=== PATIENT | female | born 1945 | race Caucasian/White ===

== ENCOUNTER 2017-07-03 12:01 | Inpatient (IN) | payer MEDICARE ==
[2017-07-03] MEDS: HYDROmorphone 2 MG/ML VIAL IV ×2 (12:34→13:37)
[2017-07-03] MEDS: IV NORMAL SALINE 1000ML BAG 1,000 ML IV ×3 (13:36→21:57)
[2017-07-03] MEDS ORDERED: ONDANSETRON PF 4 MG/2 ML VIAL. IV (13:45)
[2017-07-03] MEDS: ONDANSETRON PF 4 MG/2 ML VIAL. IV (14:31)
[2017-07-03] MEDS: MORPHINE SULFATE 2 MG/ML DISP.SYRIN. IV ×2 (14:38→21:57)
[2017-07-03 18:03] LABS: INR 1.2 (0.8-1.1); PARTIAL THROMBOPLASTIN TIME 24 SEC (24-38); PROTHROMBIN TIME PATIENT 14.4 SEC (11.7-14.0)
[2017-07-03] MEDS ORDERED: diazePAM 5 MG TABLET PO (19:15)
[2017-07-04] MEDS: CYCLOBENZAPRINE 10 MG TABLET. PO ×2 (00:54→23:11)
[2017-07-04] MEDS: MORPHINE SULFATE 2 MG/ML DISP.SYRIN. IV ×2 (01:01→03:08)
[2017-07-04 05:00] LABS: ADD MAN DIFF? NO
[2017-07-04] MEDS: HYDROmorphone 2 MG/ML VIAL IVP ×2 (05:12→13:57)
[2017-07-04] MEDS: IV NORMAL SALINE 1000ML BAG 1,000 ML IV (05:14)
[2017-07-04 05:24] LABS: BASO % 1 % (0-3); EOS # 0.1 x10^3/uL (0.0-0.7); EOS % 1 % (0-3); HEMATOCRIT 31.3 % (36.0-47.0); LYMPH # 0.7 x10^3/uL (1.0-4.8); LYMPH % 13 % (24-48); MEAN CORPUSCULAR HEMOGLOBIN 28 pg (25-35); MEAN CORPUSCULAR HGB CONC 32 g/dL (31-37); MEAN CORPUSCULAR VOLUME 88 fL (79-100); MONO # 0.5 x10^3/uL (0.0-1.1); MONO % 10 % (0-9); NEUT # 3.8 x10^3uL (1.8-7.7); NEUT % 76 % (31-73); PLATELET COUNT 142 x10^3/uL (140-400); RED BLOOD COUNT 3.55 x10^6/uL (3.50-5.40); RED CELL DISTRIBUTION WIDTH 21.9 % (11.5-14.5)
[2017-07-04 05:59] LABS: ANION GAP 7 (6-14); BLOOD UREA NITROGEN 18 mg/dL (7-20); CALCIUM 8.4 mg/dL (8.5-10.1); CARBON DIOXIDE 27 mmol/L (21-32); CHLORIDE 107 mmol/L (98-107); GFR 54.3; GLUCOSE 103 mg/dL (70-99); POTASSIUM 4.1 mmol/L (3.5-5.1); SODIUM 141 mmol/L (136-145)
[2017-07-04] MEDS: IV RINGERS,LACTATED 1000ML 1,000 ML IV (07:00)
[2017-07-04] MEDS ORDERED: HYDROmorphone 2 MG/ML VIAL IV (07:00)
[2017-07-04] MEDS ORDERED: LIDOCAINE 1% PF 2 ML VIAL. ID (07:00)
[2017-07-04] MEDS ORDERED: fentaNYL PF VIAL 100 MCG/2 ML VIAL IV ×2 (07:00)
[2017-07-04] MEDS ORDERED: MORPHINE SULFATE 2 MG/ML DISP.SYRIN. IV (07:00)
[2017-07-04] MEDS ORDERED: PROCHLORPERAZINE 10 MG/2 ML VIAL. IV (07:00)
[2017-07-04] MEDS ORDERED: NEOSTIGMINE METHYLSULFATE 5 MG/5 ML SYRINGE. (07:10)
[2017-07-04] MEDS ORDERED: fentaNYL PF VIAL 100 MCG/2 ML VIAL ×2 (07:10→09:11)
[2017-07-04] MEDS ORDERED: ROCURONIUM 50 MG/5 ML VIAL. (07:10)
[2017-07-04] MEDS ORDERED: MIDAZOLAM HCL/PF 2 MG/2 ML VIAL. (07:10)
[2017-07-04] MEDS ORDERED: PROPOFOL 20 ML IV (07:11)
[2017-07-04] MEDS ORDERED: DEXAMETHASONE SOD PHOS 20 MG/5 ML VIAL. (07:11)
[2017-07-04] MEDS ORDERED: GLYCOPYRROLATE 1 MG/5 ML VIAL. (07:11)
[2017-07-04] MEDS ORDERED: LIDOCAINE 2% PF Vial for OR 5 ML VIAL. (07:11)
[2017-07-04] MEDS ORDERED: ONDANSETRON PF 4 MG/2 ML VIAL. (07:11)
[2017-07-04] MEDS ORDERED: ceFAZolin SODIUM 1 GM in IV DEXTROSE 5% 50 ML IV (07:15)
[2017-07-04] MEDS ORDERED: PHENYLEPHRINE in 0.9% NACL PF 1 MG/10 ML SYRINGE. IV (07:29)
[2017-07-04] MEDS ORDERED: ALBUMIN HUMAN 5% 0 ML IV (08:16)
[2017-07-04] MEDS ORDERED: ALBUMIN HUMAN 5% 500 ML IV (08:16)
[2017-07-04] MEDS ORDERED: MORPHINE SULFATE 4 MG/ML DISP.SYRIN. IV (08:35)
[2017-07-04] MEDS ORDERED: VASOPRESSIN 20 UNIT/ML VIAL. (08:53)
[2017-07-04] MEDS: BUPIVACAINE-EPI 0.25%-1:200000 50 ML VIAL. (09:16)
[2017-07-04] MEDS ORDERED: SEVOFLURANE > 120 MINUTES. IH (09:29)
[2017-07-04 11:01] LABS: ADD MAN DIFF? NO
[2017-07-04 11:18] LABS: BASO % 0 % (0-3); EOS % 0 % (0-3); HEMATOCRIT 25.1 % (36.0-47.0); HEMOGLOBIN 8.2 g/dL (12.0-15.5); LYMPH # 0.3 x10^3/uL (1.0-4.8); LYMPH % 4 % (24-48); MEAN CORPUSCULAR HEMOGLOBIN 29 pg (25-35); MEAN CORPUSCULAR HGB CONC 33 g/dL (31-37); MEAN CORPUSCULAR VOLUME 89 fL (79-100); MONO # 0.3 x10^3/uL (0.0-1.1); MONO % 3 % (0-9); NEUT # 8.2 x10^3uL (1.8-7.7); NEUT % 93 % (31-73); PLATELET COUNT 123 x10^3/uL (140-400); RED BLOOD COUNT 2.81 x10^6/uL (3.50-5.40); RED CELL DISTRIBUTION WIDTH 20.8 % (11.5-14.5); WHITE BLOOD COUNT 8.8 x10^3/uL (4.0-11.0)
[2017-07-04 12:36] LABS: ANISOCYTOSIS PRESENT; PLT ESTIMATE ADEQUATE (ADEQUATE)
[2017-07-04 13:13] LABS: % BANDS 2 % (0-9); % LYMPHS 3 % (24-48); % MONOS 1 % (0-10); % SEGS 94 % (35-66)
[2017-07-04 13:14] LABS: ANISOCYTOSIS PRESENT; PLT ESTIMATE ADEQUATE (ADEQUATE)
[2017-07-04] MEDS: oxyCODONE/APAP 5/325 1 TAB TABLET PO ×2 (13:56→23:12)
[2017-07-04 21:13] LABS: MRSA BY PCR Negative (Negative)
[2017-07-05] MEDS: HYDROmorphone 2 MG/ML VIAL IVP ×2 (01:47→08:45)
[2017-07-05] MEDS: ERGOCALCIFEROL (VITAMIN D2) 50,000 UNIT CAPSULE. PO ×2 (08:44→09:00)
[2017-07-05] MEDS: oxyCODONE/APAP 5/325 1 TAB TABLET PO ×2 (08:45→14:54)
[2017-07-05] MEDS: CYCLOBENZAPRINE 10 MG TABLET. PO (09:59)
[2017-07-06] MEDS: oxyCODONE/APAP 5/325 1 TAB TABLET PO ×2 (03:10→13:42)
[2017-07-06] MEDS: IV NORMAL SALINE 1000ML BAG 1,000 ML IV ×3 (12:30→20:41)
[2017-07-06 13:28] LABS: BASO % 0 % (0-3); EOS # 0.2 x10^3/uL (0.0-0.7); EOS % 3 % (0-3); HEMATOCRIT 22.3 % (36.0-47.0); HEMOGLOBIN 7.3 g/dL (12.0-15.5); LYMPH # 0.3 x10^3/uL (1.0-4.8); LYMPH % 5 % (24-48); MEAN CORPUSCULAR HEMOGLOBIN 29 pg (25-35); MEAN CORPUSCULAR HGB CONC 33 g/dL (31-37); MEAN CORPUSCULAR VOLUME 88 fL (79-100); MONO # 0.4 x10^3/uL (0.0-1.1); MONO % 6 % (0-9); NEUT # 5.3 x10^3uL (1.8-7.7); NEUT % 85 % (31-73); PLATELET COUNT 129 x10^3/uL (140-400); RED BLOOD COUNT 2.53 x10^6/uL (3.50-5.40); RED CELL DISTRIBUTION WIDTH 20.8 % (11.5-14.5); WHITE BLOOD COUNT 6.2 x10^3/uL (4.0-11.0)
[2017-07-06 13:31] LABS: ADD MAN DIFF? YES
[2017-07-06 13:38] LABS: ANION GAP 9 (6-14); BLOOD UREA NITROGEN 12 mg/dL (7-20); CALCIUM 8.4 mg/dL (8.5-10.1); CARBON DIOXIDE 28 mmol/L (21-32); CHLORIDE 101 mmol/L (98-107); CREATININE 0.9 mg/dL (0.6-1.0); GFR 61.4; GLUCOSE 106 mg/dL (70-99); INR 1.3 (0.8-1.1); PARTIAL THROMBOPLASTIN TIME 27 SEC (24-38); POTASSIUM 3.9 mmol/L (3.5-5.1); PROTHROMBIN TIME PATIENT 15.2 SEC (11.7-14.0); SODIUM 138 mmol/L (136-145)
[2017-07-06 13:54] LABS: % BANDS 12 % (0-9); % EOS 1 % (0-5); % LYMPHS 3 % (24-48); % MONOS 6 % (0-10); % SEGS 78 % (35-66); PLT ESTIMATE ADEQUATE (ADEQUATE)
[2017-07-06 13:55] LABS: ANISOCYTOSIS MOD; HYPOCHROMIA SLIGHT; STOMATOCYTES FEW
[2017-07-06] MEDS: SENNOSIDES/DOCUSATE 8.6/50MG TABLET. PO (20:40)
[2017-07-07] MEDS: IV NORMAL SALINE 1000ML BAG 1,000 ML IV (04:14)
[2017-07-07] MEDS: oxyCODONE/APAP 5/325 1 TAB TABLET PO ×2 (05:31→19:57)
[2017-07-07 06:19] LABS: MEAN CORPUSCULAR HGB CONC 33 g/dL (31-37)
[2017-07-07 06:23] LABS: HEMATOCRIT 19.1 % (36.0-47.0); HEMOGLOBIN 6.4 g/dL (12.0-15.5)
[2017-07-07 09:48] LABS: IMMEDIATE SPIN CROSSMATCH 1 1
[2017-07-07] MEDS: SENNOSIDES/DOCUSATE 8.6/50MG TABLET. PO (19:56)
[2017-07-08 05:02] LABS: ADD MAN DIFF? NO
[2017-07-08 05:29] LABS: BASO % 0 % (0-3); EOS # 0.4 x10^3/uL (0.0-0.7); EOS % 12 % (0-3); LYMPH # 0.4 x10^3/uL (1.0-4.8); LYMPH % 14 % (24-48); MEAN CORPUSCULAR HEMOGLOBIN 30 pg (25-35); MEAN CORPUSCULAR HGB CONC 33 g/dL (31-37); MEAN CORPUSCULAR VOLUME 89 fL (79-100); MONO # 0.3 x10^3/uL (0.0-1.1); MONO % 9 % (0-9); NEUT % 64 % (31-73); PLATELET COUNT 169 x10^3/uL (140-400); RED BLOOD COUNT 2.71 x10^6/uL (3.50-5.40); RED CELL DISTRIBUTION WIDTH 18.2 % (11.5-14.5); WHITE BLOOD COUNT 3.1 x10^3/uL (4.0-11.0)
[2017-07-08 05:57] LABS: ANION GAP 9 (6-14); BLOOD UREA NITROGEN 12 mg/dL (7-20); CALCIUM 8.6 mg/dL (8.5-10.1); CARBON DIOXIDE 27 mmol/L (21-32); CHLORIDE 104 mmol/L (98-107); CREATININE 0.7 mg/dL (0.6-1.0); GLUCOSE 77 mg/dL (70-99); POTASSIUM 3.5 mmol/L (3.5-5.1); SODIUM 140 mmol/L (136-145)
[2017-07-08] MEDS: oxyCODONE/APAP 5/325 1 TAB TABLET PO ×3 (10:59→21:58)
[2017-07-08] MEDS: POTASSIUM CHLORIDE 20 MEQ TABLET.ER. PO (15:14)
[2017-07-08] MEDS: SENNOSIDES/DOCUSATE 8.6/50MG TABLET. PO (21:58)
[2017-07-09] MEDS: oxyCODONE/APAP 5/325 1 TAB TABLET PO (06:00)
[2017-07-09] MEDS ORDERED: BISACODYL 10 MG SUPP.RECT. PR (08:45)
[2017-07-09] MEDS ORDERED: MAGNESIUM HYDROXIDE 2,400 MG/30 ML ORAL.SUSP. PO (08:45)
[2017-07-09] MEDS: DOCUSATE SODIUM 100 MG CAPSULE. PO (09:00)
== END 2017-07-09 16:05 | DRG 480 ==
LOC: SURG 12:01 → 4 NORTH 13:34
PROVIDERS: Obstetrics & Gynecology
PROC: 0QS606Z Reposition Right Upper Femur with Intramedullary Internal Fixation Device, Open Approach (ICD-10-PCS; principal; 2017-07-04 07:23)
PROC: 30233N1 Transfusion of Nonautologous Red Blood Cells into Peripheral Vein, Percutaneous Approach (ICD-10-PCS; 2017-07-04 07:23)
DX: S72.451A Displaced supracondylar fracture without intracondylar extension of lower end of right femur, initial encounter for closed fracture (principal); J96.00 Acute respiratory failure, unspecified whether with hypoxia or hypercapnia; R71.0 Precipitous drop in hematocrit; C67.9 Malignant neoplasm of bladder, unspecified; E55.9 Vitamin D deficiency, unspecified; I95.1 Orthostatic hypotension; W00.0XXA Fall on same level due to ice and snow, initial encounter; K59.00 Constipation, unspecified; Z85.51 Personal history of malignant neoplasm of bladder; Z87.891 Personal history of nicotine dependence; Z88.1 Allergy status to other antibiotic agents; Z92.21 Personal history of antineoplastic chemotherapy; Z92.3 Personal history of irradiation; Z88.8 Allergy status to other drugs, medicaments and biological substances; Z90.49 Acquired absence of other specified parts of digestive tract; Z98.51 Tubal ligation status; Y93.89 Activity, other specified; Y92.89 Other specified places as the place of occurrence of the external cause; Y99.8 Other external cause status
CPT/HCPCS: 36415; 71045; 72170; 73552; 73560; 73700; 76000; 80048; 82306; 82533; 84443; 85007; 85014; 85018; 85025; 85610; 85730; 86850; 86900; 86901; 86920; 87641; 93005; 96374; 96375; 96376; 97110-GP; 97116-GP; 97162-GP; 97166-GO; 97530-GP; 97535-GO; 99285; 99285-25; C1713; J0690; J1100; J1170; J2250; J2270; J2370; J2405; J2704; J2710; J3010; J3490; J7030; J7120; P9016; P9045

== ENCOUNTER 2017-11-01 11:45 | Emergency (ER) | payer MEDICARE ==
[2017-11-01 12:28] LABS: BILIRUBIN,URINE NEGATIVE (NEG); CLARITY,URINE CLEAR; COLOR,URINE YELLOW; GLUCOSE,URINE NEGATIVE (NEG); NITRITE,URINE POSITIVE (NEG); PROTEIN,URINE NEGATIVE (NEG-TRACE); UROBILINOGEN,URINE 0.2 mg/dL (0.2 mg/dL)
[2017-11-01 12:43] LABS: BACTERIA,URINE 0 /HPF (0-FEW); RBC,URINE 0 /HPF (0-2); WBC,URINE RARE /HPF (0-4)
[2017-11-01] MEDS: CYCLOBENZAPRINE 10 MG TABLET. PO (12:54)
[2017-11-01] MEDS: HYDROcodone/APAP 5/325MG 1 TAB TABLET PO (12:55)
== END 2017-11-01 13:42 | disposition home or self-care (01) ==
LOC: ER 13:42
DX: N39.0 Urinary tract infection, site not specified (principal); Z85.51 Personal history of malignant neoplasm of bladder; Z85.42 Personal history of malignant neoplasm of other parts of uterus
CPT/HCPCS: 81001; 87086; 99284

== ENCOUNTER 2018-02-11 13:42 | Inpatient (IN) | payer MEDICARE ==
[~2018-02-11] VITALS: Ht 162.6 cm; Wt 68.0 kg
[~2018-02-11 13:42] MED LIST: ACET325T9 PO; AMOX1TAB61 PO; BP Med PO; CEPH500T PO; CYCL10TA2 PO; DOCU-109 PO; ERGO500027 PO; FURO-69 PO; HYDR-2678 PO; HYDR-2680 PO; HYDR-971 PO; INSU100C4 SQ; INSU100V8 SQ; Loperamide Hcl PO; MORP15TA80 PO; ONDA8TAB9 PO; OXYC1TAB7 PO; Oxycodone Hcl/Acetaminophen PO; Potassium PO; SENN-22 PO; [UNRECOGNIZED DRUG - REMARK]
--- NOTE | 2018-02-11 16:05 | EKG ---
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
[2018-02-11 16:17] LABS: BASO % 0 % (0-3); EOS # 0.1 x10^3/uL (0.0-0.7); EOS % 0 % (0-3); HEMATOCRIT 35.1 % (36.0-47.0); HEMOGLOBIN 11.2 g/dL (12.0-15.5); LYMPH # 0.5 x10^3/uL (1.0-4.8); LYMPH % 4 % (24-48); MEAN CORPUSCULAR HEMOGLOBIN 28 pg (25-35); MEAN CORPUSCULAR HGB CONC 32 g/dL (31-37); MEAN CORPUSCULAR VOLUME 89 fL (79-100); MONO # 0.5 x10^3/uL (0.0-1.1); MONO % 4 % (0-9); NEUT # 11.5 x10^3uL (1.8-7.7); NEUT % 92 % (31-73); PLATELET COUNT 598 x10^3/uL (140-400); RED BLOOD COUNT 3.93 x10^6/uL (3.50-5.40); RED CELL DISTRIBUTION WIDTH 20.2 % (11.5-14.5); WHITE BLOOD COUNT 12.5 x10^3/uL (4.0-11.0)
[2018-02-11 16:27] LABS: CREATININE 0.9 mg/dL (0.6-1.0); GFR 61.4; POTASSIUM 4.7 mmol/L (3.5-5.1)
[2018-02-11 16:34] LABS: TOTAL BILIRUBIN 0.4 mg/dL (0.2-1.0); TOTAL PROTEIN 8.3 g/dL (6.4-8.2)
[2018-02-11 16:36] LABS: % BANDS 14 % (0-9); % LYMPHS 7 % (24-48); % MONOS 3 % (0-10); % SEGS 76 % (35-66); PLT ESTIMATE INCREASED (ADEQUATE)
[2018-02-11 16:37] LABS: TOXIC GRANULATION PRESENT
[2018-02-11 16:38] LABS: ANISOCYTOSIS MOD
--- NOTE | 2018-02-11 16:39 | PHYS DOC ---
Past Medical History Past Medical History: Arthritis, Cancer, Other Additional Past Medical Histor: BLADDER AND UTERINE CA Past Surgical History: Tonsillectomy, Tubal ligation Additional Past Surgical Histo: CARLEY BLADDER, CYSTECTOMY,UROSTOMY Alcohol Use: Sober Drug Use: None Adult General Chief Complaint Chief Complaint: WEAKNESS/GENERALIZED HPI HPI Patient is a 72 year old [f__sex] who presents with [] Review of Systems Review of Systems Constitutional: Denies fever or chills [] Eyes: Denies change in visual acuity, redness, or eye pain [] HENT: Denies nasal congestion or sore throat [] Respiratory: Denies cough or shortness of breath [] Cardiovascular: No additional information not addressed in HPI [] GI: Denies abdominal pain, nausea, vomiting, bloody stools or diarrhea [] : Denies dysuria or hematuria [] Musculoskeletal: Denies back pain or joint pain [] Integument: Denies rash or skin lesions [] Neurologic: Denies headache, focal weakness or sensory changes [] Endocrine: Denies polyuria or polydipsia [] All other systems were reviewed and found to be within normal limits, except as documented in this note. Current Medications Current Medications Current Medications Medications (Trade) Dose Ordered Sig/Julisa Start Time Stop Time Status Last Admin Dose Admin Info (CONTRAST GIVEN -- Rx MONITORING) 1 each PRN DAILY PRN 02/11/18 16:45 02/13/18 16:44 Iohexol (Omnipaque 240 Mg/ml) 50 ml 1X ONCE 02/11/18 17:00 02/11/18 17:01 DC 02/11/18 17:00 50 ML Iohexol (Omnipaque 300 Mg/ml) 75 ml 1X ONCE 02/11/18 17:00 02/11/18 17:01 DC 02/11/18 17:00 75 ML Metronidazole 100 ml @ 100 mls/hr 1X ONCE 02/11/18 18:30 02/11/18 19:29 DC Sodium Chloride 1,000 ml @ 125 mls/hr Q8H 02/11/18 19:51 02/12/18 19:50 Allergies Allergies Allergies Coded Allergies Type Severity Reaction Last Updated Verified levofloxacin Allergy Intermediate 11/01/17 Yes Physical Exam Physical Exam Constitutional: Well developed, well nourished, no acute distress, non-toxic appearance. [] HENT: Normocephalic, atraumatic, bilateral external ears normal, oropharynx moist, no oral exudates, nose normal. [] Eyes: PERRLA, EOMI, conjunctiva normal, no discharge. [] Neck: Normal range of motion, no tenderness, supple, no stridor. [] Cardiovascular:Heart rate regular rhythm, no murmur [] Lungs & Thorax: Bilateral breath sounds clear to auscultation [] Abdomen: Bowel sounds normal, soft, no tenderness, no masses, no pulsatile masses. [] Skin: Warm, dry, no erythema, no rash. [] Back: No tenderness, no CVA tenderness. [] Extremities: No tenderness, no cyanosis, no clubbing, ROM intact, no edema. [] Neurologic: Alert and oriented X 3, normal motor function, normal sensory function, no focal deficits noted. [] Psychologic: Affect normal, judgement normal, mood normal. [] Current Patient Data Vital Signs Vital Signs Date Time Temp Pulse Resp B/P (MAP) Pulse Ox O2 Delivery O2 Flow Rate FiO2 02/11/18 18:54 86 20 98 02/11/18 15:50 98.0 126/58 (80) Room Air 98.0 Lab Values Laboratory Tests Test 02/11/18 16:05 02/11/18 16:32 02/11/18 18:25 02/11/18 19:19 White Blood Count 12.5 x10^3/uL (4.0-11.0) H Red Blood Count 3.93 x10^6/uL (3.50-5.40) Hemoglobin 11.2 g/dL (12.0-15.5) L Hematocrit 35.1 % (36.0-47.0) L Mean Corpuscular Volume 89 fL (79-100) Mean Corpuscular Hemoglobin 28 pg (25-35) Mean Corpuscular Hemoglobin Concent 32 g/dL (31-37) Red Cell Distribution Width 20.2 % (11.5-14.5) H Platelet Count 598 x10^3/uL (140-400) H Neutrophils (%) (Auto) 92 % (31-73) H Lymphocytes (%) (Auto) 4 % (24-48) L Monocytes (%) (Auto) 4 % (0-9) Eosinophils (%) (Auto) 0 % (0-3) Basophils (%) (Auto) 0 % (0-3) Neutrophils # (Auto) 11.5 x10^3uL (1.8-7.7) H Lymphocytes # (Auto) 0.5 x10^3/uL (1.0-4.8) L Monocytes # (Auto) 0.5 x10^3/uL (0.0-1.1) Eosinophils # (Auto) 0.1 x10^3/uL (0.0-0.7) Basophils # (Auto) 0.0 x10^3/uL (0.0-0.2) Segmented Neutrophils % 76 % (35-66) H Band Neutrophils % 14 % (0-9) H Lymphocytes % 7 % (24-48) L Monocytes % 3 % (0-10) Toxic Granulation Present Platelet Estimate Increased (ADEQUATE) Anisocytosis Mod Sodium Level 134 mmol/L (136-145) L Potassium Level 4.7 mmol/L (3.5-5.1) Chloride Level 95 mmol/L (98-107) L Carbon Dioxide Level 23 mmol/L (21-32) Anion Gap 16 (6-14) H Blood Urea Nitrogen 27 mg/dL (7-20) H Creatinine 0.9 mg/dL (0.6-1.0) Estimated GFR (Cockcroft-Gault) 61.4 BUN/Creatinine Ratio 30 (6-20) H Glucose Level 110 mg/dL (70-99) H Calcium Level 10.0 mg/dL (8.5-10.1) Total Bilirubin 0.4 mg/dL (0.2-1.0) Aspartate Amino Transferase (AST) 17 U/L (15-37) Alanine Aminotransferase (ALT) 12 U/L (14-59) L Alkaline Phosphatase 285 U/L (46-116) H Total Protein 8.3 g/dL (6.4-8.2) H Albumin 2.1 g/dL (3.4-5.0) L Albumin/Globulin Ratio 0.3 (1.0-1.7) L Stool Occult Blood Positive (NEG) Urine Collection Type Void Urine Color Yellow Urine Clarity Clear Urine pH 6.0 Urine Specific [place] >=1.030 Urine Protein Negative mg/dL (NEG-TRACE) Urine Glucose (UA) Negative mg/dL (NEG) Urine Ketones (Stick) 40 mg/dL (NEG) Urine Blood Small (NEG) Urine Nitrite Positive (NEG) Urine Bilirubin Negative (NEG) Urine Urobilinogen Dipstick 1.0 mg/dL (0.2 mg/dL) Urine Leukocyte Esterase Small (NEG) Urine RBC 1-2 /HPF (0-2) Urine WBC >40 /HPF (0-4) Urine Squamous Epithelial Cells Few /LPF Urine Bacteria Moderate /HPF (0-FEW) Urine Hyaline Casts Moderate /HPF Urine Mucus Slight /LPF Lactic Acid Level 1.4 mmol/L (0.4-2.0) Laboratory Tests 02/11/18 16:05 Laboratory Tests 02/11/18 16:05 EKG EKG 1601, SR no STEMI read by Dr. Singh[] Radiology/Procedures Radiology/Procedures 1633 rectal exam, no external or palpable intermal hemorrhoids, foul smelling, yellow, liquid stool present on exam. Georgina and Merly RNs at bedside for vocational evaluator. Course & Med Decision Making Course & Med Decision Making Pertinent Labs and Imaging studies reviewed. (See chart for details) [] Dragon Disclaimer Dragon Disclaimer This electronic medical record was generated, in whole or in part, using a voice recognition dictation system. Departure Departure Impression: Primary Impression: GI bleed Disposition: ADMITTED INPATIENT Admitting Physician: Xie. Francois Condition: STABLE Referrals: NO PCP (PCP) Problem Qualifiers Primary Impression: GI bleed GI bleed type/associated pathology: unspecified gastrointestinal hemorrhage type Qualified Codes: K92.2 - Gastrointestinal hemorrhage, unspecified VIKKI CASH APRN Feb 11, 2018 16:39
[2018-02-11] MEDS ORDERED: CONTRAST GIVEN. MC PRN (16:45)
[2018-02-11 16:48] LABS: FECAL OB PT POSITIVE (NEG)
[2018-02-11] MEDS ORDERED: IOHEXOL 240 MG/ML 50ML VIAL. PO ONE (17:00)
[2018-02-11] MEDS ORDERED: IOHEXOL 300 MG/ML 100ML VIAL. IV ONE (17:00)
[2018-02-11 17:05] LABS: ALBUMIN 2.1 g/dL (3.4-5.0); ALBUMIN/GLOBULIN RATIO 0.3 (1.0-1.7)
[2018-02-11] MEDS ORDERED: IV NORMAL SALINE 1000ML BAG 1,000 ML IV ONE (18:15)
[2018-02-11 18:38] LABS: BILIRUBIN,URINE NEGATIVE (NEG); CLARITY,URINE CLEAR; COLOR,URINE YELLOW; NITRITE,URINE POSITIVE (NEG); PROTEIN,URINE NEGATIVE (NEG-TRACE)
--- NOTE | 2018-02-11 18:53 | RAD ---
CT scan abdomen and pelvis with contrast 02/11/2018 CLINICAL HISTORY: Diarrhea with blood in stool. History of cervical carcinoma Colon after the oral and intravenous administration of contrast, contiguous, 5 mm axial sections were obtained through the abdomen and pelvis 75 cc of Omnipaque 300 were administered intravenously during this examination. One or more of the following individualized dose reduction techniques were utilized for this study: 1. Automated exposure control. 2. Adjustment of the mA and/or kV according to patient size. 3. Use of iterative reconstruction technique. FINDINGS: Comparison study is dated 12/25/2013. Images through the lung bases demonstrate minimal dependent subsegmental atelectasis bilaterally. The liver, spleen, pancreas, and left kidney are within normal limits. Atrophy of the right kidney is noted. Atherosclerotic calcification of the abdominal aorta and its branches is seen. Mild aneurysmal dilatation of infrarenal abdominal aorta is seen. This measures 3 cm in greatest transverse diameter. No extension to involve either common iliac artery is noted. The gallbladder is distended. No free fluid or free air is seen within the abdomen. The nephrostomy tubes seen on the previous examination have been removed. The patient is post placement of an ileal loop urinary diversion. There is no evidence of bowel obstruction. Images through the pelvis demonstrate multiple diverticula involving the sigmoid colon. No inflammatory changes are seen in the adjacent fat. No free fluid is noted. An irregular air-containing structure is seen within the lower pelvis in the expected location of the urinary bladder. Air extends from this area to involve pubic bones, right greater than left. This is in the area of the patient's mass seen on the previous CT scan. Increased soft tissue density surrounds this air-containing area. This measures 7.9 x 5.2 x 3.8 cm in AP, transverse and craniocaudal dimensions. This is presumably related to patient's known cancer. Bony destruction of the pubic bones is seen, right greater than left. Ill-defined pelvic lymphadenopathy is seen which is new since the previous examination. An intramedullary andrés is seen within the proximal right femur. Mild S-shaped curvature of the thoracolumbar spine is seen. Degenerative changes are seen involving the lower thoracic and throughout the lumbar spine and both hips. IMPRESSION: An irregular air-containing structure seen within the lower pelvis in the expected location the urinary bladder. This extends to involve the pubic bones. This is in the area the patient's mass seen on the previous CT scan. There is surrounding increased soft tissue density. This is presumably related to patient's known cancer. Bony destruction of the pubic bones is seen, right greater than left. Electronically signed by: Ancelmo Mac MD (02/11/2018 6:49 PM) [facility]
[2018-02-11 18:54] LABS: BACTERIA,URINE MODERATE /HPF (0-FEW); HYALINE CASTS, URINE MODERATE /HPF; SQUAMOUS EPITHELIAL CELL,UR FEW /LPF
[2018-02-11 18:55] LABS: WBC,URINE >40 /HPF (0-4)
[2018-02-11] MEDS ORDERED: ONDANSETRON PF 4 MG/2 ML VIAL. IV PRN (21:00)
[2018-02-11] MEDS ORDERED: DOCUSATE SODIUM 100 MG CAPSULE. PO PRN (21:00)
[2018-02-11 21:06] VITALS: BP 108/72
--- NOTE | 2018-02-11 21:18 | PDOC1 ---
History and Physical Date of Admission Date of Admission 02/11/18 Identification/Chief Complaint Chief Complaint weakness Source Source: Chart review, Patient History of Present Illness History of Present Illness 72yo F, coming for generalzied weakness x2 weeks. She has not been eating or drinking well in the past 2 weeks 2/2 low appetite. She noticed rectal blood clots last Sunday and Sunday, 3 times a day, but did not wanna come to hosp. and no PCP. SHe has had lower abd pain, no N/V. The BM has been ok in the past few days, but she felt the BM coming out of her vagina. fobt + in ER, HB 11.2. She has h/o uterus Ca 1.5 years ago, s/p RT, chemo and then sx with hysterctomy , also had bladder invasion and bladder was removed and now has ileal loop urinary diversion bag. Pt is supposed to fu with ONCO but not compliant. Abd ct : IMPRESSION: An irregular air-containing structure seen within the lower pelvis in the expected location the urinary bladder. This extends to involve the pubic bones. This is in the area the patient's mass seen on the previous CT scan. There is surrounding increased soft tissue density. This is presumably related to patient's known cancer. Bony destruction of the pubic bones is seen, right greater than left. Past Medical History Cardiovascular: No pertinent hx Pulmonary: No pertinent hx Hepatobiliary: No pertinent hx Infectious disease: Human papilloma virus Renal/: Acute renal failure Past Surgical History Past Surgical History: Hysterectomy Family History Family History: Hypertension Social History Smoke: Quit ALCOHOL: none Drugs: None Current Medications Current Medications Current Medications Medications (Trade) Dose Ordered Sig/Julisa Start Time Stop Time Status Last Admin Dose Admin Info (CONTRAST GIVEN -- Rx MONITORING) 1 each PRN DAILY PRN 02/11/18 16:45 02/13/18 16:44 Iohexol (Omnipaque 240 Mg/ml) 50 ml 1X ONCE 02/11/18 17:00 02/11/18 17:01 DC 02/11/18 17:00 50 ML Iohexol (Omnipaque 300 Mg/ml) 75 ml 1X ONCE 02/11/18 17:00 02/11/18 17:01 DC 02/11/18 17:00 75 ML Metronidazole 100 ml @ 100 mls/hr 1X ONCE 02/11/18 18:30 02/11/18 19:29 DC 02/11/18 18:30 100 MLS/HR Sodium Chloride 1,000 ml @ 125 mls/hr Q8H 02/11/18 19:51 02/12/18 19:50 Allergies Allergies Allergies Coded Allergies Type Severity Reaction Last Updated Verified levofloxacin Allergy Intermediate 11/01/17 Yes ROS Review of System CONSTITUTIONAL: No fever or chills EYES: No recent changes SKIN: No rash or itching CARDIOVASCULAR: No chest pain, syncope, palpitations, or edema RESPIRATORY: No SOB or cough GASTROINTESTINAL: No nausea, vomiting or abdominal pain NEUROLOGICAL: No headaches or weakness ENDOCRINE: No cold or heat intolerance GENITOURINARY: No urgency or frequency of urination MUSCULOSKELETAL: No back pain or joint pain LYMPHATICS: No enlarged lymph nodes PSYCHIATRIC: No anxiety or depression Physical Exam Physical Exam GEN.: No apparent distress. Alert and oriented. HEENT: Head is normocephalic, atraumatic NECK: Supple. LUNGS: Clear to auscultation. HEART: RRR, S1, S2 present. Peripheral pulses intact ABDOMEN: Soft, Positive bowel sounds. ileostomy for urine output. pubic area + tenderness. EXTREMITIES: Without any cyanosis. NEUROLOGIC: Normal speech, normal tone PSYCHIATRIC: Normal affect, normal mood. SKIN: No ulcerations Vitals Vitals Vital Signs Date Time Temp Pulse Resp B/P (MAP) Pulse Ox O2 Delivery O2 Flow Rate FiO2 02/11/18 18:54 86 20 98 02/11/18 15:50 98.0 126/58 (80) Room Air 98.0 Labs Labs Laboratory Tests Test 02/11/18 16:05 02/11/18 16:32 02/11/18 18:25 02/11/18 19:19 White Blood Count 12.5 x10^3/uL (4.0-11.0) Red Blood Count 3.93 x10^6/uL (3.50-5.40) Hemoglobin 11.2 g/dL (12.0-15.5) Hematocrit 35.1 % (36.0-47.0) Mean Corpuscular Volume 89 fL (79-100) Mean Corpuscular Hemoglobin 28 pg (25-35) Mean Corpuscular Hemoglobin Concent 32 g/dL (31-37) Red Cell Distribution Width 20.2 % (11.5-14.5) Platelet Count 598 x10^3/uL (140-400) Neutrophils (%) (Auto) 92 % (31-73) Lymphocytes (%) (Auto) 4 % (24-48) Monocytes (%) (Auto) 4 % (0-9) Eosinophils (%) (Auto) 0 % (0-3) Basophils (%) (Auto) 0 % (0-3) Neutrophils # (Auto) 11.5 x10^3uL (1.8-7.7) Lymphocytes # (Auto) 0.5 x10^3/uL (1.0-4.8) Monocytes # (Auto) 0.5 x10^3/uL (0.0-1.1) Eosinophils # (Auto) 0.1 x10^3/uL (0.0-0.7) Basophils # (Auto) 0.0 x10^3/uL (0.0-0.2) Segmented Neutrophils % 76 % (35-66) Band Neutrophils % 14 % (0-9) Lymphocytes % 7 % (24-48) Monocytes % 3 % (0-10) Toxic Granulation Present Platelet Estimate Increased (ADEQUATE) Anisocytosis Mod Sodium Level 134 mmol/L (136-145) Potassium Level 4.7 mmol/L (3.5-5.1) Chloride Level 95 mmol/L (98-107) Carbon Dioxide Level 23 mmol/L (21-32) Anion Gap 16 (6-14) Blood Urea Nitrogen 27 mg/dL (7-20) Creatinine 0.9 mg/dL (0.6-1.0) Estimated GFR (Cockcroft-Gault) 61.4 BUN/Creatinine Ratio 30 (6-20) Glucose Level 110 mg/dL (70-99) Calcium Level 10.0 mg/dL (8.5-10.1) Total Bilirubin 0.4 mg/dL (0.2-1.0) Aspartate Amino Transf (AST/SGOT) 17 U/L (15-37) Alanine Aminotransferase (ALT/SGPT) 12 U/L (14-59) Alkaline Phosphatase 285 U/L (46-116) Total Protein 8.3 g/dL (6.4-8.2) Albumin 2.1 g/dL (3.4-5.0) Albumin/Globulin Ratio 0.3 (1.0-1.7) Stool Occult Blood Positive (NEG) Urine Collection Type Void Urine Color Yellow Urine Clarity Clear Urine pH 6.0 Urine Specific [place] >=1.030 Urine Protein Negative mg/dL (NEG-TRACE) Urine Glucose (UA) Negative mg/dL (NEG) Urine Ketones (Stick) 40 mg/dL (NEG) Urine Blood Small (NEG) Urine Nitrite Positive (NEG) Urine Bilirubin Negative (NEG) Urine Urobilinogen Dipstick 1.0 mg/dL (0.2 mg/dL) Urine Leukocyte Esterase Small (NEG) Urine RBC 1-2 /HPF (0-2) Urine WBC >40 /HPF (0-4) Urine Squamous Epithelial Cells Few /LPF Urine Bacteria Moderate /HPF (0-FEW) Urine Hyaline Casts Moderate /HPF Urine Mucus Slight /LPF Lactic Acid Level 1.4 mmol/L (0.4-2.0) Laboratory Tests Test 02/11/18 16:05 02/11/18 16:32 02/11/18 18:25 02/11/18 19:19 White Blood Count 12.5 x10^3/uL (4.0-11.0) Red Blood Count 3.93 x10^6/uL (3.50-5.40) Hemoglobin 11.2 g/dL (12.0-15.5) Hematocrit 35.1 % (36.0-47.0) Mean Corpuscular Volume 89 fL (79-100) Mean Corpuscular Hemoglobin 28 pg (25-35) Mean Corpuscular Hemoglobin Concent 32 g/dL (31-37) Red Cell Distribution Width 20.2 % (11.5-14.5) Platelet Count 598 x10^3/uL (140-400) Neutrophils (%) (Auto) 92 % (31-73) Lymphocytes (%) (Auto) 4 % (24-48) Monocytes (%) (Auto) 4 % (0-9) Eosinophils (%) (Auto) 0 % (0-3) Basophils (%) (Auto) 0 % (0-3) Neutrophils # (Auto) 11.5 x10^3uL (1.8-7.7) Lymphocytes # (Auto) 0.5 x10^3/uL (1.0-4.8) Monocytes # (Auto) 0.5 x10^3/uL (0.0-1.1) Eosinophils # (Auto) 0.1 x10^3/uL (0.0-0.7) Basophils # (Auto) 0.0 x10^3/uL (0.0-0.2) Segmented Neutrophils % 76 % (35-66) Band Neutrophils % 14 % (0-9) Lymphocytes % 7 % (24-48) Monocytes % 3 % (0-10) Toxic Granulation Present Platelet Estimate Increased (ADEQUATE) Anisocytosis Mod Sodium Level 134 mmol/L (136-145) Potassium Level 4.7 mmol/L (3.5-5.1) Chloride Level 95 mmol/L (98-107) Carbon Dioxide Level 23 mmol/L (21-32) Anion Gap 16 (6-14) Blood Urea Nitrogen 27 mg/dL (7-20) Creatinine 0.9 mg/dL (0.6-1.0) Estimated GFR (Cockcroft-Gault) 61.4 BUN/Creatinine Ratio 30 (6-20) Glucose Level 110 mg/dL (70-99) Calcium Level 10.0 mg/dL (8.5-10.1) Total Bilirubin 0.4 mg/dL (0.2-1.0) Aspartate Amino Transf (AST/SGOT) 17 U/L (15-37) Alanine Aminotransferase (ALT/SGPT) 12 U/L (14-59) Alkaline Phosphatase 285 U/L (46-116) Total Protein 8.3 g/dL (6.4-8.2) Albumin 2.1 g/dL (3.4-5.0) Albumin/Globulin Ratio 0.3 (1.0-1.7) Stool Occult Blood Positive (NEG) Urine Collection Type Void Urine Color Yellow Urine Clarity Clear Urine pH 6.0 Urine Specific [place] >=1.030 Urine Protein Negative mg/dL (NEG-TRACE) Urine Glucose (UA) Negative mg/dL (NEG) Urine Ketones (Stick) 40 mg/dL (NEG) Urine Blood Small (NEG) Urine Nitrite Positive (NEG) Urine Bilirubin Negative (NEG) Urine Urobilinogen Dipstick 1.0 mg/dL (0.2 mg/dL) Urine Leukocyte Esterase Small (NEG) Urine RBC 1-2 /HPF (0-2) Urine WBC >40 /HPF (0-4) Urine Squamous Epithelial Cells Few /LPF Urine Bacteria Moderate /HPF (0-FEW) Urine Hyaline Casts Moderate /HPF Urine Mucus Slight /LPF Lactic Acid Level 1.4 mmol/L (0.4-2.0) VTE Prophylaxis Ordered VTE Prophylaxis Devices: Yes VTE Pharmacological Prophylaxi: No Assessment/Plan Assessment/Plan generalized weakness h/o uterine Ca post hysterectomy, cystectomy with ileal loop urinary diversion bag rectal bleeding, hb stable abd pain 2/2 possible recurrent Ca with bone mets lower back pain with sciatica moderate malnutrition leukocytosis plan: OB, onco, GI consult bone scan need verify home meds IVF in ER fobt + PTOT MARIANGEL WHALEY MD Feb 11, 2018 21:18
[2018-02-11] MEDS: IV NORMAL SALINE 1000ML BAG 1,000 ML IV SCH (21:24)
[2018-02-11] MEDS: MORPHINE SULFATE 2 MG/ML VIAL. IV PRN (21:34)
[2018-02-11 23:01] VITALS: BP 118/69
[2018-02-12 03:03] VITALS: BP 98/63
[2018-02-12] MEDS: IV NORMAL SALINE 1000ML BAG 1,000 ML IV SCH ×3 (04:16→21:23)
[2018-02-12] MEDS: MORPHINE SULFATE 2 MG/ML VIAL. IV PRN ×2 (04:16→11:49)
[2018-02-12 06:22] LABS: CALCIUM 8.6 mg/dL (8.5-10.1); CREATININE 0.8 mg/dL (0.6-1.0); GFR 70.3; POTASSIUM 4.1 mmol/L (3.5-5.1)
[2018-02-12 06:58] LABS: BASO % 0 % (0-3); EOS # 0.1 x10^3/uL (0.0-0.7); EOS % 1 % (0-3); HEMATOCRIT 27.9 % (36.0-47.0); LYMPH # 0.6 x10^3/uL (1.0-4.8); LYMPH % 6 % (24-48); MEAN CORPUSCULAR HEMOGLOBIN 29 pg (25-35); MEAN CORPUSCULAR HGB CONC 32 g/dL (31-37); MEAN CORPUSCULAR VOLUME 89 fL (79-100); MONO # 0.7 x10^3/uL (0.0-1.1); MONO % 8 % (0-9); NEUT # 8.2 x10^3uL (1.8-7.7); NEUT % 85 % (31-73); PLATELET COUNT 446 x10^3/uL (140-400); RED BLOOD COUNT 3.15 x10^6/uL (3.50-5.40); RED CELL DISTRIBUTION WIDTH 20.2 % (11.5-14.5); WHITE BLOOD COUNT 9.6 x10^3/uL (4.0-11.0)
[2018-02-12 07:00] VITALS: BP 111/68
--- NOTE | 2018-02-12 09:52 | PDOC2 ---
GI CONSULT Reason For Consult: GI Bleed HPI: HPI: 72 y/o female w/ h/o cervical cancer extending into vagina, bladder, and urethra who is s/p chemo, radiation, hysterectomy, and ileal loop urinary diversion. Has been feeling ill for a couple weeks w/ weakness and decreased appetite. On Jan.29, passed a lot of blood clots (says dripping out on her way to the restroom and she had to go back and pick them up to flush them). Then bleeding stopped but recurred to a lesser extent several days ago. Sometimes associated w/ stool, sometimes not - but she thinks stool might be coming from vagina. Her daughter Korin says the pt c/o mid abdominal pain once but is currently w/o abd pain; however, has had some left hip and sciatica-type pain (taking acetaminophen). No n/v, reflux/heartburn, or dysphagia - just "doesn't feel like eating." Estimates 10-15 pound weight loss. Typical bowel pattern is "back and forth" from firmer to looser stools - no change in this. Denies melena. For GI bleeding, she had EGD and colonoscopy @ [facility] a year or a year and a half ago. Does not recall ulcers or diverticulosis, but thinks maybe had some polyps and little hemorrhoids. She was advised not to take ibuprofen or ASA and also told she should never had a colonoscopy again because her "intestines are too fragile." Her daughter mentions the possibility of a bowel resection after radiation around the time of urostomy placement. No GB, liver, or pancreas history. Hgb 11.2 to 9, BUN 27, fecal occult positive. Stool culture pending. Plans for bone scan. 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 Per RN, red blood w/ a little stool this morning. PMH: PMH: cervical cancer s/p hysterectomy, chemo and radiation, tubal ligation, right femur fracture/nailing Social History: Smoke: Quit ALCOHOL: other (sober x 20 years) Drugs: None ROS: GEN: +fatigue HEENT: Denies blurred vision, sore throat CV: Denies chest pain RESP: Denies shortness of air, cough GI: Per HPI : Denies hematuria, dysuria ENDO: +weight loss NEURO: Denies confusion, dizziness MSK: +weakness SKIN: Denies jaundice, pruritus Vitals: Vitals: Vital Signs Date Time Temp Pulse Resp B/P (MAP) Pulse Ox O2 Delivery O2 Flow Rate FiO2 02/12/18 07:00 98.6 86 18 111/68 (82) 93 Room Air 98.6 Labs: Labs: Laboratory Tests Test 02/11/18 16:05 02/11/18 16:32 02/11/18 18:25 02/11/18 19:19 White Blood Count 12.5 x10^3/uL (4.0-11.0) Red Blood Count 3.93 x10^6/uL (3.50-5.40) Hemoglobin 11.2 g/dL (12.0-15.5) Hematocrit 35.1 % (36.0-47.0) Mean Corpuscular Volume 89 fL (79-100) Mean Corpuscular Hemoglobin 28 pg (25-35) Mean Corpuscular Hemoglobin Concent 32 g/dL (31-37) Red Cell Distribution Width 20.2 % (11.5-14.5) Platelet Count 598 x10^3/uL (140-400) Neutrophils (%) (Auto) 92 % (31-73) Lymphocytes (%) (Auto) 4 % (24-48) Monocytes (%) (Auto) 4 % (0-9) Eosinophils (%) (Auto) 0 % (0-3) Basophils (%) (Auto) 0 % (0-3) Neutrophils # (Auto) 11.5 x10^3uL (1.8-7.7) Lymphocytes # (Auto) 0.5 x10^3/uL (1.0-4.8) Monocytes # (Auto) 0.5 x10^3/uL (0.0-1.1) Eosinophils # (Auto) 0.1 x10^3/uL (0.0-0.7) Basophils # (Auto) 0.0 x10^3/uL (0.0-0.2) Segmented Neutrophils % 76 % (35-66) Band Neutrophils % 14 % (0-9) Lymphocytes % 7 % (24-48) Monocytes % 3 % (0-10) Toxic Granulation Present Platelet Estimate Increased (ADEQUATE) Anisocytosis Mod Sodium Level 134 mmol/L (136-145) Potassium Level 4.7 mmol/L (3.5-5.1) Chloride Level 95 mmol/L (98-107) Carbon Dioxide Level 23 mmol/L (21-32) Anion Gap 16 (6-14) Blood Urea Nitrogen 27 mg/dL (7-20) Creatinine 0.9 mg/dL (0.6-1.0) Estimated GFR (Cockcroft-Gault) 61.4 BUN/Creatinine Ratio 30 (6-20) Glucose Level 110 mg/dL (70-99) Calcium Level 10.0 mg/dL (8.5-10.1) Total Bilirubin 0.4 mg/dL (0.2-1.0) Aspartate Amino Transf (AST/SGOT) 17 U/L (15-37) Alanine Aminotransferase (ALT/SGPT) 12 U/L (14-59) Alkaline Phosphatase 285 U/L (46-116) Total Protein 8.3 g/dL (6.4-8.2) Albumin 2.1 g/dL (3.4-5.0) Albumin/Globulin Ratio 0.3 (1.0-1.7) Stool Occult Blood Positive (NEG) Urine Collection Type Void Urine Color Yellow Urine Clarity Clear Urine pH 6.0 Urine Specific [place] >=1.030 Urine Protein Negative mg/dL (NEG-TRACE) Urine Glucose (UA) Negative mg/dL (NEG) Urine Ketones (Stick) 40 mg/dL (NEG) Urine Blood Small (NEG) Urine Nitrite Positive (NEG) Urine Bilirubin Negative (NEG) Urine Urobilinogen Dipstick 1.0 mg/dL (0.2 mg/dL) Urine Leukocyte Esterase Small (NEG) Urine RBC 1-2 /HPF (0-2) Urine WBC >40 /HPF (0-4) Urine Squamous Epithelial Cells Few /LPF Urine Bacteria Moderate /HPF (0-FEW) Urine Hyaline Casts Moderate /HPF Urine Mucus Slight /LPF Lactic Acid Level 1.4 mmol/L (0.4-2.0) Test 02/12/18 05:50 White Blood Count 9.6 x10^3/uL (4.0-11.0) Red Blood Count 3.15 x10^6/uL (3.50-5.40) Hemoglobin 9.0 g/dL (12.0-15.5) Hematocrit 27.9 % (36.0-47.0) Mean Corpuscular Volume 89 fL (79-100) Mean Corpuscular Hemoglobin 29 pg (25-35) Mean Corpuscular Hemoglobin Concent 32 g/dL (31-37) Red Cell Distribution Width 20.2 % (11.5-14.5) Platelet Count 446 x10^3/uL (140-400) Neutrophils (%) (Auto) 85 % (31-73) Lymphocytes (%) (Auto) 6 % (24-48) Monocytes (%) (Auto) 8 % (0-9) Eosinophils (%) (Auto) 1 % (0-3) Basophils (%) (Auto) 0 % (0-3) Neutrophils # (Auto) 8.2 x10^3uL (1.8-7.7) Lymphocytes # (Auto) 0.6 x10^3/uL (1.0-4.8) Monocytes # (Auto) 0.7 x10^3/uL (0.0-1.1) Eosinophils # (Auto) 0.1 x10^3/uL (0.0-0.7) Basophils # (Auto) 0.0 x10^3/uL (0.0-0.2) Sodium Level 136 mmol/L (136-145) Potassium Level 4.1 mmol/L (3.5-5.1) Chloride Level 100 mmol/L (98-107) Carbon Dioxide Level 23 mmol/L (21-32) Anion Gap 13 (6-14) Blood Urea Nitrogen 20 mg/dL (7-20) Creatinine 0.8 mg/dL (0.6-1.0) Estimated GFR (Cockcroft-Gault) 70.3 Glucose Level 80 mg/dL (70-99) Calcium Level 8.6 mg/dL (8.5-10.1) Allergies: Coded Allergies: levofloxacin (Verified Allergy, Intermediate, 11/01/17) Medications: Current Medications Medications (Trade) Dose Ordered Sig/Julisa Route PRN Reason Start Time Stop Time Status Last Admin Dose Admin Iohexol (Omnipaque 300 Mg/ml) 75 ml 1X ONCE IV 02/11/18 17:00 02/11/18 17:01 DC 02/11/18 17:00 Iohexol (Omnipaque 240 Mg/ml) 50 ml 1X ONCE PO 02/11/18 17:00 02/11/18 17:01 DC 02/11/18 17:00 Sodium Chloride 1,000 ml @ 1,000 mls/hr 1X ONCE IV 02/11/18 18:15 02/11/18 19:14 DC 02/11/18 19:15 Metronidazole 100 ml @ 100 mls/hr 1X ONCE IV 02/11/18 18:30 02/11/18 19:29 DC 02/11/18 18:30 Sodium Chloride 1,000 ml @ 125 mls/hr Q8H IV 02/11/18 19:51 02/12/18 19:50 02/12/18 04:16 Morphine Sulfate (Morphine Sulfate) 2 mg PRN Q2HR PRN IV MODERATE TO SEVERE PAIN 02/11/18 21:00 02/12/18 04:16 Imaging: Imaging: CT A/P IMPRESSION: An irregular air-containing structure seen within the lower pelvis in the expected location the urinary bladder. This extends to involve the pubic bones. This is in the area the patient's mass seen on the previous CT scan. There is surrounding increased soft tissue density. This is presumably related to patient's known cancer. Bony destruction of the pubic bones is seen, right greater than left. PE: GEN: NAD HEENT: Atraumatic, PERRL LUNGS: CTAB HEART: RRR ABD: NABS, S/ND, suprapubic discomfort, urostomy EXTREMITY: No edema SKIN: No rashes, no jaundice NEURO/PSYCH: A & O 3 A/P: A/P: Weakness, decreased appetite/weight loss, rectal bleeding H/o cervical cancer s/p chemo/rad, hysterectomy, urostomy H/o GI bleeding - reportedly last year at [facility], had EGD and colonoscopy Anemia - stable by comparison -- Will ask for records of EGD and colonoscopy from , await pending imaging and consults. She really wants ice chips - okay per GI. SYL ZAVALETA Feb 12, 2018 09:52
[2018-02-12] MEDS ORDERED: VANCOMYCIN 1 GM in IV NORMAL SALINE 250ML 250 ML IV ONE (10:00)
--- NOTE | 2018-02-12 10:27 | PDOC ---
PROGRESS NOTES History of Present Illness History of Present Illness rectal bleeding last Sunday and Sunday, 3 times a day, SHe has had lower abd pain, no N/V. in ER, HB 11.2. She has h/o uterus Ca 1.5 years ago, s/p RT, chemo and then sx with hysterctomy , also had bladder invasion and bladder was removed and now has ileal loop urinary diversion bag. 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 This extends to involve the pubic bones. This is in the area the patient's mass seen on the previous CT scan. There is surrounding increased soft tissue density. This is presumably related to patient's known cancer. Bony destruction of the pubic bones is seen, right greater than left. Past Medical History Cardiovascular: No pertinent hx Pulmonary: No pertinent hx Hepatobiliary: No pertinent hx Infectious disease: Human papilloma virus Renal/: Acute renal failure Past Surgical History Past Surgical History: Hysterectomy Family History Family History: Hypertension Social History Smoke: Quit ALCOHOL: none Drugs: None Vitals Vitals Vital Signs Date Time Temp Pulse Resp B/P (MAP) Pulse Ox O2 Delivery O2 Flow Rate FiO2 02/12/18 08:00 Room Air 02/12/18 07:00 98.6 86 18 111/68 (82) 93 98.6 Physical Exam Physical Exam Physical Exam Physical Exam GEN.: No apparent distress. Alert and oriented. HEENT: Head is normocephalic, atraumatic NECK: Supple. LUNGS: Clear to auscultation. HEART: RRR, S1, S2 present. Peripheral pulses intact ABDOMEN: Soft, Positive bowel sounds. ileostomy for urine output. pubic area + tenderness. EXTREMITIES: Without any cyanosis. NEUROLOGIC: Normal speech, normal tone PSYCHIATRIC: Normal affect, normal mood. SKIN: No ulcerations General: Alert, Oriented X3, Cooperative Heart: Regular rate Lungs: Clear Extremities: No clubbing, No cyanosis Labs LABS Laboratory Tests Test 02/11/18 16:05 02/11/18 16:32 02/11/18 18:25 02/11/18 19:19 White Blood Count 12.5 x10^3/uL (4.0-11.0) Red Blood Count 3.93 x10^6/uL (3.50-5.40) Hemoglobin 11.2 g/dL (12.0-15.5) Hematocrit 35.1 % (36.0-47.0) Mean Corpuscular Volume 89 fL (79-100) Mean Corpuscular Hemoglobin 28 pg (25-35) Mean Corpuscular Hemoglobin Concent 32 g/dL (31-37) Red Cell Distribution Width 20.2 % (11.5-14.5) Platelet Count 598 x10^3/uL (140-400) Neutrophils (%) (Auto) 92 % (31-73) Lymphocytes (%) (Auto) 4 % (24-48) Monocytes (%) (Auto) 4 % (0-9) Eosinophils (%) (Auto) 0 % (0-3) Basophils (%) (Auto) 0 % (0-3) Neutrophils # (Auto) 11.5 x10^3uL (1.8-7.7) Lymphocytes # (Auto) 0.5 x10^3/uL (1.0-4.8) Monocytes # (Auto) 0.5 x10^3/uL (0.0-1.1) Eosinophils # (Auto) 0.1 x10^3/uL (0.0-0.7) Basophils # (Auto) 0.0 x10^3/uL (0.0-0.2) Segmented Neutrophils % 76 % (35-66) Band Neutrophils % 14 % (0-9) Lymphocytes % 7 % (24-48) Monocytes % 3 % (0-10) Toxic Granulation Present Platelet Estimate Increased (ADEQUATE) Anisocytosis Mod Sodium Level 134 mmol/L (136-145) Potassium Level 4.7 mmol/L (3.5-5.1) Chloride Level 95 mmol/L (98-107) Carbon Dioxide Level 23 mmol/L (21-32) Anion Gap 16 (6-14) Blood Urea Nitrogen 27 mg/dL (7-20) Creatinine 0.9 mg/dL (0.6-1.0) Estimated GFR (Cockcroft-Gault) 61.4 BUN/Creatinine Ratio 30 (6-20) Glucose Level 110 mg/dL (70-99) Calcium Level 10.0 mg/dL (8.5-10.1) Total Bilirubin 0.4 mg/dL (0.2-1.0) Aspartate Amino Transf (AST/SGOT) 17 U/L (15-37) Alanine Aminotransferase (ALT/SGPT) 12 U/L (14-59) Alkaline Phosphatase 285 U/L (46-116) Total Protein 8.3 g/dL (6.4-8.2) Albumin 2.1 g/dL (3.4-5.0) Albumin/Globulin Ratio 0.3 (1.0-1.7) Stool Occult Blood Positive (NEG) Urine Collection Type Void Urine Color Yellow Urine Clarity Clear Urine pH 6.0 Urine Specific [place] >=1.030 Urine Protein Negative mg/dL (NEG-TRACE) Urine Glucose (UA) Negative mg/dL (NEG) Urine Ketones (Stick) 40 mg/dL (NEG) Urine Blood Small (NEG) Urine Nitrite Positive (NEG) Urine Bilirubin Negative (NEG) Urine Urobilinogen Dipstick 1.0 mg/dL (0.2 mg/dL) Urine Leukocyte Esterase Small (NEG) Urine RBC 1-2 /HPF (0-2) Urine WBC >40 /HPF (0-4) Urine Squamous Epithelial Cells Few /LPF Urine Bacteria Moderate /HPF (0-FEW) Urine Hyaline Casts Moderate /HPF Urine Mucus Slight /LPF Lactic Acid Level 1.4 mmol/L (0.4-2.0) Test 02/12/18 05:50 White Blood Count 9.6 x10^3/uL (4.0-11.0) Red Blood Count 3.15 x10^6/uL (3.50-5.40) Hemoglobin 9.0 g/dL (12.0-15.5) Hematocrit 27.9 % (36.0-47.0) Mean Corpuscular Volume 89 fL (79-100) Mean Corpuscular Hemoglobin 29 pg (25-35) Mean Corpuscular Hemoglobin Concent 32 g/dL (31-37) Red Cell Distribution Width 20.2 % (11.5-14.5) Platelet Count 446 x10^3/uL (140-400) Neutrophils (%) (Auto) 85 % (31-73) Lymphocytes (%) (Auto) 6 % (24-48) Monocytes (%) (Auto) 8 % (0-9) Eosinophils (%) (Auto) 1 % (0-3) Basophils (%) (Auto) 0 % (0-3) Neutrophils # (Auto) 8.2 x10^3uL (1.8-7.7) Lymphocytes # (Auto) 0.6 x10^3/uL (1.0-4.8) Monocytes # (Auto) 0.7 x10^3/uL (0.0-1.1) Eosinophils # (Auto) 0.1 x10^3/uL (0.0-0.7) Basophils # (Auto) 0.0 x10^3/uL (0.0-0.2) Sodium Level 136 mmol/L (136-145) Potassium Level 4.1 mmol/L (3.5-5.1) Chloride Level 100 mmol/L (98-107) Carbon Dioxide Level 23 mmol/L (21-32) Anion Gap 13 (6-14) Blood Urea Nitrogen 20 mg/dL (7-20) Creatinine 0.8 mg/dL (0.6-1.0) Estimated GFR (Cockcroft-Gault) 70.3 Glucose Level 80 mg/dL (70-99) Calcium Level 8.6 mg/dL (8.5-10.1) Comment Review of Relevant I have reviewed the following items marisol (where applicable) has been applied. Labs Laboratory Tests Test 02/11/18 16:05 02/11/18 16:32 02/11/18 18:25 02/11/18 19:19 White Blood Count 12.5 x10^3/uL (4.0-11.0) Red Blood Count 3.93 x10^6/uL (3.50-5.40) Hemoglobin 11.2 g/dL (12.0-15.5) Hematocrit 35.1 % (36.0-47.0) Mean Corpuscular Volume 89 fL (79-100) Mean Corpuscular Hemoglobin 28 pg (25-35) Mean Corpuscular Hemoglobin Concent 32 g/dL (31-37) Red Cell Distribution Width 20.2 % (11.5-14.5) Platelet Count 598 x10^3/uL (140-400) Neutrophils (%) (Auto) 92 % (31-73) Lymphocytes (%) (Auto) 4 % (24-48) Monocytes (%) (Auto) 4 % (0-9) Eosinophils (%) (Auto) 0 % (0-3) Basophils (%) (Auto) 0 % (0-3) Neutrophils # (Auto) 11.5 x10^3uL (1.8-7.7) Lymphocytes # (Auto) 0.5 x10^3/uL (1.0-4.8) Monocytes # (Auto) 0.5 x10^3/uL (0.0-1.1) Eosinophils # (Auto) 0.1 x10^3/uL (0.0-0.7) Basophils # (Auto) 0.0 x10^3/uL (0.0-0.2) Segmented Neutrophils % 76 % (35-66) Band Neutrophils % 14 % (0-9) Lymphocytes % 7 % (24-48) Monocytes % 3 % (0-10) Toxic Granulation Present Platelet Estimate Increased (ADEQUATE) Anisocytosis Mod Sodium Level 134 mmol/L (136-145) Potassium Level 4.7 mmol/L (3.5-5.1) Chloride Level 95 mmol/L (98-107) Carbon Dioxide Level 23 mmol/L (21-32) Anion Gap 16 (6-14) Blood Urea Nitrogen 27 mg/dL (7-20) Creatinine 0.9 mg/dL (0.6-1.0) Estimated GFR (Cockcroft-Gault) 61.4 BUN/Creatinine Ratio 30 (6-20) Glucose Level 110 mg/dL (70-99) Calcium Level 10.0 mg/dL (8.5-10.1) Total Bilirubin 0.4 mg/dL (0.2-1.0) Aspartate Amino Transf (AST/SGOT) 17 U/L (15-37) Alanine Aminotransferase (ALT/SGPT) 12 U/L (14-59) Alkaline Phosphatase 285 U/L (46-116) Total Protein 8.3 g/dL (6.4-8.2) Albumin 2.1 g/dL (3.4-5.0) Albumin/Globulin Ratio 0.3 (1.0-1.7) Stool Occult Blood Positive (NEG) Urine Collection Type Void Urine Color Yellow Urine Clarity Clear Urine pH 6.0 Urine Specific [place] >=1.030 Urine Protein Negative mg/dL (NEG-TRACE) Urine Glucose (UA) Negative mg/dL (NEG) Urine Ketones (Stick) 40 mg/dL (NEG) Urine Blood Small (NEG) Urine Nitrite Positive (NEG) Urine Bilirubin Negative (NEG) Urine Urobilinogen Dipstick 1.0 mg/dL (0.2 mg/dL) Urine Leukocyte Esterase Small (NEG) Urine RBC 1-2 /HPF (0-2) Urine WBC >40 /HPF (0-4) Urine Squamous Epithelial Cells Few /LPF Urine Bacteria Moderate /HPF (0-FEW) Urine Hyaline Casts Moderate /HPF Urine Mucus Slight /LPF Lactic Acid Level 1.4 mmol/L (0.4-2.0) Test 02/12/18 05:50 White Blood Count 9.6 x10^3/uL (4.0-11.0) Red Blood Count 3.15 x10^6/uL (3.50-5.40) Hemoglobin 9.0 g/dL (12.0-15.5) Hematocrit 27.9 % (36.0-47.0) Mean Corpuscular Volume 89 fL (79-100) Mean Corpuscular Hemoglobin 29 pg (25-35) Mean Corpuscular Hemoglobin Concent 32 g/dL (31-37) Red Cell Distribution Width 20.2 % (11.5-14.5) Platelet Count 446 x10^3/uL (140-400) Neutrophils (%) (Auto) 85 % (31-73) Lymphocytes (%) (Auto) 6 % (24-48) Monocytes (%) (Auto) 8 % (0-9) Eosinophils (%) (Auto) 1 % (0-3) Basophils (%) (Auto) 0 % (0-3) Neutrophils # (Auto) 8.2 x10^3uL (1.8-7.7) Lymphocytes # (Auto) 0.6 x10^3/uL (1.0-4.8) Monocytes # (Auto) 0.7 x10^3/uL (0.0-1.1) Eosinophils # (Auto) 0.1 x10^3/uL (0.0-0.7) Basophils # (Auto) 0.0 x10^3/uL (0.0-0.2) Sodium Level 136 mmol/L (136-145) Potassium Level 4.1 mmol/L (3.5-5.1) Chloride Level 100 mmol/L (98-107) Carbon Dioxide Level 23 mmol/L (21-32) Anion Gap 13 (6-14) Blood Urea Nitrogen 20 mg/dL (7-20) Creatinine 0.8 mg/dL (0.6-1.0) Estimated GFR (Cockcroft-Gault) 70.3 Glucose Level 80 mg/dL (70-99) Calcium Level 8.6 mg/dL (8.5-10.1) Laboratory Tests Test 02/11/18 16:05 02/11/18 16:32 02/11/18 18:25 02/11/18 19:19 White Blood Count 12.5 x10^3/uL (4.0-11.0) Red Blood Count 3.93 x10^6/uL (3.50-5.40) Hemoglobin 11.2 g/dL (12.0-15.5) Hematocrit 35.1 % (36.0-47.0) Mean Corpuscular Volume 89 fL (79-100) Mean Corpuscular Hemoglobin 28 pg (25-35) Mean Corpuscular Hemoglobin Concent 32 g/dL (31-37) Red Cell Distribution Width 20.2 % (11.5-14.5) Platelet Count 598 x10^3/uL (140-400) Neutrophils (%) (Auto) 92 % (31-73) Lymphocytes (%) (Auto) 4 % (24-48) Monocytes (%) (Auto) 4 % (0-9) Eosinophils (%) (Auto) 0 % (0-3) Basophils (%) (Auto) 0 % (0-3) Neutrophils # (Auto) 11.5 x10^3uL (1.8-7.7) Lymphocytes # (Auto) 0.5 x10^3/uL (1.0-4.8) Monocytes # (Auto) 0.5 x10^3/uL (0.0-1.1) Eosinophils # (Auto) 0.1 x10^3/uL (0.0-0.7) Basophils # (Auto) 0.0 x10^3/uL (0.0-0.2) Segmented Neutrophils % 76 % (35-66) Band Neutrophils % 14 % (0-9) Lymphocytes % 7 % (24-48) Monocytes % 3 % (0-10) Toxic Granulation Present Platelet Estimate Increased (ADEQUATE) Anisocytosis Mod Sodium Level 134 mmol/L (136-145) Potassium Level 4.7 mmol/L (3.5-5.1) Chloride Level 95 mmol/L (98-107) Carbon Dioxide Level 23 mmol/L (21-32) Anion Gap 16 (6-14) Blood Urea Nitrogen 27 mg/dL (7-20) Creatinine 0.9 mg/dL (0.6-1.0) Estimated GFR (Cockcroft-Gault) 61.4 BUN/Creatinine Ratio 30 (6-20) Glucose Level 110 mg/dL (70-99) Calcium Level 10.0 mg/dL (8.5-10.1) Total Bilirubin 0.4 mg/dL (0.2-1.0) Aspartate Amino Transf (AST/SGOT) 17 U/L (15-37) Alanine Aminotransferase (ALT/SGPT) 12 U/L (14-59) Alkaline Phosphatase 285 U/L (46-116) Total Protein 8.3 g/dL (6.4-8.2) Albumin 2.1 g/dL (3.4-5.0) Albumin/Globulin Ratio 0.3 (1.0-1.7) Stool Occult Blood Positive (NEG) Urine Collection Type Void Urine Color Yellow Urine Clarity Clear Urine pH 6.0 Urine Specific [place] >=1.030 Urine Protein Negative mg/dL (NEG-TRACE) Urine Glucose (UA) Negative mg/dL (NEG) Urine Ketones (Stick) 40 mg/dL (NEG) Urine Blood Small (NEG) Urine Nitrite Positive (NEG) Urine Bilirubin Negative (NEG) Urine Urobilinogen Dipstick 1.0 mg/dL (0.2 mg/dL) Urine Leukocyte Esterase Small (NEG) Urine RBC 1-2 /HPF (0-2) Urine WBC >40 /HPF (0-4) Urine Squamous Epithelial Cells Few /LPF Urine Bacteria Moderate /HPF (0-FEW) Urine Hyaline Casts Moderate /HPF Urine Mucus Slight /LPF Lactic Acid Level 1.4 mmol/L (0.4-2.0) Test 02/12/18 05:50 White Blood Count 9.6 x10^3/uL (4.0-11.0) Red Blood Count 3.15 x10^6/uL (3.50-5.40) Hemoglobin 9.0 g/dL (12.0-15.5) Hematocrit 27.9 % (36.0-47.0) Mean Corpuscular Volume 89 fL (79-100) Mean Corpuscular Hemoglobin 29 pg (25-35) Mean Corpuscular Hemoglobin Concent 32 g/dL (31-37) Red Cell Distribution Width 20.2 % (11.5-14.5) Platelet Count 446 x10^3/uL (140-400) Neutrophils (%) (Auto) 85 % (31-73) Lymphocytes (%) (Auto) 6 % (24-48) Monocytes (%) (Auto) 8 % (0-9) Eosinophils (%) (Auto) 1 % (0-3) Basophils (%) (Auto) 0 % (0-3) Neutrophils # (Auto) 8.2 x10^3uL (1.8-7.7) Lymphocytes # (Auto) 0.6 x10^3/uL (1.0-4.8) Monocytes # (Auto) 0.7 x10^3/uL (0.0-1.1) Eosinophils # (Auto) 0.1 x10^3/uL (0.0-0.7) Basophils # (Auto) 0.0 x10^3/uL (0.0-0.2) Sodium Level 136 mmol/L (136-145) Potassium Level 4.1 mmol/L (3.5-5.1) Chloride Level 100 mmol/L (98-107) Carbon Dioxide Level 23 mmol/L (21-32) Anion Gap 13 (6-14) Blood Urea Nitrogen 20 mg/dL (7-20) Creatinine 0.8 mg/dL (0.6-1.0) Estimated GFR (Cockcroft-Gault) 70.3 Glucose Level 80 mg/dL (70-99) Calcium Level 8.6 mg/dL (8.5-10.1) Microbiology 02/11/18 Blood Culture - Final, Complete 02/11/18 Fecal Leukocyte Stain - Final, Complete Medications Current Medications Iohexol (Omnipaque 300 Mg/ml) 75 ml 1X ONCE IV Last administered on 02/11/18at 17:00; Start 02/11/18 at 17:00; Stop 02/11/18 at 17:01; Status DC Iohexol (Omnipaque 240 Mg/ml) 50 ml 1X ONCE PO Last administered on 02/11/18at 17:00; Start 02/11/18 at 17:00; Stop 02/11/18 at 17:01; Status DC Info (CONTRAST GIVEN -- Rx MONITORING) 1 each PRN DAILY PRN MC SEE COMMENTS; Start 02/11/18 at 16:45; Stop 02/13/18 at 16:44 Sodium Chloride 1,000 ml @ 1,000 mls/hr 1X ONCE IV Last administered on at 19:15; Start 02/11/18 at 18:15; Stop 02/11/18 at 19:14; Status DC Metronidazole 100 ml @ 100 mls/hr 1X ONCE IV Last administered on 02/11/18at 18:30; Start 02/11/18 at 18:30; Stop 02/11/18 at 19:29; Status DC Sodium Chloride 1,000 ml @ 125 mls/hr Q8H IV Last administered on 02/12/18at 04 :16; Start 02/11/18 at 19:51; Stop 02/12/18 at 19:50 Acetaminophen (Tylenol) 650 mg PRN Q6HRS PRN PO FEVER; Start 02/11/18 at 21:00 Ondansetron HCl (Zofran) 4 mg PRN Q6HRS PRN IV NAUSEA/VOMITING; Start 02/11/18 at 21:00 Morphine Sulfate (Morphine Sulfate) 2 mg PRN Q2HR PRN IV MODERATE TO SEVERE PAIN Last administered on 02/12/18at 04:16; Start 02/11/18 at 21:00 Tramadol HCl (Ultram) 50 mg PRN Q6HRS PRN PO MILD TO MODERATE PAIN; Start 02/11 at 21:00 Docusate Sodium (Colace) 100 mg PRN DAILY PRN PO HARD STOOLS; Start 02/11/18 at 21:00 Active Scripts Active Cephalexin 500 Mg Tablet 1 Tab PO BID Cyclobenzaprine Hcl 10 Mg Tablet 1 Tab PO TID [place] 5-325 Tablet (Acetaminophen/Hydrocodone Bitart) 1 Each Tablet 1 Tab PO Q4- 6HRS Senna-Time S Tablet (Sennosides/Docusate Sodium) 1 Each Tablet 2 Tab PO QHS 7 Days Oxycodone-Acetaminophen 5-325 (Oxycodone Hcl/Acetaminophen) 1 Each Tablet 1 Tab PO PRN Q4HRS PRN Vitamin D2 (Ergocalciferol (Vitamin D2)) 50,000 Unit Capsule 50,000 Unit PO WEEKLY Colace (Docusate Sodium) 100 Mg Capsule 100 Mg PO BID 10 Days Vitals/I & O Vital Sign - Last 24 Hours 02/11/18 02/11/18 02/11/18 02/11/18 15:50 16:24 16:54 17:24 Temp 98.0 98.0 Pulse 112 88 90 96 Resp 17 19 B/P (MAP) 126/58 (80) Pulse Ox 95 94 94 96 O2 Delivery Room Air 02/11/18 02/11/18 02/11/18 02/11/18 17:54 18:22 18:54 18:55 Pulse 88 102 86 92 Resp 22 22 20 18 Pulse Ox 92 98 98 99 02/11/18 02/11/18 02/11/18 02/11/18 20:22 21:06 21:34 22:12 Temp 98.7 98.7 Pulse 86 103 Resp 18 18 B/P (MAP) 108/72 (84) Pulse Ox 99 95 95 O2 Delivery Room Air Room Air 02/11/18 02/12/18 02/12/18 02/12/18 23:01 03:03 04:16 04:46 Temp 98.6 98.9 98.6 98.9 Pulse 84 81 Resp 18 B/P (MAP) 118/69 (85) 98/63 (75) Pulse Ox 96 96 96 96 O2 Delivery Room Air Room Air Room Air Room Air 02/12/18 02/12/18 07:00 08:00 Temp 98.6 98.6 Pulse 86 Resp 18 B/P (MAP) 111/68 (82) Pulse Ox 93 O2 Delivery Room Air Room Air Intake and Output 02/11/18 02/11/18 02/12/18 15:00 23:00 07:00 Output Total 450 ml Balance -450 ml BRINDA HOWE MD Feb 12, 2018 10:27
[2018-02-12 11:00] VITALS: BP 105/67
--- NOTE | 2018-02-12 12:31 | PDOC ---
Provider Note Provider Note Pt seen Consult dictated [id number] IMP: GPC 1/4 BC positive,ID and LORY pending could be a contaminant Vaginal drainage of fecal matter GI bleed,FOB + h/o HAND BUFFER cancer with hysterectomy, cystectomy,urinary diversion , RT Gen weakness Anemia Malnutrition CT with abdominal mass REC Cont IV Vanc,dosed once today s/p flagyl dose once in ed FU C/S results Repeat BC in KESHA JOY MD Feb 12, 2018 12:31
[2018-02-12] MEDS ORDERED: VANCOMYCIN 750 MG in IV NORMAL SALINE 250ML 250 ML IV ONE (13:15)
[2018-02-12] MEDS: VANCOMYCIN PER PHARMACY MC PRN ×2 (13:27→15:45)
--- NOTE | 2018-02-12 14:01 | CONS ---
DATE OF CONSULTATION: REFERRING PHYSICIAN: Dr. Enciso. REASON FOR CONSULTATION: Gram-positive bacteremia, 05/31 bottles. HISTORY OF PRESENT ILLNESS: This is a 72-year-old female admitted on 02/11/2018 with generalized weakness, which started 2 weeks ago. The patient had low appetite, noticed rectal blood clots last Sunday 3 times a day, which got better on its own, then she felt that her BM was coming out of her vagina. She presented to the ER, hemoglobin was 11.2, afebrile. White count was normal. She had fecal occult blood positive in the ER. The patient was admitted for further evaluation and treatment. The patient has history of uterine cancer 1-1/2 years ago, status post RT, chemo and hysterectomy, also had bladder invasion and bladder was removed and now has ileal loop urinary diversion bag. The patient underwent intramedullary nail fixation for right supracondylar femur fracture without intercondylar extension on 07/03/2017. Area healed well. She denies any issues with the same though has been using a cane at home due to generalized weakness as above. The patient had a colonoscopy done a year ago at [facility]. The patient has not been on any antibiotics recently. She has hot and cold spells, but no documented fever. She said that is baseline for her. The patient apparently did not have followup appointment with her REAL ESTATE LOAN OFFICER, oncologist and does not have a PCP. The patient states her last [employer] ESTATE LOAN OFFICER exam was when she was diagnosed with cancer and also had intermittent drainage from the vagina at that time, but I do not have the details on the same. PAST MEDICAL HISTORY: Cervical cancer status post hysterectomy, chemo and radiation, tubal ligation, right femur fracture/nailing, anemia. REVIEW OF SYSTEMS: Negative except for above. SOCIAL HISTORY: Quit smoking a couple of years ago. ETOH: None. Drugs: None. Has daughter at bedside. Lives at home. CURRENT MEDICATIONS: Received one dose of IV metronidazole, one dose of vancomycin today. ALLERGIES: LEVAQUIN CAUSING RASH. PHYSICAL EXAMINATION: VITAL SIGNS: Temperature 98.6, pulse 86, respiratory rate 18, blood pressure 111/68, oxygen saturation 93% on room air. GENERAL: Alert, oriented times 3 female lying comfortably in bed in no acute distress. HEENT: Normocephalic, atraumatic, anicteric. No thrush. NECK: Supple. LUNGS: Clear. HEART: RRR. ABDOMEN: Soft, nontender, nondistended. Urostomy in place. EXTREMITIES: No edema, no cyanosis. Scar over right knee, well-healed. No decrease in range of motion. DERMATOLOGIC: No generalized rash. NEUROLOGIC: Alert and oriented times 3. Grossly nonfocal. PSYCHIATRIC: Cooperative, appropriate mood and affect. MUSCULOSKELETAL: No joint effusion, no decrease in range of motion. LABORATORY DATA: WBC 12.5, hemoglobin 11.2, hematocrit 35.1, platelets 598. Today WBC 9.6, hemoglobin 9, hematocrit 27.9, platelets 446. Sodium 136, potassium 4.1, chloride 100, bicarbonate 23, BUN 20, creatinine 0.8. Lactate 1.4, calcium 8.6. LFTs, alkaline phosphatase 285, albumin 2.1, otherwise negative. UA, greater than 40 wbc's, small leukocyte esterase. Vancomycin, occult blood positive for stool. IMAGING: Abdominal and pelvis CT, impression: An irregular air containing structure seen within the lower pelvis is expected in location of urinary bladder, this extends into the pubic bones. This is an area the patient's mass seen on previous CT. This surrounding increased soft tissue density is presumably related to patient's known cancer, bony destruction of pubic bone is seen, right greater than the left. The area of soft tissue density surrounding the air containing area measures 7.9 x 5.2 x 3.8 cm in size. IMPRESSION: 1. Gram-positive cocci in clusters, bacteremia suggestive of Staph, 1/4 bottles, etiology unclear, could be a contaminant too. 2. Generalized weakness. 3. Decreased appetite, weight loss, rectal bleeding. 4. History of [employer]STATE LO[employer] OFFICER cancer status post chemoradiation, hysterectomy, cystectomy with ileal loop urinary diversion bag with fecal material and bleeding from vagina. CT abdomen showing abdominal mass. 5. Low back pain. 6. Moderate malnutrition. 7. Anemia. 8. Fecal occult blood positive. RECOMMENDATIONS: 1. Continue empiric IV vancomycin. 2. Monitor renal functions closely. 3. Follow up ID of GPC in blood. 4. Continue supportive care. 5. [employer] LO[employer] OFFICER evaluating the patient. 6. Monitor right knee closely. 7. Discussed with daughter at bedside. 8. Continue supportive care. ARUNDHATI JOY, MD DR: ANTOLIN/sue JOB#: [id number] / [id number] WINTER
[2018-02-12 15:00] VITALS: BP 92/56
[2018-02-12] MEDS ORDERED: CYCLOBENZAPRINE 10 MG TABLET. PO ONE (15:45)
--- NOTE | 2018-02-12 16:47 | RAD ---
Whole body bone scan Clinical indications: Uterine and bladder cancer. Evaluation for metastatic disease. History of right femur fracture in June 2017. History of right groin pain after a fall one week ago. TECHNIQUE: After IV infusion of 25 mCi of technetium 99m MDP, delayed multiplanar images of the whole body were performed. COMPARISON: No previous bone scan available. CT study of the abdomen and pelvis dated February 11, 2018. FINDINGS: Bilateral renal function is evident. There is a urostomy bag of the lower right pelvic area along with a urinary bladder reconstruction. There is activity involving the distal right femur consistent with the patient's history of a fracture. There is intense activity involving the pubic bone on both sides around the symphysis pubis. There is activity involving the right superior pubic ramus. This abnormal area of activity corresponds to the CT abnormality involving osteolysis of both pubic bones and pathologic fracture of the right superior pubic ramus. This could be due to neoplasia or infection. No osseous metastatic disease is evident elsewhere. Degenerative activity is seen involving both feet and ankles and the right knee and both shoulders. IMPRESSION: Abnormal activity is seen involving the pubic bone on both sides and the right superior pubic ramus corresponding to the CT abnormality as discussed above. Electronically signed by: Eliot Wan MD (02/12/2018 4:44 PM) [facility]
--- NOTE | 2018-02-12 17:01 | PDOC ---
Provider Note Provider Note Med Onc consult: 1. Stage JIM cervix ca s/p chemo/XRT 10/2013. Plan MRI pelvis to eval for recurrence. 2. Rectal bleed. - s/p colonoscopy at 04/03/16: Two 9 to 13 mm polyps in the ascending colon. Resected and retrieved. - Suggestive of radiation proctopathy mucosa vascular pattern in the rectum. Treated with argon plasma coagulation (APC). - Stricture in the sigmoid colon. see dictation [id number] MARSHALL LYON MD Feb 12, 2018 17:01
--- NOTE | 2018-02-12 18:11 | PDOC2 ---
CONSULT Date of Consult Date of Consult DATE: 02/12/18 TIME: 18:02 Reason for Consult Reason for Consult: Rectal bleeding with possible vaginal bleeding Referring Physician Referring Physician: Dr. Penn Identification/Chief Complaint Chief Complaint Rectal bleeding Source Source: Caregiver, Chart review, Patient History of Present Illness Reason for Visit: 72 y/o with h/o uterine cancer and pelvic radiation treatment. She reports rectal bleeding. She has urostomy bag in place. CT scan indicated possible mass. Past Medical History Cardiovascular: No pertinent hx Pulmonary: No pertinent hx Hepatobiliary: No pertinent hx Infectious disease: Human papilloma virus Renal/: Acute renal failure Past Surgical History Past Surgical History: Hysterectomy Family History Family History: Hypertension Social History Quit ALCOHOL: other (sober x 20 years) Drugs: None Current Medications Current Medications Current Medications Iohexol (Omnipaque 300 Mg/ml) 75 ml 1X ONCE IV Last administered on 02/11/18at 17:00; Start 02/11/18 at 17:00; Stop 02/11/18 at 17:01; Status DC Iohexol (Omnipaque 240 Mg/ml) 50 ml 1X ONCE PO Last administered on 02/11/18at 17:00; Start 02/11/18 at 17:00; Stop 02/11/18 at 17:01; Status DC Info (CONTRAST GIVEN -- Rx MONITORING) 1 each PRN DAILY PRN MC SEE COMMENTS; Start 02/11/18 at 16:45; Stop 02/13/18 at 16:44 Sodium Chloride 1,000 ml @ 1,000 mls/hr 1X ONCE IV Last administered on at 19:15; Start 02/11/18 at 18:15; Stop 02/11/18 at 19:14; Status DC Metronidazole 100 ml @ 100 mls/hr 1X ONCE IV Last administered on 02/11/18at 18:30; Start 02/11/18 at 18:30; Stop 02/11/18 at 19:29; Status DC Sodium Chloride 1,000 ml @ 125 mls/hr Q8H IV Last administered on 02/12/18at 11 :35; Start 02/11/18 at 19:51; Stop 02/12/18 at 19:50 Acetaminophen (Tylenol) 650 mg PRN Q6HRS PRN PO FEVER; Start 02/11/18 at 21:00 Ondansetron HCl (Zofran) 4 mg PRN Q6HRS PRN IV NAUSEA/VOMITING; Start 02/11/18 at 21:00 Morphine Sulfate (Morphine Sulfate) 2 mg PRN Q2HR PRN IV MODERATE TO SEVERE PAIN Last administered on 02/12/18at 11:49; Start 02/11/18 at 21:00 Tramadol HCl (Ultram) 50 mg PRN Q6HRS PRN PO MILD TO MODERATE PAIN; Start 02/11 at 21:00 Docusate Sodium (Colace) 100 mg PRN DAILY PRN PO HARD STOOLS; Start 02/11/18 at 21:00 Vancomycin HCl 1 gm/Sodium Chloride 250 ml @ 250 mls/hr 1X ONCE IV Last administered on 02/12/18at 11:35; Start 02/12/18 at 10:00; Stop 02/12/18 at 10:59 ; Status DC Vancomycin HCl 1 gm/Sodium Chloride 250 ml @ 250 mls/hr Q12H IV ; Start at 06:00; Status UNV Vancomycin HCl 750 mg/Sodium Chloride 250 ml @ 250 mls/hr 1X ONCE IV Last administered on 02/12/18at 13:44; Start 02/12/18 at 13:15; Stop 02/12/18 at 14:14 ; Status DC Vancomycin HCl 1 gm/Sodium Chloride 250 ml @ 250 mls/hr Q24H IV ; Start at 12:00 Vancomycin HCl (Vancomycin Trough Level) 1 each 1X ONCE MC ; Start 02/14/18 at 11:30; Stop 02/14/18 at 11:31 Vancomycin HCl (Vanco Per Pharmacy) 1 each PRN DAILY PRN MC SEE COMMENTS Last administered on 02/12/18at 15:45; Start 02/12/18 at 13:30 Cyclobenzaprine HCl (Flexeril) 10 mg 1X ONCE PO Last administered on at 16:47; Start 02/12/18 at 15:45; Stop 02/12/18 at 15:46; Status DC Active Scripts Active Cephalexin 500 Mg Tablet 1 Tab PO BID Cyclobenzaprine Hcl 10 Mg Tablet 1 Tab PO TID Carr 5-325 Tablet (Acetaminophen/Hydrocodone Bitart) 1 Each Tablet 1 Tab PO Q4- 6HRS Senna-Time S Tablet (Sennosides/Docusate Sodium) 1 Each Tablet 2 Tab PO QHS 7 Days Oxycodone-Acetaminophen 5-325 (Oxycodone Hcl/Acetaminophen) 1 Each Tablet 1 Tab PO PRN Q4HRS PRN Vitamin D2 (Ergocalciferol (Vitamin D2)) 50,000 Unit Capsule 50,000 Unit PO WEEKLY Colace (Docusate Sodium) 100 Mg Capsule 100 Mg PO BID 10 Days Allergies Allergies: Coded Allergies: levofloxacin (Verified Allergy, Intermediate, 11/01/17) ROS General: YES: Fatigue, Appetite; No: Chills, Night Sweats, Malaise, Other PSYCHOLOGICAL ROS: No: Anxiety, Behavioral Disorder, Concentration difficultie , Decreased libido, Depression, Disorientation, Hallucinations, Hostility, Irritablity, Memory difficulties, Mood Swings, Obsessive thoughts, Physical abuse, Sexual abuse, Sleep disturbances, Suicidal ideation, Other Eyes: No Blurry vision, No Decreased vision, No Double vision, No Dry eyes, No Excessive tearing, No Eye Pain, No Itchy Eyes, No Loss of vision, No Photophobia , No Scotomata, No Uses contacts, No Uses glasses, No Other HEENT: No: Heacaches, Visual Changes, Hearing change, Nasal congestion, Nasal discharge, Oral lesions, Sinus pain, Sore Throat, Epistaxis, Sneezing, Snoring, Tinnitus, Vertigo, Vocal changes, Other ALLERGY AND IMMUNOLOGY: No: Hives, Insect Bite Sensitivity, Itchy/Watery Eyes, Nasal Congestion, Post Nasal Drip, Seasonal Allergies, Other Hematological and Lymphatic: No: Bleeding Problems, Blood Clots, Blood Transfusions, Brusing, Night Sweats, Pallor, Swollen Lymph Nodes, Other ENDOCRINE: No: Breast Changes, Galactorrhea, Hair Pattern Changes, Hot Flashes , Malaise/lethargy, Mood Swings, Palpitations, Polydipsia/polyuria, Skin Changes , Temperature Intolerance, Unexpected Weight Changes, Other Breast: No New/Changing Breast Lumps, No Nipple changes, No Nipple discharge, No Other Respiratory: No: Cough, Hemoptysis, Orthopnea, Pleuritic Pain, Shortness of breath, SOB with excertion, Sputum Changes, Stridor, Tachypnea, Wheezing, Other Cardiovascular: No Chest Pain, No Palpitations, No Orthopnea, No Paroxysmal Noc. Dyspnea, No Edema, No Lt Headedness, No Other Gastrointestinal: Yes Hematochezia Physical Exam General: Alert, Oriented X3, Cooperative HEENT: Atraumatic Lungs: Clear to auscultation Heart: Regular rate Abdomen: Normal bowel sounds, Soft, No tenderness, No masses, Other (Pelvic: labial agglutination. Bleeding most likely from rectum.) Psych/Mental Status: Mental status NL Vitals VITALS Vital Signs Date Time Temp Pulse Resp B/P (MAP) Pulse Ox O2 Delivery O2 Flow Rate FiO2 02/12/18 15:00 98.3 79 18 92/56 (68) 95 Room Air 98.3 Labs Labs Laboratory Tests Test 02/11/18 16:05 02/11/18 16:32 02/11/18 18:25 02/11/18 19:19 White Blood Count 12.5 x10^3/uL (4.0-11.0) Red Blood Count 3.93 x10^6/uL (3.50-5.40) Hemoglobin 11.2 g/dL (12.0-15.5) Hematocrit 35.1 % (36.0-47.0) Mean Corpuscular Volume 89 fL (79-100) Mean Corpuscular Hemoglobin 28 pg (25-35) Mean Corpuscular Hemoglobin Concent 32 g/dL (31-37) Red Cell Distribution Width 20.2 % (11.5-14.5) Platelet Count 598 x10^3/uL (140-400) Neutrophils (%) (Auto) 92 % (31-73) Lymphocytes (%) (Auto) 4 % (24-48) Monocytes (%) (Auto) 4 % (0-9) Eosinophils (%) (Auto) 0 % (0-3) Basophils (%) (Auto) 0 % (0-3) Neutrophils # (Auto) 11.5 x10^3uL (1.8-7.7) Lymphocytes # (Auto) 0.5 x10^3/uL (1.0-4.8) Monocytes # (Auto) 0.5 x10^3/uL (0.0-1.1) Eosinophils # (Auto) 0.1 x10^3/uL (0.0-0.7) Basophils # (Auto) 0.0 x10^3/uL (0.0-0.2) Segmented Neutrophils % 76 % (35-66) Band Neutrophils % 14 % (0-9) Lymphocytes % 7 % (24-48) Monocytes % 3 % (0-10) Toxic Granulation Present Platelet Estimate Increased (ADEQUATE) Anisocytosis Mod Sodium Level 134 mmol/L (136-145) Potassium Level 4.7 mmol/L (3.5-5.1) Chloride Level 95 mmol/L (98-107) Carbon Dioxide Level 23 mmol/L (21-32) Anion Gap 16 (6-14) Blood Urea Nitrogen 27 mg/dL (7-20) Creatinine 0.9 mg/dL (0.6-1.0) Estimated GFR (Cockcroft-Gault) 61.4 BUN/Creatinine Ratio 30 (6-20) Glucose Level 110 mg/dL (70-99) Calcium Level 10.0 mg/dL (8.5-10.1) Total Bilirubin 0.4 mg/dL (0.2-1.0) Aspartate Amino Transf (AST/SGOT) 17 U/L (15-37) Alanine Aminotransferase (ALT/SGPT) 12 U/L (14-59) Alkaline Phosphatase 285 U/L (46-116) Total Protein 8.3 g/dL (6.4-8.2) Albumin 2.1 g/dL (3.4-5.0) Albumin/Globulin Ratio 0.3 (1.0-1.7) Stool Occult Blood Positive (NEG) Urine Collection Type Void Urine Color Yellow Urine Clarity Clear Urine pH 6.0 Urine Specific [place] >=1.030 Urine Protein Negative mg/dL (NEG-TRACE) Urine Glucose (UA) Negative mg/dL (NEG) Urine Ketones (Stick) 40 mg/dL (NEG) Urine Blood Small (NEG) Urine Nitrite Positive (NEG) Urine Bilirubin Negative (NEG) Urine Urobilinogen Dipstick 1.0 mg/dL (0.2 mg/dL) Urine Leukocyte Esterase Small (NEG) Urine RBC 1-2 /HPF (0-2) Urine WBC >40 /HPF (0-4) Urine Squamous Epithelial Cells Few /LPF Urine Bacteria Moderate /HPF (0-FEW) Urine Hyaline Casts Moderate /HPF Urine Mucus Slight /LPF Lactic Acid Level 1.4 mmol/L (0.4-2.0) Test 02/12/18 05:50 White Blood Count 9.6 x10^3/uL (4.0-11.0) Red Blood Count 3.15 x10^6/uL (3.50-5.40) Hemoglobin 9.0 g/dL (12.0-15.5) Hematocrit 27.9 % (36.0-47.0) Mean Corpuscular Volume 89 fL (79-100) Mean Corpuscular Hemoglobin 29 pg (25-35) Mean Corpuscular Hemoglobin Concent 32 g/dL (31-37) Red Cell Distribution Width 20.2 % (11.5-14.5) Platelet Count 446 x10^3/uL (140-400) Neutrophils (%) (Auto) 85 % (31-73) Lymphocytes (%) (Auto) 6 % (24-48) Monocytes (%) (Auto) 8 % (0-9) Eosinophils (%) (Auto) 1 % (0-3) Basophils (%) (Auto) 0 % (0-3) Neutrophils # (Auto) 8.2 x10^3uL (1.8-7.7) Lymphocytes # (Auto) 0.6 x10^3/uL (1.0-4.8) Monocytes # (Auto) 0.7 x10^3/uL (0.0-1.1) Eosinophils # (Auto) 0.1 x10^3/uL (0.0-0.7) Basophils # (Auto) 0.0 x10^3/uL (0.0-0.2) Reticulocyte Count (auto) 2.2 % (0.5-2.5) Sodium Level 136 mmol/L (136-145) Potassium Level 4.1 mmol/L (3.5-5.1) Chloride Level 100 mmol/L (98-107) Carbon Dioxide Level 23 mmol/L (21-32) Anion Gap 13 (6-14) Blood Urea Nitrogen 20 mg/dL (7-20) Creatinine 0.8 mg/dL (0.6-1.0) Estimated GFR (Cockcroft-Gault) 70.3 Glucose Level 80 mg/dL (70-99) Calcium Level 8.6 mg/dL (8.5-10.1) Iron Level 19 ug/dL (50-170) Total Iron Binding Capacity 127 ug/dL (250-450) Iron Saturation 15 % (15-34) Ferritin 429 ng/mL (8-252) Laboratory Tests Test 02/11/18 18:25 02/11/18 19:19 02/12/18 05:50 Urine Collection Type Void Urine Color Yellow Urine Clarity Clear Urine pH 6.0 Urine Specific [place] >=1.030 Urine Protein Negative mg/dL (NEG-TRACE) Urine Glucose (UA) Negative mg/dL (NEG) Urine Ketones (Stick) 40 mg/dL (NEG) Urine Blood Small (NEG) Urine Nitrite Positive (NEG) Urine Bilirubin Negative (NEG) Urine Urobilinogen Dipstick 1.0 mg/dL (0.2 mg/dL) Urine Leukocyte Esterase Small (NEG) Urine RBC 1-2 /HPF (0-2) Urine WBC >40 /HPF (0-4) Urine Squamous Epithelial Cells Few /LPF Urine Bacteria Moderate /HPF (0-FEW) Urine Hyaline Casts Moderate /HPF Urine Mucus Slight /LPF Lactic Acid Level 1.4 mmol/L (0.4-2.0) White Blood Count 9.6 x10^3/uL (4.0-11.0) Red Blood Count 3.15 x10^6/uL (3.50-5.40) Hemoglobin 9.0 g/dL (12.0-15.5) Hematocrit 27.9 % (36.0-47.0) Mean Corpuscular Volume 89 fL (79-100) Mean Corpuscular Hemoglobin 29 pg (25-35) Mean Corpuscular Hemoglobin Concent 32 g/dL (31-37) Red Cell Distribution Width 20.2 % (11.5-14.5) Platelet Count 446 x10^3/uL (140-400) Neutrophils (%) (Auto) 85 % (31-73) Lymphocytes (%) (Auto) 6 % (24-48) Monocytes (%) (Auto) 8 % (0-9) Eosinophils (%) (Auto) 1 % (0-3) Basophils (%) (Auto) 0 % (0-3) Neutrophils # (Auto) 8.2 x10^3uL (1.8-7.7) Lymphocytes # (Auto) 0.6 x10^3/uL (1.0-4.8) Monocytes # (Auto) 0.7 x10^3/uL (0.0-1.1) Eosinophils # (Auto) 0.1 x10^3/uL (0.0-0.7) Basophils # (Auto) 0.0 x10^3/uL (0.0-0.2) Reticulocyte Count (auto) 2.2 % (0.5-2.5) Sodium Level 136 mmol/L (136-145) Potassium Level 4.1 mmol/L (3.5-5.1) Chloride Level 100 mmol/L (98-107) Carbon Dioxide Level 23 mmol/L (21-32) Anion Gap 13 (6-14) Blood Urea Nitrogen 20 mg/dL (7-20) Creatinine 0.8 mg/dL (0.6-1.0) Estimated GFR (Cockcroft-Gault) 70.3 Glucose Level 80 mg/dL (70-99) Calcium Level 8.6 mg/dL (8.5-10.1) Iron Level 19 ug/dL (50-170) Total Iron Binding Capacity 127 ug/dL (250-450) Iron Saturation 15 % (15-34) Ferritin 429 ng/mL (8-252) Assessment/Plan Assessment/Plan A: Rectal bleeding Intra-abdominal mass Labial agglutination P: Pt. with labial agglutination. Recommend GI f/u. No further suggestions at this time. Thank you for consult. RADHA FRANKEL Jr, MD Feb 12, 2018 18:11
[2018-02-12 19:00] VITALS: BP 97/59
--- NOTE | 2018-02-12 21:09 | CONS ---
DATE OF CONSULTATION: 02/12/2018 REQUESTING PHYSICIAN: Dr. Jessica Penn. REASON FOR CONSULTATION: Cervical cancer. HISTORY OF PRESENT ILLNESS: The patient is a 72-year-old female who had symptoms due to anemia, hematuria, and renal failure from hydronephrosis for which she was [facility] in 07/2013. CT scan revealed bilateral hydronephrosis and hydroureter. Cystoscopy and biopsy revealed squamous cell carcinoma and MRI revealed primary cervical cancer with invasion into the bladder, stage 4A. She was started on concurrent chemoradiation therapy with cisplatin on 09/05/2013 and she received 5 doses of cisplatin. The sixth dose had to be canceled because of severe nausea and vomiting. She was last seen at my office on 10/31/2013 and then she did not return for followup. She was evaluated at [facility] by Urology and the patient underwent cystectomy because she was not wanting to maintain the percutaneous nephrostomy tubes. She underwent cystectomy and bilateral salpingo-oophorectomy with hysterectomy and small bowel antrectomy with primary anastomosis and urinary diversion with creation of ileal conduit on 02/26/[address] Som Stearns. She has history of EGD on 04/03/2016 for evaluation of hematochezia and she was noted to have multiple small nonbleeding erosions in the gastric antrum. She underwent a colonoscopy on 04/03/2016, which revealed 2 polyps in the ascending colon and there was suggestion of radiation proctopathy mucosa vascular pattern in the rectum, which was treated with argon plasma coagulation at [facility]. She was [facility] to [facility] on 02/11/2018 with complaints of generalized weakness, poor appetite and rectal bleeding. She underwent a CT scan of the abdomen on 02/11/2018 which revealed irregular air-continuing structure seen within the lower pelvis at the location of the urinary bladder extending to involve the pubic bones. There was surrounding increased soft tissue density presumably related to the known cancer. Bony destruction of the pubic bone was seen, right greater than left. Bone scan was ordered and it is still pending. PAST MEDICAL HISTORY: History of acute renal failure, hydronephrosis, hypertension and urinary tract infection. SOCIAL HISTORY: She is an ex-smoker. FAMILY HISTORY: Negative for cancer of the cervix. There is history of esophageal cancer and cirrhosis in the family. REVIEW OF SYSTEMS: A 12-point review of system was performed. Pertinent positives are mentioned in the history of present illness. Rest of the system review is negative. PHYSICAL EXAMINATION: GENERAL APPEARANCE: The patient is a 72-year-old female who is in no acute cardiorespiratory distress. VITAL SIGNS: Blood pressure 92/56, temperature 98.3. HEENT: Head atraumatic, normocephalic. Eyes, no icterus. NECK: Supple. CHEST: Bilaterally symmetrical. HEART: S1, S2 normal. ABDOMEN: Soft, nontender. CENTRAL NERVOUS SYSTEM: No focal deficits. LYMPHATICS: No lymphadenopathy. SKIN: No rashes. PSYCHOLOGIC: Mood and affect are appropriate. MUSCULOSKELETAL: No joint effusions. LABORATORY DATA: WBC 9.6, hemoglobin 9, platelet count 446, MCV 89. Creatinine 0.8, total bilirubin 0.4, AST 17, ALT 12, alkaline phosphatase 285, total protein 8.3, albumin 2.1. IMPRESSION AND PLAN: 1. 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 She never returned for followup after that. She is now admitted with generalized weakness and rectal bleeding. CT scan of the abdomen and pelvis on 02/11/2018 revealed irregular raised and enhancing structure in the lower pelvis and bony destruction. I will obtain an MRI for further evaluation. I will also obtain a CT scan of the chest to rule out lung metastasis. I agree to obtain bone scan, which is still pending. 2. Rectal bleeding, which I suspect is due to radiation proctitis. She had a colonoscopy at [facility] on 04/03/2016, which revealed radiation proctitis and she was treated with argon plasma coagulation. I appreciate GI consultation and management. 3. Anemia. Hemoglobin 9.0 on 02/12/2018. I will check iron studies, B12 and folic acid levels. 4. Thrombocytosis, reactive, monitor. 5. Await gynecology consultation. I discussed with Dr. Bladimir Obregon. MARSHALL LYON MD DR: PRAVEEN/sue JOB#: [id number] / [id number] WINTER
[2018-02-12 23:00] VITALS: BP 104/59
[2018-02-13 03:05] VITALS: BP 97/63
[2018-02-13 05:10] LABS: BASO % 1 % (0-3); EOS % 1 % (0-3); HEMOGLOBIN 8.5 g/dL (12.0-15.5); LYMPH # 0.6 x10^3/uL (1.0-4.8); LYMPH % 8 % (24-48); MEAN CORPUSCULAR HEMOGLOBIN 29 pg (25-35); MEAN CORPUSCULAR HGB CONC 33 g/dL (31-37); MEAN CORPUSCULAR VOLUME 90 fL (79-100); MONO # 0.6 x10^3/uL (0.0-1.1); MONO % 8 % (0-9); NEUT # 6.1 x10^3uL (1.8-7.7); NEUT % 83 % (31-73); PLATELET COUNT 395 x10^3/uL (140-400); RED CELL DISTRIBUTION WIDTH 19.7 % (11.5-14.5); WHITE BLOOD COUNT 7.4 x10^3/uL (4.0-11.0)
[2018-02-13 05:40] LABS: ALBUMIN 1.6 g/dL (3.4-5.0); ALBUMIN/GLOBULIN RATIO 0.3 (1.0-1.7); CALCIUM 8.5 mg/dL (8.5-10.1); CREATININE 0.7 mg/dL (0.6-1.0); POTASSIUM 3.8 mmol/L (3.5-5.1); TOTAL BILIRUBIN 0.3 mg/dL (0.2-1.0); TOTAL PROTEIN 6.6 g/dL (6.4-8.2)
[2018-02-13] MEDS ORDERED: VANCOMYCIN 1 GM in IV NORMAL SALINE 250ML 250 ML IV SCH (06:00)
[2018-02-13 07:00] VITALS: BP 96/61
[2018-02-13] MEDS: IV NORMAL SALINE 1000ML BAG 1,000 ML IV SCH ×2 (08:16→20:55)
[2018-02-13] MEDS ORDERED: CONTRAST GIVEN. MC PRN (08:45)
[2018-02-13] MEDS ORDERED: IOHEXOL 300 MG/ML 100ML VIAL. IV ONE (08:45)
--- NOTE | 2018-02-13 09:26 | PDOC ---
Subjective: Subjective: Had a brown stool this morning but noted some red blood with wiping. Had some left hip pain again, would like another muscle relaxer and would like to eat. Objective: Objective: Reviewed Dr. Lamar's note - EGD and colonoscopy 04/03/16 @[facility]: multiple small nonbleeding erosions in the gastric antrum, 2 polyps in ascending, suggestion of radiation proctopathy treated w/ APC. Reviewed Dr. Obregon's note - labial agglutination. Vital Signs: Vital Signs Date Time Temp Pulse Resp B/P (MAP) Pulse Ox O2 Delivery O2 Flow Rate FiO2 02/13/18 07:00 97.9 79 18 96/61 (73) 93 Room Air 97.9 Labs: Laboratory Tests Test 02/13/18 03:35 White Blood Count 7.4 x10^3/uL Red Blood Count 2.90 x10^6/uL Hemoglobin 8.5 g/dL Hematocrit 26.0 % Mean Corpuscular Volume 90 fL Mean Corpuscular Hemoglobin 29 pg Mean Corpuscular Hemoglobin Concent 33 g/dL Red Cell Distribution Width 19.7 % Platelet Count 395 x10^3/uL Neutrophils (%) (Auto) 83 % Lymphocytes (%) (Auto) 8 % Monocytes (%) (Auto) 8 % Eosinophils (%) (Auto) 1 % Basophils (%) (Auto) 1 % Neutrophils # (Auto) 6.1 x10^3uL Lymphocytes # (Auto) 0.6 x10^3/uL Monocytes # (Auto) 0.6 x10^3/uL Eosinophils # (Auto) 0.0 x10^3/uL Basophils # (Auto) 0.0 x10^3/uL Sodium Level 138 mmol/L Potassium Level 3.8 mmol/L Chloride Level 102 mmol/L Carbon Dioxide Level 23 mmol/L Anion Gap 13 Blood Urea Nitrogen 13 mg/dL Creatinine 0.7 mg/dL Estimated GFR (Cockcroft-Gault) 82.0 BUN/Creatinine Ratio 19 Glucose Level 66 mg/dL Calcium Level 8.5 mg/dL Total Bilirubin 0.3 mg/dL Aspartate Amino Transf (AST/SGOT) 19 U/L Alanine Aminotransferase (ALT/SGPT) 12 U/L Alkaline Phosphatase 176 U/L Total Protein 6.6 g/dL Albumin 1.6 g/dL Albumin/Globulin Ratio 0.3 Imaging: Bone Scan IMPRESSION: Abnormal activity is seen involving the pubic bone on both sides and the right superior pubic ramus corresponding to the CT abnormality as discussed above. PE: GEN: NAD LUNGS: CTAB HEART: RRR ABD: soft, non-tender, urostomy NEURO/PSYCH: A & O 3 A/P: Rectal bleeding - slowing -'scopes in 2016 @ [facility] w/ nonbleeding gastric erosions and radiation proctitis s/ p APC Anemia H/o cervical cancer -abnormal CT and bone scan -- Bleeding possibly related to radiation as noted on prior colonoscopy Plans for additional imaging, await this. ?okay to eat ?need for PPI SYL ZAVALETA Feb 13, 2018 09:26
--- NOTE | 2018-02-13 09:53 | PDOC ---
Infectious Disease Note Subjective: Subjective Pt is eating today denies any f/c/n/v/d has some abdo discomfort no fecal material from vagina ROS: ROS as above Vital Signs: Vital Signs Vital Signs Date Time Temp Pulse Resp B/P (MAP) Pulse Ox O2 Delivery O2 Flow Rate FiO2 02/13/18 07:00 97.9 79 18 96/61 (73) 93 Room Air 97.9 Physical Exam: PHYSICAL EXAM GEN.: No apparent distress. Alert and oriented. HEENT: Head is normocephalic, atraumatic NECK: Supple. LUNGS: Clear to auscultation. HEART: RRR, S1, S2 present. Peripheral pulses intact ABDOMEN: Soft, Positive bowel sounds. ileostomy for urine output. pubic area + tenderness. EXTREMITIES: Without any cyanosis. NEUROLOGIC: Normal speech, normal tone PSYCHIATRIC: Normal affect, normal mood. SKIN: No ulcerations Medications: Inpatient Meds: Current Medications Medications (Trade) Dose Ordered Sig/Julisa Start Time Stop Time Status Last Admin Dose Admin Acetaminophen (Tylenol) 650 mg PRN Q6HRS PRN 02/11/18 21:00 Cyclobenzaprine HCl (Flexeril) 10 mg 1X ONCE 02/12/18 15:45 02/12/18 15:46 DC 02/12/18 16:47 10 MG Docusate Sodium (Colace) 100 mg PRN DAILY PRN 02/11/18 21:00 Info (CONTRAST GIVEN -- Rx MONITORING) 1 each PRN DAILY PRN 02/13/18 08:45 02/15/18 08:44 Iohexol (Omnipaque 240 Mg/ml) 50 ml 1X ONCE 02/11/18 17:00 02/11/18 17:01 DC 02/11/18 17:00 50 ML Iohexol (Omnipaque 300 Mg/ml) 75 ml 1X ONCE 02/13/18 08:45 02/13/18 08:46 DC Metronidazole 100 ml @ 100 mls/hr 1X ONCE 02/11/18 18:30 02/11/18 19:29 DC 02/11/18 18:30 100 MLS/HR Morphine Sulfate (Morphine Sulfate) 2 mg PRN Q2HR PRN 02/11/18 21:00 02/12/18 11:49 2 MG Ondansetron HCl (Zofran) 4 mg PRN Q6HRS PRN 02/11/18 21:00 Sodium Chloride 1,000 ml @ 85 mls/hr [id number] 02/12/18 20:30 02/12/18 21:23 85 MLS/HR Tramadol HCl (Ultram) 50 mg PRN Q6HRS PRN 02/11/18 21:00 Vancomycin HCl (Vanco Per Pharmacy) 1 each PRN DAILY PRN 02/12/18 13:30 02/12/18 15:45 1 EACH Vancomycin HCl (Vancomycin Trough Level) 1 each 1X ONCE 02/14/18 11:30 02/14/18 11:31 Vancomycin HCl 750 mg/Sodium Chloride 250 ml @ 250 mls/hr 1X ONCE 02/12/18 13:15 02/12/18 14:14 DC 02/12/18 13:44 250 MLS/HR Vancomycin HCl 1 gm/Sodium Chloride 250 ml @ 250 mls/hr Q24H 02/13/18 12:00 Labs: Lab Laboratory Tests Test 02/13/18 03:35 White Blood Count 7.4 x10^3/uL (4.0-11.0) Red Blood Count 2.90 x10^6/uL (3.50-5.40) Hemoglobin 8.5 g/dL (12.0-15.5) Hematocrit 26.0 % (36.0-47.0) Mean Corpuscular Volume 90 fL (79-100) Mean Corpuscular Hemoglobin 29 pg (25-35) Mean Corpuscular Hemoglobin Concent 33 g/dL (31-37) Red Cell Distribution Width 19.7 % (11.5-14.5) Platelet Count 395 x10^3/uL (140-400) Neutrophils (%) (Auto) 83 % (31-73) Lymphocytes (%) (Auto) 8 % (24-48) Monocytes (%) (Auto) 8 % (0-9) Eosinophils (%) (Auto) 1 % (0-3) Basophils (%) (Auto) 1 % (0-3) Neutrophils # (Auto) 6.1 x10^3uL (1.8-7.7) Lymphocytes # (Auto) 0.6 x10^3/uL (1.0-4.8) Monocytes # (Auto) 0.6 x10^3/uL (0.0-1.1) Eosinophils # (Auto) 0.0 x10^3/uL (0.0-0.7) Basophils # (Auto) 0.0 x10^3/uL (0.0-0.2) Sodium Level 138 mmol/L (136-145) Potassium Level 3.8 mmol/L (3.5-5.1) Chloride Level 102 mmol/L (98-107) Carbon Dioxide Level 23 mmol/L (21-32) Anion Gap 13 (6-14) Blood Urea Nitrogen 13 mg/dL (7-20) Creatinine 0.7 mg/dL (0.6-1.0) Estimated GFR (Cockcroft-Gault) 82.0 BUN/Creatinine Ratio 19 (6-20) Glucose Level 66 mg/dL (70-99) Calcium Level 8.5 mg/dL (8.5-10.1) Total Bilirubin 0.3 mg/dL (0.2-1.0) Aspartate Amino Transf (AST/SGOT) 19 U/L (15-37) Alanine Aminotransferase (ALT/SGPT) 12 U/L (14-59) Alkaline Phosphatase 176 U/L (46-116) Total Protein 6.6 g/dL (6.4-8.2) Albumin 1.6 g/dL (3.4-5.0) Albumin/Globulin Ratio 0.3 (1.0-1.7) Micro RUN DATE: 02/13/18 PAGE 1 RUN TIME: 942 [facility] [address] [place] [address] Yonathan Cheng M.D., Heating And Air Conditioning Mechanic PATIENT: RAFFAELE SOLORZANO ACCT: [id number] LOC: [address] [place] [address] U : [id number] AGE/SX: 72/F ROOM: [facility] REG : 02/11/[address]: MARIANGEL WHALEY MD : [id number] BED: 1 DIS : STATUS: ADM IN TLOC: SPEC #: [id number] LOS: 02/11/18 STATUS: COMP REQ #: [id number] RECD: 02/11/[address]: MCKENZIE BARRIOS DO SOURCE: BLOOD ENTR: 02/11/[address]: JOSEPH,STAFF [facility]: NO PCP ORDERED: BCULT Procedure Result BLOOD CULTURE Final GRAM POSITIVE COCCI IN CLUSTERS, SUGGESTIVE OF STAPH, IN 1 OF 4 BOTTLES, TWO SETS DRAWN. CALLED TO OSIRIS PONCE RN ON 5N AT 9:45 ON 02/12/18 DW MT SENT TO [facility] FOR FURTHER WORKUP. AMEDED REPORT: GRAM POSITIVE COCCI IN CLUSTERS IN 2 OF 4 BOTTLES(BOTH BOTTLES THIS SET NOW POSITIVE);2 SETS DRAWN ON THIS DATE. RESULT WAS CALLED TO HOA AVILA ON 02/13/18 AT 0939 BY Dolores DAVENPORT * This is a corrected result. * A prior result that was reported as final has been changed. Objective: Assessment: 1. Gram-positive cocci in clusters, bacteremia suggestive of Staph, 2/4 bottles, ID and LORY pending 2. Generalized weakness. 3. Decreased appetite, weight loss, rectal bleeding. 4. History uterine status post chemoradiation, hysterectomy, cystectomy with ileal loop urinary diversion bag with fecal material and bleeding from vagina. CT abdomen this admission showing abdominal mass. 5. Low back pain. 6. Moderate malnutrition. 7. Anemia. 8. Fecal occult blood positive. 9. ABN CT abdomen, bone scan Plan: Plan of Care 1. Continue empiric IV vancomycin. 2. Monitor renal functions closely. 3. Follow up ID of GPC in blood. 4. Continue supportive care. 5. CEMETERY WARDEN and GI following 6. Monitor right knee closely. 7. Discussed with daughter at bedside. 8. Continue supportive care. KESHA JOY MD Feb 13, 2018 09:53
--- NOTE | 2018-02-13 10:50 | RAD ---
CT CHEST W/CONTRAST Indication: Uterine and bladder cancer Technique: Postcontrast CT imaging was performed of the chest, multiplanar reconstruction images submitted. One or more of the following individualized dose reduction techniques were utilized for this examination: 1. Automated exposure control 2. Adjustment of the mA and/or kV according to patient size 3. Use of iterative reconstruction technique. Contrast: 75 cc Omnipaque 300 Comparison: None Findings: There is emphysema. There is no pneumothorax or pericardial effusion. There is trace left pleural effusion near lung base. There is no significant infiltrate. Major airways are patent. Thoracic aortic caliber is within normal limits without intraluminal flap. There is coronary calcification. No significantly enlarged nodes are identified of the chest. There is a nodule along the inferior margin of the isthmus of the thyroid gland about 1.3 cm. There is a small left lower lobe pulmonary nodule 0.3 cm axial image 44 series 2. There is no other significant pulmonary nodularity. Visualized gallbladder is distended as seen on recent CT abdomen abdomen exam February 11, 2018. There is mild superior endplate concavity of the T8 vertebral body of uncertain chronicity. IMPRESSION: 1. There is tiny left lower lobe pulmonary nodule, optional 12 month follow-up as per revised Fleischner guidelines. There is no significant lymphadenopathy of the chest. 2. There is emphysema. 3. There is coronary calcification. 4. There is a nodule along the inferior margin of the isthmus of the thyroid gland. 5. There is mild superior endplate concavity of the T8 vertebral body of uncertain chronicity for which correlation with any pain at this location advised. 6. There is again distention of the gallbladder seen on recent CT abdomen exam. Electronically signed by: Stewart Chan MD (02/13/2018 10:47 AM) [id number]
--- NOTE | 2018-02-13 10:50 | PDOC ---
PROGRESS NOTES History of Present Illness History of Present Illness rectal bleeding last Sunday and Sunday, 3 times a day, SHe has had lower abd pain, no N/V. in ER, HB 11.2. She has h/o uterus Ca 1.5 years ago, s/p RT, chemo and then sx with hysterctomy , also had bladder invasion and bladder was removed and now has ileal loop urinary diversion bag. 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 ID consult iv vanc x [address] : IMPRESSION: An irregular air-containing structure seen within the lower pelvis in the expected location the urinary bladder. This extends to involve the pubic bones. This is in the area the patient's mass seen on the previous CT scan. There is surrounding increased soft tissue density. This is presumably related to patient's known cancer. Bony destruction of the pubic bones is seen, right greater than left. Past Medical History Cardiovascular: No pertinent hx Pulmonary: No pertinent hx Hepatobiliary: No pertinent hx Infectious disease: Human papilloma virus Renal/: Acute renal failure Past Surgical History Past Surgical History: Hysterectomy Family History Family History: Hypertension Social History Smoke: Quit ALCOHOL: none Drugs: None Vitals Vitals Vital Signs Date Time Temp Pulse Resp B/P (MAP) Pulse Ox O2 Delivery O2 Flow Rate FiO2 02/13/18 07:00 97.9 79 18 96/61 (73) 93 Room Air 97.9 Physical Exam Physical Exam GEN.: No apparent distress. Alert and oriented. HEENT: Head is normocephalic, atraumatic NECK: Supple. LUNGS: Clear to auscultation. HEART: RRR, S1, S2 present. Peripheral pulses intact ABDOMEN: Soft, Positive bowel sounds. ileostomy for urine output. pubic area + tenderness. EXTREMITIES: Without any cyanosis. NEUROLOGIC: Normal speech, normal tone PSYCHIATRIC: Normal affect, normal mood. SKIN: No ulcerations General: Alert, Oriented X3, Cooperative, mild distress Heart: Regular rate, Normal S1, Normal S2, No murmurs Lungs: Clear Abdomen: Normal bowel sounds, Soft, No tenderness, No masses, Other (Pelvic: labial agglutination. Bleeding most likely from rectum.) Extremities: No clubbing, No cyanosis Labs LABS Laboratory Tests Test 02/13/18 03:35 White Blood Count 7.4 x10^3/uL (4.0-11.0) Red Blood Count 2.90 x10^6/uL (3.50-5.40) Hemoglobin 8.5 g/dL (12.0-15.5) Hematocrit 26.0 % (36.0-47.0) Mean Corpuscular Volume 90 fL (79-100) Mean Corpuscular Hemoglobin 29 pg (25-35) Mean Corpuscular Hemoglobin Concent 33 g/dL (31-37) Red Cell Distribution Width 19.7 % (11.5-14.5) Platelet Count 395 x10^3/uL (140-400) Neutrophils (%) (Auto) 83 % (31-73) Lymphocytes (%) (Auto) 8 % (24-48) Monocytes (%) (Auto) 8 % (0-9) Eosinophils (%) (Auto) 1 % (0-3) Basophils (%) (Auto) 1 % (0-3) Neutrophils # (Auto) 6.1 x10^3uL (1.8-7.7) Lymphocytes # (Auto) 0.6 x10^3/uL (1.0-4.8) Monocytes # (Auto) 0.6 x10^3/uL (0.0-1.1) Eosinophils # (Auto) 0.0 x10^3/uL (0.0-0.7) Basophils # (Auto) 0.0 x10^3/uL (0.0-0.2) Sodium Level 138 mmol/L (136-145) Potassium Level 3.8 mmol/L (3.5-5.1) Chloride Level 102 mmol/L (98-107) Carbon Dioxide Level 23 mmol/L (21-32) Anion Gap 13 (6-14) Blood Urea Nitrogen 13 mg/dL (7-20) Creatinine 0.7 mg/dL (0.6-1.0) Estimated GFR (Cockcroft-Gault) 82.0 BUN/Creatinine Ratio 19 (6-20) Glucose Level 66 mg/dL (70-99) Calcium Level 8.5 mg/dL (8.5-10.1) Total Bilirubin 0.3 mg/dL (0.2-1.0) Aspartate Amino Transf (AST/SGOT) 19 U/L (15-37) Alanine Aminotransferase (ALT/SGPT) 12 U/L (14-59) Alkaline Phosphatase 176 U/L (46-116) Total Protein 6.6 g/dL (6.4-8.2) Albumin 1.6 g/dL (3.4-5.0) Albumin/Globulin Ratio 0.3 (1.0-1.7) Comment Review of Relevant I have reviewed the following items marisol (where applicable) has been applied. Labs Laboratory Tests Test 02/11/18 16:05 02/11/18 16:32 02/11/18 18:25 02/11/18 19:19 White Blood Count 12.5 x10^3/uL (4.0-11.0) Red Blood Count 3.93 x10^6/uL (3.50-5.40) Hemoglobin 11.2 g/dL (12.0-15.5) Hematocrit 35.1 % (36.0-47.0) Mean Corpuscular Volume 89 fL (79-100) Mean Corpuscular Hemoglobin 28 pg (25-35) Mean Corpuscular Hemoglobin Concent 32 g/dL (31-37) Red Cell Distribution Width 20.2 % (11.5-14.5) Platelet Count 598 x10^3/uL (140-400) Neutrophils (%) (Auto) 92 % (31-73) Lymphocytes (%) (Auto) 4 % (24-48) Monocytes (%) (Auto) 4 % (0-9) Eosinophils (%) (Auto) 0 % (0-3) Basophils (%) (Auto) 0 % (0-3) Neutrophils # (Auto) 11.5 x10^3uL (1.8-7.7) Lymphocytes # (Auto) 0.5 x10^3/uL (1.0-4.8) Monocytes # (Auto) 0.5 x10^3/uL (0.0-1.1) Eosinophils # (Auto) 0.1 x10^3/uL (0.0-0.7) Basophils # (Auto) 0.0 x10^3/uL (0.0-0.2) Segmented Neutrophils % 76 % (35-66) Band Neutrophils % 14 % (0-9) Lymphocytes % 7 % (24-48) Monocytes % 3 % (0-10) Toxic Granulation Present Platelet Estimate Increased (ADEQUATE) Anisocytosis Mod Sodium Level 134 mmol/L (136-145) Potassium Level 4.7 mmol/L (3.5-5.1) Chloride Level 95 mmol/L (98-107) Carbon Dioxide Level 23 mmol/L (21-32) Anion Gap 16 (6-14) Blood Urea Nitrogen 27 mg/dL (7-20) Creatinine 0.9 mg/dL (0.6-1.0) Estimated GFR (Cockcroft-Gault) 61.4 BUN/Creatinine Ratio 30 (6-20) Glucose Level 110 mg/dL (70-99) Calcium Level 10.0 mg/dL (8.5-10.1) Total Bilirubin 0.4 mg/dL (0.2-1.0) Aspartate Amino Transf (AST/SGOT) 17 U/L (15-37) Alanine Aminotransferase (ALT/SGPT) 12 U/L (14-59) Alkaline Phosphatase 285 U/L (46-116) Total Protein 8.3 g/dL (6.4-8.2) Albumin 2.1 g/dL (3.4-5.0) Albumin/Globulin Ratio 0.3 (1.0-1.7) Stool Occult Blood Positive (NEG) Urine Collection Type Void Urine Color Yellow Urine Clarity Clear Urine pH 6.0 Urine Specific [place] >=1.030 Urine Protein Negative mg/dL (NEG-TRACE) Urine Glucose (UA) Negative mg/dL (NEG) Urine Ketones (Stick) 40 mg/dL (NEG) Urine Blood Small (NEG) Urine Nitrite Positive (NEG) Urine Bilirubin Negative (NEG) Urine Urobilinogen Dipstick 1.0 mg/dL (0.2 mg/dL) Urine Leukocyte Esterase Small (NEG) Urine RBC 1-2 /HPF (0-2) Urine WBC >40 /HPF (0-4) Urine Squamous Epithelial Cells Few /LPF Urine Bacteria Moderate /HPF (0-FEW) Urine Hyaline Casts Moderate /HPF Urine Mucus Slight /LPF Lactic Acid Level 1.4 mmol/L (0.4-2.0) Test 02/12/18 05:50 02/13/18 03:35 White Blood Count 9.6 x10^3/uL (4.0-11.0) 7.4 x10^3/uL (4.0-11.0) Red Blood Count 3.15 x10^6/uL (3.50-5.40) 2.90 x10^6/uL (3.50-5.40) Hemoglobin 9.0 g/dL (12.0-15.5) 8.5 g/dL (12.0-15.5) Hematocrit 27.9 % (36.0-47.0) 26.0 % (36.0-47.0) Mean Corpuscular Volume 89 fL (79-100) 90 fL (79-100) Mean Corpuscular Hemoglobin 29 pg (25-35) 29 pg (25-35) Mean Corpuscular Hemoglobin Concent 32 g/dL (31-37) 33 g/dL (31-37) Red Cell Distribution Width 20.2 % (11.5-14.5) 19.7 % (11.5-14.5) Platelet Count 446 x10^3/uL (140-400) 395 x10^3/uL (140-400) Neutrophils (%) (Auto) 85 % (31-73) 83 % (31-73) Lymphocytes (%) (Auto) 6 % (24-48) 8 % (24-48) Monocytes (%) (Auto) 8 % (0-9) 8 % (0-9) Eosinophils (%) (Auto) 1 % (0-3) 1 % (0-3) Basophils (%) (Auto) 0 % (0-3) 1 % (0-3) Neutrophils # (Auto) 8.2 x10^3uL (1.8-7.7) 6.1 x10^3uL (1.8-7.7) Lymphocytes # (Auto) 0.6 x10^3/uL (1.0-4.8) 0.6 x10^3/uL (1.0-4.8) Monocytes # (Auto) 0.7 x10^3/uL (0.0-1.1) 0.6 x10^3/uL (0.0-1.1) Eosinophils # (Auto) 0.1 x10^3/uL (0.0-0.7) 0.0 x10^3/uL (0.0-0.7) Basophils # (Auto) 0.0 x10^3/uL (0.0-0.2) 0.0 x10^3/uL (0.0-0.2) Reticulocyte Count (auto) 2.2 % (0.5-2.5) Sodium Level 136 mmol/L (136-145) 138 mmol/L (136-145) Potassium Level 4.1 mmol/L (3.5-5.1) 3.8 mmol/L (3.5-5.1) Chloride Level 100 mmol/L (98-107) 102 mmol/L (98-107) Carbon Dioxide Level 23 mmol/L (21-32) 23 mmol/L (21-32) Anion Gap 13 (6-14) 13 (6-14) Blood Urea Nitrogen 20 mg/dL (7-20) 13 mg/dL (7-20) Creatinine 0.8 mg/dL (0.6-1.0) 0.7 mg/dL (0.6-1.0) Estimated GFR (Cockcroft-Gault) 70.3 82.0 Glucose Level 80 mg/dL (70-99) 66 mg/dL (70-99) Calcium Level 8.6 mg/dL (8.5-10.1) 8.5 mg/dL (8.5-10.1) Iron Level 19 ug/dL (50-170) Total Iron Binding Capacity 127 ug/dL (250-450) Iron Saturation 15 % (15-34) Ferritin 429 ng/mL (8-252) Vitamin B12 Level 1174 pg/mL (247-911) BUN/Creatinine Ratio 19 (6-20) Total Bilirubin 0.3 mg/dL (0.2-1.0) Aspartate Amino Transf (AST/SGOT) 19 U/L (15-37) Alanine Aminotransferase (ALT/SGPT) 12 U/L (14-59) Alkaline Phosphatase 176 U/L (46-116) Total Protein 6.6 g/dL (6.4-8.2) Albumin 1.6 g/dL (3.4-5.0) Albumin/Globulin Ratio 0.3 (1.0-1.7) Laboratory Tests Test 02/13/18 03:35 White Blood Count 7.4 x10^3/uL (4.0-11.0) Red Blood Count 2.90 x10^6/uL (3.50-5.40) Hemoglobin 8.5 g/dL (12.0-15.5) Hematocrit 26.0 % (36.0-47.0) Mean Corpuscular Volume 90 fL (79-100) Mean Corpuscular Hemoglobin 29 pg (25-35) Mean Corpuscular Hemoglobin Concent 33 g/dL (31-37) Red Cell Distribution Width 19.7 % (11.5-14.5) Platelet Count 395 x10^3/uL (140-400) Neutrophils (%) (Auto) 83 % (31-73) Lymphocytes (%) (Auto) 8 % (24-48) Monocytes (%) (Auto) 8 % (0-9) Eosinophils (%) (Auto) 1 % (0-3) Basophils (%) (Auto) 1 % (0-3) Neutrophils # (Auto) 6.1 x10^3uL (1.8-7.7) Lymphocytes # (Auto) 0.6 x10^3/uL (1.0-4.8) Monocytes # (Auto) 0.6 x10^3/uL (0.0-1.1) Eosinophils # (Auto) 0.0 x10^3/uL (0.0-0.7) Basophils # (Auto) 0.0 x10^3/uL (0.0-0.2) Sodium Level 138 mmol/L (136-145) Potassium Level 3.8 mmol/L (3.5-5.1) Chloride Level 102 mmol/L (98-107) Carbon Dioxide Level 23 mmol/L (21-32) Anion Gap 13 (6-14) Blood Urea Nitrogen 13 mg/dL (7-20) Creatinine 0.7 mg/dL (0.6-1.0) Estimated GFR (Cockcroft-Gault) 82.0 BUN/Creatinine Ratio 19 (6-20) Glucose Level 66 mg/dL (70-99) Calcium Level 8.5 mg/dL (8.5-10.1) Total Bilirubin 0.3 mg/dL (0.2-1.0) Aspartate Amino Transf (AST/SGOT) 19 U/L (15-37) Alanine Aminotransferase (ALT/SGPT) 12 U/L (14-59) Alkaline Phosphatase 176 U/L (46-116) Total Protein 6.6 g/dL (6.4-8.2) Albumin 1.6 g/dL (3.4-5.0) Albumin/Globulin Ratio 0.3 (1.0-1.7) Microbiology 02/11/18 Blood Culture - Preliminary, Resulted NO GROWTH AFTER 1 DAY 02/11/18 Fecal Leukocyte Stain - Final, Complete Medications Current Medications Iohexol (Omnipaque 300 Mg/ml) 75 ml 1X ONCE IV Last administered on 02/11/18at 17:00; Start 02/11/18 at 17:00; Stop 02/11/18 at 17:01; Status DC Iohexol (Omnipaque 240 Mg/ml) 50 ml 1X ONCE PO Last administered on 02/11/18at 17:00; Start 02/11/18 at 17:00; Stop 02/11/18 at 17:01; Status DC Info (CONTRAST GIVEN -- Rx MONITORING) 1 each PRN DAILY PRN MC SEE COMMENTS; Start 02/11/18 at 16:45; Stop 02/13/18 at 08:43; Status DC Sodium Chloride 1,000 ml @ 1,000 mls/hr 1X ONCE IV Last administered on at 19:15; Start 02/11/18 at 18:15; Stop 02/11/18 at 19:14; Status DC Metronidazole 100 ml @ 100 mls/hr 1X ONCE IV Last administered on 02/11/18at 18:30; Start 02/11/18 at 18:30; Stop 02/11/18 at 19:29; Status DC Sodium Chloride 1,000 ml @ 125 mls/hr Q8H IV Last administered on 02/12/18at 11 :35; Start 02/11/18 at 19:51; Stop 02/12/18 at 19:50; Status DC Acetaminophen (Tylenol) 650 mg PRN Q6HRS PRN PO FEVER; Start 02/11/18 at 21:00 Ondansetron HCl (Zofran) 4 mg PRN Q6HRS PRN IV NAUSEA/VOMITING; Start 02/11/18 at 21:00 Morphine Sulfate (Morphine Sulfate) 2 mg PRN Q2HR PRN IV MODERATE TO SEVERE PAIN Last administered on 02/12/18at 11:49; Start 02/11/18 at 21:00 Tramadol HCl (Ultram) 50 mg PRN Q6HRS PRN PO MILD TO MODERATE PAIN; Start 02/11 at 21:00 Docusate Sodium (Colace) 100 mg PRN DAILY PRN PO HARD STOOLS; Start 02/11/18 at 21:00 Vancomycin HCl 1 gm/Sodium Chloride 250 ml @ 250 mls/hr 1X ONCE IV Last administered on 02/12/18at 11:35; Start 02/12/18 at 10:00; Stop 02/12/18 at 10:59 ; Status DC Vancomycin HCl 1 gm/Sodium Chloride 250 ml @ 250 mls/hr Q12H IV ; Start at 06:00; Status UNV Vancomycin HCl 750 mg/Sodium Chloride 250 ml @ 250 mls/hr 1X ONCE IV Last administered on 02/12/18at 13:44; Start 02/12/18 at 13:15; Stop 02/12/18 at 14:14 ; Status DC Vancomycin HCl 1 gm/Sodium Chloride 250 ml @ 250 mls/hr Q24H IV ; Start at 12:00 Vancomycin HCl (Vancomycin Trough Level) 1 each 1X ONCE MC ; Start 02/14/18 at 11:30; Stop 02/14/18 at 11:31 Vancomycin HCl (Vanco Per Pharmacy) 1 each PRN DAILY PRN MC SEE COMMENTS Last administered on 02/12/18at 15:45; Start 02/12/18 at 13:30 Cyclobenzaprine HCl (Flexeril) 10 mg 1X ONCE PO Last administered on at 16:47; Start 02/12/18 at 15:45; Stop 02/12/18 at 15:46; Status DC Sodium Chloride 1,000 ml @ 85 mls/hr [id number] IV Last administered on at 21:23; Start 02/12/18 at 20:30 Iohexol (Omnipaque 300 Mg/ml) 75 ml 1X ONCE IV Last administered on 02/13/18at 09:52; Start 02/13/18 at 08:45; Stop 02/13/18 at 08:46; Status DC Info (CONTRAST GIVEN -- Rx MONITORING) 1 each PRN DAILY PRN MC SEE COMMENTS; Start 02/13/18 at 08:45; Stop 02/15/18 at 08:44 Active Scripts Active Cephalexin 500 Mg Tablet 1 Tab PO BID Cyclobenzaprine Hcl 10 Mg Tablet 1 Tab PO TID [place] 5-325 Tablet (Acetaminophen/Hydrocodone Bitart) 1 Each Tablet 1 Tab PO Q4- 6HRS Senna-Time S Tablet (Sennosides/Docusate Sodium) 1 Each Tablet 2 Tab PO QHS 7 Days Oxycodone-Acetaminophen 5-325 (Oxycodone Hcl/Acetaminophen) 1 Each Tablet 1 Tab PO PRN Q4HRS PRN Vitamin D2 (Ergocalciferol (Vitamin D2)) 50,000 Unit Capsule 50,000 Unit PO WEEKLY Colace (Docusate Sodium) 100 Mg Capsule 100 Mg PO BID 10 Days Vitals/I & O Vital Sign - Last 24 Hours 02/12/18 02/12/18 02/12/18 02/12/18 11:00 11:49 12:33 15:00 Temp 98.5 98.3 98.5 98.3 Pulse 80 79 Resp 20 18 B/P (MAP) 105/67 (80) 92/56 (68) Pulse Ox 90 95 O2 Delivery Room Air Room Air Room Air Room Air 02/12/18 02/12/18 02/12/18 02/13/18 19:00 20:00 23:00 03:05 Temp 99.5 98.7 99.2 99.5 98.7 99.2 Pulse 80 80 84 Resp 20 20 20 B/P (MAP) 97/59 (72) 104/59 (74) 97/63 (74) Pulse Ox 96 95 94 O2 Delivery Room Air Room Air Room Air Room Air 02/13/18 07:00 Temp 97.9 97.9 Pulse 79 Resp 18 B/P (MAP) 96/61 (73) Pulse Ox 93 O2 Delivery Room Air Intake and Output 02/12/18 02/12/18 02/13/18 15:00 23:00 07:00 Intake Total 1000 ml 1325 ml Output Total 425 ml 200 ml 450 ml Balance 575 ml 1125 ml -450 ml BRINDA HOWE MD Feb 13, 2018 10:50
[2018-02-13 11:00] VITALS: BP 103/59
[2018-02-13] MEDS: VANCOMYCIN 1 GM in IV NORMAL SALINE 250ML 250 ML IV SCH (11:48)
[2018-02-13] MEDS ORDERED: CYCLOBENZAPRINE 10 MG TABLET. PO PRN (13:00)
[2018-02-13] MEDS: VANCOMYCIN PER PHARMACY MC PRN (13:59)
[2018-02-13] MEDS ORDERED: GADOBUTROL 7.5 MMOL/7.5 ML VIAL IV ONE (14:45)
[2018-02-13 15:00] VITALS: BP 104/63
--- NOTE | 2018-02-13 15:59 | RAD ---
MRI study of the pelvis with and without contrast Clinical indications: History of cervical cancer. History of hysterectomy and removal of urinary bladder. TECHNIQUE: Pre and postcontrast enhanced MRI sequences of the pelvis were performed in all 3 planes. A total of 6 cc of Gadavist was given intravenously. COMPARISON: CT study of the abdomen and pelvis dated February 11, 2018. FINDINGS: There is a round collection of air within the lower pelvis anteriorly in the surgical bed. This collection measures 6.6 cm in AP dimension and 3 cm in vertical and 5.1 cm in transverse dimension. The urinary bladder and uterus are surgically absent. There is circumferential soft tissue thickening in this area with enhancement. This air collection extends towards the symphysis pubis and extends into the right pubic bone. There is abnormal marrow signal of the right pubic bone and left pubic bone and right superior pubic ramus and right inferior pubic ramus and the left superior pubic ramus. There is a pathologic fracture of the right superior pubic ramus. Given the air collection, the findings may reflect osteomyelitis although residual or recurrent neoplastic involvement of this cavity with extension into the adjacent bones is certainly possible. There is soft tissue thickening around the symphysis pubis as well. There is edema and enhancement of the musculature of the pelvic floor and around these bones consistent with reactive myositis. IMPRESSION: Air collection within the lower pelvis with extension to the adjacent anterior pelvic bones consistent with osteomyelitis and abscess cavity. Certainly, residual or recurrent neoplastic involvement of this cavity with extension into the adjacent bones is possible. No obvious communication with the skin surface is seen and therefore, the air collection may communicate with adjacent colon or rectum. There is a pathologic fracture of the right superior pubic ramus. 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 Electronically signed by: Eliot Wan MD (02/13/2018 3:56 PM) [facility]
[2018-02-13 19:00] VITALS: BP 114/64
[2018-02-13 23:00] VITALS: BP 113/59
[2018-02-14 03:00] VITALS: BP 109/58
[2018-02-14 04:19] LABS: BASO % 0 % (0-3); EOS # 0.1 x10^3/uL (0.0-0.7); EOS % 2 % (0-3); HEMATOCRIT 25.6 % (36.0-47.0); HEMOGLOBIN 8.5 g/dL (12.0-15.5); LYMPH # 0.6 x10^3/uL (1.0-4.8); LYMPH % 10 % (24-48); MEAN CORPUSCULAR HEMOGLOBIN 29 pg (25-35); MEAN CORPUSCULAR HGB CONC 33 g/dL (31-37); MEAN CORPUSCULAR VOLUME 88 fL (79-100); MONO # 0.7 x10^3/uL (0.0-1.1); MONO % 12 % (0-9); NEUT # 4.5 x10^3uL (1.8-7.7); NEUT % 76 % (31-73); PLATELET COUNT 384 x10^3/uL (140-400); RED BLOOD COUNT 2.92 x10^6/uL (3.50-5.40); RED CELL DISTRIBUTION WIDTH 19.6 % (11.5-14.5)
[2018-02-14 05:08] LABS: ALBUMIN 1.5 g/dL (3.4-5.0); ALBUMIN/GLOBULIN RATIO 0.4 (1.0-1.7); CREATININE 0.7 mg/dL (0.6-1.0); GFR 81.8; POTASSIUM 3.3 mmol/L (3.5-5.1); TOTAL BILIRUBIN 0.2 mg/dL (0.2-1.0); TOTAL PROTEIN 5.7 g/dL (6.4-8.2)
[2018-02-14 07:20] VITALS: BP 102/60
[2018-02-14] MEDS: traMADol 50 MG TABLET PO PRN (08:10)
--- NOTE | 2018-02-14 10:49 | PDOC ---
PROGRESS NOTES History of Present Illness History of Present Illness rectal bleeding last Sunday and Sunday, 3 times a day, SHe has had lower abd pain, no N/V. in ER, HB 11.2. She has h/o uterus Ca 1.5 years ago, s/p RT, chemo and then sx with hysterctomy , also had bladder invasion and bladder was removed and now has ileal loop urinary diversion bag. MRI Air collection within the lower pelvis with extension to the adjacent anterior pelvic bones consistent with osteomyelitis and abscess cavity. Certainly, residual or recurrent neoplastic involvement of this cavity with extension into the adjacent bones Vaginal drainage of fecal matter GI bleed,FOB + pos blood cult, poss contamination severe malnutrition plan ONCOLOGY REC BX MASS ID following iv vanc Abd ct : IMPRESSION: An irregular air-containing structure seen within the lower pelvis in the expected location the urinary bladder. This extends to involve the pubic bones. This is in the area the patient's mass seen on the previous CT scan. There is surrounding increased soft tissue density. This is presumably related to patient's known cancer. Bony destruction of the pubic bones is seen, right greater than left. Past Medical History Cardiovascular: No pertinent hx Pulmonary: No pertinent hx Hepatobiliary: No pertinent hx Infectious disease: Human papilloma virus Renal/: Acute renal failure Past Surgical History Past Surgical History: Hysterectomy Family History Family History: Hypertension Social History Smoke: Quit ALCOHOL: none Drugs: None Vitals Vitals Vital Signs Date Time Temp Pulse Resp B/P (MAP) Pulse Ox O2 Delivery O2 Flow Rate FiO2 02/14/18 09:10 Room Air 02/14/18 07:20 98.8 80 18 102/60 (74) 91 98.8 Physical Exam Physical Exam GEN.: No apparent distress. Alert and oriented. HEENT: Head is normocephalic, atraumatic NECK: Supple. LUNGS: Clear to auscultation. HEART: RRR, S1, S2 present. Peripheral pulses intact ABDOMEN: Soft, Positive bowel sounds. ileostomy for urine output. pubic area + tenderness. EXTREMITIES: Without any cyanosis. NEUROLOGIC: Normal speech, normal tone PSYCHIATRIC: Normal affect, normal mood. SKIN: No ulcerations General: Alert, Oriented X3, Cooperative, mild distress Heart: Regular rate, Normal S1, Normal S2, No murmurs Lungs: Clear Abdomen: Normal bowel sounds, Soft, No tenderness, No masses, Other Extremities: No clubbing, No cyanosis Skin: No significant lesion Labs LABS MRI study of the pelvis with and without contrast Clinical indications: History of cervical cancer. History of hysterectomy and removal of urinary bladder. TECHNIQUE: Pre and postcontrast enhanced MRI sequences of the pelvis were performed in all 3 planes. A total of 6 cc of Gadavist was given intravenously. COMPARISON: CT study of the abdomen and pelvis dated February 11, 2018. FINDINGS: There is a round collection of air within the lower pelvis anteriorly in the surgical bed. This collection measures 6.6 cm in AP dimension and 3 cm in vertical and 5.1 cm in transverse dimension. The urinary bladder and uterus are surgically absent. There is circumferential soft tissue thickening in this area with enhancement. This air collection extends towards the symphysis pubis and extends into the right pubic bone. There is abnormal marrow signal of the right pubic bone and left pubic bone and right superior pubic ramus and right inferior pubic ramus and the left superior pubic ramus. There is a pathologic fracture of the right superior pubic ramus. Given the air collection, the findings may reflect osteomyelitis although residual or recurrent neoplastic involvement of this cavity with extension into the adjacent bones is certainly possible. There is soft tissue thickening around the symphysis pubis as well. There is edema and enhancement of the musculature of the pelvic floor and around these bones consistent with reactive myositis. IMPRESSION: Air collection within the lower pelvis with extension to the adjacent anterior pelvic bones consistent with osteomyelitis and abscess cavity. Certainly, residual or recurrent neoplastic involvement of this cavity with extension into the adjacent bones is possible. No obvious communication with the skin surface is seen and therefore, the air collection may communicate with adjacent colon or rectum. There is a pathologic fracture of the right superior pubic ramus. 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 Laboratory Tests Test 02/14/18 03:40 White Blood Count 6.0 x10^3/uL (4.0-11.0) Red Blood Count 2.92 x10^6/uL (3.50-5.40) Hemoglobin 8.5 g/dL (12.0-15.5) Hematocrit 25.6 % (36.0-47.0) Mean Corpuscular Volume 88 fL (79-100) Mean Corpuscular Hemoglobin 29 pg (25-35) Mean Corpuscular Hemoglobin Concent 33 g/dL (31-37) Red Cell Distribution Width 19.6 % (11.5-14.5) Platelet Count 384 x10^3/uL (140-400) Neutrophils (%) (Auto) 76 % (31-73) Lymphocytes (%) (Auto) 10 % (24-48) Monocytes (%) (Auto) 12 % (0-9) Eosinophils (%) (Auto) 2 % (0-3) Basophils (%) (Auto) 0 % (0-3) Neutrophils # (Auto) 4.5 x10^3uL (1.8-7.7) Lymphocytes # (Auto) 0.6 x10^3/uL (1.0-4.8) Monocytes # (Auto) 0.7 x10^3/uL (0.0-1.1) Eosinophils # (Auto) 0.1 x10^3/uL (0.0-0.7) Basophils # (Auto) 0.0 x10^3/uL (0.0-0.2) Sodium Level 141 mmol/L (136-145) Potassium Level 3.3 mmol/L (3.5-5.1) Chloride Level 105 mmol/L (98-107) Carbon Dioxide Level 28 mmol/L (21-32) Anion Gap 8 (6-14) Blood Urea Nitrogen 9 mg/dL (7-20) Creatinine 0.7 mg/dL (0.6-1.0) Estimated GFR (Cockcroft-Gault) 81.8 BUN/Creatinine Ratio 13 (6-20) Glucose Level 129 mg/dL (70-99) Calcium Level 8.0 mg/dL (8.5-10.1) Total Bilirubin 0.2 mg/dL (0.2-1.0) Aspartate Amino Transf (AST/SGOT) 75 U/L (15-37) Alanine Aminotransferase (ALT/SGPT) 37 U/L (14-59) Alkaline Phosphatase 161 U/L (46-116) Total Protein 5.7 g/dL (6.4-8.2) Albumin 1.5 g/dL (3.4-5.0) Albumin/Globulin Ratio 0.4 (1.0-1.7) Comment Review of Relevant I have reviewed the following items marisol (where applicable) has been applied. Labs Laboratory Tests Test 02/13/18 03:35 02/14/18 03:40 White Blood Count 7.4 x10^3/uL (4.0-11.0) 6.0 x10^3/uL (4.0-11.0) Red Blood Count 2.90 x10^6/uL (3.50-5.40) 2.92 x10^6/uL (3.50-5.40) Hemoglobin 8.5 g/dL (12.0-15.5) 8.5 g/dL (12.0-15.5) Hematocrit 26.0 % (36.0-47.0) 25.6 % (36.0-47.0) Mean Corpuscular Volume 90 fL (79-100) 88 fL (79-100) Mean Corpuscular Hemoglobin 29 pg (25-35) 29 pg (25-35) Mean Corpuscular Hemoglobin Concent 33 g/dL (31-37) 33 g/dL (31-37) Red Cell Distribution Width 19.7 % (11.5-14.5) 19.6 % (11.5-14.5) Platelet Count 395 x10^3/uL (140-400) 384 x10^3/uL (140-400) Neutrophils (%) (Auto) 83 % (31-73) 76 % (31-73) Lymphocytes (%) (Auto) 8 % (24-48) 10 % (24-48) Monocytes (%) (Auto) 8 % (0-9) 12 % (0-9) Eosinophils (%) (Auto) 1 % (0-3) 2 % (0-3) Basophils (%) (Auto) 1 % (0-3) 0 % (0-3) Neutrophils # (Auto) 6.1 x10^3uL (1.8-7.7) 4.5 x10^3uL (1.8-7.7) Lymphocytes # (Auto) 0.6 x10^3/uL (1.0-4.8) 0.6 x10^3/uL (1.0-4.8) Monocytes # (Auto) 0.6 x10^3/uL (0.0-1.1) 0.7 x10^3/uL (0.0-1.1) Eosinophils # (Auto) 0.0 x10^3/uL (0.0-0.7) 0.1 x10^3/uL (0.0-0.7) Basophils # (Auto) 0.0 x10^3/uL (0.0-0.2) 0.0 x10^3/uL (0.0-0.2) Sodium Level 138 mmol/L (136-145) 141 mmol/L (136-145) Potassium Level 3.8 mmol/L (3.5-5.1) 3.3 mmol/L (3.5-5.1) Chloride Level 102 mmol/L (98-107) 105 mmol/L (98-107) Carbon Dioxide Level 23 mmol/L (21-32) 28 mmol/L (21-32) Anion Gap 13 (6-14) 8 (6-14) Blood Urea Nitrogen 13 mg/dL (7-20) 9 mg/dL (7-20) Creatinine 0.7 mg/dL (0.6-1.0) 0.7 mg/dL (0.6-1.0) Estimated GFR (Cockcroft-Gault) 82.0 81.8 BUN/Creatinine Ratio 19 (6-20) 13 (6-20) Glucose Level 66 mg/dL (70-99) 129 mg/dL (70-99) Calcium Level 8.5 mg/dL (8.5-10.1) 8.0 mg/dL (8.5-10.1) Total Bilirubin 0.3 mg/dL (0.2-1.0) 0.2 mg/dL (0.2-1.0) Aspartate Amino Transf (AST/SGOT) 19 U/L (15-37) 75 U/L (15-37) Alanine Aminotransferase (ALT/SGPT) 12 U/L (14-59) 37 U/L (14-59) Alkaline Phosphatase 176 U/L (46-116) 161 U/L (46-116) Total Protein 6.6 g/dL (6.4-8.2) 5.7 g/dL (6.4-8.2) Albumin 1.6 g/dL (3.4-5.0) 1.5 g/dL (3.4-5.0) Albumin/Globulin Ratio 0.3 (1.0-1.7) 0.4 (1.0-1.7) Laboratory Tests Test 02/14/18 03:40 White Blood Count 6.0 x10^3/uL (4.0-11.0) Red Blood Count 2.92 x10^6/uL (3.50-5.40) Hemoglobin 8.5 g/dL (12.0-15.5) Hematocrit 25.6 % (36.0-47.0) Mean Corpuscular Volume 88 fL (79-100) Mean Corpuscular Hemoglobin 29 pg (25-35) Mean Corpuscular Hemoglobin Concent 33 g/dL (31-37) Red Cell Distribution Width 19.6 % (11.5-14.5) Platelet Count 384 x10^3/uL (140-400) Neutrophils (%) (Auto) 76 % (31-73) Lymphocytes (%) (Auto) 10 % (24-48) Monocytes (%) (Auto) 12 % (0-9) Eosinophils (%) (Auto) 2 % (0-3) Basophils (%) (Auto) 0 % (0-3) Neutrophils # (Auto) 4.5 x10^3uL (1.8-7.7) Lymphocytes # (Auto) 0.6 x10^3/uL (1.0-4.8) Monocytes # (Auto) 0.7 x10^3/uL (0.0-1.1) Eosinophils # (Auto) 0.1 x10^3/uL (0.0-0.7) Basophils # (Auto) 0.0 x10^3/uL (0.0-0.2) Sodium Level 141 mmol/L (136-145) Potassium Level 3.3 mmol/L (3.5-5.1) Chloride Level 105 mmol/L (98-107) Carbon Dioxide Level 28 mmol/L (21-32) Anion Gap 8 (6-14) Blood Urea Nitrogen 9 mg/dL (7-20) Creatinine 0.7 mg/dL (0.6-1.0) Estimated GFR (Cockcroft-Gault) 81.8 BUN/Creatinine Ratio 13 (6-20) Glucose Level 129 mg/dL (70-99) Calcium Level 8.0 mg/dL (8.5-10.1) Total Bilirubin 0.2 mg/dL (0.2-1.0) Aspartate Amino Transf (AST/SGOT) 75 U/L (15-37) Alanine Aminotransferase (ALT/SGPT) 37 U/L (14-59) Alkaline Phosphatase 161 U/L (46-116) Total Protein 5.7 g/dL (6.4-8.2) Albumin 1.5 g/dL (3.4-5.0) Albumin/Globulin Ratio 0.4 (1.0-1.7) Microbiology 02/13/18 Blood Culture - Preliminary, Resulted NO GROWTH AFTER 1 DAY 02/11/18 Fecal Leukocyte Stain - Final, Complete 02/11/18 Urine Culture - Preliminary, Resulted 02/11/18 Urine Culture Result 1 (LORY) - Preliminary, Resulted Medications Current Medications Iohexol (Omnipaque 300 Mg/ml) 75 ml 1X ONCE IV Last administered on 02/11/18at 17:00; Start 02/11/18 at 17:00; Stop 02/11/18 at 17:01; Status DC Iohexol (Omnipaque 240 Mg/ml) 50 ml 1X ONCE PO Last administered on 02/11/18at 17:00; Start 02/11/18 at 17:00; Stop 02/11/18 at 17:01; Status DC Info (CONTRAST GIVEN -- Rx MONITORING) 1 each PRN DAILY PRN MC SEE COMMENTS; Start 02/11/18 at 16:45; Stop 02/13/18 at 08:43; Status DC Sodium Chloride 1,000 ml @ 1,000 mls/hr 1X ONCE IV Last administered on at 19:15; Start 02/11/18 at 18:15; Stop 02/11/18 at 19:14; Status DC Metronidazole 100 ml @ 100 mls/hr 1X ONCE IV Last administered on 02/11/18at 18:30; Start 02/11/18 at 18:30; Stop 02/11/18 at 19:29; Status DC Sodium Chloride 1,000 ml @ 125 mls/hr Q8H IV Last administered on 02/12/18at 11 :35; Start 02/11/18 at 19:51; Stop 02/12/18 at 19:50; Status DC Acetaminophen (Tylenol) 650 mg PRN Q6HRS PRN PO FEVER; Start 02/11/18 at 21:00 Ondansetron HCl (Zofran) 4 mg PRN Q6HRS PRN IV NAUSEA/VOMITING; Start 02/11/18 at 21:00 Morphine Sulfate (Morphine Sulfate) 2 mg PRN Q2HR PRN IV MODERATE TO SEVERE PAIN Last administered on 02/12/18at 11:49; Start 02/11/18 at 21:00 Tramadol HCl (Ultram) 50 mg PRN Q6HRS PRN PO MILD TO MODERATE PAIN Last administered on 02/14/18at 08:10; Start 02/11/18 at 21:00 Docusate Sodium (Colace) 100 mg PRN DAILY PRN PO HARD STOOLS; Start 02/11/18 at 21:00 Vancomycin HCl 1 gm/Sodium Chloride 250 ml @ 250 mls/hr 1X ONCE IV Last administered on 02/12/18at 11:35; Start 02/12/18 at 10:00; Stop 02/12/18 at 10:59 ; Status DC Vancomycin HCl 1 gm/Sodium Chloride 250 ml @ 250 mls/hr Q12H IV ; Start at 06:00; Status UNV Vancomycin HCl 750 mg/Sodium Chloride 250 ml @ 250 mls/hr 1X ONCE IV Last administered on 02/12/18at 13:44; Start 02/12/18 at 13:15; Stop 02/12/18 at 14:14 ; Status DC Vancomycin HCl 1 gm/Sodium Chloride 250 ml @ 250 mls/hr Q24H IV Last administered on 02/13/18at 11:48; Start 02/13/18 at 12:00 Vancomycin HCl (Vancomycin Trough Level) 1 each 1X ONCE MC ; Start 02/14/18 at 11:30; Stop 02/14/18 at 11:31 Vancomycin HCl (Vanco Per Pharmacy) 1 each PRN DAILY PRN MC SEE COMMENTS Last administered on 02/13/18at 13:59; Start 02/12/18 at 13:30 Cyclobenzaprine HCl (Flexeril) 10 mg 1X ONCE PO Last administered on at 16:47; Start 02/12/18 at 15:45; Stop 02/12/18 at 15:46; Status DC Sodium Chloride 1,000 ml @ 85 mls/hr [id number] IV Last administered on at 20:55; Start 02/12/18 at 20:30 Iohexol (Omnipaque 300 Mg/ml) 75 ml 1X ONCE IV Last administered on 02/13/18at 09:52; Start 02/13/18 at 08:45; Stop 02/13/18 at 08:46; Status DC Info (CONTRAST GIVEN -- Rx MONITORING) 1 each PRN DAILY PRN MC SEE COMMENTS; Start 02/13/18 at 08:45; Stop 02/15/18 at 08:44 Cyclobenzaprine HCl (Flexeril) 10 mg PRN Q12HR PRN PO MUSCLE SPASMS Last administered on 02/13/18at 20:55; Start 02/13/18 at 13:00 Gadobutrol (Gadavist) 6 mmol 1X ONCE IV ; Start 02/13/18 at 14:45; Stop at 14:46; Status DC Cyclobenzaprine HCl (Flexeril) 10 mg PRN Q8HRS PRN PO MUSCLE SPASMS; Start at 20:15 Active Scripts Active Cephalexin 500 Mg Tablet 1 Tab PO BID Cyclobenzaprine Hcl 10 Mg Tablet 1 Tab PO TID [place] 5-325 Tablet (Acetaminophen/Hydrocodone Bitart) 1 Each Tablet 1 Tab PO Q4- 6HRS Senna-Time S Tablet (Sennosides/Docusate Sodium) 1 Each Tablet 2 Tab PO QHS 7 Days Oxycodone-Acetaminophen 5-325 (Oxycodone Hcl/Acetaminophen) 1 Each Tablet 1 Tab PO PRN Q4HRS PRN Vitamin D2 (Ergocalciferol (Vitamin D2)) 50,000 Unit Capsule 50,000 Unit PO WEEKLY Colace (Docusate Sodium) 100 Mg Capsule 100 Mg PO BID 10 Days Vitals/I & O Vital Sign - Last 24 Hours 02/13/18 02/13/18 02/13/18 02/13/18 11:00 15:00 19:00 20:00 Temp 97.9 97.9 97.7 97.9 97.9 97.7 Pulse 80 78 83 Resp 18 18 18 B/P (MAP) 103/59 (74) 104/63 (77) 114/64 (81) Pulse Ox 94 94 92 O2 Delivery Room Air Room Air Room Air Room Air 02/13/18 02/14/18 02/14/18 02/14/18 23:00 03:00 07:20 08:00 Temp 97.7 97.7 98.8 97.7 97.7 98.8 Pulse 87 85 80 Resp 18 18 18 B/P (MAP) 113/59 (77) 109/58 (75) 102/60 (74) Pulse Ox 90 93 91 O2 Delivery Room Air Room Air Room Air Room Air 02/14/18 02/14/18 08:10 09:10 O2 Delivery Room Air Room Air Intake and Output 02/13/18 02/13/18 02/14/18 15:00 23:00 07:00 Intake Total 1250 ml Output Total 750 ml Balance 500 ml BRINDA HOWE MD Feb 14, 2018 10:49
[2018-02-14 11:00] VITALS: BP 99/62
--- NOTE | 2018-02-14 11:12 | PDOC ---
Infectious Disease Note Subjective: Subjective Pt says feels full after eating regular meals today denies any f/c/n/v/d has some abdo discomfort no fecal material from vagina ROS: ROS Negative except for above. Vital Signs: Vital Signs Vital Signs Date Time Temp Pulse Resp B/P (MAP) Pulse Ox O2 Delivery O2 Flow Rate FiO2 02/14/18 09:10 Room Air 02/14/18 07:20 98.8 80 18 102/60 (74) 91 98.8 Physical Exam: PHYSICAL EXAM GEN.: No apparent distress. Alert and oriented. HEENT: Head is normocephalic, atraumatic NECK: Supple. LUNGS: Clear to auscultation. HEART: RRR, S1, S2 present. Peripheral pulses intact ABDOMEN: Soft, Positive bowel sounds. ileostomy for urine output. pubic area + tenderness. EXTREMITIES: Without any cyanosis. NEUROLOGIC: Normal speech, normal tone PSYCHIATRIC: Normal affect, normal mood. SKIN: No ulcerations Medications: Inpatient Meds: Current Medications Medications (Trade) Dose Ordered Sig/Julisa Start Time Stop Time Status Last Admin Dose Admin Acetaminophen (Tylenol) 650 mg PRN Q6HRS PRN 02/11/18 21:00 Cyclobenzaprine HCl (Flexeril) 10 mg PRN Q8HRS PRN 02/13/18 20:15 Docusate Sodium (Colace) 100 mg PRN DAILY PRN 02/11/18 21:00 Gadobutrol (Gadavist) 6 mmol 1X ONCE 02/13/18 14:45 02/13/18 14:46 DC Info (CONTRAST GIVEN -- Rx MONITORING) 1 each PRN DAILY PRN 02/13/18 08:45 02/15/18 08:44 Iohexol (Omnipaque 240 Mg/ml) 50 ml 1X ONCE 02/11/18 17:00 02/11/18 17:01 DC 02/11/18 17:00 Iohexol (Omnipaque 300 Mg/ml) 75 ml 1X ONCE 02/13/18 08:45 02/13/18 08:46 DC 02/13/18 09:52 Metronidazole 100 ml @ 100 mls/hr 1X ONCE 02/11/18 18:30 02/11/18 19:29 DC 02/11/18 18:30 Morphine Sulfate (Morphine Sulfate) 2 mg PRN Q2HR PRN 02/11/18 21:00 02/12/18 11:49 Ondansetron HCl (Zofran) 4 mg PRN Q6HRS PRN 02/11/18 21:00 Sodium Chloride 1,000 ml @ 85 mls/hr [id number] 02/12/18 20:30 02/13/18 20:55 Tramadol HCl (Ultram) 50 mg PRN Q6HRS PRN 02/11/18 21:00 02/14/18 08:10 Vancomycin HCl (Vanco Per Pharmacy) 1 each PRN DAILY PRN 02/12/18 13:30 02/13/18 13:59 Vancomycin HCl (Vancomycin Trough Level) 1 each 1X ONCE 02/14/18 11:30 02/14/18 11:31 Vancomycin HCl 750 mg/Sodium Chloride 250 ml @ 250 mls/hr 1X ONCE 02/12/18 13:15 02/12/18 14:14 DC 02/12/18 13:44 Vancomycin HCl 1 gm/Sodium Chloride 250 ml @ 250 mls/hr Q24H 02/13/18 12:00 02/13/18 11:48 Labs: Lab Laboratory Tests Test 02/14/18 03:40 White Blood Count 6.0 x10^3/uL (4.0-11.0) Red Blood Count 2.92 x10^6/uL (3.50-5.40) Hemoglobin 8.5 g/dL (12.0-15.5) Hematocrit 25.6 % (36.0-47.0) Mean Corpuscular Volume 88 fL (79-100) Mean Corpuscular Hemoglobin 29 pg (25-35) Mean Corpuscular Hemoglobin Concent 33 g/dL (31-37) Red Cell Distribution Width 19.6 % (11.5-14.5) Platelet Count 384 x10^3/uL (140-400) Neutrophils (%) (Auto) 76 % (31-73) Lymphocytes (%) (Auto) 10 % (24-48) Monocytes (%) (Auto) 12 % (0-9) Eosinophils (%) (Auto) 2 % (0-3) Basophils (%) (Auto) 0 % (0-3) Neutrophils # (Auto) 4.5 x10^3uL (1.8-7.7) Lymphocytes # (Auto) 0.6 x10^3/uL (1.0-4.8) Monocytes # (Auto) 0.7 x10^3/uL (0.0-1.1) Eosinophils # (Auto) 0.1 x10^3/uL (0.0-0.7) Basophils # (Auto) 0.0 x10^3/uL (0.0-0.2) Sodium Level 141 mmol/L (136-145) Potassium Level 3.3 mmol/L (3.5-5.1) Chloride Level 105 mmol/L (98-107) Carbon Dioxide Level 28 mmol/L (21-32) Anion Gap 8 (6-14) Blood Urea Nitrogen 9 mg/dL (7-20) Creatinine 0.7 mg/dL (0.6-1.0) Estimated GFR (Cockcroft-Gault) 81.8 BUN/Creatinine Ratio 13 (6-20) Glucose Level 129 mg/dL (70-99) Calcium Level 8.0 mg/dL (8.5-10.1) Total Bilirubin 0.2 mg/dL (0.2-1.0) Aspartate Amino Transf (AST/SGOT) 75 U/L (15-37) Alanine Aminotransferase (ALT/SGPT) 37 U/L (14-59) Alkaline Phosphatase 161 U/L (46-116) Total Protein 5.7 g/dL (6.4-8.2) Albumin 1.5 g/dL (3.4-5.0) Albumin/Globulin Ratio 0.4 (1.0-1.7) Micro RUN DATE: 02/14/18 PAGE 1 RUN TIME: 419 [facility] [address] [place] [address] Yonathan Cheng M.D., Special Programs Director PATIENT: RAFFAELE SOLORZANO ACCT: [id number] LOC: [address] [place] [address] U : [id number] AGE/SX: 73/F ROOM: [facility] REG : 02/11/[address]: MARIANGEL WHALEY MD : 1945 BED: 1 DIS : STATUS: ADM IN TLOC: SPEC #: [id number] LOS: 02/11/18 STATUS: RES REQ #: [id number] RECD: 02/11/[address]: VIKKI CASH APRN SOURCE: VOID ENTR: 02/11/[address]: JOSEPH,STAFF [facility]: NO PCP ORDERED: URINE CULTURE Procedure Result URINE CULTURE Preliminary Preliminary report URINE CULTURE RES 1 Preliminary Gram negative rods Greater than 100,000 colony forming units per mL Performed at: DA - [facility] [address] [facility] [address], [place], [place] [id number] Lineman: AUTUMN Chun MD, Phone: [phone] RUN DATE: 02/13/18 PAGE 1 RUN TIME: 9[address] [facility] [address] [place] [address] Yonathan Cheng M.D., Special Programs Director PATIENT: RAFFAELE SOLORZANO ACCT: [id number] LOC: [address] [place] [address] U : [id number] AGE/SX: 72/F ROOM: [facility] REG : 02/11/[address]: MARIANGEL WHALEY MD : 1945 BED: 1 DIS : STATUS: ADM IN TLOC: SPEC #: [id number] LOS: 02/11/18 STATUS: COMP REQ #: [id number] RECD: 02/11/[address]: MCKENZIE BARRIOS DO SOURCE: BLOOD ENTR: 02/11/18-[address] [facility] [address]: JOSEPH,STAFF [facility]: NO PCP ORDERED: BCULT Procedure Result BLOOD CULTURE Final GRAM POSITIVE COCCI IN CLUSTERS, SUGGESTIVE OF STAPH, IN 1 OF 4 BOTTLES, TWO SETS DRAWN. CALLED TO OSIRIS PONCE RN ON 5N AT 9:45 ON 02/12/18 DW MT SENT TO [facility] FOR FURTHER WORKUP. AMEDED REPORT: GRAM POSITIVE COCCI IN CLUSTERS IN 2 OF 4 BOTTLES(BOTH BOTTLES THIS SET NOW POSITIVE);2 SETS DRAWN ON THIS DATE. RESULT WAS CALLED TO HOA AVILA ON 02/13/18 AT 0939 BY Dolores DAVENPORT * This is a corrected result. * A prior result that was reported as final has been changed. MRI pelvis IMPRESSION: Air collection within the lower pelvis with extension to the adjacent anterior pelvic bones consistent with osteomyelitis and abscess cavity. Certainly, residual or recurrent neoplastic involvement of this cavity with extension into the adjacent bones is possible. No obvious communication with the skin surface is seen and therefore, the air collection may communicate with adjacent colon or rectum. There is a pathologic fracture of the right superior pubic ramus. 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 Objective: Assessment: 1. Gram-positive cocci in clusters, bacteremia suggestive of Staph, 2/4 bottles, ID and LORY pending 2. Generalized weakness. 3. Decreased appetite, weight loss, rectal bleeding. 4. History uterine status post chemoradiation, hysterectomy, cystectomy with ileal loop urinary diversion bag with fecal material and bleeding from vagina. CT abdomen this admission showing abdominal mass. 5. Low back pain. 6. Moderate malnutrition. 7. Anemia. 8. Fecal occult blood positive. 9. ABN CT abdomen, bone scan 10.Pelvis MRI shows necrosis with fluid collection,could be infectious though malignant process cannot be ruled D/W DR Lamar, he is planning to consult IR for drainage Plan: Plan of Care 1. Continue empiric IV vancomycin.start empiric zosyn Monitor renal functions closely. 2.. Follow up ID of GPC in blood.ID and LORY still pending 3. Agree with IR drainage ,send for routine studies, c/s and cytology 4. FU with labs and cults in am 5. Continue supportive care. KESHA JOY MD Feb 14, 2018 11:12
--- NOTE | 2018-02-14 11:20 | PDOC ---
Subjective: Subjective: [place] weak and sweaty when walking earlier, really tired now. Small stool, denies blood. Tolerating PO. Objective: Vital Signs: Vital Signs Date Time Temp Pulse Resp B/P (MAP) Pulse Ox O2 Delivery O2 Flow Rate FiO2 02/14/18 09:10 Room Air 02/14/18 07:20 98.8 80 18 102/60 (74) 91 98.8 Labs: Laboratory Tests Test 02/14/18 03:40 White Blood Count 6.0 x10^3/uL Red Blood Count 2.92 x10^6/uL Hemoglobin 8.5 g/dL Hematocrit 25.6 % Mean Corpuscular Volume 88 fL Mean Corpuscular Hemoglobin 29 pg Mean Corpuscular Hemoglobin Concent 33 g/dL Red Cell Distribution Width 19.6 % Platelet Count 384 x10^3/uL Neutrophils (%) (Auto) 76 % Lymphocytes (%) (Auto) 10 % Monocytes (%) (Auto) 12 % Eosinophils (%) (Auto) 2 % Basophils (%) (Auto) 0 % Neutrophils # (Auto) 4.5 x10^3uL Lymphocytes # (Auto) 0.6 x10^3/uL Monocytes # (Auto) 0.7 x10^3/uL Eosinophils # (Auto) 0.1 x10^3/uL Basophils # (Auto) 0.0 x10^3/uL Sodium Level 141 mmol/L Potassium Level 3.3 mmol/L Chloride Level 105 mmol/L Carbon Dioxide Level 28 mmol/L Anion Gap 8 Blood Urea Nitrogen 9 mg/dL Creatinine 0.7 mg/dL Estimated GFR (Cockcroft-Gault) 81.8 BUN/Creatinine Ratio 13 Glucose Level 129 mg/dL Calcium Level 8.0 mg/dL Total Bilirubin 0.2 mg/dL Aspartate Amino Transf (AST/SGOT) 75 U/L Alanine Aminotransferase (ALT/SGPT) 37 U/L Alkaline Phosphatase 161 U/L Total Protein 5.7 g/dL Albumin 1.5 g/dL Albumin/Globulin Ratio 0.4 STOOL CULTURE Final Final report STOOL CULT RES 1 Final Comment No Salmonella or Shigella recovered. CAMPY Preliminary Preliminary report CAMPY RES 1 Preliminary Comment No Campylobacter species isolated. Performed at: [facility] [address], [place], [place] [id number] Cook Dinner: AUTUMN Chun MD, Phone: [phone] SHIGA TOXIN PENDING FECAL WBC,GRAM STAIN Final WBCS MODERATE URINE CULTURE Preliminary Preliminary report URINE CULTURE RES 1 Preliminary Gram negative rods BLOOD CULTURE Final GRAM POSITIVE COCCI IN CLUSTERS, SUGGESTIVE OF STAPH, IN 1 OF 4 BOTTLES, TWO SETS DRAWN. CALLED TO OSIRIS PONCE RN ON 5N AT 9:45 ON 02/12/18 DW MT SENT TO [facility] FOR FURTHER WORKUP. AMEDED REPORT: GRAM POSITIVE COCCI IN CLUSTERS IN 2 OF 4 BOTTLES(BOTH BOTTLES THIS SET NOW POSITIVE);2 SETS DRAWN ON THIS DATE. RESULT WAS CALLED TO HOA AVILA ON 02/13/18 AT 0939 BY Dolores DAVENPORT Imaging: Chest CT IMPRESSION: 1. There is tiny left lower lobe pulmonary nodule, optional 12 month follow-up as per revised Fleischner guidelines. There is no significant lymphadenopathy of the chest. 2. There is emphysema. 3. There is coronary calcification. 4. There is a nodule along the inferior margin of the isthmus of the thyroid gland. 5. There is mild superior endplate concavity of the T8 vertebral body of uncertain chronicity for which correlation with any pain at this location advised. 6. There is again distention of the gallbladder seen on recent CT abdomen exam. Pelv MRI IMPRESSION: Air collection within the lower pelvis with extension to the adjacent anterior pelvic bones consistent with osteomyelitis and abscess cavity. Certainly, residual or recurrent neoplastic involvement of this cavity with extension into the adjacent bones is possible. No obvious communication with the skin surface is seen and therefore, the air collection may communicate with adjacent colon or rectum. There is a pathologic fracture of the right superior pubic ramus. 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 PE: GEN: NAD LUNGS: CTAB HEART: RRR ABD: non-tender, urostomy NEURO/PSYCH: A & O 3 A/P: Rectal bleeding - resolved -EGD and colonoscopy in 2016 @ [facility]: nonbleeding gastric erosions and radiation proctitis s/p APC -Hgb stable 8.5 H/o cervical cancer -pelvic cavity w/ extension into bone on imaging Bacteremia -- Says she wouldn't want enema re: ?fistula - will return later w/ Dr. Paul. SYL ZAVALETA Feb 14, 2018 11:20
[2018-02-14] MEDS: IV NORMAL SALINE 1000ML BAG 1,000 ML IV SCH ×2 (11:42→19:34)
[2018-02-14] MEDS: PIPERACILLIN/TAZOBACTAM 3.375 GM in IV NORMAL SALINE 50ML 50 ML IV SCH ×3 (11:44→23:40)
[2018-02-14 12:13] LABS: VANC TR 7.4 mcg/mL (10.0-20.0)
[2018-02-14] MEDS: VANCOMYCIN 1 GM in IV NORMAL SALINE 250ML 250 ML IV SCH (13:05)
[2018-02-14] MEDS: CYCLOBENZAPRINE 10 MG TABLET. PO PRN ×2 (13:15→23:40)
[2018-02-14] MEDS: ACETAMINOPHEN 325 MG TABLET. PO PRN (13:15)
[2018-02-14] MEDS: VANCOMYCIN PER PHARMACY MC PRN ×2 (14:05→14:08)
[2018-02-14 15:00] VITALS: BP 89/52
--- NOTE | 2018-02-14 16:38 | PDOC ---
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 ROS - no CP Objective Objective Vital Signs Date Time Temp Pulse Resp B/P (MAP) Pulse Ox O2 Delivery O2 Flow Rate FiO2 02/14/18 11:00 98.6 80 18 99/62 (74) 9 Room Air 98.6 Intake and Output 02/14/18 07:00 Intake Total 1250 ml Output Total 750 ml Balance 500 ml IV Total 1250 ml Output Urine Total 750 ml # Voids 4 # Bowel Movements 2 Physical Exam Heart: Normal S1, Normal S2 General: Alert, Oriented X3 Lungs: Clear to auscultation Neuro: Normal speech Psych/Mental Status: Mental status NL Assessment Assessment IMPRESSION AND PLAN: 1. 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 She never returned for followup after that. She is now admitted with generalized weakness and rectal bleeding. Bone scan 02/11/18: Abnormal activity is seen involving the pubic bone on both sides and the right superior pubic ramus corresponding to the CT abnormality CT scan of the abdomen and pelvis on 02/11/2018 revealed irregular raised and enhancing structure in the lower pelvis and bony destruction. CT scan of the chest - no mets. Tiny lung nodule noted. MRI 02/13/18 revealed Air collection within the lower pelvis with extension to the adjacent anterior pelvic bones consistent with osteomyelitis and abscess cavity. Certainly, residual or recurrent neoplastic involvement of this cavity with extension into the adjacent bones is possible. No obvious communication with the skin surface is seen and therefore, the air collection may communicate with adjacent colon or rectum. There is a pathologic fracture of the right superior pubic ramus. I d/w radiology, this is more consistent with abscess. Plan to drain (by IR). I d/w ID. 2. Rectal bleeding, which I suspect is due to radiation proctitis. She had a colonoscopy at [facility] on 04/03/2016, which revealed radiation proctitis and she was treated with argon plasma coagulation. I appreciate GI consultation and management. 3. Anemia. Hemoglobin 8.5. Iron studies reveal anemia due to chronic disease. Normal B12. 4. Thrombocytosis, reactive, monitor. 5. Appreciate gynecology consultation. I discussed with Dr. Bladimir Obregon. Comment Review of Relevant I have reviewed the following items marisol (where applicable) has been applied. Labs Laboratory Tests Test 02/13/18 03:35 02/14/18 03:40 02/14/18 11:35 White Blood Count 7.4 x10^3/uL (4.0-11.0) 6.0 x10^3/uL (4.0-11.0) Red Blood Count 2.90 x10^6/uL (3.50-5.40) 2.92 x10^6/uL (3.50-5.40) Hemoglobin 8.5 g/dL (12.0-15.5) 8.5 g/dL (12.0-15.5) Hematocrit 26.0 % (36.0-47.0) 25.6 % (36.0-47.0) Mean Corpuscular Volume 90 fL (79-100) 88 fL (79-100) Mean Corpuscular Hemoglobin 29 pg (25-35) 29 pg (25-35) Mean Corpuscular Hemoglobin Concent 33 g/dL (31-37) 33 g/dL (31-37) Red Cell Distribution Width 19.7 % (11.5-14.5) 19.6 % (11.5-14.5) Platelet Count 395 x10^3/uL (140-400) 384 x10^3/uL (140-400) Neutrophils (%) (Auto) 83 % (31-73) 76 % (31-73) Lymphocytes (%) (Auto) 8 % (24-48) 10 % (24-48) Monocytes (%) (Auto) 8 % (0-9) 12 % (0-9) Eosinophils (%) (Auto) 1 % (0-3) 2 % (0-3) Basophils (%) (Auto) 1 % (0-3) 0 % (0-3) Neutrophils # (Auto) 6.1 x10^3uL (1.8-7.7) 4.5 x10^3uL (1.8-7.7) Lymphocytes # (Auto) 0.6 x10^3/uL (1.0-4.8) 0.6 x10^3/uL (1.0-4.8) Monocytes # (Auto) 0.6 x10^3/uL (0.0-1.1) 0.7 x10^3/uL (0.0-1.1) Eosinophils # (Auto) 0.0 x10^3/uL (0.0-0.7) 0.1 x10^3/uL (0.0-0.7) Basophils # (Auto) 0.0 x10^3/uL (0.0-0.2) 0.0 x10^3/uL (0.0-0.2) Sodium Level 138 mmol/L (136-145) 141 mmol/L (136-145) Potassium Level 3.8 mmol/L (3.5-5.1) 3.3 mmol/L (3.5-5.1) Chloride Level 102 mmol/L (98-107) 105 mmol/L (98-107) Carbon Dioxide Level 23 mmol/L (21-32) 28 mmol/L (21-32) Anion Gap 13 (6-14) 8 (6-14) Blood Urea Nitrogen 13 mg/dL (7-20) 9 mg/dL (7-20) Creatinine 0.7 mg/dL (0.6-1.0) 0.7 mg/dL (0.6-1.0) Estimated GFR (Cockcroft-Gault) 82.0 81.8 BUN/Creatinine Ratio 19 (6-20) 13 (6-20) Glucose Level 66 mg/dL (70-99) 129 mg/dL (70-99) Calcium Level 8.5 mg/dL (8.5-10.1) 8.0 mg/dL (8.5-10.1) Total Bilirubin 0.3 mg/dL (0.2-1.0) 0.2 mg/dL (0.2-1.0) Aspartate Amino Transf (AST/SGOT) 19 U/L (15-37) 75 U/L (15-37) Alanine Aminotransferase (ALT/SGPT) 12 U/L (14-59) 37 U/L (14-59) Alkaline Phosphatase 176 U/L (46-116) 161 U/L (46-116) Total Protein 6.6 g/dL (6.4-8.2) 5.7 g/dL (6.4-8.2) Albumin 1.6 g/dL (3.4-5.0) 1.5 g/dL (3.4-5.0) Albumin/Globulin Ratio 0.3 (1.0-1.7) 0.4 (1.0-1.7) Vancomycin Level Trough 7.4 mcg/mL (10.0-20.0) Vancomycin Last Dose Date 02/13/18 Vancomycin Last Dose Time 1200 Laboratory Tests Test 02/14/18 03:40 02/14/18 11:35 White Blood Count 6.0 x10^3/uL (4.0-11.0) Red Blood Count 2.92 x10^6/uL (3.50-5.40) Hemoglobin 8.5 g/dL (12.0-15.5) Hematocrit 25.6 % (36.0-47.0) Mean Corpuscular Volume 88 fL (79-100) Mean Corpuscular Hemoglobin 29 pg (25-35) Mean Corpuscular Hemoglobin Concent 33 g/dL (31-37) Red Cell Distribution Width 19.6 % (11.5-14.5) Platelet Count 384 x10^3/uL (140-400) Neutrophils (%) (Auto) 76 % (31-73) Lymphocytes (%) (Auto) 10 % (24-48) Monocytes (%) (Auto) 12 % (0-9) Eosinophils (%) (Auto) 2 % (0-3) Basophils (%) (Auto) 0 % (0-3) Neutrophils # (Auto) 4.5 x10^3uL (1.8-7.7) Lymphocytes # (Auto) 0.6 x10^3/uL (1.0-4.8) Monocytes # (Auto) 0.7 x10^3/uL (0.0-1.1) Eosinophils # (Auto) 0.1 x10^3/uL (0.0-0.7) Basophils # (Auto) 0.0 x10^3/uL (0.0-0.2) Sodium Level 141 mmol/L (136-145) Potassium Level 3.3 mmol/L (3.5-5.1) Chloride Level 105 mmol/L (98-107) Carbon Dioxide Level 28 mmol/L (21-32) Anion Gap 8 (6-14) Blood Urea Nitrogen 9 mg/dL (7-20) Creatinine 0.7 mg/dL (0.6-1.0) Estimated GFR (Cockcroft-Gault) 81.8 BUN/Creatinine Ratio 13 (6-20) Glucose Level 129 mg/dL (70-99) Calcium Level 8.0 mg/dL (8.5-10.1) Total Bilirubin 0.2 mg/dL (0.2-1.0) Aspartate Amino Transf (AST/SGOT) 75 U/L (15-37) Alanine Aminotransferase (ALT/SGPT) 37 U/L (14-59) Alkaline Phosphatase 161 U/L (46-116) Total Protein 5.7 g/dL (6.4-8.2) Albumin 1.5 g/dL (3.4-5.0) Albumin/Globulin Ratio 0.4 (1.0-1.7) Vancomycin Level Trough 7.4 mcg/mL (10.0-20.0) Vancomycin Last Dose Date 02/13/18 Vancomycin Last Dose Time 1200 Microbiology 02/13/18 Blood Culture - Preliminary, Resulted NO GROWTH AFTER 1 DAY 02/11/18 Fecal Leukocyte Stain - Final, Complete 02/11/18 Urine Culture - Preliminary, Resulted 02/11/18 Urine Culture Result 1 (LORY) - Preliminary, Resulted Medications Current Medications Iohexol (Omnipaque 300 Mg/ml) 75 ml 1X ONCE IV Last administered on 02/11/18at 17:00; Start 02/11/18 at 17:00; Stop 02/11/18 at 17:01; Status DC Iohexol (Omnipaque 240 Mg/ml) 50 ml 1X ONCE PO Last administered on 02/11/18at 17:00; Start 02/11/18 at 17:00; Stop 02/11/18 at 17:01; Status DC Info (CONTRAST GIVEN -- Rx MONITORING) 1 each PRN DAILY PRN MC SEE COMMENTS; Start 02/11/18 at 16:45; Stop 02/13/18 at 08:43; Status DC Sodium Chloride 1,000 ml @ 1,000 mls/hr 1X ONCE IV Last administered on at 19:15; Start 02/11/18 at 18:15; Stop 02/11/18 at 19:14; Status DC Metronidazole 100 ml @ 100 mls/hr 1X ONCE IV Last administered on 02/11/18at 18:30; Start 02/11/18 at 18:30; Stop 02/11/18 at 19:29; Status DC Sodium Chloride 1,000 ml @ 125 mls/hr Q8H IV Last administered on 02/12/18at 11 :35; Start 02/11/18 at 19:51; Stop 02/12/18 at 19:50; Status DC Acetaminophen (Tylenol) 650 mg PRN Q6HRS PRN PO FEVER Last administered on 02/14at 13:15; Start 02/11/18 at 21:00 Ondansetron HCl (Zofran) 4 mg PRN Q6HRS PRN IV NAUSEA/VOMITING; Start 02/11/18 at 21:00 Morphine Sulfate (Morphine Sulfate) 2 mg PRN Q2HR PRN IV MODERATE TO SEVERE PAIN Last administered on 02/12/18at 11:49; Start 02/11/18 at 21:00 Tramadol HCl (Ultram) 50 mg PRN Q6HRS PRN PO MILD TO MODERATE PAIN Last administered on 02/14/18at 08:10; Start 02/11/18 at 21:00 Docusate Sodium (Colace) 100 mg PRN DAILY PRN PO HARD STOOLS; Start 02/11/18 at 21:00 Vancomycin HCl 1 gm/Sodium Chloride 250 ml @ 250 mls/hr 1X ONCE IV Last administered on 02/12/18at 11:35; Start 02/12/18 at 10:00; Stop 02/12/18 at 10:59 ; Status DC Vancomycin HCl 1 gm/Sodium Chloride 250 ml @ 250 mls/hr Q12H IV ; Start at 06:00; Status UNV Vancomycin HCl 750 mg/Sodium Chloride 250 ml @ 250 mls/hr 1X ONCE IV Last administered on 02/12/18at 13:44; Start 02/12/18 at 13:15; Stop 02/12/18 at 14:14 ; Status DC Vancomycin HCl 1 gm/Sodium Chloride 250 ml @ 250 mls/hr Q24H IV Last administered on 02/14/18at 13:05; Start 02/13/18 at 12:00; Stop 02/14/18 at 14:03 ; Status DC Vancomycin HCl (Vancomycin Trough Level) 1 each 1X ONCE MC Last administered on 02/14/18at 11:30; Start 02/14/18 at 11:30; Stop 02/14/18 at 11:31; Status DC Vancomycin HCl (Vanco Per Pharmacy) 1 each PRN DAILY PRN MC SEE COMMENTS Last administered on 02/14/18at 14:08; Start 02/12/18 at 13:30 Cyclobenzaprine HCl (Flexeril) 10 mg 1X ONCE PO Last administered on at 16:47; Start 02/12/18 at 15:45; Stop 02/12/18 at 15:46; Status DC Sodium Chloride 1,000 ml @ 85 mls/hr [id number] IV Last administered on at 11:42; Start 02/12/18 at 20:30 Iohexol (Omnipaque 300 Mg/ml) 75 ml 1X ONCE IV Last administered on 02/13/18at 09:52; Start 02/13/18 at 08:45; Stop 02/13/18 at 08:46; Status DC Info (CONTRAST GIVEN -- Rx MONITORING) 1 each PRN DAILY PRN MC SEE COMMENTS; Start 02/13/18 at 08:45; Stop 02/15/18 at 08:44 Cyclobenzaprine HCl (Flexeril) 10 mg PRN Q12HR PRN PO MUSCLE SPASMS Last administered on 02/13/18at 20:55; Start 02/13/18 at 13:00; Stop 02/14/18 at 12:04 ; Status DC Gadobutrol (Gadavist) 6 mmol 1X ONCE IV ; Start 02/13/18 at 14:45; Stop at 14:46; Status DC Cyclobenzaprine HCl (Flexeril) 10 mg PRN Q8HRS PRN PO MUSCLE SPASMS Last administered on 02/14/18at 13:15; Start 02/13/18 at 20:15 Piperacillin Sod/ Tazobactam Sod 3.375 gm/Sodium Chloride 50 ml @ 100 mls/hr Q6HRS IV Last administered on 02/14/18at 11:44; Start 02/14/18 at 12:00 Vancomycin HCl 0.75 gm/Sodium Chloride 250 ml @ 250 mls/hr Q12H IV ; Start at 01:00 Vancomycin HCl (Vancomycin Trough Level) 1 each 1X ONCE MC ; Start 02/15/18 at 23:30; Stop 02/15/18 at 23:31 Active Scripts Active Cephalexin 500 Mg Tablet 1 Tab PO BID Cyclobenzaprine Hcl 10 Mg Tablet 1 Tab PO TID [place] 5-325 Tablet (Acetaminophen/Hydrocodone Bitart) 1 Each Tablet 1 Tab PO Q4- 6HRS Senna-Time S Tablet (Sennosides/Docusate Sodium) 1 Each Tablet 2 Tab PO QHS 7 Days Oxycodone-Acetaminophen 5-325 (Oxycodone Hcl/Acetaminophen) 1 Each Tablet 1 Tab PO PRN Q4HRS PRN Vitamin D2 (Ergocalciferol (Vitamin D2)) 50,000 Unit Capsule 50,000 Unit PO WEEKLY Colace (Docusate Sodium) 100 Mg Capsule 100 Mg PO BID 10 Days Vitals/I & O Vital Sign - Last 24 Hours 02/13/18 02/13/18 02/13/18 02/14/18 19:00 20:00 23:00 03:00 Temp 97.7 97.7 97.7 97.7 97.7 97.7 Pulse 83 87 85 Resp 18 18 18 B/P (MAP) 114/64 (81) 113/59 (77) 109/58 (75) Pulse Ox 92 90 93 O2 Delivery Room Air Room Air Room Air Room Air 02/14/18 02/14/18 02/14/18 02/14/18 07:20 08:00 08:10 09:10 Temp 98.8 98.8 Pulse 80 Resp 18 B/P (MAP) 102/60 (74) Pulse Ox 91 O2 Delivery Room Air Room Air Room Air Room Air 02/14/18 11:00 Temp 98.6 98.6 Pulse 80 Resp 18 B/P (MAP) 99/62 (74) Pulse Ox 9 O2 Delivery Room Air Intake and Output 02/13/18 02/13/18 02/14/18 15:00 23:00 07:00 Intake Total 1250 ml Output Total 750 ml Balance 500 ml MARSHALL LYON MD Feb 14, 2018 16:38
[2018-02-14 19:00] VITALS: BP 90/50
[2018-02-14 23:00] VITALS: BP 104/65
[2018-02-14 23:08] LABS: PROTHROMBIN TIME PATIENT 16.4 SEC (11.7-14.0)
[2018-02-15] VITALS (13 sets, daily range): BP systolic 90–118; BP diastolic 59–76
[2018-02-15] MEDS: VANCOMYCIN 0.75 GM in IV NORMAL SALINE 250ML 250 ML IV SCH ×2 (01:25→13:00)
[2018-02-15 05:26] LABS: BASO % 0 % (0-3); EOS # 0.1 x10^3/uL (0.0-0.7); EOS % 2 % (0-3); HEMATOCRIT 26.4 % (36.0-47.0); HEMOGLOBIN 8.5 g/dL (12.0-15.5); LYMPH # 0.7 x10^3/uL (1.0-4.8); LYMPH % 11 % (24-48); MEAN CORPUSCULAR HEMOGLOBIN 29 pg (25-35); MEAN CORPUSCULAR HGB CONC 32 g/dL (31-37); MEAN CORPUSCULAR VOLUME 90 fL (79-100); MONO # 0.7 x10^3/uL (0.0-1.1); MONO % 11 % (0-9); NEUT # 4.9 x10^3uL (1.8-7.7); NEUT % 76 % (31-73); PLATELET COUNT 349 x10^3/uL (140-400); RED BLOOD COUNT 2.93 x10^6/uL (3.50-5.40); WHITE BLOOD COUNT 6.4 x10^3/uL (4.0-11.0)
[2018-02-15] MEDS: PIPERACILLIN/TAZOBACTAM 3.375 GM in IV NORMAL SALINE 50ML 50 ML IV SCH ×4 (05:35→23:35)
[2018-02-15] MEDS: IV NORMAL SALINE 1000ML BAG 1,000 ML IV SCH ×2 (05:35→19:06)
[2018-02-15 06:13] LABS: ALBUMIN 1.5 g/dL (3.4-5.0); ALBUMIN/GLOBULIN RATIO 0.3 (1.0-1.7); CALCIUM 8.3 mg/dL (8.5-10.1); CREATININE 0.9 mg/dL (0.6-1.0); GFR 61.2; POTASSIUM 3.1 mmol/L (3.5-5.1); TOTAL BILIRUBIN 0.2 mg/dL (0.2-1.0); TOTAL PROTEIN 5.9 g/dL (6.4-8.2)
[2018-02-15] MEDS: POTASSIUM CHLORIDE 10MEQ 100 ML IV SCH ×3 (08:02→19:53)
--- NOTE | 2018-02-15 08:40 | PDOC ---
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, urethra, uterus and vagina, status post chemotherapy with cisplatin and radiation therapy that was completed on 10/30/2013 ROS - no pain, no fever Objective Objective Vital Signs Date Time Temp Pulse Resp B/P (MAP) Pulse Ox O2 Delivery O2 Flow Rate FiO2 02/15/18 03:00 97.9 79 16 90/60 (70) 92 Room Air 97.9 Intake and Output 02/15/18 07:00 Intake Total 1135 ml Output Total 450 ml Balance 685 ml Intake Oral 835 ml IV Total 300 ml Drainage Total 450 ml # Voids 3 Physical Exam Heart: Normal S1, Normal S2 General: Alert, Oriented X3 Lungs: Clear to auscultation Neuro: Normal speech Psych/Mental Status: Mental status NL Assessment Assessment IMPRESSION AND PLAN: 1. 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 She never returned for followup after that. She is now admitted with generalized weakness and rectal bleeding. Bone scan 02/11/18: Abnormal activity is seen involving the pubic bone on both sides and the right superior pubic ramus corresponding to the CT abnormality CT scan of the abdomen and pelvis on 02/11/2018 revealed irregular raised and enhancing structure in the lower pelvis and bony destruction. CT scan of the chest - no mets. Tiny lung nodule noted. MRI 02/13/18 revealed Air collection within the lower pelvis with extension to the adjacent anterior pelvic bones consistent with osteomyelitis and abscess cavity. Certainly, residual or recurrent neoplastic involvement of this cavity with extension into the adjacent bones is possible. No obvious communication with the skin surface is seen and therefore, the air collection may communicate with adjacent colon or rectum. There is a pathologic fracture of the right superior pubic ramus. I d/w radiology, this is more consistent with abscess. Plan to drain (by IR) and get a bone lesion bx. I d/w ID. 2. Rectal bleeding, which I suspect is due to radiation proctitis. She had a colonoscopy at [facility] on 04/03/2016, which revealed radiation proctitis and she was treated with argon plasma coagulation. I appreciate GI consultation and management. 3. Anemia. Hemoglobin 8.5. Iron studies reveal anemia due to chronic disease. Normal B12. 4. Thrombocytosis, reactive, monitor. Resolved. 5. Appreciate gynecology consultation. I discussed with Dr. Bladimir Obregon. Comment Review of Relevant I have reviewed the following items marisol (where applicable) has been applied. Labs Laboratory Tests Test 02/14/18 03:40 02/14/18 11:35 02/14/18 20:00 02/15/18 02:00 White Blood Count 6.0 x10^3/uL (4.0-11.0) 6.4 x10^3/uL (4.0-11.0) Red Blood Count 2.92 x10^6/uL (3.50-5.40) 2.93 x10^6/uL (3.50-5.40) Hemoglobin 8.5 g/dL (12.0-15.5) 8.5 g/dL (12.0-15.5) Hematocrit 25.6 % (36.0-47.0) 26.4 % (36.0-47.0) Mean Corpuscular Volume 88 fL (79-100) 90 fL (79-100) Mean Corpuscular Hemoglobin 29 pg (25-35) 29 pg (25-35) Mean Corpuscular Hemoglobin Concent 33 g/dL (31-37) 32 g/dL (31-37) Red Cell Distribution Width 19.6 % (11.5-14.5) 20.0 % (11.5-14.5) Platelet Count 384 x10^3/uL (140-400) 349 x10^3/uL (140-400) Neutrophils (%) (Auto) 76 % (31-73) 76 % (31-73) Lymphocytes (%) (Auto) 10 % (24-48) 11 % (24-48) Monocytes (%) (Auto) 12 % (0-9) 11 % (0-9) Eosinophils (%) (Auto) 2 % (0-3) 2 % (0-3) Basophils (%) (Auto) 0 % (0-3) 0 % (0-3) Neutrophils # (Auto) 4.5 x10^3uL (1.8-7.7) 4.9 x10^3uL (1.8-7.7) Lymphocytes # (Auto) 0.6 x10^3/uL (1.0-4.8) 0.7 x10^3/uL (1.0-4.8) Monocytes # (Auto) 0.7 x10^3/uL (0.0-1.1) 0.7 x10^3/uL (0.0-1.1) Eosinophils # (Auto) 0.1 x10^3/uL (0.0-0.7) 0.1 x10^3/uL (0.0-0.7) Basophils # (Auto) 0.0 x10^3/uL (0.0-0.2) 0.0 x10^3/uL (0.0-0.2) Sodium Level 141 mmol/L (136-145) 141 mmol/L (136-145) Potassium Level 3.3 mmol/L (3.5-5.1) 3.1 mmol/L (3.5-5.1) Chloride Level 105 mmol/L (98-107) 103 mmol/L (98-107) Carbon Dioxide Level 28 mmol/L (21-32) 27 mmol/L (21-32) Anion Gap 8 (6-14) 11 (6-14) Blood Urea Nitrogen 9 mg/dL (7-20) 10 mg/dL (7-20) Creatinine 0.7 mg/dL (0.6-1.0) 0.9 mg/dL (0.6-1.0) Estimated GFR (Cockcroft-Gault) 81.8 61.2 BUN/Creatinine Ratio 13 (6-20) 11 (6-20) Glucose Level 129 mg/dL (70-99) 93 mg/dL (70-99) Calcium Level 8.0 mg/dL (8.5-10.1) 8.3 mg/dL (8.5-10.1) Total Bilirubin 0.2 mg/dL (0.2-1.0) 0.2 mg/dL (0.2-1.0) Aspartate Amino Transf (AST/SGOT) 75 U/L (15-37) 60 U/L (15-37) Alanine Aminotransferase (ALT/SGPT) 37 U/L (14-59) 31 U/L (14-59) Alkaline Phosphatase 161 U/L (46-116) 145 U/L (46-116) Total Protein 5.7 g/dL (6.4-8.2) 5.9 g/dL (6.4-8.2) Albumin 1.5 g/dL (3.4-5.0) 1.5 g/dL (3.4-5.0) Albumin/Globulin Ratio 0.4 (1.0-1.7) 0.3 (1.0-1.7) Vancomycin Level Trough 7.4 mcg/mL (10.0-20.0) Vancomycin Last Dose Date 02/13/18 Vancomycin Last Dose Time 1200 Prothrombin Time 16.4 SEC (11.7-14.0) Prothromb Time International Ratio 1.4 (0.8-1.1) Activated Partial Thromboplast Time 30 SEC (24-38) Laboratory Tests Test 02/14/18 11:35 02/14/18 20:00 02/15/18 02:00 Vancomycin Level Trough 7.4 mcg/mL (10.0-20.0) Vancomycin Last Dose Date 02/13/18 Vancomycin Last Dose Time 1200 Prothrombin Time 16.4 SEC (11.7-14.0) Prothromb Time International Ratio 1.4 (0.8-1.1) Activated Partial Thromboplast Time 30 SEC (24-38) White Blood Count 6.4 x10^3/uL (4.0-11.0) Red Blood Count 2.93 x10^6/uL (3.50-5.40) Hemoglobin 8.5 g/dL (12.0-15.5) Hematocrit 26.4 % (36.0-47.0) Mean Corpuscular Volume 90 fL (79-100) Mean Corpuscular Hemoglobin 29 pg (25-35) Mean Corpuscular Hemoglobin Concent 32 g/dL (31-37) Red Cell Distribution Width 20.0 % (11.5-14.5) Platelet Count 349 x10^3/uL (140-400) Neutrophils (%) (Auto) 76 % (31-73) Lymphocytes (%) (Auto) 11 % (24-48) Monocytes (%) (Auto) 11 % (0-9) Eosinophils (%) (Auto) 2 % (0-3) Basophils (%) (Auto) 0 % (0-3) Neutrophils # (Auto) 4.9 x10^3uL (1.8-7.7) Lymphocytes # (Auto) 0.7 x10^3/uL (1.0-4.8) Monocytes # (Auto) 0.7 x10^3/uL (0.0-1.1) Eosinophils # (Auto) 0.1 x10^3/uL (0.0-0.7) Basophils # (Auto) 0.0 x10^3/uL (0.0-0.2) Sodium Level 141 mmol/L (136-145) Potassium Level 3.1 mmol/L (3.5-5.1) Chloride Level 103 mmol/L (98-107) Carbon Dioxide Level 27 mmol/L (21-32) Anion Gap 11 (6-14) Blood Urea Nitrogen 10 mg/dL (7-20) Creatinine 0.9 mg/dL (0.6-1.0) Estimated GFR (Cockcroft-Gault) 61.2 BUN/Creatinine Ratio 11 (6-20) Glucose Level 93 mg/dL (70-99) Calcium Level 8.3 mg/dL (8.5-10.1) Total Bilirubin 0.2 mg/dL (0.2-1.0) Aspartate Amino Transf (AST/SGOT) 60 U/L (15-37) Alanine Aminotransferase (ALT/SGPT) 31 U/L (14-59) Alkaline Phosphatase 145 U/L (46-116) Total Protein 5.9 g/dL (6.4-8.2) Albumin 1.5 g/dL (3.4-5.0) Albumin/Globulin Ratio 0.3 (1.0-1.7) Microbiology 02/13/18 Blood Culture - Preliminary, Resulted NO GROWTH AFTER 2 DAYS 02/11/18 Fecal Leukocyte Stain - Final, Complete 02/11/18 Urine Culture - Final, Complete 02/11/18 Urine Culture Result 1 (LORY) - Final, Complete 02/11/18 Antimicrobic Susceptibility - Final, Complete Medications Current Medications Iohexol (Omnipaque 300 Mg/ml) 75 ml 1X ONCE IV Last administered on 02/11/18at 17:00; Start 02/11/18 at 17:00; Stop 02/11/18 at 17:01; Status DC Iohexol (Omnipaque 240 Mg/ml) 50 ml 1X ONCE PO Last administered on 02/11/18at 17:00; Start 02/11/18 at 17:00; Stop 02/11/18 at 17:01; Status DC Info (CONTRAST GIVEN -- Rx MONITORING) 1 each PRN DAILY PRN MC SEE COMMENTS; Start 02/11/18 at 16:45; Stop 02/13/18 at 08:43; Status DC Sodium Chloride 1,000 ml @ 1,000 mls/hr 1X ONCE IV Last administered on at 19:15; Start 02/11/18 at 18:15; Stop 02/11/18 at 19:14; Status DC Metronidazole 100 ml @ 100 mls/hr 1X ONCE IV Last administered on 02/11/18at 18:30; Start 02/11/18 at 18:30; Stop 02/11/18 at 19:29; Status DC Sodium Chloride 1,000 ml @ 125 mls/hr Q8H IV Last administered on 02/12/18at 11 :35; Start 02/11/18 at 19:51; Stop 02/12/18 at 19:50; Status DC Acetaminophen (Tylenol) 650 mg PRN Q6HRS PRN PO FEVER Last administered on 02/14at 13:15; Start 02/11/18 at 21:00 Ondansetron HCl (Zofran) 4 mg PRN Q6HRS PRN IV NAUSEA/VOMITING; Start 02/11/18 at 21:00 Morphine Sulfate (Morphine Sulfate) 2 mg PRN Q2HR PRN IV MODERATE TO SEVERE PAIN Last administered on 02/12/18at 11:49; Start 02/11/18 at 21:00 Tramadol HCl (Ultram) 50 mg PRN Q6HRS PRN PO MILD TO MODERATE PAIN Last administered on 02/14/18at 08:10; Start 02/11/18 at 21:00 Docusate Sodium (Colace) 100 mg PRN DAILY PRN PO HARD STOOLS; Start 02/11/18 at 21:00 Vancomycin HCl 1 gm/Sodium Chloride 250 ml @ 250 mls/hr 1X ONCE IV Last administered on 02/12/18at 11:35; Start 02/12/18 at 10:00; Stop 02/12/18 at 10:59 ; Status DC Vancomycin HCl 1 gm/Sodium Chloride 250 ml @ 250 mls/hr Q12H IV ; Start at 06:00; Status UNV Vancomycin HCl 750 mg/Sodium Chloride 250 ml @ 250 mls/hr 1X ONCE IV Last administered on 02/12/18at 13:44; Start 02/12/18 at 13:15; Stop 02/12/18 at 14:14 ; Status DC Vancomycin HCl 1 gm/Sodium Chloride 250 ml @ 250 mls/hr Q24H IV Last administered on 02/14/18at 13:05; Start 02/13/18 at 12:00; Stop 02/14/18 at 14:03 ; Status DC Vancomycin HCl (Vancomycin Trough Level) 1 each 1X ONCE MC Last administered on 02/14/18at 11:30; Start 02/14/18 at 11:30; Stop 02/14/18 at 11:31; Status DC Vancomycin HCl (Vanco Per Pharmacy) 1 each PRN DAILY PRN MC SEE COMMENTS Last administered on 02/14/18at 14:08; Start 02/12/18 at 13:30 Cyclobenzaprine HCl (Flexeril) 10 mg 1X ONCE PO Last administered on at 16:47; Start 02/12/18 at 15:45; Stop 02/12/18 at 15:46; Status DC Sodium Chloride 1,000 ml @ 85 mls/hr [id number] IV Last administered on at 05:35; Start 02/12/18 at 20:30 Iohexol (Omnipaque 300 Mg/ml) 75 ml 1X ONCE IV Last administered on 02/13/18at 09:52; Start 02/13/18 at 08:45; Stop 02/13/18 at 08:46; Status DC Info (CONTRAST GIVEN -- Rx MONITORING) 1 each PRN DAILY PRN MC SEE COMMENTS; Start 02/13/18 at 08:45; Stop 02/15/18 at 08:44 Cyclobenzaprine HCl (Flexeril) 10 mg PRN Q12HR PRN PO MUSCLE SPASMS Last administered on 02/13/18at 20:55; Start 02/13/18 at 13:00; Stop 02/14/18 at 12:04 ; Status DC Gadobutrol (Gadavist) 6 mmol 1X ONCE IV ; Start 02/13/18 at 14:45; Stop at 14:46; Status DC Cyclobenzaprine HCl (Flexeril) 10 mg PRN Q8HRS PRN PO MUSCLE SPASMS Last administered on 02/14/18at 23:40; Start 02/13/18 at 20:15 Piperacillin Sod/ Tazobactam Sod 3.375 gm/Sodium Chloride 50 ml @ 100 mls/hr Q6HRS IV Last administered on 02/15/18at 05:35; Start 02/14/18 at 12:00 Vancomycin HCl 0.75 gm/Sodium Chloride 250 ml @ 250 mls/hr Q12H IV Last administered on 02/15/18at 01:25; Start 02/15/18 at 01:00 Vancomycin HCl (Vancomycin Trough Level) 1 each 1X ONCE MC ; Start 02/15/18 at 23:30; Stop 02/15/18 at 23:31 Potassium Chloride/Water 100 ml @ 100 mls/hr Q1H IV Last administered on at 08:02; Start 02/15/18 at 07:00; Stop 02/15/18 at 09:59 Active Scripts Active Cephalexin 500 Mg Tablet 1 Tab PO BID Cyclobenzaprine Hcl 10 Mg Tablet 1 Tab PO TID [place] 5-325 Tablet (Acetaminophen/Hydrocodone Bitart) 1 Each Tablet 1 Tab PO Q4- 6HRS Senna-Time S Tablet (Sennosides/Docusate Sodium) 1 Each Tablet 2 Tab PO QHS 7 Days Oxycodone-Acetaminophen 5-325 (Oxycodone Hcl/Acetaminophen) 1 Each Tablet 1 Tab PO PRN Q4HRS PRN Vitamin D2 (Ergocalciferol (Vitamin D2)) 50,000 Unit Capsule 50,000 Unit PO WEEKLY Colace (Docusate Sodium) 100 Mg Capsule 100 Mg PO BID 10 Days Vitals/I & O Vital Sign - Last 24 Hours 02/14/18 02/14/18 02/14/18 02/14/18 09:10 11:00 15:00 19:00 Temp 98.6 98.8 97.7 98.6 98.8 97.7 Pulse 80 74 73 Resp 18 18 16 B/P (MAP) 99/62 (74) 89/52 (64) 90/50 (63) Pulse Ox 9 94 93 O2 Delivery Room Air Room Air Room Air Room Air 9/02/14/18 02/15/18 20:00 23:00 03:00 Temp 97.8 97.9 97.8 97.9 Pulse 77 79 Resp 16 16 B/P (MAP) 104/65 (78) 90/60 (70) Pulse Ox 95 92 O2 Delivery Room Air Room Air Room Air Intake and Output 02/14/18 02/14/18 02/15/18 15:00 23:00 07:00 Intake Total 120 ml 355 ml 660 ml Output Total 450 ml Balance 120 ml 355 ml 210 ml MARSHALL LYON MD Feb 15, 2018 08:40
[2018-02-15] MEDS ORDERED: LIDOCAINE WITH 8.4% SOD BICARB 3 ML DISP.SYRIN. ONE (10:18)
[2018-02-15] MEDS ORDERED: MIDAZOLAM HCL/PF 2 MG/2 ML VIAL. ONE ×2 (10:19→11:05)
[2018-02-15] MEDS ORDERED: fentaNYL PF VIAL 100 MCG/2 ML VIAL ONE ×2 (10:20→11:05)
[2018-02-15] MEDS ORDERED: fentaNYL PF VIAL 100 MCG/2 ML VIAL IV ONE (10:45)
[2018-02-15] MEDS ORDERED: LIDOCAINE WITH 8.4% SOD BICARB 3 ML DISP.SYRIN. IJ ONE (10:45)
[2018-02-15] MEDS ORDERED: MIDAZOLAM HCL/PF 2 MG/2 ML VIAL. IV ONE (10:45)
--- NOTE | 2018-02-15 11:37 | PDOC ---
Objective: Objective: Reviewed other notes. Vital Signs: Vital Signs Date Time Temp Pulse Resp B/P (MAP) Pulse Ox O2 Delivery O2 Flow Rate FiO2 02/15/18 11:28 74 15 106/63 (77) 96 Nasal Cannula 2.0 02/15/18 07:00 98.9 98.9 Labs: Laboratory Tests Test 02/14/18 11:35 02/14/18 20:00 02/15/18 02:00 Vancomycin Level Trough 7.4 mcg/mL Vancomycin Last Dose Date 02/13/18 Vancomycin Last Dose Time 1200 Prothrombin Time 16.4 SEC Prothromb Time International Ratio 1.4 Activated Partial Thromboplast Time 30 SEC White Blood Count 6.4 x10^3/uL Red Blood Count 2.93 x10^6/uL Hemoglobin 8.5 g/dL Hematocrit 26.4 % Mean Corpuscular Volume 90 fL Mean Corpuscular Hemoglobin 29 pg Mean Corpuscular Hemoglobin Concent 32 g/dL Red Cell Distribution Width 20.0 % Platelet Count 349 x10^3/uL Neutrophils (%) (Auto) 76 % Lymphocytes (%) (Auto) 11 % Monocytes (%) (Auto) 11 % Eosinophils (%) (Auto) 2 % Basophils (%) (Auto) 0 % Neutrophils # (Auto) 4.9 x10^3uL Lymphocytes # (Auto) 0.7 x10^3/uL Monocytes # (Auto) 0.7 x10^3/uL Eosinophils # (Auto) 0.1 x10^3/uL Basophils # (Auto) 0.0 x10^3/uL Sodium Level 141 mmol/L Potassium Level 3.1 mmol/L Chloride Level 103 mmol/L Carbon Dioxide Level 27 mmol/L Anion Gap 11 Blood Urea Nitrogen 10 mg/dL Creatinine 0.9 mg/dL Estimated GFR (Cockcroft-Gault) 61.2 BUN/Creatinine Ratio 11 Glucose Level 93 mg/dL Calcium Level 8.3 mg/dL Total Bilirubin 0.2 mg/dL Aspartate Amino Transf (AST/SGOT) 60 U/L Alanine Aminotransferase (ALT/SGPT) 31 U/L Alkaline Phosphatase 145 U/L Total Protein 5.9 g/dL Albumin 1.5 g/dL Albumin/Globulin Ratio 0.3 STOOL CULTURE Final Final report STOOL CULT RES 1 Final Comment No Salmonella or Shigella recovered. AMBER Preliminary Preliminary report CAMPY RES 1 Preliminary Comment No Campylobacter species isolated. SHIGA TOXIN Final Negative URINE CULTURE Final Final report URINE CULTURE RES 1 Final Escherichia hermannii Greater than 100,000 colony forming units per mL ANTIMICROBIAL SUSCEPTIBILITY Final Comment S = Susceptible; I = Intermediate; R = Resistant P = Positive; N = Negative MICS are expressed in micrograms per mL Antibiotic RSLT#1 RSLT#2 RSLT#3 RSLT#4 Amoxicillin/Clavulanic Acid S<=2 Ampicillin R =R Cefuroxime S<=1 Ciprofloxacin S<=0.25 Gentamicin S<=1 Meropenem S<=0.25 Nitrofurantoin I =64 Tetracycline S<=1 Tobramycin S<=1 Trimethoprim/Sulfa S<=20 BLOOD CULTURE LC Preliminary Preliminary report BLD CULT RESULT 1 Preliminary Comment Coagulase negative Staphylococcus species. PE: no exam, out of room A/P: H/o cervical cancer -pelvic cavity w/ extension into bone on imaging -rectal bleeding resolved w/ stable Hgb, h/o radiation proctitis s/p APC @ [facility] Bacteremia, UTI - cultures as above, atbx per ID -- Plans for IR drain and biopsy, await this. SYL ZAVALETA Feb 15, 2018 11:37
--- NOTE | 2018-02-15 11:42 | PDOC ---
MODERATE SEDATION ASSESSMENT RISKS/ALTERNATIVES Risks/Alternatives Risks and alternatives of this type of sedation and procedure discussed with: RISK/ALTERNATIVES: Patient H & P ON CHART H & P H & P on chart and reviewed for co-morbid conditions and appropriate labs. H&P ON CHART: Yes STATUS PREG STATUS ASSESSED: Yes MEDS/ALLERGIES REVIEWED Meds/Allergies Reviewed Medications and Allergies including time and route of recently administered narcotics and sedatives. MEDS/ALLERGIES REVIEWED: Yes ASA RATING ASA RATING: II AIRWAY ASSESSMENT Airway Assessment Airway patency, oral function limitations, presence of caps, crowns, dentures, partials, and ability to extend neck assessed. AIRWAY ASSESSMENT: Yes MALLAMPATI SCORE MALLAMPATI SCORE: II PRE-SEDATION ASSESSMENT PRE-SEDATION ASSESSMENT: Yes GLENDA HELMS MD Feb 15, 2018 11:42
--- NOTE | 2018-02-15 11:45 | PDOC ---
BRIEF OPERATIVE NOTE Pre-Op Diagnosis Pelvic abscess vs infected tumor Post-Op Diagnosis same Procedure Performed CT soft tissue biopsy, CT bone biopsy, abscess drain placement Surgeon Octavio Anesthesia Type: Conscious Sedation Specimens Obtained 2 x 11g core of the right pubis sent for histopathology and microbiology, 2 x 18g cores of the abscess rind sent for histopathology, 6cc thin pus sent for microbiology Findings 12 Mal[place] drain placed Complications No immediate GLENDA HELMS MD Feb 15, 2018 11:45
[2018-02-15] MEDS ORDERED: POTASSIUM CHLORIDE 20 MEQ TABLET.ER. PO ONE (12:00)
--- NOTE | 2018-02-15 12:43 | PDOC ---
PROGRESS NOTES Chief Complaint Chief Complaint s/ post IR drainage and biopsy 02/15 Hyokalemia, mild severe PCM (albumn 1,5) Hemarochezia, resolved with abd pain POA Vaginal drainage of fecal matter GI bleed,FOB + History of Present Illness History of Present Illness Had IR drainage and biopsy done today 02/15 Having lunch No complaints to me Plan: Follow biopsy by IR Albumin is only 1.5 K is 3.1-replace KCl 40 by mouth 1, creatinines okay Discussed with at bedside Vitals Vitals Vital Signs Date Time Temp Pulse Resp B/P (MAP) Pulse Ox O2 Delivery O2 Flow Rate FiO2 02/15/18 11:43 74 16 98 Nasal Cannula 2.0 02/15/18 11:38 100/66 (77) 02/15/18 07:00 98.9 98.9 Physical Exam Physical Exam GEN.: No apparent distress. Alert and oriented. HEENT: Head is normocephalic, atraumatic NECK: Supple. LUNGS: Clear to auscultation. HEART: RRR, S1, S2 present. Peripheral pulses intact ABDOMEN: Soft, Positive bowel sounds. ileostomy for urine output. pubic area + tenderness. EXTREMITIES: Without any cyanosis. NEUROLOGIC: Normal speech, normal tone PSYCHIATRIC: Normal affect, normal mood. SKIN: No ulcerations General: Alert, Oriented X3 Heart: Normal S1, Normal S2 Lungs: Clear Abdomen: Normal bowel sounds, Soft, No tenderness, No masses, Other Extremities: No clubbing, No cyanosis Skin: No significant lesion Labs LABS Laboratory Tests Test 02/14/18 20:00 02/15/18 02:00 Prothrombin Time 16.4 SEC (11.7-14.0) Prothromb Time International Ratio 1.4 (0.8-1.1) Activated Partial Thromboplast Time 30 SEC (24-38) White Blood Count 6.4 x10^3/uL (4.0-11.0) Red Blood Count 2.93 x10^6/uL (3.50-5.40) Hemoglobin 8.5 g/dL (12.0-15.5) Hematocrit 26.4 % (36.0-47.0) Mean Corpuscular Volume 90 fL (79-100) Mean Corpuscular Hemoglobin 29 pg (25-35) Mean Corpuscular Hemoglobin Concent 32 g/dL (31-37) Red Cell Distribution Width 20.0 % (11.5-14.5) Platelet Count 349 x10^3/uL (140-400) Neutrophils (%) (Auto) 76 % (31-73) Lymphocytes (%) (Auto) 11 % (24-48) Monocytes (%) (Auto) 11 % (0-9) Eosinophils (%) (Auto) 2 % (0-3) Basophils (%) (Auto) 0 % (0-3) Neutrophils # (Auto) 4.9 x10^3uL (1.8-7.7) Lymphocytes # (Auto) 0.7 x10^3/uL (1.0-4.8) Monocytes # (Auto) 0.7 x10^3/uL (0.0-1.1) Eosinophils # (Auto) 0.1 x10^3/uL (0.0-0.7) Basophils # (Auto) 0.0 x10^3/uL (0.0-0.2) Sodium Level 141 mmol/L (136-145) Potassium Level 3.1 mmol/L (3.5-5.1) Chloride Level 103 mmol/L (98-107) Carbon Dioxide Level 27 mmol/L (21-32) Anion Gap 11 (6-14) Blood Urea Nitrogen 10 mg/dL (7-20) Creatinine 0.9 mg/dL (0.6-1.0) Estimated GFR (Cockcroft-Gault) 61.2 BUN/Creatinine Ratio 11 (6-20) Glucose Level 93 mg/dL (70-99) Calcium Level 8.3 mg/dL (8.5-10.1) Total Bilirubin 0.2 mg/dL (0.2-1.0) Aspartate Amino Transf (AST/SGOT) 60 U/L (15-37) Alanine Aminotransferase (ALT/SGPT) 31 U/L (14-59) Alkaline Phosphatase 145 U/L (46-116) Total Protein 5.9 g/dL (6.4-8.2) Albumin 1.5 g/dL (3.4-5.0) Albumin/Globulin Ratio 0.3 (1.0-1.7) Review of Systems Review of Systems A 14 point ROS was completed with the following noted as positive: Other systems reviewed and negative. \CONSTITUTIONAL: No fever or chills EYES: No recent changes SKIN: No rash or itching CARDIOVASCULAR: No chest pain, syncope, palpitations, or edema RESPIRATORY: No SOB or cough GASTROINTESTINAL: No nausea, vomiting or abdominal pain NEUROLOGICAL: No headaches or weakness ENDOCRINE: No cold or heat intolerance GENITOURINARY: No urgency or frequency of urination MUSCULOSKELETAL: No back pain or joint pain LYMPHATICS: No enlarged lymph nodes PSYCHIATRIC: No anxiety or depression Comment Review of Relevant I have reviewed the following items marisol (where applicable) has been applied. Labs Laboratory Tests Test 02/14/18 03:40 02/14/18 11:35 02/14/18 20:00 02/15/18 02:00 White Blood Count 6.0 x10^3/uL (4.0-11.0) 6.4 x10^3/uL (4.0-11.0) Red Blood Count 2.92 x10^6/uL (3.50-5.40) 2.93 x10^6/uL (3.50-5.40) Hemoglobin 8.5 g/dL (12.0-15.5) 8.5 g/dL (12.0-15.5) Hematocrit 25.6 % (36.0-47.0) 26.4 % (36.0-47.0) Mean Corpuscular Volume 88 fL (79-100) 90 fL (79-100) Mean Corpuscular Hemoglobin 29 pg (25-35) 29 pg (25-35) Mean Corpuscular Hemoglobin Concent 33 g/dL (31-37) 32 g/dL (31-37) Red Cell Distribution Width 19.6 % (11.5-14.5) 20.0 % (11.5-14.5) Platelet Count 384 x10^3/uL (140-400) 349 x10^3/uL (140-400) Neutrophils (%) (Auto) 76 % (31-73) 76 % (31-73) Lymphocytes (%) (Auto) 10 % (24-48) 11 % (24-48) Monocytes (%) (Auto) 12 % (0-9) 11 % (0-9) Eosinophils (%) (Auto) 2 % (0-3) 2 % (0-3) Basophils (%) (Auto) 0 % (0-3) 0 % (0-3) Neutrophils # (Auto) 4.5 x10^3uL (1.8-7.7) 4.9 x10^3uL (1.8-7.7) Lymphocytes # (Auto) 0.6 x10^3/uL (1.0-4.8) 0.7 x10^3/uL (1.0-4.8) Monocytes # (Auto) 0.7 x10^3/uL (0.0-1.1) 0.7 x10^3/uL (0.0-1.1) Eosinophils # (Auto) 0.1 x10^3/uL (0.0-0.7) 0.1 x10^3/uL (0.0-0.7) Basophils # (Auto) 0.0 x10^3/uL (0.0-0.2) 0.0 x10^3/uL (0.0-0.2) Sodium Level 141 mmol/L (136-145) 141 mmol/L (136-145) Potassium Level 3.3 mmol/L (3.5-5.1) 3.1 mmol/L (3.5-5.1) Chloride Level 105 mmol/L (98-107) 103 mmol/L (98-107) Carbon Dioxide Level 28 mmol/L (21-32) 27 mmol/L (21-32) Anion Gap 8 (6-14) 11 (6-14) Blood Urea Nitrogen 9 mg/dL (7-20) 10 mg/dL (7-20) Creatinine 0.7 mg/dL (0.6-1.0) 0.9 mg/dL (0.6-1.0) Estimated GFR (Cockcroft-Gault) 81.8 61.2 BUN/Creatinine Ratio 13 (6-20) 11 (6-20) Glucose Level 129 mg/dL (70-99) 93 mg/dL (70-99) Calcium Level 8.0 mg/dL (8.5-10.1) 8.3 mg/dL (8.5-10.1) Total Bilirubin 0.2 mg/dL (0.2-1.0) 0.2 mg/dL (0.2-1.0) Aspartate Amino Transf (AST/SGOT) 75 U/L (15-37) 60 U/L (15-37) Alanine Aminotransferase (ALT/SGPT) 37 U/L (14-59) 31 U/L (14-59) Alkaline Phosphatase 161 U/L (46-116) 145 U/L (46-116) Total Protein 5.7 g/dL (6.4-8.2) 5.9 g/dL (6.4-8.2) Albumin 1.5 g/dL (3.4-5.0) 1.5 g/dL (3.4-5.0) Albumin/Globulin Ratio 0.4 (1.0-1.7) 0.3 (1.0-1.7) Vancomycin Level Trough 7.4 mcg/mL (10.0-20.0) Vancomycin Last Dose Date 02/13/18 Vancomycin Last Dose Time 1200 Prothrombin Time 16.4 SEC (11.7-14.0) Prothromb Time International Ratio 1.4 (0.8-1.1) Activated Partial Thromboplast Time 30 SEC (24-38) Laboratory Tests Test 02/14/18 20:00 02/15/18 02:00 Prothrombin Time 16.4 SEC (11.7-14.0) Prothromb Time International Ratio 1.4 (0.8-1.1) Activated Partial Thromboplast Time 30 SEC (24-38) White Blood Count 6.4 x10^3/uL (4.0-11.0) Red Blood Count 2.93 x10^6/uL (3.50-5.40) Hemoglobin 8.5 g/dL (12.0-15.5) Hematocrit 26.4 % (36.0-47.0) Mean Corpuscular Volume 90 fL (79-100) Mean Corpuscular Hemoglobin 29 pg (25-35) Mean Corpuscular Hemoglobin Concent 32 g/dL (31-37) Red Cell Distribution Width 20.0 % (11.5-14.5) Platelet Count 349 x10^3/uL (140-400) Neutrophils (%) (Auto) 76 % (31-73) Lymphocytes (%) (Auto) 11 % (24-48) Monocytes (%) (Auto) 11 % (0-9) Eosinophils (%) (Auto) 2 % (0-3) Basophils (%) (Auto) 0 % (0-3) Neutrophils # (Auto) 4.9 x10^3uL (1.8-7.7) Lymphocytes # (Auto) 0.7 x10^3/uL (1.0-4.8) Monocytes # (Auto) 0.7 x10^3/uL (0.0-1.1) Eosinophils # (Auto) 0.1 x10^3/uL (0.0-0.7) Basophils # (Auto) 0.0 x10^3/uL (0.0-0.2) Sodium Level 141 mmol/L (136-145) Potassium Level 3.1 mmol/L (3.5-5.1) Chloride Level 103 mmol/L (98-107) Carbon Dioxide Level 27 mmol/L (21-32) Anion Gap 11 (6-14) Blood Urea Nitrogen 10 mg/dL (7-20) Creatinine 0.9 mg/dL (0.6-1.0) Estimated GFR (Cockcroft-Gault) 61.2 BUN/Creatinine Ratio 11 (6-20) Glucose Level 93 mg/dL (70-99) Calcium Level 8.3 mg/dL (8.5-10.1) Total Bilirubin 0.2 mg/dL (0.2-1.0) Aspartate Amino Transf (AST/SGOT) 60 U/L (15-37) Alanine Aminotransferase (ALT/SGPT) 31 U/L (14-59) Alkaline Phosphatase 145 U/L (46-116) Total Protein 5.9 g/dL (6.4-8.2) Albumin 1.5 g/dL (3.4-5.0) Albumin/Globulin Ratio 0.3 (1.0-1.7) Microbiology 02/13/18 Blood Culture - Preliminary, Resulted NO GROWTH AFTER 2 DAYS 02/11/18 Fecal Leukocyte Stain - Final, Complete 02/11/18 Urine Culture - Final, Complete 02/11/18 Urine Culture Result 1 (LORY) - Final, Complete 02/11/18 Antimicrobic Susceptibility - Final, Complete Medications Current Medications Iohexol (Omnipaque 300 Mg/ml) 75 ml 1X ONCE IV Last administered on 02/11/18at 17:00; Start 02/11/18 at 17:00; Stop 02/11/18 at 17:01; Status DC Iohexol (Omnipaque 240 Mg/ml) 50 ml 1X ONCE PO Last administered on 02/11/18at 17:00; Start 02/11/18 at 17:00; Stop 02/11/18 at 17:01; Status DC Info (CONTRAST GIVEN -- Rx MONITORING) 1 each PRN DAILY PRN MC SEE COMMENTS; Start 02/11/18 at 16:45; Stop 02/13/18 at 08:43; Status DC Sodium Chloride 1,000 ml @ 1,000 mls/hr 1X ONCE IV Last administered on at 19:15; Start 02/11/18 at 18:15; Stop 02/11/18 at 19:14; Status DC Metronidazole 100 ml @ 100 mls/hr 1X ONCE IV Last administered on 02/11/18at 18:30; Start 02/11/18 at 18:30; Stop 02/11/18 at 19:29; Status DC Sodium Chloride 1,000 ml @ 125 mls/hr Q8H IV Last administered on 02/12/18at 11 :35; Start 02/11/18 at 19:51; Stop 02/12/18 at 19:50; Status DC Acetaminophen (Tylenol) 650 mg PRN Q6HRS PRN PO FEVER Last administered on 02/14at 13:15; Start 02/11/18 at 21:00 Ondansetron HCl (Zofran) 4 mg PRN Q6HRS PRN IV NAUSEA/VOMITING; Start 02/11/18 at 21:00 Morphine Sulfate (Morphine Sulfate) 2 mg PRN Q2HR PRN IV MODERATE TO SEVERE PAIN Last administered on 02/12/18at 11:49; Start 02/11/18 at 21:00 Tramadol HCl (Ultram) 50 mg PRN Q6HRS PRN PO MILD TO MODERATE PAIN Last administered on 02/14/18at 08:10; Start 02/11/18 at 21:00 Docusate Sodium (Colace) 100 mg PRN DAILY PRN PO HARD STOOLS; Start 02/11/18 at 21:00 Vancomycin HCl 1 gm/Sodium Chloride 250 ml @ 250 mls/hr 1X ONCE IV Last administered on 02/12/18at 11:35; Start 02/12/18 at 10:00; Stop 02/12/18 at 10:59 ; Status DC Vancomycin HCl 1 gm/Sodium Chloride 250 ml @ 250 mls/hr Q12H IV ; Start at 06:00; Status UNV Vancomycin HCl 750 mg/Sodium Chloride 250 ml @ 250 mls/hr 1X ONCE IV Last administered on 02/12/18at 13:44; Start 02/12/18 at 13:15; Stop 02/12/18 at 14:14 ; Status DC Vancomycin HCl 1 gm/Sodium Chloride 250 ml @ 250 mls/hr Q24H IV Last administered on 02/14/18at 13:05; Start 02/13/18 at 12:00; Stop 02/14/18 at 14:03 ; Status DC Vancomycin HCl (Vancomycin Trough Level) 1 each 1X ONCE MC Last administered on 02/14/18at 11:30; Start 02/14/18 at 11:30; Stop 02/14/18 at 11:31; Status DC Vancomycin HCl (Vanco Per Pharmacy) 1 each PRN DAILY PRN MC SEE COMMENTS Last administered on 02/14/18at 14:08; Start 02/12/18 at 13:30 Cyclobenzaprine HCl (Flexeril) 10 mg 1X ONCE PO Last administered on at 16:47; Start 02/12/18 at 15:45; Stop 02/12/18 at 15:46; Status DC Sodium Chloride 1,000 ml @ 85 mls/hr [id number] IV Last administered on at 05:35; Start 02/12/18 at 20:30 Iohexol (Omnipaque 300 Mg/ml) 75 ml 1X ONCE IV Last administered on 02/13/18at 09:52; Start 02/13/18 at 08:45; Stop 02/13/18 at 08:46; Status DC Info (CONTRAST GIVEN -- Rx MONITORING) 1 each PRN DAILY PRN MC SEE COMMENTS; Start 02/13/18 at 08:45; Stop 02/15/18 at 08:44; Status DC Cyclobenzaprine HCl (Flexeril) 10 mg PRN Q12HR PRN PO MUSCLE SPASMS Last administered on 02/13/18at 20:55; Start 02/13/18 at 13:00; Stop 02/14/18 at 12:04 ; Status DC Gadobutrol (Gadavist) 6 mmol 1X ONCE IV ; Start 02/13/18 at 14:45; Stop at 14:46; Status DC Cyclobenzaprine HCl (Flexeril) 10 mg PRN Q8HRS PRN PO MUSCLE SPASMS Last administered on 02/14/18at 23:40; Start 02/13/18 at 20:15 Piperacillin Sod/ Tazobactam Sod 3.375 gm/Sodium Chloride 50 ml @ 100 mls/hr Q6HRS IV Last administered on 02/15/18at 12:24; Start 02/14/18 at 12:00 Vancomycin HCl 0.75 gm/Sodium Chloride 250 ml @ 250 mls/hr Q12H IV Last administered on 02/15/18at 01:25; Start 02/15/18 at 01:00 Vancomycin HCl (Vancomycin Trough Level) 1 each 1X ONCE MC ; Start 02/15/18 at 23:30; Stop 02/15/18 at 23:31 Potassium Chloride/Water 100 ml @ 100 mls/hr Q1H IV Last administered on at 08:02; Start 02/15/18 at 07:00; Stop 02/15/18 at 09:59; Status DC Lidocaine/Sodium Bicarbonate (Buffered Lidocaine 1%) 3 ml STK-MED ONCE .ROUTE ; Start 02/15/18 at 10:18; Stop 02/15/18 at 10:19; Status DC Midazolam HCl (Versed) 2 mg STK-MED ONCE .ROUTE ; Start 02/15/18 at 10:19; Stop 02/15/18 at 10:20; Status DC Fentanyl Citrate (Fentanyl 2ml Vial) 100 mcg STK-MED ONCE .ROUTE ; Start at 10:20; Stop 02/15/18 at 10:21; Status DC Lidocaine/Sodium Bicarbonate (Buffered Lidocaine 1%) 3 ml 1X ONCE IJ Last administered on 02/15/18at 10:45; Start 02/15/18 at 10:45; Stop 02/15/18 at 10:46 ; Status DC Midazolam HCl (Versed) 2 mg 1X ONCE IV Last administered on 02/15/18at 10:45; Start 02/15/18 at 10:45; Stop 02/15/18 at 10:46; Status DC Fentanyl Citrate (Fentanyl 2ml Vial) 100 mcg 1X ONCE IV Last administered on at 10:45; Start 02/15/18 at 10:45; Stop 02/15/18 at 10:46; Status DC Midazolam HCl (Versed) 2 mg STK-MED ONCE .ROUTE ; Start 02/15/18 at 11:05; Stop 02/15/18 at 11:06; Status DC Fentanyl Citrate (Fentanyl 2ml Vial) 100 mcg STK-MED ONCE .ROUTE ; Start at 11:05; Stop 02/15/18 at 11:06; Status DC Potassium Chloride (Klor-Con) 40 meq 1X ONCE PO Last administered on at 12:23; Start 02/15/18 at 12:00; Stop 02/15/18 at 12:01; Status DC Active Scripts Active Cephalexin 500 Mg Tablet 1 Tab PO BID Cyclobenzaprine Hcl 10 Mg Tablet 1 Tab PO TID Perry 5-325 Tablet (Acetaminophen/Hydrocodone Bitart) 1 Each Tablet 1 Tab PO Q4- 6HRS Senna-Time S Tablet (Sennosides/Docusate Sodium) 1 Each Tablet 2 Tab PO QHS 7 Days Oxycodone-Acetaminophen 5-325 (Oxycodone Hcl/Acetaminophen) 1 Each Tablet 1 Tab PO PRN Q4HRS PRN Vitamin D2 (Ergocalciferol (Vitamin D2)) 50,000 Unit Capsule 50,000 Unit PO WEEKLY Colace (Docusate Sodium) 100 Mg Capsule 100 Mg PO BID 10 Days Vitals/I & O Vital Sign - Last 24 Hours 02/14/18 02/14/18 02/14/18 02/14/18 15:00 19:00 20:00 23:00 Temp 98.8 97.7 97.8 98.8 97.7 97.8 Pulse 74 73 77 Resp 18 16 16 B/P (MAP) 89/52 (64) 90/50 (63) 104/65 (78) Pulse Ox 94 93 95 O2 Delivery Room Air Room Air Room Air Room Air 02/15/18 02/15/18 02/15/18 02/15/18 03:00 07:00 08:15 10:45 Temp 97.9 98.9 97.9 98.9 Pulse 79 78 Resp 16 18 14 B/P (MAP) 90/60 (70) 90/65 (73) Pulse Ox 92 91 O2 Delivery Room Air Room Air Room Air O2 Flow Rate 2.0 02/15/18 02/15/18 02/15/18 02/15/18 11:07 11:12 11:17 11:23 Pulse 75 79 74 74 Resp 20 20 12 16 B/P (MAP) 118/76 (90) 118/68 (85) 109/67 (81) Pulse Ox 91 100 99 O2 Delivery Nasal Cannula Nasal Cannula Nasal Cannula Nasal Cannula O2 Flow Rate 2.0 2.0 2.0 2.0 02/15/18 02/15/18 02/15/18 02/15/18 11:28 11:33 11:38 11:43 Pulse 74 75 74 74 Resp 15 12 12 16 B/P (MAP) 106/63 (77) 103/64 (77) 100/66 (77) Pulse Ox 96 98 99 98 O2 Delivery Nasal Cannula Nasal Cannula Nasal Cannula Nasal Cannula O2 Flow Rate 2.0 2.0 2.0 2.0 Intake and Output 02/14/18 02/14/18 02/15/18 15:00 23:00 07:00 Intake Total 120 ml 355 ml 660 ml Output Total 450 ml Balance 120 ml 355 ml 210 ml KAI BERMAN MD Feb 15, 2018 12:42
[2018-02-15] MEDS: VANCOMYCIN PER PHARMACY MC PRN (13:09)
--- NOTE | 2018-02-15 13:23 | PDOC ---
Infectious Disease Note Subjective: Subjective pt underwent ir drainage with biopsy today denies any f/c/n/v/d has some abdo discomfort ROS: ROS Negative except for above. Vital Signs: Vital Signs Vital Signs Date Time Temp Pulse Resp B/P (MAP) Pulse Ox O2 Delivery O2 Flow Rate FiO2 02/15/18 11:43 74 16 98 Nasal Cannula 2.0 02/15/18 11:38 100/66 (77) 02/15/18 07:00 98.9 98.9 Physical Exam: PHYSICAL EXAM GEN.: No apparent distress. Alert and oriented. HEENT: Head is normocephalic, atraumatic NECK: Supple. LUNGS: Clear to auscultation. HEART: RRR, S1, S2 present. Peripheral pulses intact ABDOMEN: Soft, Positive bowel sounds. ileostomy for urine output. pubic area + tenderness. J drain has serous fluid + EXTREMITIES: Without any cyanosis. NEUROLOGIC: Normal speech, normal tone PSYCHIATRIC: Normal affect, normal mood. SKIN: No ulcerations Medications: Inpatient Meds: Current Medications Medications (Trade) Dose Ordered Sig/Julisa Start Time Stop Time Status Last Admin Dose Admin Acetaminophen (Tylenol) 650 mg PRN Q6HRS PRN 02/11/18 21:00 02/14/18 13:15 650 MG Cyclobenzaprine HCl (Flexeril) 10 mg PRN Q8HRS PRN 02/13/18 20:15 02/14/18 23:40 10 MG Docusate Sodium (Colace) 100 mg PRN DAILY PRN 02/11/18 21:00 Fentanyl Citrate (Fentanyl 2ml Vial) 100 mcg STK-MED ONCE 02/15/18 11:05 02/15/18 11:06 DC Gadobutrol (Gadavist) 6 mmol 1X ONCE 02/13/18 14:45 02/13/18 14:46 DC Info (CONTRAST GIVEN -- Rx MONITORING) 1 each PRN DAILY PRN 02/13/18 08:45 02/15/18 08:44 DC Iohexol (Omnipaque 240 Mg/ml) 50 ml 1X ONCE 02/11/18 17:00 02/11/18 17:01 DC 02/11/18 17:00 50 ML Iohexol (Omnipaque 300 Mg/ml) 75 ml 1X ONCE 02/13/18 08:45 02/13/18 08:46 DC 02/13/18 09:52 75 ML Lidocaine/Sodium Bicarbonate (Buffered Lidocaine 1%) 3 ml 1X ONCE 02/15/18 10:45 02/15/18 10:46 DC 02/15/18 10:45 12 ML Metronidazole 100 ml @ 100 mls/hr 1X ONCE 02/11/18 18:30 02/11/18 19:29 DC 02/11/18 18:30 100 MLS/HR Midazolam HCl (Versed) 2 mg STK-MED ONCE 02/15/18 11:05 02/15/18 11:06 DC Morphine Sulfate (Morphine Sulfate) 2 mg PRN Q2HR PRN 02/11/18 21:00 02/12/18 11:49 2 MG Ondansetron HCl (Zofran) 4 mg PRN Q6HRS PRN 02/11/18 21:00 Piperacillin Sod/ Tazobactam Sod 3.375 gm/Sodium Chloride 50 ml @ 100 mls/hr Q6HRS 02/14/18 12:00 02/15/18 12:24 100 MLS/HR Potassium Chloride/Water 100 ml @ 100 mls/hr Q1H 02/15/18 07:00 02/15/18 09:59 DC 02/15/18 08:02 100 MLS/HR Potassium Chloride (Klor-Con) 40 meq 1X ONCE 02/15/18 12:00 02/15/18 12:01 DC 02/15/18 12:23 40 MEQ Sodium Chloride 1,000 ml @ 85 mls/hr [id number] 02/12/18 20:30 02/15/18 05:35 85 MLS/HR Tramadol HCl (Ultram) 50 mg PRN Q6HRS PRN 02/11/18 21:00 02/14/18 08:10 50 MG Vancomycin HCl (Vanco Per Pharmacy) 1 each PRN DAILY PRN 02/12/18 13:30 02/14/18 14:08 1 EACH Vancomycin HCl (Vancomycin Trough Level) 1 each 1X ONCE 02/15/18 23:30 02/15/18 23:31 Vancomycin HCl 0.75 gm/Sodium Chloride 250 ml @ 250 mls/hr Q12H 02/15/18 01:00 02/15/18 01:25 250 MLS/HR Vancomycin HCl 750 mg/Sodium Chloride 250 ml @ 250 mls/hr 1X ONCE 02/12/18 13:15 02/12/18 14:14 DC 02/12/18 13:44 250 MLS/HR Vancomycin HCl 1 gm/Sodium Chloride 250 ml @ 250 mls/hr Q24H 02/13/18 12:00 02/14/18 14:03 DC 02/14/18 13:05 250 MLS/HR Labs: Lab Laboratory Tests Test 02/14/18 20:00 02/15/18 02:00 Prothrombin Time 16.4 SEC (11.7-14.0) Prothromb Time International Ratio 1.4 (0.8-1.1) Activated Partial Thromboplast Time 30 SEC (24-38) White Blood Count 6.4 x10^3/uL (4.0-11.0) Red Blood Count 2.93 x10^6/uL (3.50-5.40) Hemoglobin 8.5 g/dL (12.0-15.5) Hematocrit 26.4 % (36.0-47.0) Mean Corpuscular Volume 90 fL (79-100) Mean Corpuscular Hemoglobin 29 pg (25-35) Mean Corpuscular Hemoglobin Concent 32 g/dL (31-37) Red Cell Distribution Width 20.0 % (11.5-14.5) Platelet Count 349 x10^3/uL (140-400) Neutrophils (%) (Auto) 76 % (31-73) Lymphocytes (%) (Auto) 11 % (24-48) Monocytes (%) (Auto) 11 % (0-9) Eosinophils (%) (Auto) 2 % (0-3) Basophils (%) (Auto) 0 % (0-3) Neutrophils # (Auto) 4.9 x10^3uL (1.8-7.7) Lymphocytes # (Auto) 0.7 x10^3/uL (1.0-4.8) Monocytes # (Auto) 0.7 x10^3/uL (0.0-1.1) Eosinophils # (Auto) 0.1 x10^3/uL (0.0-0.7) Basophils # (Auto) 0.0 x10^3/uL (0.0-0.2) Sodium Level 141 mmol/L (136-145) Potassium Level 3.1 mmol/L (3.5-5.1) Chloride Level 103 mmol/L (98-107) Carbon Dioxide Level 27 mmol/L (21-32) Anion Gap 11 (6-14) Blood Urea Nitrogen 10 mg/dL (7-20) Creatinine 0.9 mg/dL (0.6-1.0) Estimated GFR (Cockcroft-Gault) 61.2 BUN/Creatinine Ratio 11 (6-20) Glucose Level 93 mg/dL (70-99) Calcium Level 8.3 mg/dL (8.5-10.1) Total Bilirubin 0.2 mg/dL (0.2-1.0) Aspartate Amino Transf (AST/SGOT) 60 U/L (15-37) Alanine Aminotransferase (ALT/SGPT) 31 U/L (14-59) Alkaline Phosphatase 145 U/L (46-116) Total Protein 5.9 g/dL (6.4-8.2) Albumin 1.5 g/dL (3.4-5.0) Albumin/Globulin Ratio 0.3 (1.0-1.7) Micro RUN DATE: 02/14/18 PAGE 1 RUN TIME: 419 [facility] [address] [place] [address] Yonathan Cheng M.D., Remote Sensing Engineer PATIENT: RAFFAELE SOLORZANO ACCT: [id number] LOC: [address] [place] [address] U : [id number] AGE/SX: 73/F ROOM: 519 REG : 02/11/[address]: MARIANGEL WHALEY MD : 1945 BED: 1 DIS : STATUS: ADM IN TLOC: SPEC #: [id number] LOS: 02/11/18 STATUS: RAY NUÑEZ #: [id number] RECD: 02/11/[address]: VIKKI CASH APRN SOURCE: VOID ENTR: 02/11/[address]: JOSEPH,STAFF [facility]: NO PCP ORDERED: URINE CULTURE Procedure Result URINE CULTURE Preliminary Preliminary report URINE CULTURE RES 1 Preliminary Gram negative rods Greater than 100,000 colony forming units per mL Performed at: [facility] [place] [id number] [facility] [address], [place], [place] [id number] Instrument Setter: AUTUMN Chun MD, Phone: [phone] RUN DATE: 02/13/18 PAGE 1 RUN TIME: 942 [facility] [address] [place] [address] Yonathan Cheng M.D., Remote Sensing Engineer PATIENT: RAFFAELE SOLORZANO ACCT: [id number] LOC: [address] [place] [address] U : [id number] AGE/SX: 72/F ROOM: [facility] REG : 02/11/[address]: MARIANGEL WHALEY MD : 1945 BED: 1 DIS : STATUS: ADM IN TLOC: SPEC #: [id number] LOS: 02/11/18 STATUS: COMP REQ #: [id number] RECD: 02/11/[address]: MCKENZIE BARRIOS DO SOURCE: BLOOD ENTR: 02/11/[address]: [facility] P[facility] ORDERED: BCULT Procedure Result BLOOD CULTURE Final GRAM POSITIVE COCCI IN CLUSTERS, SUGGESTIVE OF STAPH, IN 1 OF 4 BOTTLES, TWO SETS DRAWN. CALLED TO OSIRIS PONCE RN ON 5N AT 9:45 ON 02/12/18 DW MT SENT TO LAB [facility] FOR FURTHER WORKUP. AMEDED REPORT: GRAM POSITIVE COCCI IN CLUSTERS IN 2 OF 4 BOTTLES(BOTH BOTTLES THIS SET NOW POSITIVE);2 SETS DRAWN ON THIS DATE. RESULT WAS CALLED TO HOA AVILA ON 02/13/18 AT 0939 BY Dolores DAVENPORT * This is a corrected result. * A prior result that was reported as final has been changed. MRI pelvis IMPRESSION: Air collection within the lower pelvis with extension to the adjacent anterior pelvic bones consistent with osteomyelitis and abscess cavity. Certainly, residual or recurrent neoplastic involvement of this cavity with extension into the adjacent bones is possible. No obvious communication with the skin surface is seen and therefore, the air collection may communicate with adjacent colon or rectum. There is a pathologic fracture of the right superior pubic ramus. 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 Objective: Assessment: Staph epidermidis bacteremia 2/4 bottles ,likely contaminant Squamous cell carcinoma of the cervix,S/P CT and RT Rectal bleed from possible radiation proctitis .Pelvic MRI showing fluid collection with extension to the adjacent anterior pelvic bones s/p IR drainage J drain with serous drainage, similar to drainage from rectum / vagina per daughter at [facility] suspicion is for abscess but underlying malignancy with secondary infection cannot be ruled out completely, d/w Oncology Anemia s/p cystectomy with ileal loop urinary diversion bag with fecal material and bleeding from vagina. Low back pain. Moderate malnutrition. Plan: Plan of Care 1. Continue empiric IV vancomycin and zosyn Monitor renal functions closely. 2.. Follow up cultures from ir drainage 3. f/u histopathology 4. FU with labs and cults in am 5. Continue supportive care. 6. D/W Daughter and family at length KSEHA JOY MD Feb 15, 2018 13:23
[2018-02-15] MEDS: MORPHINE SULFATE 2 MG/ML VIAL. IV PRN (14:47)
--- NOTE | 2018-02-15 16:09 | RAD ---
Procedure: CT-guided bone biopsy of the right pubis, soft tissue biopsy of a right pelvic mass, and CT-guided drain placement within an right pelvic abscess Clinical Indication: 73-year-old female status post extensive surgery for cancer including cystectomy, with thick-walled abscess in the operative bed, pathologic fracture of the right pubis. Sedation: Conscious sedation was administered with a total intraprocedural [id number] time of 27 minutes. The patient was monitored by a qualified independent observer throughout the time of sedation. Please refer to the medical record for exact doses of medications utilized to achieve moderate sedation. Antibiotics: None Sterility: The procedure was performed in its entirety using appropriate elements of sterile technique. Consent: The procedure was explained in its entirety to the patient or the patients designated customer field representative by a member of the treatment team, including a discussion of the risks, benefits and commonly accepted alternatives to the procedure, as well as the expected consequences of no therapy whatsoever. Discussion of the risks included, but was not limited to, those that are most frequent and those that are rare but possibly severe or life-threatening, as well as the possibility of unforeseen complications. Technique and Findings: Following informed consent, the patient was prepped and draped in usual sterile fashion. Preliminary CT scan of the area of interest was performed. A small dermatotomy was made. A 10-gauge needle guide was then advanced towards the right pubis and 2 separate 11-gauge core bone biopsies were obtained, the first preserved in formalin for histopathology, and the second preserved separately for microbiological analysis. The needle guide was then removed and hemostasis was achieved with manual compression. A second area was anesthetized with 1% lidocaine. A 17-gauge needle guide was advanced towards the thick rind of a pelvic abscess within the operative bed. 2 x 18-gauge core biopsy specimens of this) were obtained and sent for histopathological analysis. The needle was advanced centrally, then exchanged over an Amplatz wire for a 12 Polish pigtail drainage catheter. 6 cc of thin turbid fluid was aspirated and sent for microbiologic analysis. The drain was sutured to the skin and placed to bulb suction. Complications: No immediate Impression: 1. CT-guided bone biopsy of the right pubis as described. 2. CT-guided soft tissue biopsy of a thick walled abscess in the pelvis as described. 3. CT-guided pelvic drain placement as described. PQRS Compliance Statement: One or more of the following individualized dose reduction techniques were utilized for this examination: 1. Automated exposure control 2. Adjustment of the mA and/or kV according to patient size 3. Use of iterative reconstruction technique
[2018-02-15] MEDS: CYCLOBENZAPRINE 10 MG TABLET. PO PRN (23:40)
[2018-02-16 01:02] LABS: VANC TR 16.2 mcg/mL (10.0-20.0)
[2018-02-16] MEDS: VANCOMYCIN 0.75 GM in IV NORMAL SALINE 250ML 250 ML IV SCH ×2 (01:18→12:43)
[2018-02-16] MEDS: IV NORMAL SALINE 1000ML BAG 1,000 ML IV SCH ×2 (01:18→18:34)
[2018-02-16] MEDS: VANCOMYCIN PER PHARMACY MC PRN ×2 (01:21→14:10)
[2018-02-16 02:55] LABS: HEMATOCRIT 27.6 % (36.0-47.0); HEMOGLOBIN 8.9 g/dL (12.0-15.5)
[2018-02-16 03:00] VITALS: BP 95/52
[2018-02-16 03:03] LABS: CALCIUM 8.1 mg/dL (8.5-10.1); CREATININE 0.8 mg/dL (0.6-1.0); GFR 70.1; POTASSIUM 4.1 mmol/L (3.5-5.1)
[2018-02-16] MEDS: PIPERACILLIN/TAZOBACTAM 3.375 GM in IV NORMAL SALINE 50ML 50 ML IV SCH ×4 (05:49→23:23)
[2018-02-16] MEDS: traMADol 50 MG TABLET PO PRN (05:53)
[2018-02-16 07:00] VITALS: BP 122/74
[2018-02-16] MEDS: MORPHINE SULFATE 2 MG/ML VIAL. IV PRN (07:52)
--- NOTE | 2018-02-16 09:31 | PDOC ---
Infectious Disease Note Subjective: Subjective Pt says feels ok cont to drain in DWAIN drain denies any f/c/n/v/d has some abdo discomfort but not worse ROS: ROS Negative except for above. Vital Signs: Vital Signs Vital Signs Date Time Temp Pulse Resp B/P (MAP) Pulse Ox O2 Delivery O2 Flow Rate FiO2 02/16/18 07:52 Room Air 02/16/18 07:02 97 02/16/18 07:00 99.8 84 18 122/74 (90) 99.8 02/16/18 05:53 2.0 Physical Exam: PHYSICAL EXAM GEN.: No apparent distress. Alert and oriented. HEENT: Head is normocephalic, atraumatic NECK: Supple. LUNGS: Clear to auscultation. HEART: RRR, S1, S2 present. Peripheral pulses intact ABDOMEN: Soft, Positive bowel sounds. ileostomy for urine output. pubic area + tenderness. J drain has fluid drainage EXTREMITIES: Without any cyanosis. NEUROLOGIC: Normal speech, normal tone PSYCHIATRIC: Normal affect, normal mood. SKIN: No ulcerations Medications: Inpatient Meds: Current Medications Medications (Trade) Dose Ordered Sig/Julisa Start Time Stop Time Status Last Admin Dose Admin Acetaminophen (Tylenol) 650 mg PRN Q6HRS PRN 02/11/18 21:00 02/14/18 13:15 650 MG Cyclobenzaprine HCl (Flexeril) 10 mg PRN Q8HRS PRN 02/13/18 20:15 02/15/18 23:40 10 MG Docusate Sodium (Colace) 100 mg PRN DAILY PRN 02/11/18 21:00 Fentanyl Citrate (Fentanyl 2ml Vial) 100 mcg STK-MED ONCE 02/15/18 11:05 02/15/18 11:06 DC Gadobutrol (Gadavist) 6 mmol 1X ONCE 02/13/18 14:45 02/13/18 14:46 DC Info (CONTRAST GIVEN -- Rx MONITORING) 1 each PRN DAILY PRN 02/13/18 08:45 02/15/18 08:44 DC Iohexol (Omnipaque 240 Mg/ml) 50 ml 1X ONCE 02/11/18 17:00 02/11/18 17:01 DC 02/11/18 17:00 50 ML Iohexol (Omnipaque 300 Mg/ml) 75 ml 1X ONCE 02/13/18 08:45 02/13/18 08:46 DC 02/13/18 09:52 75 ML Lidocaine/Sodium Bicarbonate (Buffered Lidocaine 1%) 3 ml 1X ONCE 02/15/18 10:45 02/15/18 10:46 DC 02/15/18 10:45 12 ML Metronidazole 100 ml @ 100 mls/hr 1X ONCE 02/11/18 18:30 02/11/18 19:29 DC 02/11/18 18:30 100 MLS/HR Midazolam HCl (Versed) 2 mg STK-MED ONCE 02/15/18 11:05 02/15/18 11:06 DC Morphine Sulfate (Morphine Sulfate) 2 mg PRN Q2HR PRN 02/11/18 21:00 02/16/18 07:52 2 MG Ondansetron HCl (Zofran) 4 mg PRN Q6HRS PRN 02/11/18 21:00 Piperacillin Sod/ Tazobactam Sod 3.375 gm/Sodium Chloride 50 ml @ 100 mls/hr Q6HRS 02/14/18 12:00 02/16/18 05:49 100 MLS/HR Potassium Chloride/Water 100 ml @ 100 mls/hr Q1H 02/15/18 07:00 02/15/18 09:59 DC 02/15/18 19:53 100 MLS/HR Potassium Chloride (Klor-Con) 40 meq 1X ONCE 02/15/18 12:00 02/15/18 12:01 DC 02/15/18 12:23 40 MEQ Sodium Chloride 1,000 ml @ 85 mls/hr [id number] 02/12/18 20:30 02/16/18 01:18 85 MLS/HR Tramadol HCl (Ultram) 50 mg PRN Q6HRS PRN 02/11/18 21:00 02/16/18 05:53 50 MG Vancomycin HCl (Vanco Per Pharmacy) 1 each PRN DAILY PRN 02/12/18 13:30 02/16/18 01:21 1 EACH Vancomycin HCl (Vancomycin Trough Level) 1 each 1X ONCE 02/16/18 00:30 02/16/18 00:31 DC 02/16/18 00:30 1 EACH Vancomycin HCl 0.75 gm/Sodium Chloride 250 ml @ 250 mls/hr Q12H 02/15/18 01:00 02/16/18 01:18 250 MLS/HR Vancomycin HCl 750 mg/Sodium Chloride 250 ml @ 250 mls/hr 1X ONCE 02/12/18 13:15 02/12/18 14:14 DC 02/12/18 13:44 250 MLS/HR Vancomycin HCl 1 gm/Sodium Chloride 250 ml @ 250 mls/hr Q24H 02/13/18 12:00 02/14/18 14:03 DC 02/14/18 13:05 250 MLS/HR Labs: Lab Laboratory Tests Test 02/16/18 00:30 02/16/18 01:30 Vancomycin Level Trough 16.2 mcg/mL (10.0-20.0) Vancomycin Last Dose Date Vancomycin Last Dose Time 1300 Hemoglobin 8.9 g/dL (12.0-15.5) Hematocrit 27.6 % (36.0-47.0) Mean Corpuscular Hemoglobin Concent 33 g/dL (31-37) Sodium Level 141 mmol/L (136-145) Potassium Level 4.1 mmol/L (3.5-5.1) Chloride Level 106 mmol/L (98-107) Carbon Dioxide Level 28 mmol/L (21-32) Anion Gap 7 (6-14) Blood Urea Nitrogen 9 mg/dL (7-20) Creatinine 0.8 mg/dL (0.6-1.0) Estimated GFR (Cockcroft-Gault) 70.1 Glucose Level 135 mg/dL (70-99) Calcium Level 8.1 mg/dL (8.5-10.1) Micro RUN DATE: 02/14/18 PAGE 1 RUN TIME: 419 [facility] [address] [place] [address] Yonathan Cheng M.D., Day Care Attendant PATIENT: RAFFAELE SOLORZANO ACCT: [id number] LOC: [address] [place] [address] U : [id number] AGE/SX: 73/F ROOM: [facility] REG : 02/11/[address]: MARIANGEL WHALEY MD : 1945 BED: 1 DIS : STATUS: ADM IN TLOC: SPEC #: [id number] LOS: 02/11/18 STATUS: RES REQ #: [id number] RECD: 02/11/[address]: VIKKI CASH APRN SOURCE: VOID ENTR: 02/11/[address]: JOSEPH,STAFF [facility]: NO PCP ORDERED: URINE CULTURE Procedure Result URINE CULTURE Preliminary Preliminary report URINE CULTURE RES 1 Preliminary Gram negative rods Greater than 100,000 colony forming units per mL Performed at: DA - [facility] [address] [facility] [address], [place], [place] [id number] Control Integration Engineer: AUTUMN Chun MD, Phone: [phone] RUN DATE: 02/13/18 PAGE 1 RUN TIME: 942 [facility] [address] [place] [address] Yonathan Cheng M.D., Day Care Attendant PATIENT: RAFFAELE SOLORZANO ACCT: [id number] LOC: [address] [place] [address] U : [id number] AGE/SX: 72/F ROOM: [facility] REG : 02/11/[address]: MARIANGEL WHALEY MD : 1945 BED: 1 DIS : STATUS: ADM IN TLOC: SPEC #: [id number] LOS: 02/11/18 STATUS: COMP REQ #: [id number] RECD: 02/11/[address]: MCKENZIE BARRIOS DO SOURCE: BLOOD ENTR: 02/11/18-[address] [facility] [address]: JOSEPH,STAFF [facility]: NO PCP ORDERED: BCULT Procedure Result BLOOD CULTURE Final GRAM POSITIVE COCCI IN CLUSTERS, SUGGESTIVE OF STAPH, IN 1 OF 4 BOTTLES, TWO SETS DRAWN. CALLED TO OSIRIS PONCE RN ON 5N AT 9:45 ON 02/12/18 DW MT SENT TO LAB [facility] FOR FURTHER WORKUP. AMEDED REPORT: GRAM POSITIVE COCCI IN CLUSTERS IN 2 OF 4 BOTTLES(BOTH BOTTLES THIS SET NOW POSITIVE);2 SETS DRAWN ON THIS DATE. RESULT WAS CALLED TO HOA AVILA ON 02/13/18 AT 0939 BY Dolores DAVENPORT * This is a corrected result. * A prior result that was reported as final has been changed. MRI pelvis IMPRESSION: Air collection within the lower pelvis with extension to the adjacent anterior pelvic bones consistent with osteomyelitis and abscess cavity. Certainly, residual or recurrent neoplastic involvement of this cavity with extension into the adjacent bones is possible. No obvious communication with the skin surface is seen and therefore, the air collection may communicate with adjacent colon or rectum. There is a pathologic fracture of the right superior pubic ramus. 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 Objective: Assessment: Staph epidermidis bacteremia 2/4 bottles ,likely contaminant .Pelvic MRI showing fluid collection with extension to the adjacent pelvic bones s/p IR drainage J drain with serous drainage, similar to [facility] from rectum / [facility] is for abscess but underlying malignancy or fistula cannot be ruled out completely Squamous cell carcinoma of the cervix,S/P CT and RT Rectal bleed from 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 Low back pain. Moderate malnutrition. Plan: Plan of Care 1. Continue empiric IV vancomycin and zosyn Monitor renal functions closely. last vanc trough 16.2 2.. Follow up cultures from IR drainage of pelvic fluid collection 02/14 3. f/u histopathology 4. FU with labs and cults in am 5. Continue supportive care. KESHA JOY MD Feb 16, 2018 09:31
--- NOTE | 2018-02-16 10:00 | PDOC ---
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 ROS - no CP, no fever Objective Objective Vital Signs Date Time Temp Pulse Resp B/P (MAP) Pulse Ox O2 Delivery O2 Flow Rate FiO2 02/16/18 07:52 Room Air 02/16/18 07:02 97 02/16/18 07:00 99.8 84 18 122/74 (90) 99.8 02/16/18 05:53 2.0 Intake and Output 02/16/18 07:00 Intake Total 1310 ml Output Total 1080 ml Balance 230 ml Intake Oral 960 ml IV Total 350 ml Drainage Total 1080 ml # Voids 2 Physical Exam Heart: Normal S1, Normal S2 General: Alert, Oriented X3 Lungs: Clear to auscultation Neuro: Normal speech Psych/Mental Status: Mental status NL Assessment Assessment IMPRESSION AND PLAN: 1. 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 She is now admitted with generalized weakness and rectal bleeding. Bone scan 02/11/18: Abnormal activity is seen involving the pubic bone on both sides and the right superior pubic ramus corresponding to the CT abnormality CT scan of the abdomen and pelvis on 02/11/2018 revealed irregular raised and enhancing structure in the lower pelvis and bony destruction. CT scan of the chest - no mets. Tiny lung nodule noted. MRI 02/13/18 revealed Air collection within the lower pelvis with extension to the adjacent anterior pelvic bones consistent with osteomyelitis and abscess cavity. Certainly, residual or recurrent neoplastic involvement of this cavity with extension into the adjacent bones is possible. No obvious communication with the skin surface is seen and therefore, the air collection may communicate with adjacent colon or rectum. There is a pathologic fracture of the right superior pubic ramus. I d/w radiology, this is more consistent with abscess. s/p drain (by IR) and bone lesion bx 02/16/18. (CT-guided bone biopsy of the right pubis, CT-guided soft tissue biopsy of a thick walled abscess, CT-guided pelvic drain placement). She has had almost 60 cc of purulent drainage. I d/w ID. 2. Rectal bleeding, which I suspect is due to radiation proctitis. She had a colonoscopy at [facility] on 04/03/2016, which revealed radiation proctitis and she was treated with argon plasma coagulation. I appreciate GI consultation and management. 3. Anemia. Hemoglobin 8.5. Iron studies reveal anemia due to chronic disease. Normal B12. 4. Thrombocytosis, reactive, monitor. Resolved. 5. Appreciate gynecology consultation. I discussed with Dr. Bladimir Obregon. Comment Review of Relevant I have reviewed the following items marisol (where applicable) has been applied. Labs Laboratory Tests Test 02/14/18 11:35 02/14/18 20:00 02/15/18 02:00 02/16/18 00:30 Vancomycin Level Trough 7.4 mcg/mL (10.0-20.0) 16.2 mcg/mL (10.0-20.0) Vancomycin Last Dose Date 02/13/[id number] Vancomycin Last Dose Time 1200 1300 Prothrombin Time 16.4 SEC (11.7-14.0) Prothromb Time International Ratio 1.4 (0.8-1.1) Activated Partial Thromboplast Time 30 SEC (24-38) White Blood Count 6.4 x10^3/uL (4.0-11.0) Red Blood Count 2.93 x10^6/uL (3.50-5.40) Hemoglobin 8.5 g/dL (12.0-15.5) Hematocrit 26.4 % (36.0-47.0) Mean Corpuscular Volume 90 fL (79-100) Mean Corpuscular Hemoglobin 29 pg (25-35) Mean Corpuscular Hemoglobin Concent 32 g/dL (31-37) Red Cell Distribution Width 20.0 % (11.5-14.5) Platelet Count 349 x10^3/uL (140-400) Neutrophils (%) (Auto) 76 % (31-73) Lymphocytes (%) (Auto) 11 % (24-48) Monocytes (%) (Auto) 11 % (0-9) Eosinophils (%) (Auto) 2 % (0-3) Basophils (%) (Auto) 0 % (0-3) Neutrophils # (Auto) 4.9 x10^3uL (1.8-7.7) Lymphocytes # (Auto) 0.7 x10^3/uL (1.0-4.8) Monocytes # (Auto) 0.7 x10^3/uL (0.0-1.1) Eosinophils # (Auto) 0.1 x10^3/uL (0.0-0.7) Basophils # (Auto) 0.0 x10^3/uL (0.0-0.2) Sodium Level 141 mmol/L (136-145) Potassium Level 3.1 mmol/L (3.5-5.1) Chloride Level 103 mmol/L (98-107) Carbon Dioxide Level 27 mmol/L (21-32) Anion Gap 11 (6-14) Blood Urea Nitrogen 10 mg/dL (7-20) Creatinine 0.9 mg/dL (0.6-1.0) Estimated GFR (Cockcroft-Gault) 61.2 BUN/Creatinine Ratio 11 (6-20) Glucose Level 93 mg/dL (70-99) Calcium Level 8.3 mg/dL (8.5-10.1) Total Bilirubin 0.2 mg/dL (0.2-1.0) Aspartate Amino Transf (AST/SGOT) 60 U/L (15-37) Alanine Aminotransferase (ALT/SGPT) 31 U/L (14-59) Alkaline Phosphatase 145 U/L (46-116) Total Protein 5.9 g/dL (6.4-8.2) Albumin 1.5 g/dL (3.4-5.0) Albumin/Globulin Ratio 0.3 (1.0-1.7) Test 02/16/18 01:30 Hemoglobin 8.9 g/dL (12.0-15.5) Hematocrit 27.6 % (36.0-47.0) Mean Corpuscular Hemoglobin Concent 33 g/dL (31-37) Sodium Level 141 mmol/L (136-145) Potassium Level 4.1 mmol/L (3.5-5.1) Chloride Level 106 mmol/L (98-107) Carbon Dioxide Level 28 mmol/L (21-32) Anion Gap 7 (6-14) Blood Urea Nitrogen 9 mg/dL (7-20) Creatinine 0.8 mg/dL (0.6-1.0) Estimated GFR (Cockcroft-Gault) 70.1 Glucose Level 135 mg/dL (70-99) Calcium Level 8.1 mg/dL (8.5-10.1) Laboratory Tests Test 02/16/18 00:30 02/16/18 01:30 Vancomycin Level Trough 16.2 mcg/mL (10.0-20.0) Vancomycin Last Dose Date Vancomycin Last Dose Time 1300 Hemoglobin 8.9 g/dL (12.0-15.5) Hematocrit 27.6 % (36.0-47.0) Mean Corpuscular Hemoglobin Concent 33 g/dL (31-37) Sodium Level 141 mmol/L (136-145) Potassium Level 4.1 mmol/L (3.5-5.1) Chloride Level 106 mmol/L (98-107) Carbon Dioxide Level 28 mmol/L (21-32) Anion Gap 7 (6-14) Blood Urea Nitrogen 9 mg/dL (7-20) Creatinine 0.8 mg/dL (0.6-1.0) Estimated GFR (Cockcroft-Gault) 70.1 Glucose Level 135 mg/dL (70-99) Calcium Level 8.1 mg/dL (8.5-10.1) Microbiology 02/13/18 Blood Culture - Preliminary, Resulted NO GROWTH AFTER 3 DAYS 02/11/18 Fecal Leukocyte Stain - Final, Complete 02/11/18 Urine Culture - Final, Complete 02/11/18 Urine Culture Result 1 (LORY) - Final, Complete 02/11/18 Antimicrobic Susceptibility - Final, Complete Medications Current Medications Iohexol (Omnipaque 300 Mg/ml) 75 ml 1X ONCE IV Last administered on 02/11/18at 17:00; Start 02/11/18 at 17:00; Stop 02/11/18 at 17:01; Status DC Iohexol (Omnipaque 240 Mg/ml) 50 ml 1X ONCE PO Last administered on 02/11/18at 17:00; Start 02/11/18 at 17:00; Stop 02/11/18 at 17:01; Status DC Info (CONTRAST GIVEN -- Rx MONITORING) 1 each PRN DAILY PRN MC SEE COMMENTS; Start 02/11/18 at 16:45; Stop 02/13/18 at 08:43; Status DC Sodium Chloride 1,000 ml @ 1,000 mls/hr 1X ONCE IV Last administered on at 19:15; Start 02/11/18 at 18:15; Stop 02/11/18 at 19:14; Status DC Metronidazole 100 ml @ 100 mls/hr 1X ONCE IV Last administered on 02/11/18at 18:30; Start 02/11/18 at 18:30; Stop 02/11/18 at 19:29; Status DC Sodium Chloride 1,000 ml @ 125 mls/hr Q8H IV Last administered on 02/12/18at 11 :35; Start 02/11/18 at 19:51; Stop 02/12/18 at 19:50; Status DC Acetaminophen (Tylenol) 650 mg PRN Q6HRS PRN PO FEVER Last administered on 02/14at 13:15; Start 02/11/18 at 21:00 Ondansetron HCl (Zofran) 4 mg PRN Q6HRS PRN IV NAUSEA/VOMITING; Start 02/11/18 at 21:00 Morphine Sulfate (Morphine Sulfate) 2 mg PRN Q2HR PRN IV MODERATE TO SEVERE PAIN Last administered on 02/16/18at 07:52; Start 02/11/18 at 21:00 Tramadol HCl (Ultram) 50 mg PRN Q6HRS PRN PO MILD TO MODERATE PAIN Last administered on 02/16/18at 05:53; Start 02/11/18 at 21:00 Docusate Sodium (Colace) 100 mg PRN DAILY PRN PO HARD STOOLS; Start 02/11/18 at 21:00 Vancomycin HCl 1 gm/Sodium Chloride 250 ml @ 250 mls/hr 1X ONCE IV Last administered on 02/12/18at 11:35; Start 02/12/18 at 10:00; Stop 02/12/18 at 10:59 ; Status DC Vancomycin HCl 1 gm/Sodium Chloride 250 ml @ 250 mls/hr Q12H IV ; Start at 06:00; Status UNV Vancomycin HCl 750 mg/Sodium Chloride 250 ml @ 250 mls/hr 1X ONCE IV Last administered on 02/12/18at 13:44; Start 02/12/18 at 13:15; Stop 02/12/18 at 14:14 ; Status DC Vancomycin HCl 1 gm/Sodium Chloride 250 ml @ 250 mls/hr Q24H IV Last administered on 02/14/18at 13:05; Start 02/13/18 at 12:00; Stop 02/14/18 at 14:03 ; Status DC Vancomycin HCl (Vancomycin Trough Level) 1 each 1X ONCE MC Last administered on 02/14/18at 11:30; Start 02/14/18 at 11:30; Stop 02/14/18 at 11:31; Status DC Vancomycin HCl (Vanco Per Pharmacy) 1 each PRN DAILY PRN MC SEE COMMENTS Last administered on 02/16/18at 01:21; Start 02/12/18 at 13:30 Cyclobenzaprine HCl (Flexeril) 10 mg 1X ONCE PO Last administered on at 16:47; Start 02/12/18 at 15:45; Stop 02/12/18 at 15:46; Status DC Sodium Chloride 1,000 ml @ 85 mls/hr [id number] IV Last administered on at 01:18; Start 02/12/18 at 20:30 Iohexol (Omnipaque 300 Mg/ml) 75 ml 1X ONCE IV Last administered on 02/13/18at 09:52; Start 02/13/18 at 08:45; Stop 02/13/18 at 08:46; Status DC Info (CONTRAST GIVEN -- Rx MONITORING) 1 each PRN DAILY PRN MC SEE COMMENTS; Start 02/13/18 at 08:45; Stop 02/15/18 at 08:44; Status DC Cyclobenzaprine HCl (Flexeril) 10 mg PRN Q12HR PRN PO MUSCLE SPASMS Last administered on 02/13/18at 20:55; Start 02/13/18 at 13:00; Stop 02/14/18 at 12:04 ; Status DC Gadobutrol (Gadavist) 6 mmol 1X ONCE IV ; Start 02/13/18 at 14:45; Stop at 14:46; Status DC Cyclobenzaprine HCl (Flexeril) 10 mg PRN Q8HRS PRN PO MUSCLE SPASMS Last administered on 02/15/18at 23:40; Start 02/13/18 at 20:15 Piperacillin Sod/ Tazobactam Sod 3.375 gm/Sodium Chloride 50 ml @ 100 mls/hr Q6HRS IV Last administered on 02/16/18at 05:49; Start 02/14/18 at 12:00 Vancomycin HCl 0.75 gm/Sodium Chloride 250 ml @ 250 mls/hr Q12H IV Last administered on 02/16/18at 01:18; Start 02/15/18 at 01:00 Vancomycin HCl (Vancomycin Trough Level) 1 each 1X ONCE MC Last administered on 02/16/18at 00:30; Start 02/16/18 at 00:30; Stop 02/16/18 at 00:31; Status DC Potassium Chloride/Water 100 ml @ 100 mls/hr Q1H IV Last administered on at 19:53; Start 02/15/18 at 07:00; Stop 02/15/18 at 09:59; Status DC Lidocaine/Sodium Bicarbonate (Buffered Lidocaine 1%) 3 ml STK-MED ONCE .ROUTE ; Start 02/15/18 at 10:18; Stop 02/15/18 at 10:19; Status DC Midazolam HCl (Versed) 2 mg STK-MED ONCE .ROUTE ; Start 02/15/18 at 10:19; Stop 02/15/18 at 10:20; Status DC Fentanyl Citrate (Fentanyl 2ml Vial) 100 mcg STK-MED ONCE .ROUTE ; Start at 10:20; Stop 02/15/18 at 10:21; Status DC Lidocaine/Sodium Bicarbonate (Buffered Lidocaine 1%) 3 ml 1X ONCE IJ Last administered on 02/15/18at 10:45; Start 02/15/18 at 10:45; Stop 02/15/18 at 10:46 ; Status DC Midazolam HCl (Versed) 2 mg 1X ONCE IV Last administered on 02/15/18at 10:45; Start 02/15/18 at 10:45; Stop 02/15/18 at 10:46; Status DC Fentanyl Citrate (Fentanyl 2ml Vial) 100 mcg 1X ONCE IV Last administered on at 10:45; Start 02/15/18 at 10:45; Stop 02/15/18 at 10:46; Status DC Midazolam HCl (Versed) 2 mg STK-MED ONCE .ROUTE ; Start 02/15/18 at 11:05; Stop 02/15/18 at 11:06; Status DC Fentanyl Citrate (Fentanyl 2ml Vial) 100 mcg STK-MED ONCE .ROUTE ; Start at 11:05; Stop 02/15/18 at 11:06; Status DC Potassium Chloride (Klor-Con) 40 meq 1X ONCE PO Last administered on at 12:23; Start 02/15/18 at 12:00; Stop 02/15/18 at 12:01; Status DC Active Scripts Active Cephalexin 500 Mg Tablet 1 Tab PO BID Cyclobenzaprine Hcl 10 Mg Tablet 1 Tab PO TID [place] 5-325 Tablet (Acetaminophen/Hydrocodone Bitart) 1 Each Tablet 1 Tab PO Q4- 6HRS Senna-Time S Tablet (Sennosides/Docusate Sodium) 1 Each Tablet 2 Tab PO QHS 7 Days Oxycodone-Acetaminophen 5-325 (Oxycodone Hcl/Acetaminophen) 1 Each Tablet 1 Tab PO PRN Q4HRS PRN Vitamin D2 (Ergocalciferol (Vitamin D2)) 50,000 Unit Capsule 50,000 Unit PO WEEKLY Colace (Docusate Sodium) 100 Mg Capsule 100 Mg PO BID 10 Days Vitals/I & O Vital Sign - Last 24 Hours 02/15/18 02/15/18 02/15/18 02/15/18 10:45 11:07 11:12 11:15 Pulse 75 79 Resp 14 20 20 B/P (MAP) 118/76 (90) Pulse Ox 91 98 O2 Delivery Nasal Cannula Nasal Cannula Room Air O2 Flow Rate 2.0 2.0 2.0 02/15/18 02/15/18 02/15/18 02/15/18 11:17 11:23 11:28 11:33 Pulse 74 74 74 75 Resp 12 16 15 12 B/P (MAP) 118/68 (85) 109/67 (81) 106/63 (77) 103/64 (77) Pulse Ox 100 99 96 98 O2 Delivery Nasal Cannula Nasal Cannula Nasal Cannula Nasal Cannula O2 Flow Rate 2.0 2.0 2.0 2.0 02/15/18 02/15/18 02/15/18 02/15/18 11:38 11:43 14:47 15:00 Temp 97.7 97.7 Pulse 74 74 80 Resp 12 16 18 B/P (MAP) 100/66 (77) 100/59 (73) Pulse Ox 99 98 98 99 O2 Delivery Nasal Cannula Nasal Cannula Room Air Nasal Cannula O2 Flow Rate 2.0 2.0 2.0 2.0 02/15/18 02/15/18 02/15/18 02/15/18 15:20 19:00 19:43 23:00 Temp 97.9 98.1 97.9 98.1 Pulse 84 64 Resp 18 18 B/P (MAP) 103/61 (75) 113/64 (80) Pulse Ox 99 93 94 O2 Delivery Room Air Room Air Room Air Room Air O2 Flow Rate 2.0 02/16/18 02/16/18 02/16/18 02/16/18 03:00 05:53 07:00 07:02 Temp 96.2 99.8 96.2 99.8 Pulse 73 84 Resp 18 B/P (MAP) 95/52 (66) 122/74 (90) Pulse Ox 97 97 93 97 O2 Delivery Room Air Room Air Room Air Room Air O2 Flow Rate 2.0 02/16/18 07:52 O2 Delivery Room Air Intake and Output 02/15/18 02/15/18 02/16/18 15:00 23:00 07:00 Intake Total 290 ml 1020 ml Output Total 1080 ml Balance 290 ml -60 ml MARSHALL LYON MD Feb 16, 2018 10:00
[2018-02-16 11:00] VITALS: BP 95/57
[2018-02-16 14:51] VITALS: BP 100/66
[2018-02-16 19:00] VITALS: BP 109/62
[2018-02-16 23:00] VITALS: BP 115/72
[2018-02-17] MEDS: VANCOMYCIN 0.75 GM in IV NORMAL SALINE 250ML 250 ML IV SCH ×2 (00:55→13:20)
[2018-02-17 03:00] VITALS: BP 112/74
[2018-02-17] MEDS: IV NORMAL SALINE 1000ML BAG 1,000 ML IV SCH ×2 (05:47→18:10)
[2018-02-17] MEDS: PIPERACILLIN/TAZOBACTAM 3.375 GM in IV NORMAL SALINE 50ML 50 ML IV SCH ×4 (05:47→23:36)
[2018-02-17 07:00] VITALS: BP 118/82
--- NOTE | 2018-02-17 08:26 | PDOC ---
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 ROS - has purulent drainage Objective Objective Vital Signs Date Time Temp Pulse Resp B/P (MAP) Pulse Ox O2 Delivery O2 Flow Rate FiO2 02/17/18 07:52 Room Air 2.0 02/17/18 03:00 98.9 78 18 112/74 (87) 95 98.9 Intake and Output 02/17/18 07:00 Intake Total 850 ml Output Total 1405 ml Balance -555 ml Intake Oral 550 ml IV Total 300 ml Output Urine Total 1300 ml Drainage Total 105 ml Physical Exam Heart: Normal S1, Normal S2 General: Alert, Oriented X3 Lungs: Clear to auscultation Neuro: Normal speech Psych/Mental Status: Mental status NL Assessment Assessment IMPRESSION AND PLAN: 1. 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 She is now admitted with generalized weakness and rectal bleeding. Bone scan 02/11/18: Abnormal activity is seen involving the pubic bone on both sides and the right superior pubic ramus corresponding to the CT abnormality CT scan of the abdomen and pelvis on 02/11/2018 revealed irregular raised and enhancing structure in the lower pelvis and bony destruction. CT scan of the chest - no mets. Tiny lung nodule noted. MRI 02/13/18 revealed Air collection within the lower pelvis with extension to the adjacent anterior pelvic bones consistent with osteomyelitis and abscess cavity. Certainly, residual or recurrent neoplastic involvement of this cavity with extension into the adjacent bones is possible. No obvious communication with the skin surface is seen and therefore, the air collection may communicate with adjacent colon or rectum. There is a pathologic fracture of the right superior pubic ramus. I d/w radiology, this is more consistent with abscess. s/p drain (by IR) and bone lesion bx 02/16/18. (CT-guided bone biopsy of the right pubis, CT-guided soft tissue biopsy of a thick walled abscess, CT-guided pelvic drain placement). She has purulent drainage. Await path I d/w ID. 2. Rectal bleeding, which I suspect is due to radiation proctitis. She had a colonoscopy at [facility] on 04/03/2016, which revealed radiation proctitis and she was treated with argon plasma coagulation. I appreciate GI consultation and management. 3. Anemia. Hemoglobin 8.9. Iron studies reveal anemia due to chronic disease. Normal B12. 4. Thrombocytosis, reactive, monitor. Resolved. 5. Appreciate gynecology consultation. I discussed with Dr. Bladimir Obregon. Comment Review of Relevant I have reviewed the following items marisol (where applicable) has been applied. Labs Laboratory Tests Test 02/16/18 00:30 02/16/18 01:30 Vancomycin Level Trough 16.2 mcg/mL (10.0-20.0) Vancomycin Last Dose Date Vancomycin Last Dose Time 1300 Hemoglobin 8.9 g/dL (12.0-15.5) Hematocrit 27.6 % (36.0-47.0) Mean Corpuscular Hemoglobin Concent 33 g/dL (31-37) Sodium Level 141 mmol/L (136-145) Potassium Level 4.1 mmol/L (3.5-5.1) Chloride Level 106 mmol/L (98-107) Carbon Dioxide Level 28 mmol/L (21-32) Anion Gap 7 (6-14) Blood Urea Nitrogen 9 mg/dL (7-20) Creatinine 0.8 mg/dL (0.6-1.0) Estimated GFR (Cockcroft-Gault) 70.1 Glucose Level 135 mg/dL (70-99) Calcium Level 8.1 mg/dL (8.5-10.1) Microbiology 02/13/18 Blood Culture - Preliminary, Resulted NO GROWTH AFTER 4 DAYS 02/11/18 Fecal Leukocyte Stain - Final, Complete 02/11/18 Urine Culture - Final, Complete 02/11/18 Urine Culture Result 1 (LORY) - Final, Complete 02/11/18 Antimicrobic Susceptibility - Final, Complete 02/15/18 Anaerobic/Aerobic Culture, Resulted Pending 02/15/18 Anaerobic Culture Result 1 (LORY), Resulted Pending 02/15/18 Aerobic Culture, Resulted Pending 02/15/18 Aerobic Culture Result 1 (LORY), Resulted Pending 02/15/18 Gram Stain - Final, Resulted 02/15/18 Gram Stain Result 1 (LORY) - Final, Resulted 02/15/18 Gram Stain Result 2 (LORY) - Final, Resulted Medications Current Medications Iohexol (Omnipaque 300 Mg/ml) 75 ml 1X ONCE IV Last administered on 02/11/18at 17:00; Start 02/11/18 at 17:00; Stop 02/11/18 at 17:01; Status DC Iohexol (Omnipaque 240 Mg/ml) 50 ml 1X ONCE PO Last administered on 02/11/18at 17:00; Start 02/11/18 at 17:00; Stop 02/11/18 at 17:01; Status DC Info (CONTRAST GIVEN -- Rx MONITORING) 1 each PRN DAILY PRN MC SEE COMMENTS; Start 02/11/18 at 16:45; Stop 02/13/18 at 08:43; Status DC Sodium Chloride 1,000 ml @ 1,000 mls/hr 1X ONCE IV Last administered on at 19:15; Start 02/11/18 at 18:15; Stop 02/11/18 at 19:14; Status DC Metronidazole 100 ml @ 100 mls/hr 1X ONCE IV Last administered on 02/11/18at 18:30; Start 02/11/18 at 18:30; Stop 02/11/18 at 19:29; Status DC Sodium Chloride 1,000 ml @ 125 mls/hr Q8H IV Last administered on 02/12/18at 11 :35; Start 02/11/18 at 19:51; Stop 02/12/18 at 19:50; Status DC Acetaminophen (Tylenol) 650 mg PRN Q6HRS PRN PO FEVER Last administered on 02/14at 13:15; Start 02/11/18 at 21:00 Ondansetron HCl (Zofran) 4 mg PRN Q6HRS PRN IV NAUSEA/VOMITING; Start 02/11/18 at 21:00 Morphine Sulfate (Morphine Sulfate) 2 mg PRN Q2HR PRN IV MODERATE TO SEVERE PAIN Last administered on 02/16/18at 07:52; Start 02/11/18 at 21:00 Tramadol HCl (Ultram) 50 mg PRN Q6HRS PRN PO MILD TO MODERATE PAIN Last administered on 02/16/18at 05:53; Start 02/11/18 at 21:00 Docusate Sodium (Colace) 100 mg PRN DAILY PRN PO HARD STOOLS; Start 02/11/18 at 21:00 Vancomycin HCl 1 gm/Sodium Chloride 250 ml @ 250 mls/hr 1X ONCE IV Last administered on 02/12/18at 11:35; Start 02/12/18 at 10:00; Stop 02/12/18 at 10:59 ; Status DC Vancomycin HCl 1 gm/Sodium Chloride 250 ml @ 250 mls/hr Q12H IV ; Start at 06:00; Status UNV Vancomycin HCl 750 mg/Sodium Chloride 250 ml @ 250 mls/hr 1X ONCE IV Last administered on 02/12/18at 13:44; Start 02/12/18 at 13:15; Stop 02/12/18 at 14:14 ; Status DC Vancomycin HCl 1 gm/Sodium Chloride 250 ml @ 250 mls/hr Q24H IV Last administered on 02/14/18at 13:05; Start 02/13/18 at 12:00; Stop 02/14/18 at 14:03 ; Status DC Vancomycin HCl (Vancomycin Trough Level) 1 each 1X ONCE MC Last administered on 02/14/18at 11:30; Start 02/14/18 at 11:30; Stop 02/14/18 at 11:31; Status DC Vancomycin HCl (Vanco Per Pharmacy) 1 each PRN DAILY PRN MC SEE COMMENTS Last administered on 02/16/18at 14:10; Start 02/12/18 at 13:30 Cyclobenzaprine HCl (Flexeril) 10 mg 1X ONCE PO Last administered on at 16:47; Start 02/12/18 at 15:45; Stop 02/12/18 at 15:46; Status DC Sodium Chloride 1,000 ml @ 85 mls/hr [id number] IV Last administered on at 05:47; Start 02/12/18 at 20:30 Iohexol (Omnipaque 300 Mg/ml) 75 ml 1X ONCE IV Last administered on 02/13/18at 09:52; Start 02/13/18 at 08:45; Stop 02/13/18 at 08:46; Status DC Info (CONTRAST GIVEN -- Rx MONITORING) 1 each PRN DAILY PRN MC SEE COMMENTS; Start 02/13/18 at 08:45; Stop 02/15/18 at 08:44; Status DC Cyclobenzaprine HCl (Flexeril) 10 mg PRN Q12HR PRN PO MUSCLE SPASMS Last administered on 02/13/18at 20:55; Start 02/13/18 at 13:00; Stop 02/14/18 at 12:04 ; Status DC Gadobutrol (Gadavist) 6 mmol 1X ONCE IV ; Start 02/13/18 at 14:45; Stop at 14:46; Status DC Cyclobenzaprine HCl (Flexeril) 10 mg PRN Q8HRS PRN PO MUSCLE SPASMS Last administered on 02/15/18at 23:40; Start 02/13/18 at 20:15 Piperacillin Sod/ Tazobactam Sod 3.375 gm/Sodium Chloride 50 ml @ 100 mls/hr Q6HRS IV Last administered on 02/17/18at 05:47; Start 02/14/18 at 12:00 Vancomycin HCl 0.75 gm/Sodium Chloride 250 ml @ 250 mls/hr Q12H IV Last administered on 02/17/18at 00:55; Start 02/15/18 at 01:00 Vancomycin HCl (Vancomycin Trough Level) 1 each 1X ONCE MC Last administered on 02/16/18at 00:30; Start 02/16/18 at 00:30; Stop 02/16/18 at 00:31; Status DC Potassium Chloride/Water 100 ml @ 100 mls/hr Q1H IV Last administered on at 19:53; Start 02/15/18 at 07:00; Stop 02/15/18 at 09:59; Status DC Lidocaine/Sodium Bicarbonate (Buffered Lidocaine 1%) 3 ml STK-MED ONCE .ROUTE ; Start 02/15/18 at 10:18; Stop 02/15/18 at 10:19; Status DC Midazolam HCl (Versed) 2 mg STK-MED ONCE .ROUTE ; Start 02/15/18 at 10:19; Stop 02/15/18 at 10:20; Status DC Fentanyl Citrate (Fentanyl 2ml Vial) 100 mcg STK-MED ONCE .ROUTE ; Start at 10:20; Stop 02/15/18 at 10:21; Status DC Lidocaine/Sodium Bicarbonate (Buffered Lidocaine 1%) 3 ml 1X ONCE IJ Last administered on 02/15/18at 10:45; Start 02/15/18 at 10:45; Stop 02/15/18 at 10:46 ; Status DC Midazolam HCl (Versed) 2 mg 1X ONCE IV Last administered on 02/15/18at 10:45; Start 02/15/18 at 10:45; Stop 02/15/18 at 10:46; Status DC Fentanyl Citrate (Fentanyl 2ml Vial) 100 mcg 1X ONCE IV Last administered on at 10:45; Start 02/15/18 at 10:45; Stop 02/15/18 at 10:46; Status DC Midazolam HCl (Versed) 2 mg STK-MED ONCE .ROUTE ; Start 02/15/18 at 11:05; Stop 02/15/18 at 11:06; Status DC Fentanyl Citrate (Fentanyl 2ml Vial) 100 mcg STK-MED ONCE .ROUTE ; Start at 11:05; Stop 02/15/18 at 11:06; Status DC Potassium Chloride (Klor-Con) 40 meq 1X ONCE PO Last administered on at 12:23; Start 02/15/18 at 12:00; Stop 02/15/18 at 12:01; Status DC Active Scripts Active Cephalexin 500 Mg Tablet 1 Tab PO BID Cyclobenzaprine Hcl 10 Mg Tablet 1 Tab PO TID [place] 5-325 Tablet (Acetaminophen/Hydrocodone Bitart) 1 Each Tablet 1 Tab PO Q4- 6HRS Senna-Time S Tablet (Sennosides/Docusate Sodium) 1 Each Tablet 2 Tab PO QHS 7 Days Oxycodone-Acetaminophen 5-325 (Oxycodone Hcl/Acetaminophen) 1 Each Tablet 1 Tab PO PRN Q4HRS PRN Vitamin D2 (Ergocalciferol (Vitamin D2)) 50,000 Unit Capsule 50,000 Unit PO WEEKLY Colace (Docusate Sodium) 100 Mg Capsule 100 Mg PO BID 10 Days Vitals/I & O Vital Sign - Last 24 Hours 02/16/18 02/16/18 02/16/18 02/16/18 11:00 14:51 19:00 19:50 Temp 98.6 97.7 99.0 98.6 97.7 99.0 Pulse 80 83 82 Resp 18 18 18 B/P (MAP) 95/57 (70) 100/66 (77) 109/62 (78) Pulse Ox 93 95 94 O2 Delivery Room Air Room Air Room Air O2 Flow Rate 2.0 02/16/18 02/17/18 02/17/18 23:00 03:00 07:52 Temp 99.4 98.9 99.4 98.9 Pulse 81 78 Resp 18 18 B/P (MAP) 115/72 (86) 112/74 (87) Pulse Ox 93 95 O2 Delivery Room Air O2 Flow Rate 2.0 Intake and Output 02/16/18 02/16/18 02/17/18 15:00 23:00 07:00 Intake Total 550 ml 300 ml Output Total 630 ml 775 ml Balance -80 ml -475 ml MARSHALL LYON MD Feb 17, 2018 08:26
--- NOTE | 2018-02-17 08:37 | PDOC ---
Infectious Disease Note Subjective: Subjective Pt says feels ok cont to drain in DWAIN drain denies any f/c/n/v/d has some abdo discomfort but not worse ROS: ROS Negative except for above. Vital Signs: Vital Signs Vital Signs Date Time Temp Pulse Resp B/P (MAP) Pulse Ox O2 Delivery O2 Flow Rate FiO2 02/17/18 07:52 Room Air 2.0 02/17/18 03:00 98.9 78 18 112/74 (87) 95 98.9 Physical Exam: PHYSICAL EXAM GEN.: No apparent distress. Alert and oriented. HEENT: Head is normocephalic, atraumatic NECK: Supple. LUNGS: Clear to auscultation. HEART: RRR, S1, S2 present. Peripheral pulses intact ABDOMEN: Soft, Positive bowel sounds. ileostomy for urine output. pubic area + tenderness. J drain has fluid drainage EXTREMITIES: Without any cyanosis. NEUROLOGIC: Normal speech, normal tone PSYCHIATRIC: Normal affect, normal mood. SKIN: No ulcerations Medications: Inpatient Meds: Current Medications Medications (Trade) Dose Ordered Sig/Julisa Start Time Stop Time Status Last Admin Dose Admin Acetaminophen (Tylenol) 650 mg PRN Q6HRS PRN 02/11/18 21:00 02/14/18 13:15 650 MG Cyclobenzaprine HCl (Flexeril) 10 mg PRN Q8HRS PRN 02/13/18 20:15 02/15/18 23:40 10 MG Docusate Sodium (Colace) 100 mg PRN DAILY PRN 02/11/18 21:00 Fentanyl Citrate (Fentanyl 2ml Vial) 100 mcg STK-MED ONCE 02/15/18 11:05 02/15/18 11:06 DC Gadobutrol (Gadavist) 6 mmol 1X ONCE 02/13/18 14:45 02/13/18 14:46 DC Info (CONTRAST GIVEN -- Rx MONITORING) 1 each PRN DAILY PRN 02/13/18 08:45 02/15/18 08:44 DC Iohexol (Omnipaque 240 Mg/ml) 50 ml 1X ONCE 02/11/18 17:00 02/11/18 17:01 DC 02/11/18 17:00 50 ML Iohexol (Omnipaque 300 Mg/ml) 75 ml 1X ONCE 02/13/18 08:45 02/13/18 08:46 DC 02/13/18 09:52 75 ML Lidocaine/Sodium Bicarbonate (Buffered Lidocaine 1%) 3 ml 1X ONCE 02/15/18 10:45 02/15/18 10:46 DC 02/15/18 10:45 12 ML Metronidazole 100 ml @ 100 mls/hr 1X ONCE 02/11/18 18:30 02/11/18 19:29 DC 02/11/18 18:30 100 MLS/HR Midazolam HCl (Versed) 2 mg STK-MED ONCE 02/15/18 11:05 02/15/18 11:06 DC Morphine Sulfate (Morphine Sulfate) 2 mg PRN Q2HR PRN 02/11/18 21:00 02/16/18 07:52 2 MG Ondansetron HCl (Zofran) 4 mg PRN Q6HRS PRN 02/11/18 21:00 Piperacillin Sod/ Tazobactam Sod 3.375 gm/Sodium Chloride 50 ml @ 100 mls/hr Q6HRS 02/14/18 12:00 02/17/18 05:47 100 MLS/HR Potassium Chloride/Water 100 ml @ 100 mls/hr Q1H 02/15/18 07:00 02/15/18 09:59 DC 02/15/18 19:53 100 MLS/HR Potassium Chloride (Klor-Con) 40 meq 1X ONCE 02/15/18 12:00 02/15/18 12:01 DC 02/15/18 12:23 40 MEQ Sodium Chloride 1,000 ml @ 85 mls/hr [id number] 02/12/18 20:30 02/17/18 05:47 85 MLS/HR Tramadol HCl (Ultram) 50 mg PRN Q6HRS PRN 02/11/18 21:00 02/16/18 05:53 50 MG Vancomycin HCl (Vanco Per Pharmacy) 1 each PRN DAILY PRN 02/12/18 13:30 02/16/18 14:10 1 EACH Vancomycin HCl (Vancomycin Trough Level) 1 each 1X ONCE 02/16/18 00:30 02/16/18 00:31 DC 02/16/18 00:30 1 EACH Vancomycin HCl 0.75 gm/Sodium Chloride 250 ml @ 250 mls/hr Q12H 02/15/18 01:00 02/17/18 00:55 250 MLS/HR Vancomycin HCl 750 mg/Sodium Chloride 250 ml @ 250 mls/hr 1X ONCE 02/12/18 13:15 02/12/18 14:14 DC 02/12/18 13:44 250 MLS/HR Vancomycin HCl 1 gm/Sodium Chloride 250 ml @ 250 mls/hr Q24H 02/13/18 12:00 02/14/18 14:03 DC 02/14/18 13:05 250 MLS/HR Labs: Micro RUN DATE: 02/16/18 PAGE 1 RUN TIME: 2009 [facility] [address] [place] [address] Yonathan Cheng M.D., Embryology Professor PATIENT: RAFFAELE SOLORZANO ACCT: [id number] LOC: [address] [place] [address] U : [id number] AGE/SX: 73/F ROOM: [facility] REG : 02/11/[address]: MARIANGEL WHALEY MD : 1945 BED: 1 DIS : STATUS: ADM IN TLOC: SPEC #: [id number] LOS: 02/15/18 STATUS: RES REQ #: [id number] RECD: 02/15/18-[address]: GLENDA HELMS MD SOURCE: PELVIS ENTR: 02/15/18-[address]: KESHA JOY MD SPDESC: LESION NO PCP RADHA FRANKEL Jr, MD, VINAY MD BYRNES,MCKENZIE WHALEY,MARIANGEL SONI ORDERED: ANAER/AEROB/GS Procedure Result ANAEROBIC-AEROBIC CULTURE PENDING ANAEROBIC RES 1 PENDING AEROBIC CULT PENDING AEROBIC RES 1 PENDING GRAM STAIN Final Final report GRAM STAIN RES 1 Final No organisms seen GRAM STAIN RES 2 Final Comment No white blood cells seen. Performed at: [address], [place], [place] [id number] Boat Tester: AUTUMN Chun MD, Phone: [phone] RUN DATE: 02/16/18 PAGE 1 RUN TIME: 1909 [facility] [address] [place] [address] Yonathan Cheng M.D., Embryology Professor PATIENT: RAFFAELE SOLORZANO ACCT: [id number] LOC: [address] [place] [address] U : [id number] AGE/SX: 73/F ROOM: [facility] REG : 02/11/[address]: MARIANGEL WHALEY MD : 1945 BED: 1 DIS : STATUS: ADM IN TLOC: SPEC #: [id number] LOS: 02/15/18 STATUS: RES REQ #: [id number] RECD: 02/15/18 [facility] DR: GLENDA HELMS MD SOURCE: PELVIS ENTR: 02/15/[address]: KESHA JOY MD SPDESC: ABSCESS NO PCP RADHA FRANKEL Jr, MD,MARSHALL BYRNES,MARIANGEL CELESTIN MD, MD ORDERED: ANAER/AEROB/GS Procedure Result ANAEROBIC-AEROBIC CULTURE PENDING ANAEROBIC RES 1 PENDING AEROBIC CULT PENDING AEROBIC RES 1 PENDING GRAM STAIN Final Final report GRAM STAIN RES 1 Final Comment No white blood cells seen. GRAM STAIN RES 2 Final No organisms seen Performed at: - [facility] [address] [facility] [address], [place], [place] [id number] Boat Tester: AUTUMN Chun MD, Phone: [phone] MRI pelvis IMPRESSION: Air collection within the lower pelvis with extension to the adjacent anterior pelvic bones consistent with osteomyelitis and abscess cavity. Certainly, residual or recurrent neoplastic involvement of this cavity with extension into the adjacent bones is possible. No obvious communication with the skin surface is seen and therefore, the air collection may communicate with adjacent colon or rectum. There is a pathologic fracture of the right superior pubic ramus. 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 Objective: Assessment: Pelvic MRI showing fluid collection with extension to the adjacent pelvic bones s/p IR drainage J drain with serous drainage, similar to drainage from rectum / vagina per daughter at [facility] suspicion is for abscess but underlying malignancy or fistula cannot be ruled out completely Cults neg so far Staph epidermidis bacteremia 2/4 bottles ,likely contaminant Squamous cell carcinoma of the cervix,S/P CT and RT Rectal bleed from 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 Low back pain. Moderate malnutrition. Plan: Plan of Care 1. Continue empiric IV vancomycin and zosyn Monitor renal functions closely. last vanc trough 16.2 2.. Follow up cultures from IR drainage of pelvic fluid collection 02/14 3. f/u histopathology 4. FU with labs and cults in am 5. Continue supportive care. 6.If cults from pelvic fluid remain neg ,consider gen surgery evaluation for possible fistula KESHA JOY MD Feb 17, 2018 08:36
[2018-02-17] MEDS: MORPHINE SULFATE 2 MG/ML VIAL. IV PRN (09:52)
[2018-02-17 11:00] VITALS: BP 107/64
[2018-02-17 15:00] VITALS: BP 106/60
[2018-02-17 19:00] VITALS: BP 98/60
[2018-02-17] MEDS: CYCLOBENZAPRINE 10 MG TABLET. PO PRN (20:27)
[2018-02-17] MEDS: traMADol 50 MG TABLET PO PRN (20:27)
[2018-02-17 23:01] VITALS: BP 114/66
[2018-02-18] MEDS: VANCOMYCIN 0.75 GM in IV NORMAL SALINE 250ML 250 ML IV SCH ×2 (00:49→13:30)
[2018-02-18 03:01] VITALS: BP 100/64
[2018-02-18] MEDS: PIPERACILLIN/TAZOBACTAM 3.375 GM in IV NORMAL SALINE 50ML 50 ML IV SCH ×4 (06:04→23:42)
[2018-02-18] MEDS: IV NORMAL SALINE 1000ML BAG 1,000 ML IV SCH ×2 (06:05→21:08)
[2018-02-18 07:00] VITALS: BP 116/72
--- NOTE | 2018-02-18 08:57 | PDOC ---
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 ROS - no fever Objective Objective Vital Signs Date Time Temp Pulse Resp B/P (MAP) Pulse Ox O2 Delivery O2 Flow Rate FiO2 02/18/18 03:01 98.6 79 20 100/64 (76) 92 Room Air 98.6 02/17/18 21:30 2.0 Intake and Output 02/18/18 07:00 Intake Total 200 ml Output Total 930 ml Balance -730 ml Intake Oral 200 ml Output Urine Total 890 ml Drainage Total 40 ml # Voids 3 Physical Exam Heart: Normal S1, Normal S2 General: Alert, Oriented X3 Lungs: Clear to auscultation Neuro: Normal speech Psych/Mental Status: Mental status NL Assessment Assessment IMPRESSION AND PLAN: 1. 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 She is now admitted with generalized weakness and rectal bleeding. Bone scan 02/11/18: Abnormal activity is seen involving the pubic bone on both sides and the right superior pubic ramus corresponding to the CT abnormality CT scan of the abdomen and pelvis on 02/11/2018 revealed irregular raised and enhancing structure in the lower pelvis and bony destruction. CT scan of the chest - no mets. Tiny lung nodule noted. MRI 02/13/18 revealed Air collection within the lower pelvis with extension to the adjacent anterior pelvic bones consistent with osteomyelitis and abscess cavity. Certainly, residual or recurrent neoplastic involvement of this cavity with extension into the adjacent bones is possible. No obvious communication with the skin surface is seen and therefore, the air collection may communicate with adjacent colon or rectum. There is a pathologic fracture of the right superior pubic ramus. I d/w radiology, this is more consistent with abscess. s/p drain (by IR) and bone lesion bx 02/16/18. (CT-guided bone biopsy of the right pubis, CT-guided soft tissue biopsy of a thick walled abscess, CT-guided pelvic drain placement). She has purulent drainage. Await path (pending) I d/w Dr Amato. 2. Rectal bleeding, which I suspect is due to radiation proctitis. She had a colonoscopy at [facility] on 04/03/2016, which revealed radiation proctitis and she was treated with argon plasma coagulation. I appreciate GI consultation and management. 3. Anemia. Hemoglobin 8.9. Iron studies reveal anemia due to chronic disease. Normal B12. 4. Appreciate gynecology consultation. I discussed with Dr. Bladimir Obregon. Comment Review of Relevant I have reviewed the following items marisol (where applicable) has been applied. Labs Microbiology 02/13/18 Blood Culture - Final, Complete NO GROWTH AFTER 5 DAYS 02/11/18 Fecal Leukocyte Stain - Final, Complete 02/11/18 Urine Culture - Final, Complete 02/11/18 Urine Culture Result 1 (LORY) - Final, Complete 02/11/18 Antimicrobic Susceptibility - Final, Complete 02/15/18 Anaerobic/Aerobic Culture, Resulted Pending 02/15/18 Anaerobic Culture Result 1 (LORY), Resulted Pending 02/15/18 Aerobic Culture, Resulted Pending 02/15/18 Aerobic Culture Result 1 (LORY), Resulted Pending 02/15/18 Gram Stain - Final, Resulted 02/15/18 Gram Stain Result 1 (LORY) - Final, Resulted 02/15/18 Gram Stain Result 2 (LORY) - Final, Resulted Medications Current Medications Iohexol (Omnipaque 300 Mg/ml) 75 ml 1X ONCE IV Last administered on 02/11/18at 17:00; Start 02/11/18 at 17:00; Stop 02/11/18 at 17:01; Status DC Iohexol (Omnipaque 240 Mg/ml) 50 ml 1X ONCE PO Last administered on 02/11/18at 17:00; Start 02/11/18 at 17:00; Stop 02/11/18 at 17:01; Status DC Info (CONTRAST GIVEN -- Rx MONITORING) 1 each PRN DAILY PRN MC SEE COMMENTS; Start 02/11/18 at 16:45; Stop 02/13/18 at 08:43; Status DC Sodium Chloride 1,000 ml @ 1,000 mls/hr 1X ONCE IV Last administered on at 19:15; Start 02/11/18 at 18:15; Stop 02/11/18 at 19:14; Status DC Metronidazole 100 ml @ 100 mls/hr 1X ONCE IV Last administered on 02/11/18at 18:30; Start 02/11/18 at 18:30; Stop 02/11/18 at 19:29; Status DC Sodium Chloride 1,000 ml @ 125 mls/hr Q8H IV Last administered on 02/12/18at 11 :35; Start 02/11/18 at 19:51; Stop 02/12/18 at 19:50; Status DC Acetaminophen (Tylenol) 650 mg PRN Q6HRS PRN PO FEVER Last administered on 02/14at 13:15; Start 02/11/18 at 21:00 Ondansetron HCl (Zofran) 4 mg PRN Q6HRS PRN IV NAUSEA/VOMITING; Start 02/11/18 at 21:00 Morphine Sulfate (Morphine Sulfate) 2 mg PRN Q2HR PRN IV MODERATE TO SEVERE PAIN Last administered on 02/17/18 09:52; Start 02/11/18 at 21:00 Tramadol HCl (Ultram) 50 mg PRN Q6HRS PRN PO MILD TO MODERATE PAIN Last administered on 02/17/18at 20:27; Start 02/11/18 at 21:00 Docusate Sodium (Colace) 100 mg PRN DAILY PRN PO HARD STOOLS; Start 02/11/18 at 21:00 Vancomycin HCl 1 gm/Sodium Chloride 250 ml @ 250 mls/hr 1X ONCE IV Last administered on 02/12/18at 11:35; Start 02/12/18 at 10:00; Stop 02/12/18 at 10:59 ; Status DC Vancomycin HCl 1 gm/Sodium Chloride 250 ml @ 250 mls/hr Q12H IV ; Start at 06:00; Status UNV Vancomycin HCl 750 mg/Sodium Chloride 250 ml @ 250 mls/hr 1X ONCE IV Last administered on 02/12/18at 13:44; Start 02/12/18 at 13:15; Stop 02/12/18 at 14:14 ; Status DC Vancomycin HCl 1 gm/Sodium Chloride 250 ml @ 250 mls/hr Q24H IV Last administered on 02/14/18at 13:05; Start 02/13/18 at 12:00; Stop 02/14/18 at 14:03 ; Status DC Vancomycin HCl (Vancomycin Trough Level) 1 each 1X ONCE MC Last administered on 02/14/18at 11:30; Start 02/14/18 at 11:30; Stop 02/14/18 at 11:31; Status DC Vancomycin HCl (Vanco Per Pharmacy) 1 each PRN DAILY PRN MC SEE COMMENTS Last administered on 02/16/18at 14:10; Start 02/12/18 at 13:30 Cyclobenzaprine HCl (Flexeril) 10 mg 1X ONCE PO Last administered on at 16:47; Start 02/12/18 at 15:45; Stop 02/12/18 at 15:46; Status DC Sodium Chloride 1,000 ml @ 85 mls/hr [id number] IV Last administered on at 06:05; Start 02/12/18 at 20:30 Iohexol (Omnipaque 300 Mg/ml) 75 ml 1X ONCE IV Last administered on 02/13/18at 09:52; Start 02/13/18 at 08:45; Stop 02/13/18 at 08:46; Status DC Info (CONTRAST GIVEN -- Rx MONITORING) 1 each PRN DAILY PRN MC SEE COMMENTS; Start 02/13/18 at 08:45; Stop 02/15/18 at 08:44; Status DC Cyclobenzaprine HCl (Flexeril) 10 mg PRN Q12HR PRN PO MUSCLE SPASMS Last administered on 02/13/18at 20:55; Start 02/13/18 at 13:00; Stop 02/14/18 at 12:04 ; Status DC Gadobutrol (Gadavist) 6 mmol 1X ONCE IV ; Start 02/13/18 at 14:45; Stop at 14:46; Status DC Cyclobenzaprine HCl (Flexeril) 10 mg PRN Q8HRS PRN PO MUSCLE SPASMS Last administered on 02/17/18at 20:27; Start 02/13/18 at 20:15 Piperacillin Sod/ Tazobactam Sod 3.375 gm/Sodium Chloride 50 ml @ 100 mls/hr Q6HRS IV Last administered on 02/18/18at 06:04; Start 02/14/18 at 12:00 Vancomycin HCl 0.75 gm/Sodium Chloride 250 ml @ 250 mls/hr Q12H IV Last administered on 02/18/18at 00:49; Start 02/15/18 at 01:00 Vancomycin HCl (Vancomycin Trough Level) 1 each 1X ONCE MC Last administered on 02/16/18at 00:30; Start 02/16/18 at 00:30; Stop 02/16/18 at 00:31; Status DC Potassium Chloride/Water 100 ml @ 100 mls/hr Q1H IV Last administered on at 19:53; Start 02/15/18 at 07:00; Stop 02/15/18 at 09:59; Status DC Lidocaine/Sodium Bicarbonate (Buffered Lidocaine 1%) 3 ml STK-MED ONCE .ROUTE ; Start 02/15/18 at 10:18; Stop 02/15/18 at 10:19; Status DC Midazolam HCl (Versed) 2 mg STK-MED ONCE .ROUTE ; Start 02/15/18 at 10:19; Stop 02/15/18 at 10:20; Status DC Fentanyl Citrate (Fentanyl 2ml Vial) 100 mcg STK-MED ONCE .ROUTE ; Start at 10:20; Stop 02/15/18 at 10:21; Status DC Lidocaine/Sodium Bicarbonate (Buffered Lidocaine 1%) 3 ml 1X ONCE IJ Last administered on 02/15/18at 10:45; Start 02/15/18 at 10:45; Stop 02/15/18 at 10:46 ; Status DC Midazolam HCl (Versed) 2 mg 1X ONCE IV Last administered on 02/15/18at 10:45; Start 02/15/18 at 10:45; Stop 02/15/18 at 10:46; Status DC Fentanyl Citrate (Fentanyl 2ml Vial) 100 mcg 1X ONCE IV Last administered on at 10:45; Start 02/15/18 at 10:45; Stop 02/15/18 at 10:46; Status DC Midazolam HCl (Versed) 2 mg STK-MED ONCE .ROUTE ; Start 02/15/18 at 11:05; Stop 02/15/18 at 11:06; Status DC Fentanyl Citrate (Fentanyl 2ml Vial) 100 mcg STK-MED ONCE .ROUTE ; Start at 11:05; Stop 02/15/18 at 11:06; Status DC Potassium Chloride (Klor-Con) 40 meq 1X ONCE PO Last administered on at 12:23; Start 02/15/18 at 12:00; Stop 02/15/18 at 12:01; Status DC Active Scripts Active Cephalexin 500 Mg Tablet 1 Tab PO BID Cyclobenzaprine Hcl 10 Mg Tablet 1 Tab PO TID [place] 5-325 Tablet (Acetaminophen/Hydrocodone Bitart) 1 Each Tablet 1 Tab PO Q4- 6HRS Senna-Time S Tablet (Sennosides/Docusate Sodium) 1 Each Tablet 2 Tab PO QHS 7 Days Oxycodone-Acetaminophen 5-325 (Oxycodone Hcl/Acetaminophen) 1 Each Tablet 1 Tab PO PRN Q4HRS PRN Vitamin D2 (Ergocalciferol (Vitamin D2)) 50,000 Unit Capsule 50,000 Unit PO WEEKLY Colace (Docusate Sodium) 100 Mg Capsule 100 Mg PO BID 10 Days Vitals/I & O Vital Sign - Last 24 Hours 02/17/18 02/17/18 02/17/18 02/17/18 09:52 10:23 11:00 15:00 Temp 98.7 98.8 98.7 98.8 Pulse 77 83 Resp 18 18 B/P (MAP) 107/64 (78) 106/60 (75) Pulse Ox 96 90 O2 Delivery Room Air Room Air 02/17/18 02/17/18 02/17/18 02/17/18 19:00 19:29 20:27 21:30 Temp 98.4 98.4 Pulse 81 Resp 20 B/P (MAP) 98/60 (73) Pulse Ox 93 93 93 O2 Delivery Room Air Room Air Room Air Room Air O2 Flow Rate 2.0 2.0 2.0 02/17/18 02/18/18 23:01 03:01 Temp 98.8 98.6 98.8 98.6 Pulse 86 79 Resp 20 20 B/P (MAP) 114/66 (82) 100/64 (76) Pulse Ox 94 92 O2 Delivery Room Air Room Air Intake and Output 02/17/18 02/17/18 02/18/18 15:00 23:00 07:00 Intake Total 200 ml Output Total 280 ml 650 ml Balance -80 ml -650 ml MARSHALL LYON MD Feb 18, 2018 08:57
--- NOTE | 2018-02-18 09:44 | PDOC ---
PROGRESS NOTES Chief Complaint Chief Complaint s/ post IR drainage and biopsy 02/15 Hyokalemia, mild severe PCM (albumn 1,5) Hemarochezia, resolved with abd pain POA Vaginal drainage of fecal matter GI bleed,FOB + History of Present Illness History of Present Illness Had IR drainage and biopsy done today 02/11 STill no cx micro Drainage is much less NO fevers Wants to go home Does not want HH - has a son 18/12 with her PLAN: Waiting for IR callback - go home with DWAIN drain? pull Home self care once Micro out and shfted to PO abx Hopefully today Did consult GS today-discussed with GS, follow-up [employer] oncology Vitals Vitals Vital Signs Date Time Temp Pulse Resp B/P (MAP) Pulse Ox O2 Delivery O2 Flow Rate FiO2 02/18/18 07:00 97.9 76 20 116/72 (87) 91 Room Air 97.9 02/17/18 21:30 2.0 Physical Exam Physical Exam GEN.: No apparent distress. Alert and oriented. HEENT: Head is normocephalic, atraumatic NECK: Supple. LUNGS: Clear to auscultation. HEART: RRR, S1, S2 present. Peripheral pulses intact ABDOMEN: Soft, Positive bowel sounds. ileostomy for urine output. pubic area + tenderness. J drain has fluid drainage EXTREMITIES: Without any cyanosis. NEUROLOGIC: Normal speech, normal tone PSYCHIATRIC: Normal affect, normal mood. SKIN: No ulcerations General: Alert, Oriented X3 Heart: Normal S1, Normal S2 Lungs: Clear Abdomen: Normal bowel sounds, Soft, No tenderness, No masses, Other Extremities: No clubbing, No cyanosis Skin: No significant lesion Review of Systems Review of Systems A 14 point ROS was completed with the following noted as positive: Other systems reviewed and negative. \CONSTITUTIONAL: No fever or chills EYES: No recent changes SKIN: No rash or itching CARDIOVASCULAR: No chest pain, syncope, palpitations, or edema RESPIRATORY: No SOB or cough GASTROINTESTINAL: No nausea, vomiting or abdominal pain NEUROLOGICAL: No headaches or weakness ENDOCRINE: No cold or heat intolerance GENITOURINARY: No urgency or frequency of urination MUSCULOSKELETAL: No back pain or joint pain LYMPHATICS: No enlarged lymph nodes PSYCHIATRIC: No anxiety or depression Comment Review of Relevant I have reviewed the following items marisol (where applicable) has been applied. Labs Microbiology 02/13/18 Blood Culture - Final, Complete NO GROWTH AFTER 5 DAYS 02/11/18 Fecal Leukocyte Stain - Final, Complete 02/11/18 Urine Culture - Final, Complete 02/11/18 Urine Culture Result 1 (LORY) - Final, Complete 02/11/18 Antimicrobic Susceptibility - Final, Complete 02/15/18 Anaerobic/Aerobic Culture, Resulted Pending 02/15/18 Anaerobic Culture Result 1 (LORY), Resulted Pending 02/15/18 Aerobic Culture, Resulted Pending 02/15/18 Aerobic Culture Result 1 (LORY), Resulted Pending 02/15/18 Gram Stain - Final, Resulted 02/15/18 Gram Stain Result 1 (LORY) - Final, Resulted 02/15/18 Gram Stain Result 2 (LORY) - Final, Resulted Medications Current Medications Iohexol (Omnipaque 300 Mg/ml) 75 ml 1X ONCE IV Last administered on 02/11/18at 17:00; Start 02/11/18 at 17:00; Stop 02/11/18 at 17:01; Status DC Iohexol (Omnipaque 240 Mg/ml) 50 ml 1X ONCE PO Last administered on 02/11/18at 17:00; Start 02/11/18 at 17:00; Stop 02/11/18 at 17:01; Status DC Info (CONTRAST GIVEN -- Rx MONITORING) 1 each PRN DAILY PRN MC SEE COMMENTS; Start 02/11/18 at 16:45; Stop 02/13/18 at 08:43; Status DC Sodium Chloride 1,000 ml @ 1,000 mls/hr 1X ONCE IV Last administered on at 19:15; Start 02/11/18 at 18:15; Stop 02/11/18 at 19:14; Status DC Metronidazole 100 ml @ 100 mls/hr 1X ONCE IV Last administered on 02/11/18at 18:30; Start 02/11/18 at 18:30; Stop 02/11/18 at 19:29; Status DC Sodium Chloride 1,000 ml @ 125 mls/hr Q8H IV Last administered on 02/12/18at 11 :35; Start 02/11/18 at 19:51; Stop 02/12/18 at 19:50; Status DC Acetaminophen (Tylenol) 650 mg PRN Q6HRS PRN PO FEVER Last administered on 02/14at 13:15; Start 02/11/18 at 21:00 Ondansetron HCl (Zofran) 4 mg PRN Q6HRS PRN IV NAUSEA/VOMITING; Start 02/11/18 at 21:00 Morphine Sulfate (Morphine Sulfate) 2 mg PRN Q2HR PRN IV MODERATE TO SEVERE PAIN Last administered on 02/17/18at 09:52; Start 02/11/18 at 21:00 Tramadol HCl (Ultram) 50 mg PRN Q6HRS PRN PO MILD TO MODERATE PAIN Last administered on 02/17/18at 20:27; Start 02/11/18 at 21:00 Docusate Sodium (Colace) 100 mg PRN DAILY PRN PO HARD STOOLS; Start 02/11/18 at 21:00 Vancomycin HCl 1 gm/Sodium Chloride 250 ml @ 250 mls/hr 1X ONCE IV Last administered on 02/12/18at 11:35; Start 02/12/18 at 10:00; Stop 02/12/18 at 10:59 ; Status DC Vancomycin HCl 1 gm/Sodium Chloride 250 ml @ 250 mls/hr Q12H IV ; Start at 06:00; Status UNV Vancomycin HCl 750 mg/Sodium Chloride 250 ml @ 250 mls/hr 1X ONCE IV Last administered on 02/12/18at 13:44; Start 02/12/18 at 13:15; Stop 02/12/18 at 14:14 ; Status DC Vancomycin HCl 1 gm/Sodium Chloride 250 ml @ 250 mls/hr Q24H IV Last administered on 02/14/18at 13:05; Start 02/13/18 at 12:00; Stop 02/14/18 at 14:03 ; Status DC Vancomycin HCl (Vancomycin Trough Level) 1 each 1X ONCE MC Last administered on 02/14/18at 11:30; Start 02/14/18 at 11:30; Stop 02/14/18 at 11:31; Status DC Vancomycin HCl (Vanco Per Pharmacy) 1 each PRN DAILY PRN MC SEE COMMENTS Last administered on 02/16/18at 14:10; Start 02/12/18 at 13:30 Cyclobenzaprine HCl (Flexeril) 10 mg 1X ONCE PO Last administered on at 16:47; Start 02/12/18 at 15:45; Stop 02/12/18 at 15:46; Status DC Sodium Chloride 1,000 ml @ 85 mls/hr [id number] IV Last administered on at 06:05; Start 02/12/18 at 20:30 Iohexol (Omnipaque 300 Mg/ml) 75 ml 1X ONCE IV Last administered on 02/13/18at 09:52; Start 02/13/18 at 08:45; Stop 02/13/18 at 08:46; Status DC Info (CONTRAST GIVEN -- Rx MONITORING) 1 each PRN DAILY PRN MC SEE COMMENTS; Start 02/13/18 at 08:45; Stop 02/15/18 at 08:44; Status DC Cyclobenzaprine HCl (Flexeril) 10 mg PRN Q12HR PRN PO MUSCLE SPASMS Last administered on 02/13/18at 20:55; Start 02/13/18 at 13:00; Stop 02/14/18 at 12:04 ; Status DC Gadobutrol (Gadavist) 6 mmol 1X ONCE IV ; Start 02/13/18 at 14:45; Stop at 14:46; Status DC Cyclobenzaprine HCl (Flexeril) 10 mg PRN Q8HRS PRN PO MUSCLE SPASMS Last administered on 02/17/18at 20:27; Start 02/13/18 at 20:15 Piperacillin Sod/ Tazobactam Sod 3.375 gm/Sodium Chloride 50 ml @ 100 mls/hr Q6HRS IV Last administered on 02/18/18at 06:04; Start 02/14/18 at 12:00 Vancomycin HCl 0.75 gm/Sodium Chloride 250 ml @ 250 mls/hr Q12H IV Last administered on 02/18/18at 00:49; Start 02/15/18 at 01:00 Vancomycin HCl (Vancomycin Trough Level) 1 each 1X ONCE MC Last administered on 02/16/18at 00:30; Start 02/16/18 at 00:30; Stop 02/16/18 at 00:31; Status DC Potassium Chloride/Water 100 ml @ 100 mls/hr Q1H IV Last administered on at 19:53; Start 02/15/18 at 07:00; Stop 02/15/18 at 09:59; Status DC Lidocaine/Sodium Bicarbonate (Buffered Lidocaine 1%) 3 ml STK-MED ONCE .ROUTE ; Start 02/15/18 at 10:18; Stop 02/15/18 at 10:19; Status DC Midazolam HCl (Versed) 2 mg STK-MED ONCE .ROUTE ; Start 02/15/18 at 10:19; Stop 02/15/18 at 10:20; Status DC Fentanyl Citrate (Fentanyl 2ml Vial) 100 mcg STK-MED ONCE .ROUTE ; Start at 10:20; Stop 02/15/18 at 10:21; Status DC Lidocaine/Sodium Bicarbonate (Buffered Lidocaine 1%) 3 ml 1X ONCE IJ Last administered on 02/15/18at 10:45; Start 02/15/18 at 10:45; Stop 02/15/18 at 10:46 ; Status DC Midazolam HCl (Versed) 2 mg 1X ONCE IV Last administered on 02/15/18at 10:45; Start 02/15/18 at 10:45; Stop 02/15/18 at 10:46; Status DC Fentanyl Citrate (Fentanyl 2ml Vial) 100 mcg 1X ONCE IV Last administered on at 10:45; Start 02/15/18 at 10:45; Stop 02/15/18 at 10:46; Status DC Midazolam HCl (Versed) 2 mg STK-MED ONCE .ROUTE ; Start 02/15/18 at 11:05; Stop 02/15/18 at 11:06; Status DC Fentanyl Citrate (Fentanyl 2ml Vial) 100 mcg STK-MED ONCE .ROUTE ; Start at 11:05; Stop 02/15/18 at 11:06; Status DC Potassium Chloride (Klor-Con) 40 meq 1X ONCE PO Last administered on at 12:23; Start 02/15/18 at 12:00; Stop 02/15/18 at 12:01; Status DC Active Scripts Active Cephalexin 500 Mg Tablet 1 Tab PO BID Cyclobenzaprine Hcl 10 Mg Tablet 1 Tab PO TID [place] 5-325 Tablet (Acetaminophen/Hydrocodone Bitart) 1 Each Tablet 1 Tab PO Q4- 6HRS Senna-Time S Tablet (Sennosides/Docusate Sodium) 1 Each Tablet 2 Tab PO QHS 7 Days Oxycodone-Acetaminophen 5-325 (Oxycodone Hcl/Acetaminophen) 1 Each Tablet 1 Tab PO PRN Q4HRS PRN Vitamin D2 (Ergocalciferol (Vitamin D2)) 50,000 Unit Capsule 50,000 Unit PO WEEKLY Colace (Docusate Sodium) 100 Mg Capsule 100 Mg PO BID 10 Days Vitals/I & O Vital Sign - Last 24 Hours 02/17/18 02/17/18 02/17/18 02/17/18 09:52 10:23 11:00 15:00 Temp 98.7 98.8 98.7 98.8 Pulse 77 83 Resp 18 18 B/P (MAP) 107/64 (78) 106/60 (75) Pulse Ox 96 90 O2 Delivery Room Air Room Air 02/17/18 02/17/18 02/17/18 02/17/18 19:00 19:29 20:27 21:30 Temp 98.4 98.4 Pulse 81 Resp 20 B/P (MAP) 98/60 (73) Pulse Ox 93 93 93 O2 Delivery Room Air Room Air Room Air Room Air O2 Flow Rate 2.0 2.0 2.0 02/17/18 02/18/18 02/18/18 23:01 03:01 07:00 Temp 98.8 98.6 97.9 98.8 98.6 97.9 Pulse 86 79 76 Resp 20 20 20 B/P (MAP) 114/66 (82) 100/64 (76) 116/72 (87) Pulse Ox 94 92 91 O2 Delivery Room Air Room Air Room Air Intake and Output 02/17/18 02/17/18 02/18/18 15:00 23:00 07:00 Intake Total 200 ml Output Total 280 ml 650 ml Balance -80 ml -650 ml KAI BERMAN MD Feb 18, 2018 09:44
--- NOTE | 2018-02-18 09:53 | PDOC ---
Subjective: Subjective: Has some occasional abd cramping. Last stooled a couple days ago, no bleeding. Tolerating PO, passing gas. Objective: Vital Signs: Vital Signs Date Time Temp Pulse Resp B/P (MAP) Pulse Ox O2 Delivery O2 Flow Rate FiO2 02/18/18 07:00 97.9 76 20 116/72 (87) 91 Room Air 97.9 02/17/18 21:30 2.0 Labs: PELVIS ABSCESS ANAEROBIC-AEROBIC CULTURE PENDING ANAEROBIC RES 1 PENDING AEROBIC CULT PENDING AEROBIC RES 1 PENDING GRAM STAIN Final Final report GRAM STAIN RES 1 Final Comment No white blood cells seen. GRAM STAIN RES 2 Final No organisms seen PELVIS LESION ANAEROBIC-AEROBIC CULTURE PENDING ANAEROBIC RES 1 PENDING AEROBIC CULT PENDING AEROBIC RES 1 PENDING GRAM STAIN Final Final report GRAM STAIN RES 1 Final No organisms seen GRAM STAIN RES 2 Final Comment BLOOD CULTURE LC Final Final report BLD CULT RESULT 1 Final Comment Staphylococcus epidermidis URINE CULTURE Final Final report URINE CULTURE RES 1 Final Escherichia hermannii PE: GEN: NAD LUNGS: room air HEART: RRR ABD: drain w/ light/clear yellowish material, urostomy, non-tender NEURO/PSYCH: A & O 3 A/P: H/o cervical cancer -abnormal imaging w/ pelvic cavity extending into bone Anemia - stable -bleeding resolved -- Cultures from pelvis negative so far. SYL ZAVALETA Feb 18, 2018 09:53
--- NOTE | 2018-02-18 10:05 | PDOC2 ---
SADIQSHIRLEY Pino PIPE COREMAKER 02/18/18 1005: CONSULT Date of Consult Date of Consult DATE: 02/18/18 TIME: 09:49 Reason for Consult Reason for Consult: pelvic abscess Referring Physician Referring Physician: Dr Amato Identification/Chief Complaint Chief Complaint gi bleed Source Source: Chart review, Patient History of Present Illness Reason for Visit: history of cervical cancer with invasion to bladder 2013 chemo/radiation 2014 hysterectomy, ileal conduit at [facility] Last couple of weeks did not feel well, weakness and decreased appetite. Rectal passage of blood clots and fatigue and fainting. Rectal bleeding lasted a few days Notes reveal concern for stool vaginally, however at this time during exam patient denies denies any change in urine output On 02/[address] guided tissue bx, drain placement, and bone bx Past Medical History Cardiovascular: HTN Heme/Onc: Cancer (cervical), Other (anemia) Infectious disease: Human papilloma virus Renal/: Acute renal failure Past Surgical History Past Surgical History: Hysterectomy, Other (ileal conduit) Family History Family History: Hypertension Social History Quit ALCOHOL: other (sober x 20 years) Drugs: None Current Medications Current Medications Current Medications Iohexol (Omnipaque 300 Mg/ml) 75 ml 1X ONCE IV Last administered on 02/11/18at 17:00; Start 02/11/18 at 17:00; Stop 02/11/18 at 17:01; Status DC Iohexol (Omnipaque 240 Mg/ml) 50 ml 1X ONCE PO Last administered on 02/11/18at 17:00; Start 02/11/18 at 17:00; Stop 02/11/18 at 17:01; Status DC Info (CONTRAST GIVEN -- Rx MONITORING) 1 each PRN DAILY PRN MC SEE COMMENTS; Start 02/11/18 at 16:45; Stop 02/13/18 at 08:43; Status DC Sodium Chloride 1,000 ml @ 1,000 mls/hr 1X ONCE IV Last administered on at 19:15; Start 02/11/18 at 18:15; Stop 02/11/18 at 19:14; Status DC Metronidazole 100 ml @ 100 mls/hr 1X ONCE IV Last administered on 02/11/18at 18:30; Start 02/11/18 at 18:30; Stop 02/11/18 at 19:29; Status DC Sodium Chloride 1,000 ml @ 125 mls/hr Q8H IV Last administered on 02/12/18at 11 :35; Start 02/11/18 at 19:51; Stop 02/12/18 at 19:50; Status DC Acetaminophen (Tylenol) 650 mg PRN Q6HRS PRN PO FEVER Last administered on 02/14at 13:15; Start 02/11/18 at 21:00 Ondansetron HCl (Zofran) 4 mg PRN Q6HRS PRN IV NAUSEA/VOMITING; Start 02/11/18 at 21:00 Morphine Sulfate (Morphine Sulfate) 2 mg PRN Q2HR PRN IV MODERATE TO SEVERE PAIN Last administered on 02/17/18at 09:52; Start 02/11/18 at 21:00 Tramadol HCl (Ultram) 50 mg PRN Q6HRS PRN PO MILD TO MODERATE PAIN Last administered on 02/17/18at 20:27; Start 02/11/18 at 21:00 Docusate Sodium (Colace) 100 mg PRN DAILY PRN PO HARD STOOLS; Start 02/11/18 at 21:00 Vancomycin HCl 1 gm/Sodium Chloride 250 ml @ 250 mls/hr 1X ONCE IV Last administered on 02/12/18at 11:35; Start 02/12/18 at 10:00; Stop 02/12/18 at 10:59 ; Status DC Vancomycin HCl 1 gm/Sodium Chloride 250 ml @ 250 mls/hr Q12H IV ; Start at 06:00; Status UNV Vancomycin HCl 750 mg/Sodium Chloride 250 ml @ 250 mls/hr 1X ONCE IV Last administered on 02/12/18at 13:44; Start 02/12/18 at 13:15; Stop 02/12/18 at 14:14 ; Status DC Vancomycin HCl 1 gm/Sodium Chloride 250 ml @ 250 mls/hr Q24H IV Last administered on 02/14/18at 13:05; Start 02/13/18 at 12:00; Stop 02/14/18 at 14:03 ; Status DC Vancomycin HCl (Vancomycin Trough Level) 1 each 1X ONCE MC Last administered on 02/14/18at 11:30; Start 02/14/18 at 11:30; Stop 02/14/18 at 11:31; Status DC Vancomycin HCl (Vanco Per Pharmacy) 1 each PRN DAILY PRN MC SEE COMMENTS Last administered on 02/16/18at 14:10; Start 02/12/18 at 13:30 Cyclobenzaprine HCl (Flexeril) 10 mg 1X ONCE PO Last administered on at 16:47; Start 02/12/18 at 15:45; Stop 02/12/18 at 15:46; Status DC Sodium Chloride 1,000 ml @ 85 mls/hr [id number] IV Last administered on at 06:05; Start 02/12/18 at 20:30 Iohexol (Omnipaque 300 Mg/ml) 75 ml 1X ONCE IV Last administered on 02/13/18at 09:52; Start 02/13/18 at 08:45; Stop 02/13/18 at 08:46; Status DC Info (CONTRAST GIVEN -- Rx MONITORING) 1 each PRN DAILY PRN MC SEE COMMENTS; Start 02/13/18 at 08:45; Stop 02/15/18 at 08:44; Status DC Cyclobenzaprine HCl (Flexeril) 10 mg PRN Q12HR PRN PO MUSCLE SPASMS Last administered on 02/13/18at 20:55; Start 02/13/18 at 13:00; Stop 02/14/18 at 12:04 ; Status DC Gadobutrol (Gadavist) 6 mmol 1X ONCE IV ; Start 02/13/18 at 14:45; Stop at 14:46; Status DC Cyclobenzaprine HCl (Flexeril) 10 mg PRN Q8HRS PRN PO MUSCLE SPASMS Last administered on 02/17/18at 20:27; Start 02/13/18 at 20:15 Piperacillin Sod/ Tazobactam Sod 3.375 gm/Sodium Chloride 50 ml @ 100 mls/hr Q6HRS IV Last administered on 02/18/18at 06:04; Start 02/14/18 at 12:00 Vancomycin HCl 0.75 gm/Sodium Chloride 250 ml @ 250 mls/hr Q12H IV Last administered on 02/18/18at 00:49; Start 02/15/18 at 01:00 Vancomycin HCl (Vancomycin Trough Level) 1 each 1X ONCE MC Last administered on 02/16/18at 00:30; Start 02/16/18 at 00:30; Stop 02/16/18 at 00:31; Status DC Potassium Chloride/Water 100 ml @ 100 mls/hr Q1H IV Last administered on at 19:53; Start 02/15/18 at 07:00; Stop 02/15/18 at 09:59; Status DC Lidocaine/Sodium Bicarbonate (Buffered Lidocaine 1%) 3 ml STK-MED ONCE .ROUTE ; Start 02/15/18 at 10:18; Stop 02/15/18 at 10:19; Status DC Midazolam HCl (Versed) 2 mg STK-MED ONCE .ROUTE ; Start 02/15/18 at 10:19; Stop 02/15/18 at 10:20; Status DC Fentanyl Citrate (Fentanyl 2ml Vial) 100 mcg STK-MED ONCE .ROUTE ; Start at 10:20; Stop 02/15/18 at 10:21; Status DC Lidocaine/Sodium Bicarbonate (Buffered Lidocaine 1%) 3 ml 1X ONCE IJ Last administered on 02/15/18at 10:45; Start 02/15/18 at 10:45; Stop 02/15/18 at 10:46 ; Status DC Midazolam HCl (Versed) 2 mg 1X ONCE IV Last administered on 02/15/18at 10:45; Start 02/15/18 at 10:45; Stop 02/15/18 at 10:46; Status DC Fentanyl Citrate (Fentanyl 2ml Vial) 100 mcg 1X ONCE IV Last administered on at 10:45; Start 02/15/18 at 10:45; Stop 02/15/18 at 10:46; Status DC Midazolam HCl (Versed) 2 mg STK-MED ONCE .ROUTE ; Start 02/15/18 at 11:05; Stop 02/15/18 at 11:06; Status DC Fentanyl Citrate (Fentanyl 2ml Vial) 100 mcg STK-MED ONCE .ROUTE ; Start at 11:05; Stop 02/15/18 at 11:06; Status DC Potassium Chloride (Klor-Con) 40 meq 1X ONCE PO Last administered on at 12:23; Start 02/15/18 at 12:00; Stop 02/15/18 at 12:01; Status DC Active Scripts Active Cephalexin 500 Mg Tablet 1 Tab PO BID Cyclobenzaprine Hcl 10 Mg Tablet 1 Tab PO TID [place] 5-325 Tablet (Acetaminophen/Hydrocodone Bitart) 1 Each Tablet 1 Tab PO Q4- 6HRS Senna-Time S Tablet (Sennosides/Docusate Sodium) 1 Each Tablet 2 Tab PO QHS 7 Days Oxycodone-Acetaminophen 5-325 (Oxycodone Hcl/Acetaminophen) 1 Each Tablet 1 Tab PO PRN Q4HRS PRN Vitamin D2 (Ergocalciferol (Vitamin D2)) 50,000 Unit Capsule 50,000 Unit PO WEEKLY Colace (Docusate Sodium) 100 Mg Capsule 100 Mg PO BID 10 Days Allergies Allergies: Coded Allergies: levofloxacin (Verified Allergy, Intermediate, 11/01/17) ROS General: YES: Fatigue; No: Chills, Other (fevers) PSYCHOLOGICAL ROS: No: Anxiety, Depression Eyes: No Blurry vision, No Loss of vision Hematological and Lymphatic: YES: Bleeding Problems; No: Blood Clots Respiratory: No: Cough, Shortness of breath Cardiovascular: No Chest Pain, No Palpitations Gastrointestinal: No Nausea, No Abdominal Pain Genitourinary: No Dysuria, No Flank Pain Musculoskeletal: No Joint Pain, No Muscle Pain Neurological: No Numbness/Tingling, No Weakness Skin: No Pruritus, No Rash Physical Exam General: Alert, Oriented X3, Cooperative, No acute distress HEENT: PERRLA, Mucous membr. moist/pink Lungs: Clear to auscultation, Normal air movement Heart: Regular rate, Normal S1, Normal S2, No murmurs Abdomen: Soft, No tenderness, Other (drain in place, purulent, ileal conduit in place) Extremities: No clubbing, No cyanosis Skin: No rashes, No breakdown Neuro: Normal speech, Sensation intact Psych/Mental Status: Mental status NL, Mood NL MUSCULOSKELETAL: No deformity, No swelling Vitals VITALS Vital Signs Date Time Temp Pulse Resp B/P (MAP) Pulse Ox O2 Delivery O2 Flow Rate FiO2 02/18/18 07:00 97.9 76 20 116/72 (87) 91 Room Air 97.9 02/17/18 21:30 2.0 Assessment/Plan Assessment/Plan gi bleed Hx of cervical cx, invasion to bladder--chemo/radiation, hysterectomy, ileal conduit CT with mass vs abscess, possible cancer--MRI shows concern of osteomyelitis IR placed drain, bx done drain output is decreasing, path and cultures are pending may be of benefit to have PT FU with clinical material handler/onc that did her original surgery MARC MARTIN MD 02/18/18 2130: CONSULT Assessment/Plan Assessment/Plan Agree with above SHIRLEY BABCOCK APRN Feb 18, 2018 10:05 MARC MARTIN MD Feb 18, 2018 21:30
--- NOTE | 2018-02-18 10:27 | PDOC ---
Provider Note Provider Note IR NOTE S/P drainage of pelvic gas and fluid collection anterior pelvis. Patient is s/p bladder resection and chemoradiation. Erosive changes to the overlying pubic bone noted. this was biopsied as well. Whether these bony changes are malignant or infectious is uncertain. Given large amount of gas in this collection as well as history of feculent vaginal drainage, communication of cavity with the bowel, vaginal cuff, or both is possible. Would recommend urology/surgical consultation, perhaps with surgeon who performed the prior procedure. If drainage stops, would repeat CT pelvis with IV and enteric contrast to assess status of collection. If resolved drain removal would be appropriate, though under circumstances will be high risk for recurrent collection. DIAMANTE REED MD Feb 18, 2018 10:27
[2018-02-18 11:00] VITALS: BP 107/49
--- NOTE | 2018-02-18 11:32 | PDOC ---
Infectious Disease Note Subjective Subjective Pt says feels ok cont to drain in DWAIN drain denies any f/c/n/v/d has some abdo discomfort at times but not worse + Vaginal air release Vital Sign Vital Signs Vital Signs Date Time Temp Pulse Resp B/P (MAP) Pulse Ox O2 Delivery O2 Flow Rate FiO2 02/18/18 08:00 Room Air 02/18/18 07:00 97.9 76 20 116/72 (87) 91 97.9 02/17/18 21:30 2.0 Physical Exam PHYSICAL EXAM GEN.: No apparent distress. Alert and oriented. HEENT: Head is normocephalic, atraumatic NECK: Supple. LUNGS: Clear to auscultation. HEART: RRR, S1, S2 present. Peripheral pulses intact ABDOMEN: Soft, Positive bowel sounds. ileostomy for urine output. pubic area + tenderness. J drain has fluid drainage EXTREMITIES: Without any cyanosis. NEUROLOGIC: Normal speech, normal tone PSYCHIATRIC: Normal affect, normal mood. SKIN: No ulcerations Labs Micro Microbiology 02/13/18 Blood Culture - Final, Complete NO GROWTH AFTER 5 DAYS 02/11/18 Fecal Leukocyte Stain - Final, Complete 02/11/18 Urine Culture - Final, Complete 02/11/18 Urine Culture Result 1 (LORY) - Final, Complete 02/11/18 Antimicrobic Susceptibility - Final, Complete 02/15/18 Anaerobic/Aerobic Culture, Resulted Pending 02/15/18 Anaerobic Culture Result 1 (LORY), Resulted Pending 02/15/18 Aerobic Culture, Resulted Pending 02/15/18 Aerobic Culture Result 1 (LORY), Resulted Pending 02/15/18 Gram Stain - Final, Resulted 02/15/18 Gram Stain Result 1 (LORY) - Final, Resulted 02/15/18 Gram Stain Result 2 (LORY) - Final, Resulted Objective Assessment Pelvic MRI showing fluid collection with extension to the adjacent pelvic bones - bone biopsy 02/15 s/p IR drainage J drain with serous drainage, similar to drainage from rectum / vagina suspicion is for abscess but underlying malignancy or fistula cannot be ruled out completely Cults neg so far 02/15 Staph epidermidis bacteremia 2/4 bottles ,likely contaminant Squamous cell carcinoma of the cervix,S/P CT and RT Rectal bleed from 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 Low back pain. Moderate malnutrition. Plan Plan of Care 1. Continue empiric IV vancomycin and zosyn for now Monitor renal functions closely. last vanc trough 16.2 2.. Follow up cultures from IR drainage of pelvic fluid collection 02/15 3. f/u histopathology 4. FU with labs and cults in am 5. Continue supportive care. 6.If cults from pelvic fluid remain neg ,consider gen surgery evaluation for possible fistula MENDOZA MARI MD Feb 18, 2018 11:32
[2018-02-18] MEDS: VANCOMYCIN PER PHARMACY MC PRN (13:53)
[2018-02-18 15:00] VITALS: BP 115/70
--- NOTE | 2018-02-18 15:25 | PDOC ---
PROGRESS NOTES Chief Complaint Chief Complaint LATE ENTRY, pt seen 02/17 abdominal pain, hx of Squamous cell carcinoma of the cervix, stage 4A with extension s/ post IR drainage and biopsy 02/15 Hyokalemia, mild severe PCM (albumn 1,5) Hematochezia, resolved with abd pain POA Vaginal drainage GI bleed,FOB + History of Present Illness History of Present Illness Had IR drainage and biopsy done today 02/11 STill no cx micro Drainage is much less NO fevers Wants to go home Does not want HH - has a son 18/12 with her PLAN: Waiting for IR callback - go home with DWAIN drain? 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 Alert and oriented. HEENT: Head is normocephalic, atraumatic NECK: Supple. LUNGS: Clear to auscultation. HEART: RRR, S1, S2 present. Peripheral pulses intact ABDOMEN: Soft, Positive bowel sounds. ileostomy for urine output. pubic area + tenderness. J drain has fluid drainage EXTREMITIES: Without any cyanosis. NEUROLOGIC: Normal speech, normal tone PSYCHIATRIC: Normal affect, normal mood. SKIN: No ulcerations General: Alert, Oriented X3, Cooperative, No acute distress Heart: Regular rate, Normal S1, Normal S2, No murmurs Lungs: Clear Abdomen: Soft, No tenderness, Other (drain in place, purulent, ileal conduit in place) Extremities: No clubbing, No cyanosis Skin: No rashes, No breakdown Comment Review of Relevant I have reviewed the following items marisol (where applicable) has been applied. Labs Microbiology 02/13/18 Blood Culture - Final, Complete NO GROWTH AFTER 5 DAYS 02/11/18 Fecal Leukocyte Stain - Final, Complete 02/11/18 Urine Culture - Final, Complete 02/11/18 Urine Culture Result 1 (LORY) - Final, Complete 02/11/18 Antimicrobic Susceptibility - Final, Complete 02/15/18 Anaerobic/Aerobic Culture, Resulted Pending 02/15/18 Anaerobic Culture Result 1 (LORY), Resulted Pending 02/15/18 Aerobic Culture - Final, Resulted 02/15/18 Aerobic Culture Result 1 (LORY) - Final, Resulted 02/15/18 Gram Stain - Final, Resulted 02/15/18 Gram Stain Result 1 (LORY) - Final, Resulted 02/15/18 Gram Stain Result 2 (LORY) - Final, Resulted Medications Current Medications Iohexol (Omnipaque 300 Mg/ml) 75 ml 1X ONCE IV Last administered on 02/11/18at 17:00; Start 02/11/18 at 17:00; Stop 02/11/18 at 17:01; Status DC Iohexol (Omnipaque 240 Mg/ml) 50 ml 1X ONCE PO Last administered on 02/11/18at 17:00; Start 02/11/18 at 17:00; Stop 02/11/18 at 17:01; Status DC Info (CONTRAST GIVEN -- Rx MONITORING) 1 each PRN DAILY PRN MC SEE COMMENTS; Start 02/11/18 at 16:45; Stop 02/13/18 at 08:43; Status DC Sodium Chloride 1,000 ml @ 1,000 mls/hr 1X ONCE IV Last administered on at 19:15; Start 02/11/18 at 18:15; Stop 02/11/18 at 19:14; Status DC Metronidazole 100 ml @ 100 mls/hr 1X ONCE IV Last administered on 02/11/18at 18:30; Start 02/11/18 at 18:30; Stop 02/11/18 at 19:29; Status DC Sodium Chloride 1,000 ml @ 125 mls/hr Q8H IV Last administered on 02/12/18at 11 :35; Start 02/11/18 at 19:51; Stop 02/12/18 at 19:50; Status DC Acetaminophen (Tylenol) 650 mg PRN Q6HRS PRN PO FEVER Last administered on 02/14at 13:15; Start 02/11/18 at 21:00 Ondansetron HCl (Zofran) 4 mg PRN Q6HRS PRN IV NAUSEA/VOMITING; Start 02/11/18 at 21:00 Morphine Sulfate (Morphine Sulfate) 2 mg PRN Q2HR PRN IV MODERATE TO SEVERE PAIN Last administered on 02/17/18 09:52; Start 02/11/18 at 21:00 Tramadol HCl (Ultram) 50 mg PRN Q6HRS PRN PO MILD TO MODERATE PAIN Last administered on 02/17/18 20:27; Start 02/11/18 at 21:00 Docusate Sodium (Colace) 100 mg PRN DAILY PRN PO HARD STOOLS; Start 02/11/18 at 21:00 Vancomycin HCl 1 gm/Sodium Chloride 250 ml @ 250 mls/hr 1X ONCE IV Last administered on 02/12/18at 11:35; Start 02/12/18 at 10:00; Stop 02/12/18 at 10:59 ; Status DC Vancomycin HCl 1 gm/Sodium Chloride 250 ml @ 250 mls/hr Q12H IV ; Start at 06:00; Status UNV Vancomycin HCl 750 mg/Sodium Chloride 250 ml @ 250 mls/hr 1X ONCE IV Last administered on 02/12/18at 13:44; Start 02/12/18 at 13:15; Stop 02/12/18 at 14:14 ; Status DC Vancomycin HCl 1 gm/Sodium Chloride 250 ml @ 250 mls/hr Q24H IV Last administered on 02/14/18at 13:05; Start 02/13/18 at 12:00; Stop 02/14/18 at 14:03 ; Status DC Vancomycin HCl (Vancomycin Trough Level) 1 each 1X ONCE MC Last administered on 02/14/18at 11:30; Start 02/14/18 at 11:30; Stop 02/14/18 at 11:31; Status DC Vancomycin HCl (Vanco Per Pharmacy) 1 each PRN DAILY PRN MC SEE COMMENTS Last administered on 02/18/18at 13:53; Start 02/12/18 at 13:30 Cyclobenzaprine HCl (Flexeril) 10 mg 1X ONCE PO Last administered on 16:47; Start 02/12/18 at 15:45; Stop 02/12/18 at 15:46; Status DC Sodium Chloride 1,000 ml @ 85 mls/hr [id number] IV Last administered on 06:05; Start 02/12/18 at 20:30 Iohexol (Omnipaque 300 Mg/ml) 75 ml 1X ONCE IV Last administered on 02/13/18at 09:52; Start 02/13/18 at 08:45; Stop 02/13/18 at 08:46; Status DC Info (CONTRAST GIVEN -- Rx MONITORING) 1 each PRN DAILY PRN MC SEE COMMENTS; Start 02/13/18 at 08:45; Stop 02/15/18 at 08:44; Status DC Cyclobenzaprine HCl (Flexeril) 10 mg PRN Q12HR PRN PO MUSCLE SPASMS Last administered on 02/13/18at 20:55; Start 02/13/18 at 13:00; Stop 02/14/18 at 12:04 ; Status DC Gadobutrol (Gadavist) 6 mmol 1X ONCE IV ; Start 02/13/18 at 14:45; Stop at 14:46; Status DC Cyclobenzaprine HCl (Flexeril) 10 mg PRN Q8HRS PRN PO MUSCLE SPASMS Last administered on 02/17/18at 20:27; Start 02/13/18 at 20:15 Piperacillin Sod/ Tazobactam Sod 3.375 gm/Sodium Chloride 50 ml @ 100 mls/hr Q6HRS IV Last administered on 02/18/18at 12:12; Start 02/14/18 at 12:00 Vancomycin HCl 0.75 gm/Sodium Chloride 250 ml @ 250 mls/hr Q12H IV Last administered on 02/18/18at 13:30; Start 02/15/18 at 01:00 Vancomycin HCl (Vancomycin Trough Level) 1 each 1X ONCE MC Last administered on 02/16/18at 00:30; Start 02/16/18 at 00:30; Stop 02/16/18 at 00:31; Status DC Potassium Chloride/Water 100 ml @ 100 mls/hr Q1H IV Last administered on at 19:53; Start 02/15/18 at 07:00; Stop 02/15/18 at 09:59; Status DC Lidocaine/Sodium Bicarbonate (Buffered Lidocaine 1%) 3 ml STK-MED ONCE .ROUTE ; Start 02/15/18 at 10:18; Stop 02/15/18 at 10:19; Status DC Midazolam HCl (Versed) 2 mg STK-MED ONCE .ROUTE ; Start 02/15/18 at 10:19; Stop 02/15/18 at 10:20; Status DC Fentanyl Citrate (Fentanyl 2ml Vial) 100 mcg STK-MED ONCE .ROUTE ; Start at 10:20; Stop 02/15/18 at 10:21; Status DC Lidocaine/Sodium Bicarbonate (Buffered Lidocaine 1%) 3 ml 1X ONCE IJ Last administered on 02/15/18at 10:45; Start 02/15/18 at 10:45; Stop 02/15/18 at 10:46 ; Status DC Midazolam HCl (Versed) 2 mg 1X ONCE IV Last administered on 02/15/18at 10:45; Start 02/15/18 at 10:45; Stop 02/15/18 at 10:46; Status DC Fentanyl Citrate (Fentanyl 2ml Vial) 100 mcg 1X ONCE IV Last administered on at 10:45; Start 02/15/18 at 10:45; Stop 02/15/18 at 10:46; Status DC Midazolam HCl (Versed) 2 mg STK-MED ONCE .ROUTE ; Start 02/15/18 at 11:05; Stop 02/15/18 at 11:06; Status DC Fentanyl Citrate (Fentanyl 2ml Vial) 100 mcg STK-MED ONCE .ROUTE ; Start at 11:05; Stop 02/15/18 at 11:06; Status DC Potassium Chloride (Klor-Con) 40 meq 1X ONCE PO Last administered on at 12:23; Start 02/15/18 at 12:00; Stop 02/15/18 at 12:01; Status DC Lactobacillus Rhamnosus (Culturelle) 1 cap BID PO ; Start 02/18/18 at 21:00 Active Scripts Active Cephalexin 500 Mg Tablet 1 Tab PO BID Cyclobenzaprine Hcl 10 Mg Tablet 1 Tab PO TID [place] 5-325 Tablet (Acetaminophen/Hydrocodone Bitart) 1 Each Tablet 1 Tab PO Q4- 6HRS Senna-Time S Tablet (Sennosides/Docusate Sodium) 1 Each Tablet 2 Tab PO QHS 7 Days Oxycodone-Acetaminophen 5-325 (Oxycodone Hcl/Acetaminophen) 1 Each Tablet 1 Tab PO PRN Q4HRS PRN Vitamin D2 (Ergocalciferol (Vitamin D2)) 50,000 Unit Capsule 50,000 Unit PO WEEKLY Colace (Docusate Sodium) 100 Mg Capsule 100 Mg PO BID 10 Days Vitals/I & O Vital Sign - Last 24 Hours 02/17/18 02/17/18 02/17/18 02/17/18 19:00 19:29 20:27 21:30 Temp 98.4 98.4 Pulse 81 Resp 20 B/P (MAP) 98/60 (73) Pulse Ox 93 93 93 O2 Delivery Room Air Room Air Room Air Room Air O2 Flow Rate 2.0 2.0 2.0 02/17/18 02/18/18 02/18/18 02/18/18 23:01 03:01 07:00 08:00 Temp 98.8 98.6 97.9 98.8 98.6 97.9 Pulse 86 79 76 Resp 20 20 20 B/P (MAP) 114/66 (82) 100/64 (76) 116/72 (87) Pulse Ox 94 92 91 O2 Delivery Room Air Room Air Room Air Room Air 02/18/18 11:00 Temp 98.2 98.2 Pulse 81 Resp 18 B/P (MAP) 107/49 (68) Pulse Ox 93 O2 Delivery Room Air Intake and Output 02/17/18 02/17/18 02/18/18 15:00 23:00 07:00 Intake Total 200 ml Output Total 280 ml 650 ml Balance -80 ml -650 ml RUKHSANA ADAMSON MD Feb 18, 2018 15:25
[2018-02-18 19:00] VITALS: BP 106/56
[2018-02-18] MEDS: traMADol 50 MG TABLET PO PRN (21:07)
[2018-02-18] MEDS: CYCLOBENZAPRINE 10 MG TABLET. PO PRN (21:07)
[2018-02-18] MEDS: LACTOBACILLUS RHAMNOSUS GG 1 CAPSULE. PO SCH (21:07)
[2018-02-18 23:00] VITALS: BP 121/69
[2018-02-19] MEDS: VANCOMYCIN 0.75 GM in IV NORMAL SALINE 250ML 250 ML IV SCH ×3 (00:18→23:53)
[2018-02-19 03:00] VITALS: BP 122/73
[2018-02-19] MEDS: PIPERACILLIN/TAZOBACTAM 3.375 GM in IV NORMAL SALINE 50ML 50 ML IV SCH ×4 (04:59→23:24)
[2018-02-19 07:00] VITALS: BP 117/66
--- NOTE | 2018-02-19 08:42 | PDOC ---
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 ROS - no fever Objective Objective Vital Signs Date Time Temp Pulse Resp B/P (MAP) Pulse Ox O2 Delivery O2 Flow Rate FiO2 02/19/18 07:00 99.0 75 18 117/66 (83) 96 Room Air 99.0 02/18/18 21:07 2.0 Intake and Output 02/19/18 07:00 Intake Total 2250 ml Output Total 2033 ml Balance 217 ml Intake Oral 540 ml IV Total 1700 ml Blood Product IV Normal Saline Flush 10 ml Output Urine Total 1895 ml Drainage Total 138 ml Physical Exam Heart: Normal S1, Normal S2 General: Alert, Oriented X3, No acute distress Lungs: Clear to auscultation Neuro: Normal speech Psych/Mental Status: Mental status NL Assessment Assessment IMPRESSION AND PLAN: 1. 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 She is now admitted with generalized weakness and rectal bleeding. Bone scan 02/11/18: Abnormal activity is seen involving the pubic bone on both sides and the right superior pubic ramus corresponding to the CT abnormality CT scan of the abdomen and pelvis on 02/11/2018 revealed irregular raised and enhancing structure in the lower pelvis and bony destruction. CT scan of the chest - no mets. Tiny lung nodule noted. MRI 02/13/18 revealed Air collection within the lower pelvis with extension to the adjacent anterior pelvic bones consistent with osteomyelitis and abscess cavity. Certainly, residual or recurrent neoplastic involvement of this cavity with extension into the adjacent bones is possible. No obvious communication with the skin surface is seen and therefore, the air collection may communicate with adjacent colon or rectum. There is a pathologic fracture of the right superior pubic ramus. I d/w radiology, this is more consistent with abscess. s/p drain (by IR) and bone lesion bx 02/16/18. (CT-guided bone biopsy of the right pubis, CT-guided soft tissue biopsy of a thick walled abscess, CT-guided pelvic drain placement). She has purulent drainage. Await path (pending) (I d/w Dr Cheng, prelim results are negative for malignancy). Appreciate surgical and IR consults, agree to consult [facility] for management. 2. Rectal bleeding, which I suspect is due to radiation proctitis. She had a colonoscopy at [facility] on 04/03/2016, which revealed radiation proctitis and she was treated with argon plasma coagulation. I appreciate GI consultation and management. 3. Anemia. Hemoglobin 8.9. Iron studies reveal anemia due to chronic disease. Normal B12. 4. Appreciate gynecology consultation. I discussed with Dr. Bladimir Obregon. Comment Review of Relevant I have reviewed the following items marisol (where applicable) has been applied. Labs Microbiology 02/13/18 Blood Culture - Final, Complete NO GROWTH AFTER 5 DAYS 02/11/18 Fecal Leukocyte Stain - Final, Complete 02/11/18 Urine Culture - Final, Complete 02/11/18 Urine Culture Result 1 (LORY) - Final, Complete 02/11/18 Antimicrobic Susceptibility - Final, Complete 02/15/18 Anaerobic/Aerobic Culture - Preliminary, Resulted 02/15/18 Anaerobic Culture Result 1 (LORY) - Preliminary, Resulted 02/15/18 Aerobic Culture - Final, Resulted 02/15/18 Aerobic Culture Result 1 (LORY) - Final, Resulted 02/15/18 Gram Stain - Final, Resulted 02/15/18 Gram Stain Result 1 (LORY) - Final, Resulted 02/15/18 Gram Stain Result 2 (LORY) - Final, Resulted Medications Current Medications Iohexol (Omnipaque 300 Mg/ml) 75 ml 1X ONCE IV Last administered on 02/11/18at 17:00; Start 02/11/18 at 17:00; Stop 02/11/18 at 17:01; Status DC Iohexol (Omnipaque 240 Mg/ml) 50 ml 1X ONCE PO Last administered on 02/11/18at 17:00; Start 02/11/18 at 17:00; Stop 02/11/18 at 17:01; Status DC Info (CONTRAST GIVEN -- Rx MONITORING) 1 each PRN DAILY PRN MC SEE COMMENTS; Start 02/11/18 at 16:45; Stop 02/13/18 at 08:43; Status DC Sodium Chloride 1,000 ml @ 1,000 mls/hr 1X ONCE IV Last administered on at 19:15; Start 02/11/18 at 18:15; Stop 02/11/18 at 19:14; Status DC Metronidazole 100 ml @ 100 mls/hr 1X ONCE IV Last administered on 02/11/18at 18:30; Start 02/11/18 at 18:30; Stop 02/11/18 at 19:29; Status DC Sodium Chloride 1,000 ml @ 125 mls/hr Q8H IV Last administered on 02/12/18at 11 :35; Start 02/11/18 at 19:51; Stop 02/12/18 at 19:50; Status DC Acetaminophen (Tylenol) 650 mg PRN Q6HRS PRN PO FEVER Last administered on 02/14at 13:15; Start 02/11/18 at 21:00 Ondansetron HCl (Zofran) 4 mg PRN Q6HRS PRN IV NAUSEA/VOMITING; Start 02/11/18 at 21:00 Morphine Sulfate (Morphine Sulfate) 2 mg PRN Q2HR PRN IV MODERATE TO SEVERE PAIN Last administered on 02/17/18at 09:52; Start 02/11/18 at 21:00 Tramadol HCl (Ultram) 50 mg PRN Q6HRS PRN PO MILD TO MODERATE PAIN Last administered on 02/18/18at 21:07; Start 02/11/18 at 21:00 Docusate Sodium (Colace) 100 mg PRN DAILY PRN PO HARD STOOLS; Start 02/11/18 at 21:00 Vancomycin HCl 1 gm/Sodium Chloride 250 ml @ 250 mls/hr 1X ONCE IV Last administered on 02/12/18at 11:35; Start 02/12/18 at 10:00; Stop 02/12/18 at 10:59 ; Status DC Vancomycin HCl 1 gm/Sodium Chloride 250 ml @ 250 mls/hr Q12H IV ; Start at 06:00; Status UNV Vancomycin HCl 750 mg/Sodium Chloride 250 ml @ 250 mls/hr 1X ONCE IV Last administered on 02/12/18at 13:44; Start 02/12/18 at 13:15; Stop 02/12/18 at 14:14 ; Status DC Vancomycin HCl 1 gm/Sodium Chloride 250 ml @ 250 mls/hr Q24H IV Last administered on 02/14/18at 13:05; Start 02/13/18 at 12:00; Stop 02/14/18 at 14:03 ; Status DC Vancomycin HCl (Vancomycin Trough Level) 1 each 1X ONCE MC Last administered on 02/14/18at 11:30; Start 02/14/18 at 11:30; Stop 02/14/18 at 11:31; Status DC Vancomycin HCl (Vanco Per Pharmacy) 1 each PRN DAILY PRN MC SEE COMMENTS Last administered on 02/18/18at 13:53; Start 02/12/18 at 13:30 Cyclobenzaprine HCl (Flexeril) 10 mg 1X ONCE PO Last administered on at 16:47; Start 02/12/18 at 15:45; Stop 02/12/18 at 15:46; Status DC Sodium Chloride 1,000 ml @ 85 mls/hr [id number] IV Last administered on at 21:08; Start 02/12/18 at 20:30 Iohexol (Omnipaque 300 Mg/ml) 75 ml 1X ONCE IV Last administered on 02/13/18at 09:52; Start 02/13/18 at 08:45; Stop 02/13/18 at 08:46; Status DC Info (CONTRAST GIVEN -- Rx MONITORING) 1 each PRN DAILY PRN MC SEE COMMENTS; Start 02/13/18 at 08:45; Stop 02/15/18 at 08:44; Status DC Cyclobenzaprine HCl (Flexeril) 10 mg PRN Q12HR PRN PO MUSCLE SPASMS Last administered on 02/13/18at 20:55; Start 02/13/18 at 13:00; Stop 02/14/18 at 12:04 ; Status DC Gadobutrol (Gadavist) 6 mmol 1X ONCE IV ; Start 02/13/18 at 14:45; Stop at 14:46; Status DC Cyclobenzaprine HCl (Flexeril) 10 mg PRN Q8HRS PRN PO MUSCLE SPASMS Last administered on 02/18/18at 21:07; Start 02/13/18 at 20:15 Piperacillin Sod/ Tazobactam Sod 3.375 gm/Sodium Chloride 50 ml @ 100 mls/hr Q6HRS IV Last administered on 02/19/18at 04:59; Start 02/14/18 at 12:00 Vancomycin HCl 0.75 gm/Sodium Chloride 250 ml @ 250 mls/hr Q12H IV Last administered on 02/19/18at 00:18; Start 02/15/18 at 01:00 Vancomycin HCl (Vancomycin Trough Level) 1 each 1X ONCE MC Last administered on 02/16/18at 00:30; Start 02/16/18 at 00:30; Stop 02/16/18 at 00:31; Status DC Potassium Chloride/Water 100 ml @ 100 mls/hr Q1H IV Last administered on at 19:53; Start 02/15/18 at 07:00; Stop 02/15/18 at 09:59; Status DC Lidocaine/Sodium Bicarbonate (Buffered Lidocaine 1%) 3 ml STK-MED ONCE .ROUTE ; Start 02/15/18 at 10:18; Stop 02/15/18 at 10:19; Status DC Midazolam HCl (Versed) 2 mg STK-MED ONCE .ROUTE ; Start 02/15/18 at 10:19; Stop 02/15/18 at 10:20; Status DC Fentanyl Citrate (Fentanyl 2ml Vial) 100 mcg STK-MED ONCE .ROUTE ; Start at 10:20; Stop 02/15/18 at 10:21; Status DC Lidocaine/Sodium Bicarbonate (Buffered Lidocaine 1%) 3 ml 1X ONCE IJ Last administered on 02/15/18at 10:45; Start 02/15/18 at 10:45; Stop 02/15/18 at 10:46 ; Status DC Midazolam HCl (Versed) 2 mg 1X ONCE IV Last administered on 02/15/18at 10:45; Start 02/15/18 at 10:45; Stop 02/15/18 at 10:46; Status DC Fentanyl Citrate (Fentanyl 2ml Vial) 100 mcg 1X ONCE IV Last administered on at 10:45; Start 02/15/18 at 10:45; Stop 02/15/18 at 10:46; Status DC Midazolam HCl (Versed) 2 mg STK-MED ONCE .ROUTE ; Start 02/15/18 at 11:05; Stop 02/15/18 at 11:06; Status DC Fentanyl Citrate (Fentanyl 2ml Vial) 100 mcg STK-MED ONCE .ROUTE ; Start at 11:05; Stop 02/15/18 at 11:06; Status DC Potassium Chloride (Klor-Con) 40 meq 1X ONCE PO Last administered on at 12:23; Start 02/15/18 at 12:00; Stop 02/15/18 at 12:01; Status DC Lactobacillus Rhamnosus (Culturelle) 1 cap BID PO Last administered on at 21:07; Start 02/18/18 at 21:00 Active Scripts Active Cephalexin 500 Mg Tablet 1 Tab PO BID Cyclobenzaprine Hcl 10 Mg Tablet 1 Tab PO TID [place] 5-325 Tablet (Acetaminophen/Hydrocodone Bitart) 1 Each Tablet 1 Tab PO Q4- 6HRS Senna-Time S Tablet (Sennosides/Docusate Sodium) 1 Each Tablet 2 Tab PO QHS 7 Days Oxycodone-Acetaminophen 5-325 (Oxycodone Hcl/Acetaminophen) 1 Each Tablet 1 Tab PO PRN Q4HRS PRN Vitamin D2 (Ergocalciferol (Vitamin D2)) 50,000 Unit Capsule 50,000 Unit PO WEEKLY Colace (Docusate Sodium) 100 Mg Capsule 100 Mg PO BID 10 Days Vitals/I & O Vital Sign - Last 24 Hours 02/18/18 02/18/18 02/18/18 02/18/18 11:00 15:00 19:00 20:00 Temp 98.2 97.9 99.7 98.2 97.9 99.7 Pulse 81 79 82 Resp 18 18 18 B/P (MAP) 107/49 (68) 115/70 (85) 106/56 (73) Pulse Ox 93 94 95 O2 Delivery Room Air Room Air Room Air Room Air 02/18/18 02/18/18 02/18/18 02/19/18 21:07 22:07 23:00 03:00 Temp 98.4 98.9 98.4 98.9 Pulse 83 86 Resp 18 18 16 18 B/P (MAP) 121/69 (86) 122/73 (89) Pulse Ox 95 95 96 94 O2 Delivery Room Air Room Air Room Air Room Air O2 Flow Rate 2.0 02/19/18 07:00 Temp 99.0 99.0 Pulse 75 Resp 18 B/P (MAP) 117/66 (83) Pulse Ox 96 O2 Delivery Room Air Intake and Output 02/18/18 02/18/18 02/19/18 15:00 23:00 07:00 Intake Total 60 ml 1530 ml 660 ml Output Total 580 ml 310 ml 1143 ml Balance -520 ml 1220 ml -483 ml MARSHALL LYON MD Feb 19, 2018 08:42
[2018-02-19] MEDS: IV NORMAL SALINE 1000ML BAG 1,000 ML IV SCH ×2 (09:00→21:24)
[2018-02-19] MEDS: LACTOBACILLUS RHAMNOSUS GG 1 CAPSULE. PO SCH ×2 (09:07→21:25)
--- NOTE | 2018-02-19 09:53 | PDOC ---
Infectious Disease Note Subjective Subjective Pt says feels ok but still has overall fatigue cont to drain in DWAIN drain denies any f/c/n/v/d + Vaginal air release ROS ROS o/w neg Vital Sign Vital Signs Vital Signs Date Time Temp Pulse Resp B/P (MAP) Pulse Ox O2 Delivery O2 Flow Rate FiO2 02/19/18 07:00 99.0 75 18 117/66 (83) 96 Room Air 99.0 02/18/18 21:07 2.0 Physical Exam PHYSICAL EXAM GEN.: No apparent distress. Alert and oriented. HEENT: Head is normocephalic, atraumatic NECK: Supple. LUNGS: Clear to auscultation. HEART: RRR, S1, S2 present. Peripheral pulses intact ABDOMEN: Soft, Positive bowel sounds. ileostomy for urine output. pubic area with less tenderness. J drain has fluid drainage EXTREMITIES: Without any cyanosis. NEUROLOGIC: Normal speech, normal tone PSYCHIATRIC: Normal affect, normal mood. SKIN: No ulcerations Labs Micro 02/11 Escherichia hermannii Greater than 100,000 colony forming units per mL ANTIMICROBIAL SUSCEPTIBILITY Final Comment S = Susceptible; I = Intermediate; R = Resistant P = Positive; N = Negative MICS are expressed in micrograms per mL Antibiotic RSLT#1 RSLT#2 RSLT#3 RSLT#4 Amoxicillin/Clavulanic Acid S<=2 Ampicillin R =R Cefuroxime S<=1 Ciprofloxacin S<=0.25 Gentamicin S<=1 Meropenem S<=0.25 Nitrofurantoin I =64 Tetracycline S<=1 Tobramycin S<=1 Trimethoprim/Sulfa S<=20 Microbiology 02/13/18 Blood Culture - Final, Complete NO GROWTH AFTER 5 DAYS 02/11/18 Fecal Leukocyte Stain - Final, Complete 02/11/18 Urine Culture - Final, Complete 02/11/18 Urine Culture Result 1 (LORY) - Final, Complete 02/11/18 Antimicrobic Susceptibility - Final, Complete 02/15/18 Anaerobic/Aerobic Culture, Resulted Pending 02/15/18 Anaerobic Culture Result 1 (LORY), Resulted Pending 02/15/18 Aerobic Culture, Resulted Pending 02/15/18 Aerobic Culture Result 1 (LORY), Resulted Pending 02/15/18 Gram Stain - Final, Resulted 02/15/18 Gram Stain Result 1 (LORY) - Final, Resulted 02/15/18 Gram Stain Result 2 (LORY) - Final, Resulted Objective Assessment Pelvic MRI showing fluid collection with extension to the adjacent pelvic bones - bone biopsy 02/15 s/p IR drainage J drain with serous drainage, similar to drainage from rectum / vagina suspicion is for abscess but underlying malignancy or fistula cannot be ruled out completely Cults neg so far 02/15 Urine cult 02/11 + Ecoli Staph epidermidis bacteremia 2/4 bottles ,likely contaminant Squamous cell carcinoma of the cervix,S/P CT and RT Rectal bleed from 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 Low back pain. Moderate malnutrition. Plan Plan of Care 1. Continue empiric IV vancomycin and zosyn for now Monitor renal functions closely. last vanc trough 16.2 2.. Follow up cultures from IR drainage of pelvic fluid collection 02/15 3. f/u histopathology 4. FU with labs and cults in am 5. Continue supportive care. D/w family MENDOZA MARI MD Feb 19, 2018 09:53
[2018-02-19 11:00] VITALS: BP 108/65
--- NOTE | 2018-02-19 11:22 | PDOC ---
PROGRESS NOTES Chief Complaint Chief Complaint s/ post IR drainage and biopsy 02/15 Hyokalemia, mild severe PCM (albumn 1,5) Hemarochezia, resolved with abd pain POA Vaginal drainage of fecal matter GI bleed,FOB + History of Present Illness History of Present Illness Had IR drainage and biopsy done02/11 STill no cx micro pending Drainage is much less NO fevers Wants to go home Does not want HH - has a son 18/12 with her Us with IR, to go home with a drainage We'll go home once shifted to by mouth antibiotics that will happen when cultures are out IR has recommended to follow-up with [facility] surgeon who took out her urinary bladder about the fecaloid material/fistulous connection PLAN: waiting for micor/cxs Home with family once on PO abx - to go home with the DWAIN drain dw fam members and pt Vitals Vitals Vital Signs Date Time Temp Pulse Resp B/P (MAP) Pulse Ox O2 Delivery O2 Flow Rate FiO2 02/19/18 08:00 Room Air 02/19/18 07:00 99.0 75 18 117/66 (83) 96 99.0 02/18/18 21:07 2.0 Physical Exam Physical Exam GEN.: No apparent distress. Alert and oriented. HEENT: Head is normocephalic, atraumatic NECK: Supple. LUNGS: Clear to auscultation. HEART: RRR, S1, S2 present. Peripheral pulses intact ABDOMEN: Soft, Positive bowel sounds. ileostomy for urine output. pubic area with less tenderness. J drain has fluid drainage EXTREMITIES: Without any cyanosis. NEUROLOGIC: Normal speech, normal tone PSYCHIATRIC: Normal affect, normal mood. SKIN: No ulcerations General: Alert, Oriented X3, No acute distress Heart: Normal S1, Normal S2 Lungs: Clear Abdomen: Soft, No tenderness, Other (drain in place, purulent, ileal conduit in place) Extremities: No clubbing, No cyanosis Skin: No rashes, No breakdown Review of Systems Review of Systems A 14 point ROS was completed with the following noted as positive: Other systems reviewed and negative. \CONSTITUTIONAL: No fever or chills EYES: No recent changes SKIN: No rash or itching CARDIOVASCULAR: No chest pain, syncope, palpitations, or edema RESPIRATORY: No SOB or cough GASTROINTESTINAL: No nausea, vomiting or abdominal pain NEUROLOGICAL: No headaches or weakness ENDOCRINE: No cold or heat intolerance GENITOURINARY: No urgency or frequency of urination MUSCULOSKELETAL: No back pain or joint pain LYMPHATICS: No enlarged lymph nodes PSYCHIATRIC: No anxiety or depression Comment Review of Relevant I have reviewed the following items marisol (where applicable) has been applied. Labs Microbiology 02/13/18 Blood Culture - Final, Complete NO GROWTH AFTER 5 DAYS 02/11/18 Fecal Leukocyte Stain - Final, Complete 02/11/18 Urine Culture - Final, Complete 02/11/18 Urine Culture Result 1 (LORY) - Final, Complete 02/11/18 Antimicrobic Susceptibility - Final, Complete 02/15/18 Anaerobic/Aerobic Culture - Preliminary, Resulted 02/15/18 Anaerobic Culture Result 1 (LORY) - Preliminary, Resulted 02/15/18 Aerobic Culture - Final, Resulted 02/15/18 Aerobic Culture Result 1 (LORY) - Final, Resulted 02/15/18 Gram Stain - Final, Resulted 02/15/18 Gram Stain Result 1 (LORY) - Final, Resulted 02/15/18 Gram Stain Result 2 (LORY) - Final, Resulted Medications Current Medications Iohexol (Omnipaque 300 Mg/ml) 75 ml 1X ONCE IV Last administered on 02/11/18at 17:00; Start 02/11/18 at 17:00; Stop 02/11/18 at 17:01; Status DC Iohexol (Omnipaque 240 Mg/ml) 50 ml 1X ONCE PO Last administered on 02/11/18at 17:00; Start 02/11/18 at 17:00; Stop 02/11/18 at 17:01; Status DC Info (CONTRAST GIVEN -- Rx MONITORING) 1 each PRN DAILY PRN MC SEE COMMENTS; Start 02/11/18 at 16:45; Stop 02/13/18 at 08:43; Status DC Sodium Chloride 1,000 ml @ 1,000 mls/hr 1X ONCE IV Last administered on at 19:15; Start 02/11/18 at 18:15; Stop 02/11/18 at 19:14; Status DC Metronidazole 100 ml @ 100 mls/hr 1X ONCE IV Last administered on 02/11/18at 18:30; Start 02/11/18 at 18:30; Stop 02/11/18 at 19:29; Status DC Sodium Chloride 1,000 ml @ 125 mls/hr Q8H IV Last administered on 02/12/18at 11 :35; Start 02/11/18 at 19:51; Stop 02/12/18 at 19:50; Status DC Acetaminophen (Tylenol) 650 mg PRN Q6HRS PRN PO FEVER Last administered on 02/14at 13:15; Start 02/11/18 at 21:00 Ondansetron HCl (Zofran) 4 mg PRN Q6HRS PRN IV NAUSEA/VOMITING; Start 02/11/18 at 21:00 Morphine Sulfate (Morphine Sulfate) 2 mg PRN Q2HR PRN IV MODERATE TO SEVERE PAIN Last administered on 02/17/18at 09:52; Start 02/11/18 at 21:00 Tramadol HCl (Ultram) 50 mg PRN Q6HRS PRN PO MILD TO MODERATE PAIN Last administered on 02/18/18at 21:07; Start 02/11/18 at 21:00 Docusate Sodium (Colace) 100 mg PRN DAILY PRN PO HARD STOOLS; Start 02/11/18 at 21:00 Vancomycin HCl 1 gm/Sodium Chloride 250 ml @ 250 mls/hr 1X ONCE IV Last administered on 02/12/18at 11:35; Start 02/12/18 at 10:00; Stop 02/12/18 at 10:59 ; Status DC Vancomycin HCl 1 gm/Sodium Chloride 250 ml @ 250 mls/hr Q12H IV ; Start at 06:00; Status UNV Vancomycin HCl 750 mg/Sodium Chloride 250 ml @ 250 mls/hr 1X ONCE IV Last administered on 02/12/18at 13:44; Start 02/12/18 at 13:15; Stop 02/12/18 at 14:14 ; Status DC Vancomycin HCl 1 gm/Sodium Chloride 250 ml @ 250 mls/hr Q24H IV Last administered on 02/14/18at 13:05; Start 02/13/18 at 12:00; Stop 02/14/18 at 14:03 ; Status DC Vancomycin HCl (Vancomycin Trough Level) 1 each 1X ONCE MC Last administered on 02/14/18at 11:30; Start 02/14/18 at 11:30; Stop 02/14/18 at 11:31; Status DC Vancomycin HCl (Vanco Per Pharmacy) 1 each PRN DAILY PRN MC SEE COMMENTS Last administered on 02/18/18at 13:53; Start 02/12/18 at 13:30 Cyclobenzaprine HCl (Flexeril) 10 mg 1X ONCE PO Last administered on at 16:47; Start 02/12/18 at 15:45; Stop 02/12/18 at 15:46; Status DC Sodium Chloride 1,000 ml @ 85 mls/hr [id number] IV Last administered on at 09:00; Start 02/12/18 at 20:30 Iohexol (Omnipaque 300 Mg/ml) 75 ml 1X ONCE IV Last administered on 02/13/18at 09:52; Start 02/13/18 at 08:45; Stop 02/13/18 at 08:46; Status DC Info (CONTRAST GIVEN -- Rx MONITORING) 1 each PRN DAILY PRN MC SEE COMMENTS; Start 02/13/18 at 08:45; Stop 02/15/18 at 08:44; Status DC Cyclobenzaprine HCl (Flexeril) 10 mg PRN Q12HR PRN PO MUSCLE SPASMS Last administered on 02/13/18at 20:55; Start 02/13/18 at 13:00; Stop 02/14/18 at 12:04 ; Status DC Gadobutrol (Gadavist) 6 mmol 1X ONCE IV ; Start 02/13/18 at 14:45; Stop at 14:46; Status DC Cyclobenzaprine HCl (Flexeril) 10 mg PRN Q8HRS PRN PO MUSCLE SPASMS Last administered on 02/18/18at 21:07; Start 02/13/18 at 20:15 Piperacillin Sod/ Tazobactam Sod 3.375 gm/Sodium Chloride 50 ml @ 100 mls/hr Q6HRS IV Last administered on 02/19/18at 04:59; Start 02/14/18 at 12:00 Vancomycin HCl 0.75 gm/Sodium Chloride 250 ml @ 250 mls/hr Q12H IV Last administered on 02/19/18at 00:18; Start 02/15/18 at 01:00 Vancomycin HCl (Vancomycin Trough Level) 1 each 1X ONCE MC Last administered on 02/16/18at 00:30; Start 02/16/18 at 00:30; Stop 02/16/18 at 00:31; Status DC Potassium Chloride/Water 100 ml @ 100 mls/hr Q1H IV Last administered on at 19:53; Start 02/15/18 at 07:00; Stop 02/15/18 at 09:59; Status DC Lidocaine/Sodium Bicarbonate (Buffered Lidocaine 1%) 3 ml STK-MED ONCE .ROUTE ; Start 02/15/18 at 10:18; Stop 02/15/18 at 10:19; Status DC Midazolam HCl (Versed) 2 mg STK-MED ONCE .ROUTE ; Start 02/15/18 at 10:19; Stop 02/15/18 at 10:20; Status DC Fentanyl Citrate (Fentanyl 2ml Vial) 100 mcg STK-MED ONCE .ROUTE ; Start at 10:20; Stop 02/15/18 at 10:21; Status DC Lidocaine/Sodium Bicarbonate (Buffered Lidocaine 1%) 3 ml 1X ONCE IJ Last administered on 02/15/18at 10:45; Start 02/15/18 at 10:45; Stop 02/15/18 at 10:46 ; Status DC Midazolam HCl (Versed) 2 mg 1X ONCE IV Last administered on 02/15/18at 10:45; Start 02/15/18 at 10:45; Stop 02/15/18 at 10:46; Status DC Fentanyl Citrate (Fentanyl 2ml Vial) 100 mcg 1X ONCE IV Last administered on at 10:45; Start 02/15/18 at 10:45; Stop 02/15/18 at 10:46; Status DC Midazolam HCl (Versed) 2 mg STK-MED ONCE .ROUTE ; Start 02/15/18 at 11:05; Stop 02/15/18 at 11:06; Status DC Fentanyl Citrate (Fentanyl 2ml Vial) 100 mcg STK-MED ONCE .ROUTE ; Start at 11:05; Stop 02/15/18 at 11:06; Status DC Potassium Chloride (Klor-Con) 40 meq 1X ONCE PO Last administered on at 12:23; Start 02/15/18 at 12:00; Stop 02/15/18 at 12:01; Status DC Lactobacillus Rhamnosus (Culturelle) 1 cap BID PO Last administered on at 09:07; Start 02/18/18 at 21:00 Active Scripts Active Cephalexin 500 Mg Tablet 1 Tab PO BID Cyclobenzaprine Hcl 10 Mg Tablet 1 Tab PO TID [place] 5-325 Tablet (Acetaminophen/Hydrocodone Bitart) 1 Each Tablet 1 Tab PO Q4- 6HRS Senna-Time S Tablet (Sennosides/Docusate Sodium) 1 Each Tablet 2 Tab PO QHS 7 Days Oxycodone-Acetaminophen 5-325 (Oxycodone Hcl/Acetaminophen) 1 Each Tablet 1 Tab PO PRN Q4HRS PRN Vitamin D2 (Ergocalciferol (Vitamin D2)) 50,000 Unit Capsule 50,000 Unit PO WEEKLY Colace (Docusate Sodium) 100 Mg Capsule 100 Mg PO BID 10 Days Vitals/I & O Vital Sign - Last 24 Hours 02/18/18 02/18/18 02/18/18 02/18/18 15:00 19:00 20:00 21:07 Temp 97.9 99.7 97.9 99.7 Pulse 79 82 Resp 18 18 18 B/P (MAP) 115/70 (85) 106/56 (73) Pulse Ox 94 95 95 O2 Delivery Room Air Room Air Room Air Room Air O2 Flow Rate 2.0 02/18/18 02/18/18 02/19/18 02/19/18 22:07 23:00 03:00 07:00 Temp 98.4 98.9 99.0 98.4 98.9 99.0 Pulse 83 86 75 Resp 18 B/P (MAP) 121/69 (86) 122/73 (89) 117/66 (83) Pulse Ox 95 96 94 96 O2 Delivery Room Air Room Air Room Air Room Air 02/19/18 08:00 O2 Delivery Room Air Intake and Output 02/18/18 02/18/18 02/19/18 15:00 23:00 07:00 Intake Total 60 ml 1530 ml 660 ml Output Total 580 ml 310 ml 1143 ml Balance -520 ml 1220 ml -483 ml KAI BERMAN MD Feb 19, 2018 11:22
--- NOTE | 2018-02-19 12:00 | PDOC ---
G I PROGRESS NOTE Subjective No real GI complaints. Awaiting results of cultures, plans after. Physical Exam Lungs clear. RRR Abdomen soft, not distended. Review of Relevant I have reviewed the following items marisol (where applicable) has been applied. Labs Microbiology 02/13/18 Blood Culture - Final, Complete NO GROWTH AFTER 5 DAYS 02/11/18 Fecal Leukocyte Stain - Final, Complete 02/11/18 Urine Culture - Final, Complete 02/11/18 Urine Culture Result 1 (LORY) - Final, Complete 02/11/18 Antimicrobic Susceptibility - Final, Complete 02/15/18 Anaerobic/Aerobic Culture - Preliminary, Resulted 02/15/18 Anaerobic Culture Result 1 (LORY) - Preliminary, Resulted 02/15/18 Aerobic Culture - Final, Resulted 02/15/18 Aerobic Culture Result 1 (LORY) - Final, Resulted 02/15/18 Gram Stain - Final, Resulted 02/15/18 Gram Stain Result 1 (LORY) - Final, Resulted 02/15/18 Gram Stain Result 2 (LORY) - Final, Resulted --Cavity grew "Normal urogenital varsha" Vitals/I & O Vital Sign - Last 24 Hours 02/18/18 02/18/18 02/18/18 02/18/18 15:00 19:00 20:00 21:07 Temp 97.9 99.7 97.9 99.7 Pulse 79 82 Resp 18 18 18 B/P (MAP) 115/70 (85) 106/56 (73) Pulse Ox 94 95 95 O2 Delivery Room Air Room Air Room Air Room Air O2 Flow Rate 2.0 02/18/18 02/18/18 02/19/18 02/19/18 22:07 23:00 03:00 07:00 Temp 98.4 98.9 99.0 98.4 98.9 99.0 Pulse 83 86 75 Resp 18 16 18 18 B/P (MAP) 121/69 (86) 122/73 (89) 117/66 (83) Pulse Ox 95 96 94 96 O2 Delivery Room Air Room Air Room Air Room Air 02/19/18 08:00 O2 Delivery Room Air Intake and Output 02/18/18 02/18/18 02/19/18 15:00 23:00 07:00 Intake Total 60 ml 1530 ml 660 ml Output Total 580 ml 310 ml 1143 ml Balance -520 ml 1220 ml -483 ml Assessment Pelvic cavitary lesion, suspect related to prior cervical cancer/recurrence 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 "Poop" she passes may be necrotic tumor. Plan of Care: Continue current Tx, Mgmt Plan of Care Note Consider fistulogram with water-soluble contrast per drain in cavity attempting to see fistula. MCKENZIE BYRNES MD Feb 19, 2018 12:00
--- NOTE | 2018-02-19 12:28 | PDOC ---
SHIRLEY BABCOCK APRN 02/19/18 1228: SURGICAL PROGRESS NOTE Subjective resting pain managed Vital Signs Vital Signs Date Time Temp Pulse Resp B/P (MAP) Pulse Ox O2 Delivery O2 Flow Rate FiO2 02/19/18 08:00 Room Air 02/19/18 07:00 99.0 75 18 117/66 (83) 96 99.0 02/18/18 21:07 2.0 I&O Intake and Output 02/19/18 07:00 Intake Total 2250 ml Output Total 2033 ml Balance 217 ml Intake Oral 540 ml IV Total 1700 ml Blood Product IV Normal Saline Flush 10 ml Output Urine Total 1895 ml Drainage Total 138 ml General: Alert, Oriented X3, Cooperative, No acute distress Abdomen: Soft, Other (mildly tender lower abdomen, drain purulent) Problem List agree with plan--dc with drain and fu with [facility]/Onc at that did original surgery will sign off, available as needed MARC MARTIN MD 02/19/18 9633: SURGICAL PROGRESS NOTE Assessment/Plan Agree with above SHIRLEY BABCOCK APRN Feb 19, 2018 12:28 MARC MARTIN MD Feb 19, 2018 21:59
[2018-02-19] MEDS: VANCOMYCIN PER PHARMACY MC PRN (14:00)
[2018-02-19] MEDS: ACETAMINOPHEN 325 MG TABLET. PO PRN (14:56)
[2018-02-19 15:00] VITALS: BP 116/72
[2018-02-19 19:00] VITALS: BP 110/66
[2018-02-19] MEDS: CYCLOBENZAPRINE 10 MG TABLET. PO PRN (21:25)
[2018-02-19] MEDS: traMADol 50 MG TABLET PO PRN (21:25)
[2018-02-19 23:00] VITALS: BP 112/62
[2018-02-20 03:00] VITALS: BP 136/77
[2018-02-20] MEDS: PIPERACILLIN/TAZOBACTAM 3.375 GM in IV NORMAL SALINE 50ML 50 ML IV SCH (05:24)
[2018-02-20 07:00] VITALS: BP 135/77
[2018-02-20 07:23] LABS: CREATININE 0.8 mg/dL (0.6-1.0); GFR 70.1
[2018-02-20] MEDS: LACTOBACILLUS RHAMNOSUS GG 1 CAPSULE. PO SCH (08:45)
--- NOTE | 2018-02-20 09:36 | PDOC ---
Subjective: Subjective: Feeling better, says she's going home today and is going to follow-up w/ established doctors/surgeons at . Objective: Vital Signs: Vital Signs Date Time Temp Pulse Resp B/P (MAP) Pulse Ox O2 Delivery O2 Flow Rate FiO2 02/20/18 07:00 97.7 75 18 135/77 (96) 95 Room Air 97.7 Labs: Laboratory Tests Test 02/20/18 05:28 Creatinine 0.8 mg/dL Estimated GFR (Cockcroft-Gault) 70.1 Imaging: AEROBIC RES 1 Final Comment Routine genital varsha. PE: GEN: NAD, eating breakfast LUNGS: CTAB HEART: RRR ABD: drain w/ minimal light brown cloudy fluid, urostomy, non-tender NEURO/PSYCH: A & O 3 A/P: H/o cervical cancer w/ pelvic cavitary lesion -- She says plans to DC and follow-up w/ [facility]. Consider fistulogram. SYL ZAVALETA Feb 20, 2018 09:36
--- NOTE | 2018-02-20 09:52 | PDOC ---
PROGRESS NOTES Chief Complaint Chief Complaint s/ post IR drainage and biopsy 02/15 Hyokalemia, mild severe PCM (albumn 1,5) Hematochezia, resolved with abd pain POA Vaginal drainage of fecal matter GI bleed,FOB + History of Present Illness History of Present Illness Had IR drainage and biopsy done02/11 STill no cx micro pending Drainage is much less NO fevers Wants to go home Does not want HH - has a son 18/12 with her Us with IR, to go home with a drainage We'll go home once shifted to by mouth antibiotics that will happen when cultures are out IR has recommended to follow-up with [facility] surgeon who took out her urinary bladder about the fecaloid material/fistulous connection PLAN: waiting for micor/cxs Home with family once on PO abx - to go home with the KRYSTEN drain dw fam members and pt Vitals Vitals Vital Signs Date Time Temp Pulse Resp B/P (MAP) Pulse Ox O2 Delivery O2 Flow Rate FiO2 02/20/18 07:30 Room Air 02/20/18 07:00 97.7 75 18 135/77 (96) 95 97.7 Physical Exam Physical Exam GEN.: No apparent distress. Alert and oriented. HEENT: Head is normocephalic, atraumatic NECK: Supple. LUNGS: Clear to auscultation. HEART: RRR, S1, S2 present. Peripheral pulses intact ABDOMEN: Soft, Positive bowel sounds. ileostomy for urine output. pubic area with less tenderness. J drain has fluid drainage EXTREMITIES: Without any cyanosis. NEUROLOGIC: Normal speech, normal tone PSYCHIATRIC: Normal affect, normal mood. SKIN: No ulcerations General: Alert, Oriented X3, Cooperative, No acute distress Heart: Normal S1, Normal S2, No murmurs Lungs: Clear Abdomen: Soft, Other (mildly tender lower abdomen, krysten drain purulent) Extremities: No clubbing, No cyanosis Skin: No rashes, No breakdown Labs LABS Micro 02/11 Escherichia hermannii Greater than 100,000 colony forming units per mL ANTIMICROBIAL SUSCEPTIBILITY Final Comment S = Susceptible; I = Intermediate; R = Resistant P = Positive; N = Negative MICS are expressed in micrograms per mL Antibiotic RSLT#1 RSLT#2 RSLT#3 RSLT#4 Amoxicillin/Clavulanic Acid S<=2 Ampicillin R =R Cefuroxime S<=1 Ciprofloxacin S<=0.25 Gentamicin S<=1 Meropenem S<=0.25 Nitrofurantoin I =64 Tetracycline S<=1 Tobramycin S<=1 Trimethoprim/Sulfa S<=20 Microbiology 02/13/18 Blood Culture - Final, Complete NO GROWTH AFTER 5 DAYS Laboratory Tests Test 02/20/18 05:28 Creatinine 0.8 mg/dL (0.6-1.0) Estimated GFR (Cockcroft-Gault) 70.1 Comment Review of Relevant I have reviewed the following items marisol (where applicable) has been applied. Labs Laboratory Tests Test 02/20/18 05:28 Creatinine 0.8 mg/dL (0.6-1.0) Estimated GFR (Cockcroft-Gault) 70.1 Laboratory Tests Test 02/20/18 05:28 Creatinine 0.8 mg/dL (0.6-1.0) Estimated GFR (Cockcroft-Gault) 70.1 Microbiology 02/13/18 Blood Culture - Final, Complete NO GROWTH AFTER 5 DAYS 02/11/18 Fecal Leukocyte Stain - Final, Complete 02/11/18 Urine Culture - Final, Complete 02/11/18 Urine Culture Result 1 (LORY) - Final, Complete 02/11/18 Antimicrobic Susceptibility - Final, Complete 02/15/18 Anaerobic/Aerobic Culture - Preliminary, Resulted 02/15/18 Anaerobic Culture Result 1 (LORY) - Preliminary, Resulted 02/15/18 Aerobic Culture - Final, Resulted 02/15/18 Aerobic Culture Result 1 (LORY) - Final, Resulted 02/15/18 Gram Stain - Final, Resulted 02/15/18 Gram Stain Result 1 (LORY) - Final, Resulted 02/15/18 Gram Stain Result 2 (LORY) - Final, Resulted Medications Current Medications Iohexol (Omnipaque 300 Mg/ml) 75 ml 1X ONCE IV Last administered on 02/11/18at 17:00; Start 02/11/18 at 17:00; Stop 02/11/18 at 17:01; Status DC Iohexol (Omnipaque 240 Mg/ml) 50 ml 1X ONCE PO Last administered on 02/11/18at 17:00; Start 02/11/18 at 17:00; Stop 02/11/18 at 17:01; Status DC Info (CONTRAST GIVEN -- Rx MONITORING) 1 each PRN DAILY PRN MC SEE COMMENTS; Start 02/11/18 at 16:45; Stop 02/13/18 at 08:43; Status DC Sodium Chloride 1,000 ml @ 1,000 mls/hr 1X ONCE IV Last administered on at 19:15; Start 02/11/18 at 18:15; Stop 02/11/18 at 19:14; Status DC Metronidazole 100 ml @ 100 mls/hr 1X ONCE IV Last administered on 02/11/18at 18:30; Start 02/11/18 at 18:30; Stop 02/11/18 at 19:29; Status DC Sodium Chloride 1,000 ml @ 125 mls/hr Q8H IV Last administered on 02/12/18at 11 :35; Start 02/11/18 at 19:51; Stop 02/12/18 at 19:50; Status DC Acetaminophen (Tylenol) 650 mg PRN Q6HRS PRN PO FEVER Last administered on 02/19at 14:56; Start 02/11/18 at 21:00 Ondansetron HCl (Zofran) 4 mg PRN Q6HRS PRN IV NAUSEA/VOMITING; Start 02/11/18 at 21:00 Morphine Sulfate (Morphine Sulfate) 2 mg PRN Q2HR PRN IV MODERATE TO SEVERE PAIN Last administered on 02/17/18at 09:52; Start 02/11/18 at 21:00 Tramadol HCl (Ultram) 50 mg PRN Q6HRS PRN PO MILD TO MODERATE PAIN Last administered on 02/19/18at 21:25; Start 02/11/18 at 21:00 Docusate Sodium (Colace) 100 mg PRN DAILY PRN PO HARD STOOLS; Start 02/11/18 at 21:00 Vancomycin HCl 1 gm/Sodium Chloride 250 ml @ 250 mls/hr 1X ONCE IV Last administered on 02/12/18at 11:35; Start 02/12/18 at 10:00; Stop 02/12/18 at 10:59 ; Status DC Vancomycin HCl 1 gm/Sodium Chloride 250 ml @ 250 mls/hr Q12H IV ; Start at 06:00; Status UNV Vancomycin HCl 750 mg/Sodium Chloride 250 ml @ 250 mls/hr 1X ONCE IV Last administered on 02/12/18at 13:44; Start 02/12/18 at 13:15; Stop 02/12/18 at 14:14 ; Status DC Vancomycin HCl 1 gm/Sodium Chloride 250 ml @ 250 mls/hr Q24H IV Last administered on 02/14/18at 13:05; Start 02/13/18 at 12:00; Stop 02/14/18 at 14:03 ; Status DC Vancomycin HCl (Vancomycin Trough Level) 1 each 1X ONCE MC Last administered on 02/14/18at 11:30; Start 02/14/18 at 11:30; Stop 02/14/18 at 11:31; Status DC Vancomycin HCl (Vanco Per Pharmacy) 1 each PRN DAILY PRN MC SEE COMMENTS Last administered on 02/19/18at 14:00; Start 02/12/18 at 13:30 Cyclobenzaprine HCl (Flexeril) 10 mg 1X ONCE PO Last administered on at 16:47; Start 02/12/18 at 15:45; Stop 02/12/18 at 15:46; Status DC Sodium Chloride 1,000 ml @ 85 mls/hr [id number] IV Last administered on at 21:24; Start 02/12/18 at 20:30 Iohexol (Omnipaque 300 Mg/ml) 75 ml 1X ONCE IV Last administered on 02/13/18at 09:52; Start 02/13/18 at 08:45; Stop 02/13/18 at 08:46; Status DC Info (CONTRAST GIVEN -- Rx MONITORING) 1 each PRN DAILY PRN MC SEE COMMENTS; Start 02/13/18 at 08:45; Stop 02/15/18 at 08:44; Status DC Cyclobenzaprine HCl (Flexeril) 10 mg PRN Q12HR PRN PO MUSCLE SPASMS Last administered on 02/13/18at 20:55; Start 02/13/18 at 13:00; Stop 02/14/18 at 12:04 ; Status DC Gadobutrol (Gadavist) 6 mmol 1X ONCE IV ; Start 02/13/18 at 14:45; Stop at 14:46; Status DC Cyclobenzaprine HCl (Flexeril) 10 mg PRN Q8HRS PRN PO MUSCLE SPASMS Last administered on 02/19/18at 21:25; Start 02/13/18 at 20:15 Piperacillin Sod/ Tazobactam Sod 3.375 gm/Sodium Chloride 50 ml @ 100 mls/hr Q6HRS IV Last administered on 02/20/18at 05:24; Start 02/14/18 at 12:00 Vancomycin HCl 0.75 gm/Sodium Chloride 250 ml @ 250 mls/hr Q12H IV Last administered on 02/19/18at 23:53; Start 02/15/18 at 01:00 Vancomycin HCl (Vancomycin Trough Level) 1 each 1X ONCE MC Last administered on 02/16/18at 00:30; Start 02/16/18 at 00:30; Stop 02/16/18 at 00:31; Status DC Potassium Chloride/Water 100 ml @ 100 mls/hr Q1H IV Last administered on at 19:53; Start 02/15/18 at 07:00; Stop 02/15/18 at 09:59; Status DC Lidocaine/Sodium Bicarbonate (Buffered Lidocaine 1%) 3 ml STK-MED ONCE .ROUTE ; Start 02/15/18 at 10:18; Stop 02/15/18 at 10:19; Status DC Midazolam HCl (Versed) 2 mg STK-MED ONCE .ROUTE ; Start 02/15/18 at 10:19; Stop 02/15/18 at 10:20; Status DC Fentanyl Citrate (Fentanyl 2ml Vial) 100 mcg STK-MED ONCE .ROUTE ; Start at 10:20; Stop 02/15/18 at 10:21; Status DC Lidocaine/Sodium Bicarbonate (Buffered Lidocaine 1%) 3 ml 1X ONCE IJ Last administered on 02/15/18at 10:45; Start 02/15/18 at 10:45; Stop 02/15/18 at 10:46 ; Status DC Midazolam HCl (Versed) 2 mg 1X ONCE IV Last administered on 02/15/18at 10:45; Start 02/15/18 at 10:45; Stop 02/15/18 at 10:46; Status DC Fentanyl Citrate (Fentanyl 2ml Vial) 100 mcg 1X ONCE IV Last administered on at 10:45; Start 02/15/18 at 10:45; Stop 02/15/18 at 10:46; Status DC Midazolam HCl (Versed) 2 mg STK-MED ONCE .ROUTE ; Start 02/15/18 at 11:05; Stop 02/15/18 at 11:06; Status DC Fentanyl Citrate (Fentanyl 2ml Vial) 100 mcg STK-MED ONCE .ROUTE ; Start at 11:05; Stop 02/15/18 at 11:06; Status DC Potassium Chloride (Klor-Con) 40 meq 1X ONCE PO Last administered on at 12:23; Start 02/15/18 at 12:00; Stop 02/15/18 at 12:01; Status DC Lactobacillus Rhamnosus (Culturelle) 1 cap BID PO Last administered on at 08:45; Start 02/18/18 at 21:00 Active Scripts Active Cephalexin 500 Mg Tablet 1 Tab PO BID Cyclobenzaprine Hcl 10 Mg Tablet 1 Tab PO TID [place] 5-325 Tablet (Acetaminophen/Hydrocodone Bitart) 1 Each Tablet 1 Tab PO Q4- 6HRS Senna-Time S Tablet (Sennosides/Docusate Sodium) 1 Each Tablet 2 Tab PO QHS 7 Days Oxycodone-Acetaminophen 5-325 (Oxycodone Hcl/Acetaminophen) 1 Each Tablet 1 Tab PO PRN Q4HRS PRN Vitamin D2 (Ergocalciferol (Vitamin D2)) 50,000 Unit Capsule 50,000 Unit PO WEEKLY Colace (Docusate Sodium) 100 Mg Capsule 100 Mg PO BID 10 Days Vitals/I & O Vital Sign - Last 24 Hours 02/19/18 02/19/18 02/19/18 02/19/18 11:00 15:00 19:00 20:00 Temp 97.7 97.9 98.8 97.7 97.9 98.8 Pulse 76 79 75 Resp 18 18 B/P (MAP) 108/65 (79) 116/72 (87) 110/66 (81) Pulse Ox 93 92 93 O2 Delivery Room Air Room Air Room Air Room Air 02/19/18 02/19/18 02/19/18 02/20/18 21:25 22:25 23:00 03:00 Temp 98.8 97.9 98.8 97.9 Pulse 71 80 Resp 18 18 18 B/P (MAP) 112/62 (79) 136/77 (96) Pulse Ox 93 93 95 92 O2 Delivery Room Air Room Air Room Air Room Air 02/20/18 02/20/18 07:00 07:30 Temp 97.7 97.7 Pulse 75 Resp 18 B/P (MAP) 135/77 (96) Pulse Ox 95 O2 Delivery Room Air Room Air Intake and Output 02/19/18 02/19/18 02/20/18 15:00 23:00 07:00 Intake Total 1250 ml 450 ml 360 ml Output Total 630 ml 980 ml 230 ml Balance 620 ml -530 ml 130 ml BRINDA HOWE MD Feb 20, 2018 09:52
--- NOTE | 2018-02-20 09:59 | PDOC ---
Infectious Disease Note Subjective Subjective Pt says feels ok. Eating some cont to drain in DWAIN drain denies any f/c/n/v/d ROS ROS o/w neg Vital Sign Vital Signs Vital Signs Date Time Temp Pulse Resp B/P (MAP) Pulse Ox O2 Delivery O2 Flow Rate FiO2 02/20/18 07:30 Room Air 02/20/18 07:00 97.7 75 18 135/77 (96) 95 97.7 Physical Exam PHYSICAL EXAM GEN.: No apparent distress. Alert and oriented. looks well HEENT: Head is normocephalic, atraumatic NECK: Supple. LUNGS: Clear to auscultation. HEART: RRR, S1, S2 present. Peripheral pulses intact ABDOMEN: Soft, Positive bowel sounds. ileostomy for urine output. pubic area with less tenderness. J drain has fluid drainage EXTREMITIES: Without any cyanosis. NEUROLOGIC: Normal speech, normal tone PSYCHIATRIC: Normal affect, normal mood. SKIN: No ulcerations Labs Lab Laboratory Tests Test 02/20/18 05:28 Creatinine 0.8 mg/dL (0.6-1.0) Estimated GFR (Cockcroft-Gault) 70.1 Micro 02/11 Escherichia hermannii Greater than 100,000 colony forming units per mL ANTIMICROBIAL SUSCEPTIBILITY Final Comment S = Susceptible; I = Intermediate; R = Resistant P = Positive; N = Negative MICS are expressed in micrograms per mL Antibiotic RSLT#1 RSLT#2 RSLT#3 RSLT#4 Amoxicillin/Clavulanic Acid S<=2 Ampicillin R =R Cefuroxime S<=1 Ciprofloxacin S<=0.25 Gentamicin S<=1 Meropenem S<=0.25 Nitrofurantoin I =64 Tetracycline S<=1 Tobramycin S<=1 Trimethoprim/Sulfa S<=20 Microbiology 02/13/18 Blood Culture - Final, Complete NO GROWTH AFTER 5 DAYS 02/11/18 Fecal Leukocyte Stain - Final, Complete 02/11/18 Urine Culture - Final, Complete 02/11/18 Urine Culture Result 1 (LORY) - Final, Complete 02/11/18 Antimicrobic Susceptibility - Final, Complete 02/15/18 Anaerobic/Aerobic Culture, Resulted Pending 02/15/18 Anaerobic Culture Result 1 (LORY), Resulted Pending 02/15/18 Aerobic Culture, Resulted Pending 9/21/18 Aerobic Culture Result 1 (LORY), Resulted Pending 02/15/18 Gram Stain - Final, Resulted 02/15/18 Gram Stain Result 1 (LORY) - Final, Resulted 02/15/18 Gram Stain Result 2 (LORY) - Final, Resulted Objective Assessment Pelvic MRI showing fluid collection with extension to the adjacent pelvic bones - bone biopsy 02/15 s/p IR drainage J drain with serous drainage, similar to drainage from rectum / vagina suspicion is for abscess but underlying malignancy or fistula cannot be ruled out completely Cults neg so far 02/15. ? 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 Low back pain. Moderate malnutrition. Plan Plan of Care 1. Discontinue empiric IV vancomycin/zosyn. No surgical options here. Begin po Augmentin 875 mg BID and recommend for at least 2 weeks until she f/u at [facility]. Discussed with family risks of abx and different spectrum of activity ( lack of cults except for urine and blood contamination) and if she worsens needs medical attention Ok to d/c from ID standpoint Needs to F/u with [facility]/Onc expressed with her and family the need to get this appointment GAUDENCIO after her discharge Can f/u in ID office in 2 weeks if needed [phone] D/w family MENDOZA MARI MD Feb 20, 2018 09:59
[2018-02-20] MEDS ORDERED: AMOXICILLIN/K CLAV 875/125MG TABLET. PO SCH (10:00)
[2018-02-20 11:00] VITALS: BP 113/68
--- NOTE | 2018-02-20 14:25 | PDOC3 ---
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 s/ post IR drainage and biopsy 02/15 Hyokalemia, mild severe PCM (albumn 1,5) Hematochezia, resolved with abd pain POA Vaginal drainage of fecal matter GI bleed,FOB + History of Present Illness History of Present Illness Had IR drainage and biopsy done02/11 STill no cx micro pending Drainage is much less NO fevers Wants to go home home on augmentin 875 mg po bid Does not want HH - has a son 18/12 with her Us with IR, to go home with a drainage IR has recommended to follow-up with [facility] surgeon who took out her urinary bladder about the fecaloid material/fistulous connection PLAN: Home with family once on PO abx - to go home with the KRYSTEN drain dw fam members and pt d/c planning 40 min Vitals Vitals Vital Signs Date Time Temp Pulse Resp B/P (MAP) Pulse Ox O2 Delivery O2 Flow Rate FiO2 02/20/18 07:30 Room Air 02/20/18 07:00 97.7 75 18 135/77 (96) 95 97.7 Physical Exam Physical Exam GEN.: No apparent distress. Alert and oriented. HEENT: Head is normocephalic, atraumatic NECK: Supple. LUNGS: Clear to auscultation. HEART: RRR, S1, S2 present. Peripheral pulses intact ABDOMEN: Soft, Positive bowel sounds. ileostomy for urine output. pubic area with less tenderness. J drain has fluid drainage EXTREMITIES: Without any cyanosis. NEUROLOGIC: Normal speech, normal tone PSYCHIATRIC: Normal affect, normal mood. SKIN: No ulcerations General: Alert, Oriented X3, Cooperative, No acute distress Heart: Normal S1, Normal S2, No murmurs Lungs: Clear Abdomen: Soft, Other (mildly tender lower abdomen, krysten drain purulent) Extremities: No clubbing, No cyanosis Skin: No rashes, No breakdown Labs LABS Micro 02/11 Escherichia hermannii Greater than 100,000 colony forming units per mL ANTIMICROBIAL SUSCEPTIBILITY Final Comment S = Susceptible; I = Intermediate; R = Resistant P = Positive; N = Negative MICS are expressed in micrograms per mL Antibiotic RSLT#1 RSLT#2 RSLT#3 RSLT#4 Amoxicillin/Clavulanic Acid S<=2 Ampicillin R =R Cefuroxime S<=1 Ciprofloxacin S<=0.25 Gentamicin S<=1 Meropenem S<=0.25 Nitrofurantoin I =64 Tetracycline S<=1 Tobramycin S<=1 Trimethoprim/Sulfa S<=20 Microbiology Begin po Augmentin 875 mg BID and recommend for at least 2 weeks until she f/u at . Discussed with family risks of abx and different spectrum of activity ( lack of cults except for urine and blood contamination) and if she worsens needs medical attention Ok to d/c from ID standpoint Needs to F/u with [facility]/Onc expressed with her and family the need to get this appointment GAUDENCIO after her discharge Can f/u in ID office in 2 weeks if needed [phone] Brief Hospital Course Ms. Rosenberg is a 73 old [sex] who presented with [ vaginal fecal matter, mass of cervix] Discharge Medications Current Medications Iohexol (Omnipaque 300 Mg/ml) 75 ml 1X ONCE IV Last administered on 02/11/18at 17:00; Start 02/11/18 at 17:00; Stop 02/11/18 at 17:01; Status DC Iohexol (Omnipaque 240 Mg/ml) 50 ml 1X ONCE PO Last administered on 02/11/18at 17:00; Start 02/11/18 at 17:00; Stop 02/11/18 at 17:01; Status DC Info (CONTRAST GIVEN -- Rx MONITORING) 1 each PRN DAILY PRN MC SEE COMMENTS; Start 02/11/18 at 16:45; Stop 02/13/18 at 08:43; Status DC Sodium Chloride 1,000 ml @ 1,000 mls/hr 1X ONCE IV Last administered on at 19:15; Start 02/11/18 at 18:15; Stop 02/11/18 at 19:14; Status DC Metronidazole 100 ml @ 100 mls/hr 1X ONCE IV Last administered on 02/11/18at 18:30; Start 02/11/18 at 18:30; Stop 02/11/18 at 19:29; Status DC Sodium Chloride 1,000 ml @ 125 mls/hr Q8H IV Last administered on 02/12/18at 11 :35; Start 02/11/18 at 19:51; Stop 02/12/18 at 19:50; Status DC Acetaminophen (Tylenol) 650 mg PRN Q6HRS PRN PO FEVER Last administered on 02/19at 14:56; Start 02/11/18 at 21:00 Ondansetron HCl (Zofran) 4 mg PRN Q6HRS PRN IV NAUSEA/VOMITING; Start 02/11/18 at 21:00 Morphine Sulfate (Morphine Sulfate) 2 mg PRN Q2HR PRN IV MODERATE TO SEVERE PAIN Last administered on 02/17/18at 09:52; Start 02/11/18 at 21:00 Tramadol HCl (Ultram) 50 mg PRN Q6HRS PRN PO MILD TO MODERATE PAIN Last administered on 02/19/18at 21:25; Start 02/11/18 at 21:00 Docusate Sodium (Colace) 100 mg PRN DAILY PRN PO HARD STOOLS; Start 02/11/18 at 21:00 Vancomycin HCl 1 gm/Sodium Chloride 250 ml @ 250 mls/hr 1X ONCE IV Last administered on 02/12/18at 11:35; Start 02/12/18 at 10:00; Stop 02/12/18 at 10:59 ; Status DC Vancomycin HCl 1 gm/Sodium Chloride 250 ml @ 250 mls/hr Q12H IV ; Start at 06:00; Status UNV Vancomycin HCl 750 mg/Sodium Chloride 250 ml @ 250 mls/hr 1X ONCE IV Last administered on 02/12/18at 13:44; Start 02/12/18 at 13:15; Stop 02/12/18 at 14:14 ; Status DC Vancomycin HCl 1 gm/Sodium Chloride 250 ml @ 250 mls/hr Q24H IV Last administered on 02/14/18at 13:05; Start 02/13/18 at 12:00; Stop 02/14/18 at 14:03 ; Status DC Vancomycin HCl (Vancomycin Trough Level) 1 each 1X ONCE MC Last administered on 02/14/18at 11:30; Start 02/14/18 at 11:30; Stop 02/14/18 at 11:31; Status DC Vancomycin HCl (Vanco Per Pharmacy) 1 each PRN DAILY PRN MC SEE COMMENTS Last administered on 02/19/18at 14:00; Start 02/12/18 at 13:30; Stop 02/20/18 at 09:55 ; Status DC Cyclobenzaprine HCl (Flexeril) 10 mg 1X ONCE PO Last administered on at 16:47; Start 02/12/18 at 15:45; Stop 02/12/18 at 15:46; Status DC Sodium Chloride 1,000 ml @ 85 mls/hr [id number] IV Last administered on at 21:24; Start 02/12/18 at 20:30 Iohexol (Omnipaque 300 Mg/ml) 75 ml 1X ONCE IV Last administered on 02/13/18at 09:52; Start 02/13/18 at 08:45; Stop 02/13/18 at 08:46; Status DC Info (CONTRAST GIVEN -- Rx MONITORING) 1 each PRN DAILY PRN MC SEE COMMENTS; Start 02/13/18 at 08:45; Stop 02/15/18 at 08:44; Status DC Cyclobenzaprine HCl (Flexeril) 10 mg PRN Q12HR PRN PO MUSCLE SPASMS Last administered on 02/13/18at 20:55; Start 02/13/18 at 13:00; Stop 02/14/18 at 12:04 ; Status DC Gadobutrol (Gadavist) 6 mmol 1X ONCE IV ; Start 02/13/18 at 14:45; Stop at 14:46; Status DC Cyclobenzaprine HCl (Flexeril) 10 mg PRN Q8HRS PRN PO MUSCLE SPASMS Last administered on 02/19/18at 21:25; Start 02/13/18 at 20:15 Piperacillin Sod/ Tazobactam Sod 3.375 gm/Sodium Chloride 50 ml @ 100 mls/hr Q6HRS IV Last administered on 02/20/18at 05:24; Start 02/14/18 at 12:00; Stop at 09:58; Status DC Vancomycin HCl 0.75 gm/Sodium Chloride 250 ml @ 250 mls/hr Q12H IV Last administered on 02/19/18at 23:53; Start 02/15/18 at 01:00; Stop 02/20/18 at 09:55 ; Status DC Vancomycin HCl (Vancomycin Trough Level) 1 each 1X ONCE MC Last administered on 02/16/18at 00:30; Start 02/16/18 at 00:30; Stop 02/16/18 at 00:31; Status DC Potassium Chloride/Water 100 ml @ 100 mls/hr Q1H IV Last administered on at 19:53; Start 02/15/18 at 07:00; Stop 02/15/18 at 09:59; Status DC Lidocaine/Sodium Bicarbonate (Buffered Lidocaine 1%) 3 ml STK-MED ONCE .ROUTE ; Start 02/15/18 at 10:18; Stop 02/15/18 at 10:19; Status DC Midazolam HCl (Versed) 2 mg STK-MED ONCE .ROUTE ; Start 02/15/18 at 10:19; Stop 02/15/18 at 10:20; Status DC Fentanyl Citrate (Fentanyl 2ml Vial) 100 mcg STK-MED ONCE .ROUTE ; Start at 10:20; Stop 02/15/18 at 10:21; Status DC Lidocaine/Sodium Bicarbonate (Buffered Lidocaine 1%) 3 ml 1X ONCE IJ Last administered on 02/15/18at 10:45; Start 02/15/18 at 10:45; Stop 02/15/18 at 10:46 ; Status DC Midazolam HCl (Versed) 2 mg 1X ONCE IV Last administered on 02/15/18at 10:45; Start 02/15/18 at 10:45; Stop 02/15/18 at 10:46; Status DC Fentanyl Citrate (Fentanyl 2ml Vial) 100 mcg 1X ONCE IV Last administered on at 10:45; Start 02/15/18 at 10:45; Stop 02/15/18 at 10:46; Status DC Midazolam HCl (Versed) 2 mg STK-MED ONCE .ROUTE ; Start 02/15/18 at 11:05; Stop 02/15/18 at 11:06; Status DC Fentanyl Citrate (Fentanyl 2ml Vial) 100 mcg STK-MED ONCE .ROUTE ; Start at 11:05; Stop 02/15/18 at 11:06; Status DC Potassium Chloride (Klor-Con) 40 meq 1X ONCE PO Last administered on at 12:23; Start 02/15/18 at 12:00; Stop 02/15/18 at 12:01; Status DC Lactobacillus Rhamnosus (Culturelle) 1 cap BID PO Last administered on at 08:45; Start 02/18/18 at 21:00 Amoxicillin/ Clavulanate Potassium (Augmentin 875/ 125mg) 1 tab BID PO Last administered on 02/20/18at 11:47; Start 02/20/18 at 10:00 Active Scripts Active Cephalexin 500 Mg Tablet 1 Tab PO BID Cyclobenzaprine Hcl 10 Mg Tablet 1 Tab PO TID [place] 5-325 Tablet (Acetaminophen/Hydrocodone Bitart) 1 Each Tablet 1 Tab PO Q4- 6HRS Senna-Time S Tablet (Sennosides/Docusate Sodium) 1 Each Tablet 2 Tab PO QHS 7 Days Oxycodone-Acetaminophen 5-325 (Oxycodone Hcl/Acetaminophen) 1 Each Tablet 1 Tab PO PRN Q4HRS PRN Vitamin D2 (Ergocalciferol (Vitamin D2)) 50,000 Unit Capsule 50,000 Unit PO WEEKLY Colace (Docusate Sodium) 100 Mg Capsule 100 Mg PO BID 10 Days Vital Signs Vital Signs Date Time Temp Pulse Resp B/P (MAP) Pulse Ox O2 Delivery O2 Flow Rate FiO2 02/20/18 11:00 97.9 82 18 113/68 (83) 91 Room Air 97.9 Labs Laboratory Tests Test 02/20/18 05:28 Creatinine 0.8 mg/dL (0.6-1.0) Estimated GFR (Cockcroft-Gault) 70.1 Laboratory Tests Test 02/20/18 05:28 Creatinine 0.8 mg/dL (0.6-1.0) Estimated GFR (Cockcroft-Gault) 70.1 Allergies Allergies Coded Allergies Type Severity Reaction Last Updated Verified levofloxacin Allergy Intermediate 11/01/17 Yes Disposition/Orders: D/C to Home Patient Instructions d/c planning 40 min BRINDA HOWE MD Feb 20, 2018 14:25
--- NOTE | 2018-02-20 14:30 | DISCH ---
DISCHARGE INSTRUCTIONS Condition on Discharge Condition on Discharge: Guarded Activity After Discharge Activity Instructions for Disc: Activity as tolerated Bathing Instructions: Shower-keep dressing dry Lifting Instructions after Dis: No heavy lifting, No pulling or pushing Exercise Instruction after Dis: Walk 10 min, 3 x per day, Progress as tolerated Driving Instructions after Dis: Do not drive today Weight Bearing Status after Di: As tolerated Diet after Discharge Diet after Discharge: Regular Wound Incision Care Wound/Incision Care: Other, see below Contacting the DR. after DC Call your doctor for: If your condition worsens Treatment/Equipment after DC Adaptive Equipment Issued: None Comment: BRINDA Alfaro MD Feb 20, 2018 14:30
[2018-02-20] MEDS ORDERED: AMOX1TAB11 PO (14:33)
[2018-02-20] MEDS ORDERED: LACT1CAP19 PO (14:33)
[2018-02-20 15:00] VITALS: BP 132/78
--- NOTE | 2018-02-21 16:09 | PATHOLOGY ---
[facility] Accession Number: [id number] . 01 Material submitted: . PART A: RIGHT PELVIC BONE LESION PART B: PELVIC SOFT TISSUE MASS BIOPSY . 01 Clinician provided ICD-10: M79.9 . 01 Clinical history: . Pelvic soft tissue mass . 02 Diagnosis: A. Segment of bone, right pelvic bone lesion core biopsy: - Focal fibrosis, edema, and mild acute and chronic inflammation. . B. Segments of fibroadipose and skeletal muscle tissue, pelvic soft tissue needle biopsies: - Focal necrosis, edema, mild acute and chronic inflammation, and focal fibrinoid stromal degeneration with few atypical stromal fibroblasts. (JPM:alix; 02/21/2018) QMS/02/21/2018 . 02 Comment: Sections of the right pelvic bone lesion core biopsy show focal fibrosis, edema, and mild acute and chronic inflammation. There is no evidence of malignancy. . Sections of the pelvic soft tissue needle biopsies reveal segments of fibroadipose and skeletal muscle tissue. There is focal necrosis. The viable segments of the biopsies show edema, mild acute and chronic inflammation, and focal fibrinoid stromal degeneration with a few scattered atypical stromal fibroblasts consistent with radiation effect. There are also focal atrophic changes of skeletal muscle. There is no evidence of malignancy identified. (JPM:alix; 02/21/2018) . 02 Electronically signed: . Yonathan Cheng MD, Pathologist NPI- [id number] . 01 Gross description: . A. Received in formalin "Monica Rosenberg, right pelvic bone lesion is a arce bone core, 1.0 x 0.2 cm which is entirely submitted as A1 following decalcification. . B. Received in formalin labeled "Monica Rosenberg, pelvic soft tissue" are 2 translucent tissue cores each averaging 1.3 by less than 0.1 cm. The tissue is entirely submitted as B1. (MITRA; 02/15/2018) JBR/JBR . 02 Pathologist provided ICD-10: M89.8X8, M79.89 . 02 CPT . 575381, [id number], [id number] Specimen Comment: A courtesy copy of this report has been sent to Specimen Comment: [phone], , , . Specimen Comment: Report sent to , , Specimen Comment: and Performed at: 01 [facility] [address] [facility] [address] [facility] [address], [place] [id number] MD Ayan Haley MD Phone: [phone] Performed at: 02 [facility] [address] [place], [place] [id number] MD Yonathan Cheng MD Phone: [phone]
== END 2018-02-20 15:45 | disposition home or self-care (01) | DRG 853 ==
LOC: ER 13:42 → 5 NORTH 19:48
PROVIDERS: ADMIT Internal Medicine; ATTEND Internal Medicine
PROC: 0QB23ZX Excision of Right Pelvic Bone, Percutaneous Approach, Diagnostic (ICD-10-PCS; principal; 2018-02-15)
PROC: 0J9C3ZX Drainage of Pelvic Region Subcutaneous Tissue and Fascia, Percutaneous Approach, Diagnostic (ICD-10-PCS; 2018-02-15)
DX: A41.9 Sepsis, unspecified organism (principal); E43 Unspecified severe protein-calorie malnutrition; D62 Acute posthemorrhagic anemia; K62.5 Hemorrhage of anus and rectum; M86.9 Osteomyelitis, unspecified; C53.9 Malignant neoplasm of cervix uteri, unspecified; M19.90 Unspecified osteoarthritis, unspecified site; R79.89 Other specified abnormal findings of blood chemistry; D63.8 Anemia in other chronic diseases classified elsewhere; B95.7 Other staphylococcus as the cause of diseases classified elsewhere; I10 Essential (primary) hypertension; Z92.3 Personal history of irradiation; Z92.21 Personal history of antineoplastic chemotherapy; Z90.710 Acquired absence of both cervix and uterus; Z82.49 Family history of ischemic heart disease and other diseases of the circulatory system; Z88.8 Allergy status to other drugs, medicaments and biological substances; Z68.25 Body mass index [BMI] 25.0-25.9, adult; Z85.42 Personal history of malignant neoplasm of other parts of uterus; Z87.891 Personal history of nicotine dependence; Z98.51 Tubal ligation status; Z90.6 Acquired absence of other parts of urinary tract; Z93.6 Other artificial openings of urinary tract status; Z87.11 Personal history of peptic ulcer disease
CPT/HCPCS: 20225; 36415; 49406; 71260; 72197; 74177; 77012; 78306; 80048; 80053; 80202; 81001; 82274; 82565; 82607; 82728; 83540; 83550; 83605; 85007; 85014; 85018; 85025; 85045; 85610; 85730; 87040; 87045; 87071; 87075; 87086; 87102; 87116; 87186; 87205; 87328; 88305; 88307; 88311; 93005; 96365; 96374; 99152; 99153; A9503; C1729; C1894; J2250; J2270; J2543; J3010; J3370; J3480; J3490; J7030; J7050; Q9966; Q9967; 97110; 97116; 97530; 99285-25